=== PATIENT | female | born 1960 | race Two or more races ===

== ENCOUNTER 2020-02-28 06:32 | Outpatient (REF) | payer OTHER, SELFPAY | END 2020-02-28 06:33 | disposition home or self-care (01) | LOC: HO.LAB 06:32 | PROVIDERS: PCP Internal Medicine; Visit Provider Internal Medicine | DX: Z20.828 Contact with and (suspected) exposure to other viral communicable diseases (principal) | CPT/HCPCS: C9803; U0003 ==

== ENCOUNTER 2020-03-09 11:54 | Inpatient (IN) | payer OTHER, SELFPAY ==
[2020-03-09] VITALS (8 sets, daily range): BP systolic 128–153; BP diastolic 75–101; PULSE 57–109; RESP 18–28; TEMP 36.1–37.9; O2SAT 88–97; BMI 36.0; BMI 31.8
--- NOTE | 2020-03-09 12:16 | ECG_ITS ---
Test Reason : WEAKNESS Blood Pressure : / mmHG Vent. Rate : 089 BPM Atrial Rate : 089 BPM P-R Int : 148 ms QRS Dur : 090 ms QT Int : 360 ms P-R-T Axes : 038 -32 074 degrees QTc Int : 438 ms Normal sinus rhythm Left axis deviation Voltage criteria for left ventricular hypertrophy Nonspecific ST and T wave abnormality Abnormal ECG When compared to the previous EKG of 21 jan 2018, Nonspecific ST and T wave abnormality now noted Referred By: Zarina Joyce Electronically Signed By:TESS SARABIA
--- NOTE | 2020-03-09 12:16 | XR_ITS ---
EXAMINATION: XR CHEST CLINICAL INFORMATION: Positive COVID. COMPARISON: Portable chest 01/20/2018. TECHNIQUE: Portable AP upright view of the chest was obtained. FINDINGS: The heart is normal in size. The lungs are somewhat hypoexpanded. There are small focal areas of subsegmental opacity at both lung bases which most likely represent atelectasis but pneumonia is difficult to entirely exclude. The bony thorax is unremarkable. XR/XR chest 1V IMPRESSION: Mild bibasilar subsegmental opacities which may represent atelectasis. Pneumonia appears less likely but cannot be entirely excluded. Consider followup PA and lateral views if clinically indicated.
--- NOTE | 2020-03-09 12:19 | ED.URI ---
HPI - URI/Sore Throat General Chief Complaint: Weakness Stated Complaint: Covid + weakness Time Seen by Provider: 03/09/20 12:05 Source: patient Mode of arrival: ambulatory History of Present Illness HPI Narrative: 59-year-old female with a past medical history of Green's palsy, bipolar, hypertension, migraines, obstructive sleep apnea, seizures, diabetes, presenting to ED complaining of generalized fatigue/weakness, fever T-max 103?, dry cough, SOB, chest discomfort since Wednesday when she tested positive for COVID-19. Also reports decreased p.o. intake. Denies recent travel, sick contacts, LE edema, or OCPs MD elicited complaint: fever and cough Related Data Home Medications Medication Instructions Recorded Confirmed albuterol sulfate 90 mcg/actuation 2 puff INHALATION Q4-6H PRN 01/10/20 03/09/20 aerosol inhaler aspirin 81 mg tablet,delayed 81 mg PO DAILY 01/10/20 03/09/20 release insulin glargine [Basaglar KwikPen 54 unit SUBCUT DAILY 03/09/20 03/09/20 U-100 Insulin] insulin lispro [Admelog SoloStar 4 unit SUBCUT DIRECTED 03/09/20 03/09/20 U-100 Insulin] Previous Rx's Medication Instructions Recorded metformin 500 mg tablet 1,000 mg PO BID #120 tab 01/10/20 amlodipine 5 mg tablet 5 mg PO DAILY #30 tab 02/05/20 carvedilol 6.25 mg tablet 6.25 mg PO BID #60 tab 02/05/20 Allergies Allergy/AdvReac Type Severity Reaction Status Date / Time clonidine [CLONIDINE] Allergy Severe DIZZY,FAINT Verified 01/18/20 09:05 levetiracetam [LEVETIRACETAM] Allergy Severe DIFFICULTY Verified 01/09/20 09:26 BREATHING lisinopril [LISINOPRIL] Allergy Severe SWELLING, Verified 01/18/20 09:05 angioedema atenolol [ATENOLOL] Allergy Intermediate RASH Verified 01/09/20 09:26 dulaglutide [Trulicity] Allergy Unknown Unknown Verified 01/18/20 09:05 Review of Systems Review of Systems: Constitutional: No Weight loss, + Fever, No Chills, No Night Sweats, + Fatigue, + Malaise ENT/Mouth: No Nasal Congestion, No Sinus Pain, No Hoarseness, No sore throat Cardiovascular: + Chest Pain, + SOB, No Dyspnea on Exertion, No Orthopnea, No Edema, No Palpitations Respiratory: + Cough, No Sputum, No Wheezing Gastrointestinal: + Nausea, + Vomiting, No Diarrhea, No Constipation, No Abdominal pain Genitourinary: No irregular bleeding, No Dysuria, No Urinary Frequency, No Hematuria Musculoskeletal: No joint pain, No Myalgias, No Joint Swelling Skin: No Skin Lesions, No rash Neuro: + Weakness, No Numbness, No Paresthesias, No Headache Yes all other systems are reviewed and are negative [facility] Past Medical History Attestation statement: The following information was validated with the patient. Medical History (Updated 03/09/20 @ 13:53 by RADHA Suero) Green's palsy Bipolar disorder Cataracts, bilateral Hypertension Migraine Mild obstructive sleep apnea Obesity (BMI 30-39.9) Seizure disorder Type 2 diabetes mellitus with hyperglycemia Surgical History (Updated 01/09/20 @ 09:27 by JENNIFER Kohler) History of cholecystectomy History of cone biopsy of uterine cervix History of tubal ligation Family History Family History (Updated 01/09/20 @ 09:29 by JENNIFER Kohler) Father Diabetes FH: prostate cancer CVD (cardiovascular disease) Mother Diabetes Hypertension Stroke Sister Breast cancer Social History Social History Alcohol intake: never Smoking Status: Never smoker Use of substances other than those prescribed or required for medical reasons: No Advance Directives: No Advance Directives Information Provided: No Physical Exam Vital Signs: Vital Signs: Last Vital Signs Temp 100.3 F 03/09/20 14:38 Pulse 87 03/09/20 14:38 Resp 26 H 03/09/20 14:38 BP 138/81 03/09/20 14:38 Pulse Ox 95 03/09/20 14:38 Body Mass Index 36.0 Const: General: cooperative and lethargic Orientation/consciousness: patient oriented x3 and lethargic Limitations: no limitations HENMT: Head: Yes normal to inspection Ears: hearing grossly normal bilaterally General nose exam: Normal external nose present Face and sinus: Yes normal facial exam Eyes: General: appearance normal, both eyes and all related structures EOM: EOMs intact bilaterally Neck: Neck: Yes normal visual inspection Resp: Effort & Inspection: normal respiratory effort Auscultation: clear to auscultation bilaterally, no crackles, no rales, no rhonchi and no wheezes Cardio: Rate: regular rate Heart sounds: S1 normal heart sound present and S2 normal heart sound present GI: Inspection: Yes normal to inspection Palpation (GI): Soft to palpation, nontender, no guarding and not rigid Skin: Rashes: no rashes Wounds: no wounds Neuro: General: patient oriented x3 Gait exam (Neuro): Normal gait present Extrem: Other: No LE edema or calf tenderness General: Yes normal to inspection Course Course Course Narrative: -patient noted be sending a 70 ED on RA, 2L nasal cannula applied and satting 94-95% -WBC count 11.2, glucose noted to be 468, with mild anion gap of 21 > likely from dehydration/hyperglycemia > will give 5 units of IV insulin, as want to refrain from excessive IVF due to COVID-19 - ferritin, LDH, CRP, AST/ALT elevated -CXR showing mild bibasilar subsegmental opacities may represent atelectasis > IV azithromycin and dry CT chest ordered -1540-- Chest CT: Interstitial prominence with patchy bilateral airspace opacities, most prominent within the lower lobes. Findings could represent a multifocal pneumonia and may be due to an infectious or inflammatory process. Alternatively, findings can be seen in the setting of fluid overload, however, are thought less likely due to the lack of pleural effusion >IV Ceftriaxone added> plan for admission MDM - URI/Sore Throat MDM Narrative Medical decision making narrative: 59-year-old female with a past medical history of Green's palsy, bipolar, hypertension, migraines, obstructive sleep apnea, seizures, diabetes, presenting to ED complaining of generalized fatigue/weakness, fever T-max 103?, dry cough, SOB, chest discomfort since Wednesday when she tested positive for COVID-19. On exam hypertensive, tachycardic likely from low-grade temp 99.8?, appears tired/lethargic, nontoxic, lungs CTA, satting 97% on RA in no respiratory distress. Concern for COVID 19/viral pneumonia vs dehydration. Low concern for bacterial infection/sepsis. Lower concern for ACS/PE Plan: EKG, labs, UA, CXR, Tylenol, albuterol, reassess Lab Data Result diagrams: 03/09/20 12:24 03/09/20 12:24 Labs: Lab Results 03/09/20 03/09/20 03/09/20 Range/Units 12:24 12:24 12:24 WBC 11.2 H (4.8-10.8) X10*3/uL RBC 5.62 H (4.20-5.50) X10*6/uL Hgb 15.6 (12.0-16.0) g/dl Hct 47.4 H (37-47) % MCV 84.3 (80-98) fL MCH 27.8 (27.0-33.0) pg MCHC 32.9 (31.0-35.0) g/dl RDW 11.7 (11.0-16.0) % Plt Count 213 (160-400) X10*3/uL MPV 11.9 (9.4-12.3) fL Immature Gran % (Auto) 0.4 (0.0-0.4) % Neut % (Auto) 86.5 H (45-73) % Lymph % (Auto) 8.8 L (20-40) % [place] % (Auto) 4.1 (2-11) % Eos % (Auto) 0.0 (0-4) % Baso % (Auto) 0.2 (0-2) % Lymph # (Auto) 1.0 L (1.2-4.9) X10*3/uL [place] # (Auto) 0.5 (0.1-1.2) X10*3/uL Eos # (Auto) 0.0 (0.0-0.4) X10*3/uL Baso # (Auto) 0.0 (0.0-0.2) X10*3/uL Abs Immat Gran (auto) 0.05 H (0.00-0.03) X10*3/uL Absolute Neuts (auto) 9.7 H (2.0-8.3) X10*3/uL Absolute Nucleated RBC 0.000 (0.0-0.012) X10*3/uL Nucleated RBC % (auto) 0.0 (0.0-0.2) /100WBC Hold Blue Top SEE NOTE Sodium 138 (135-145) mmol/L Potassium 4.2 (3.3-5.1) mmol/l Chloride 98 (96-108) mmol/L Carbon Dioxide 23 (22-29) mmol/L Anion Gap 21 H (12-20) BUN 13 (9-16) mg/dL Creatinine 1.26 (0.5-1.4) mg/dL Estim Creat Clear Calc 53.8 Estimated GFR 43 Random Glucose 468 H* (60-115) mg/dL Calcium 8.3 L (8.4-10.2) mg/dL Magnesium 1.5 L (1.6-2.6) mg/dL Ferritin (10-250) ng/mL Total Bilirubin 0.9 (0.0-1.0) mg/dL Direct Bilirubin 0.5 (0.0-0.5) mg/dL AST 88 H (5-31) U/L ALT 41 H (0-31) U/L Alkaline Phosphatase 107 (39-117) U/L Lactate Dehydrogenase (122-220) U/L Troponin I High Sens (<3.5-17.0) ng/L C-Reactive Protein (< or = 0.50) mg/dL B-Natriuretic Peptide (<100) pg/mL Total Protein 7.6 (6.5-8.0) g/dL Albumin 4.0 (3.5-5.0) g/dL Procalcitonin ng/mL Acetone, Qual (Negative) 03/09/20 03/09/20 03/09/20 Range/Units 12:24 12:24 12:24 WBC (4.8-10.8) X10*3/uL RBC (4.20-5.50) X10*6/uL Hgb (12.0-16.0) g/dl Hct (37-47) % MCV (80-98) fL MCH (27.0-33.0) pg MCHC (31.0-35.0) g/dl RDW (11.0-16.0) % Plt Count (160-400) X10*3/uL MPV (9.4-12.3) fL Immature Gran % (Auto) (0.0-0.4) % Neut % (Auto) (45-73) % Lymph % (Auto) (20-40) % [place] % (Auto) (2-11) % Eos % (Auto) (0-4) % Baso % (Auto) (0-2) % Lymph # (Auto) (1.2-4.9) X10*3/uL [place] # (Auto) (0.1-1.2) X10*3/uL Eos # (Auto) (0.0-0.4) X10*3/uL Baso # (Auto) (0.0-0.2) X10*3/uL Abs Immat Gran (auto) (0.00-0.03) X10*3/uL Absolute Neuts (auto) (2.0-8.3) X10*3/uL Absolute Nucleated RBC (0.0-0.012) X10*3/uL Nucleated RBC % (auto) (0.0-0.2) /100WBC Hold Blue Top Sodium (135-145) mmol/L Potassium (3.3-5.1) mmol/l Chloride (96-108) mmol/L Carbon Dioxide (22-29) mmol/L Anion Gap (12-20) BUN (9-16) mg/dL Creatinine (0.5-1.4) mg/dL Estim Creat Clear Calc Estimated GFR Random Glucose (60-115) mg/dL Calcium (8.4-10.2) mg/dL Magnesium (1.6-2.6) mg/dL Ferritin 974 H (10-250) ng/mL Total Bilirubin (0.0-1.0) mg/dL Direct Bilirubin (0.0-0.5) mg/dL AST (5-31) U/L ALT (0-31) U/L Alkaline Phosphatase (39-117) U/L Lactate Dehydrogenase 370 H (122-220) U/L Troponin I High Sens 6.7 (<3.5-17.0) ng/L C-Reactive Protein 14.92 H (< or = 0.50) mg/dL B-Natriuretic Peptide 34 (<100) pg/mL Total Protein (6.5-8.0) g/dL Albumin (3.5-5.0) g/dL Procalcitonin 0.71 ng/mL Acetone, Qual Negative (Negative) Discharge Plan Discharge Clinical Impression: COVID-19 Patient Disposition: Admitted As Inpatient
[2020-03-09] MEDS: 0.9 % Sodium Chloride 500 ML 999 ML IVCONT (12:25)
[2020-03-09] MEDS: ondansetron HCL 4 MG/2 ML VIAL IVPUSH (12:27)
[2020-03-09 12:28] LABS: MANUAL DIFF FLAG NO
[2020-03-09] MEDS: Acetaminophen 325 MG TABLET PO (12:28)
[2020-03-09 12:30] LABS: Basophils Percent Auto 0.2 % (0-2); Hematocrit 47.4 % (37-47); Hemoglobin 15.6 g/dl (12.0-16.0); Imm Gran Abs Auto 0.05 X10*3/uL (0.00-0.03); Imm Gran Pct Auto 0.4 % (0.0-0.4); Lymphocytes Percent Auto 8.8 % (20-40); Mean Corpuscular HGB Conc 32.9 g/dl (31.0-35.0); Mean Corpuscular Hemoglobin 27.8 pg (27.0-33.0); Mean Corpuscular Volume 84.3 fL (80-98); Mean Platelet Volume 11.9 fL (9.4-12.3); Monocytes Absolute Auto 0.5 X10*3/uL (0.1-1.2); Monocytes Percent Auto 4.1 % (2-11); Neutrophils Absolute Auto 9.7 X10*3/uL (2.0-8.3); Neutrophils Percent Auto 86.5 % (45-73); Platelet Count 213 X10*3/uL (160-400); Red Blood Count 5.62 X10*6/uL (4.20-5.50); Red Cell Distribution Width 11.7 % (11.0-16.0); White Blood Count 11.2 X10*3/uL (4.8-10.8)
[2020-03-09] MEDS: Albuterol Sulfate 90 MCG 8 GM INHALER 4 PUFF INHALE (12:40)
[2020-03-09 12:52] LABS: C Reactive Protein 14.92 mg/dL (< or = 0.50); Lactate Dehydrogenase 370 U/L (122-220)
[2020-03-09 12:56] LABS: B Type Natriuretic Peptide 34 pg/mL (<100); Troponin-I High Sensitivity 6.7 ng/L (<3.5-17.0)
[2020-03-09 12:58] LABS: Alanine Aminotransferase 41 U/L (0-31); Alkaline Phosphatase 107 U/L (39-117); Anion Gap 21 (12-20); Aspartate Amino Transferase 88 U/L (5-31); Bilirubin Direct 0.5 mg/dL (0.0-0.5); Bilirubin Total 0.9 mg/dL (0.0-1.0); Blood Urea Nitrogen 13 mg/dL (9-16); Calcium 8.3 mg/dL (8.4-10.2); Carbon Dioxide 23 mmol/L (22-29); Chloride 98 mmol/L (96-108); Creatinine Clr Calc Pharmacy 53.8; Estimated Glomerular Filt Rate 43; Glucose Random 468 mg/dL (60-115); Magnesium 1.5 mg/dL (1.6-2.6); Potassium 4.2 mmol/l (3.3-5.1); Sodium 138 mmol/L (135-145); Total Protein 7.6 g/dL (6.5-8.0)
[2020-03-09 13:12] LABS: Procalcitonin 0.71 ng/mL
[2020-03-09 13:14] LABS: Ferritin 974 ng/mL (10-250)
--- NOTE | 2020-03-09 13:29 | PC.NURSE ---
PT S/F IN BED, RR EVEN UNLABORED, SKIN WPD, AOX3. UPON ARRIVAL PT'S SPO2 94-97% ON RA, AFTER PT USED PUMP INHALER PER EMAR PT NOTED TO HAVE SPO2 88% ON RA, SENSOR PROBE MOVED TO OTHER HAND, SAME READING, PT REPORTED FEELING THAT HER BREATHING WAS IMPROVED, PT PLACED ON 2L O2 NC, SPO2 INCREASED TO 95%, PROVIDER NOTIFIED OF CHANGE.
--- NOTE | 2020-03-09 13:40 | CT_ITS ---
EXAMINATION: CT CHEST WITHOUT CONTRAST CLINICAL INFORMATION: Evaluate for pneumonia. COMPARISON: Most recent chest radiograph done earlier the same day. CT chest dated 06/05/2007. TECHNIQUE: Multidetector volumetric CT imaging of the chest was done. Axial MIP volume rendering provided. Sagittal and coronal reformatted images were obtained. This CT examination was performed using dose optimization techniques as appropriate, variously including the following: *Automated exposure control *Adjustment of mA and/or kV according to patient size (this includes techniques or standardized protocols for targeted exams where dose is matched to indication/reason for exam; i.e. extremities or head) *Use of iterative reconstruction technique DLP: 275 mGy-cm FINDINGS: BEAUTICIAN APPRENTICE: Unremarkable. LUNGS: Interstitial prominence with patchy bilateral airspace opacities, most prominent within the lower lobes. Findings could represent an infectious or inflammatory process. No large, confluent airspace consolidation. No significant pulmonary nodule or mass; however, evaluation for small pulmonary nodules is limited due to respiratory motion. MEDIASTINUM: No cardiomegaly. No pericardial effusion. The thoracic aorta is unremarkable. No significant superior mediastinal or hilar lymphadenopathy. The thyroid is enlarged and heterogeneous. PLEURA: There is no pleural effusion. No pleural mass or thickening. CHEST WALL/AXILLA: No lymphadenopathy. UPPER ABDOMEN: Status post cholecystectomy. OSSEOUS STRUCTURES: Unremarkable. CT/CT chest wo con IMPRESSION: 1. Interstitial prominence with patchy bilateral airspace opacities, most prominent within the lower lobes. Findings could represent a multifocal pneumonia and may be due to an infectious or inflammatory process. Alternatively, findings can be seen in the setting of fluid overload, however, are thought less likely due to the lack of pleural effusion. No large, confluent airspace consolidation or associated cavitation. 2. Enlarged and heterogeneous thyroid. Dedicated thyroid ultrasound could help further evaluate.
[2020-03-09] MEDS: methylPREDNISolone Sod Succ/PF 125 MG/2 ML VIAL IVPUSH (14:01)
[2020-03-09] MEDS: Insulin Regular, Human 100 UNIT/ML 3 ML VIAL IVPUSH (14:01)
[2020-03-09 14:02] LABS: Acetone, serum QL Negative (Negative)
[2020-03-09] MEDS: Magnesium Sulfate/H2O 2 GM/50 ML PIGGYBACK IV (14:02)
[2020-03-09] MEDS: Azithromycin 500 MG in 0.9 % Sodium Chloride 250 ML 125 MG IV (14:03)
--- NOTE | 2020-03-09 14:42 | PC.NURSE ---
PT WAS SITTING UPRIGHT IN BED DRINKING A DIET GINGERALE WHEN SHE WENT INTO A BRIEF EPISODE OF SVT ON TELE MONITOR UPTO HR 170'S, PT DENIES PALPITATIONS OR SX DURING EPISODE, HR QUICKLY DROPPED BACK TO NSR IN 90'S, PRINT OUT MADE OF EPISODE AND GIVEN TO PROVIDER. PT AGAIN TRIALED ON ROOM AIR WHILE QUIETLY RESTING IN BED, SPO2 DROPPED TO 90%, PT PLACED BACK ON 2L O2 NC, SPO2 INCREASED BACK TO 95%.
[2020-03-09 16:00] LABS: Glucose, Whole Blood 382 mg/dL (60-115)
[2020-03-09 16:19] LABS: Troponin-I High Sensitivity 7.5 ng/L (<3.5-17.0)
--- NOTE | 2020-03-09 16:23 | PM.EVENT ---
Event Note Date of Service: 03/09/20 Event Note: the patient was seen and evaluated with RADHA Spence. I agree with her note, assessment and plan with the following. In summary, a 59 years old lady with PMH of type 2 diabetes, HTN and obesity who presents to the hospital complaining of 1 week history of worsening shortness of breath, coughing and lethargy associated with no COVID-19 infection diagnosed on February 27. She reports her symptoms were associated with nausea and vomiting with fever and chills. She denies any chest pain, palpitation, headache or loss of conscious. No urinary symptoms. Acute hypoxic respiratory failure Secondary to COVID-19 infection Start with dexamethasone 6 mg daily Cover with azithromycin for atypical pneumonia O2 supplement as needed, to wean as tolerated Not a candidate for remdesivir with 10 days of symptoms Rest of evaluations by PA note.
--- NOTE | 2020-03-09 16:30 | P.HPHOSP_ITS ---
History of Present Illness Date of Service: 03/09/20 Chief Complaint: shortness of breath This is a 59-year-old female who presents to the emergency department with shortness of breath. She tested positive for coronavirus on February 27. She has been having headache, weakness, nausea, diarrhea. Over the past few days she has reported increasing shortness of breath. She denies any significant coughing. Today she had a fever reportedly of 103 at home for which she took Tylenol. Due to her worsening shortness of breath she came to the emergency department for evaluation. Her oxygen saturation was 88% room air, it improved to the mid-90s on 2L NC. Her inflammatory markers were elevated LDH 370, CRP 14 .92, ferritin 974. Chest CT showed bilateral patchy opacities. For this reason a decision was made to admit her for further management. Review of Systems Review of Systems: Yes all other systems are reviewed and are negative Constitutional: Constitutional: Reports fever(s) and Reports headache(s) ENT: Reports headache(s) Cardiovascular: Cardiovascular: Reports dyspnea and Reports dyspnea on exertion Respiratory: Respiratory: Denies cough, Reports dyspnea and Reports dyspnea on exertion Gastrointestinal: Gastrointestinal: Reports diarrhea and Reports nausea Neurologic: Reports headache(s) [facility] Medical History (Updated 03/09/20 @ 16:36 by RADHA Leon) Asthma Green's palsy Bipolar disorder Cataracts, bilateral GERD (gastroesophageal reflux disease) Hypertension Migraine Mild obstructive sleep apnea Obesity (BMI 30-39.9) Seizure disorder Type 2 diabetes mellitus with hyperglycemia Family History Father Diabetes FH: prostate cancer CVD (cardiovascular disease) Mother Diabetes Hypertension Stroke Sister Breast cancer Surgical History History of cholecystectomy History of cone biopsy of uterine cervix History of tubal ligation Social History Alcohol intake: never Smoking Status: Never smoker Use of substances other than those prescribed or required for medical reasons: No Advance Directives: No Advance Directives Information Provided: No Meds Allergies Allergy/AdvReac Type Severity Reaction Status Date / Time clonidine [CLONIDINE] Allergy Severe DIZZY,FAINT Verified 01/18/20 09:05 levetiracetam [LEVETIRACETAM] Allergy Severe DIFFICULTY Verified 01/09/20 09:26 BREATHING lisinopril [LISINOPRIL] Allergy Severe SWELLING, Verified 01/18/20 09:05 angioedema atenolol [ATENOLOL] Allergy Intermediate RASH Verified 01/09/20 09:26 dulaglutide [Trulicity] Allergy Unknown Unknown Verified 01/18/20 09:05 Home Medications Medication Instructions Recorded Confirmed Type albuterol sulfate 90 mcg/actuation 2 puff INHALATION Q4-6H PRN 01/10/20 03/09/20 History aerosol inhaler aspirin 81 mg tablet,delayed 81 mg PO DAILY 01/10/20 03/09/20 History release insulin glargine [Basaglar KwikPen 54 unit SUBCUT DAILY 03/09/20 03/09/20 History U-100 Insulin] insulin lispro [Admelog SoloStar 4 unit SUBCUT DIRECTED 03/09/20 03/09/20 History U-100 Insulin] Physical Exam Vital Signs and Narrative: Vital Signs: Last Vital Signs Temp 100.3 F 03/09/20 14:38 Pulse 87 03/09/20 14:38 Resp 26 H 03/09/20 14:38 BP 138/81 03/09/20 14:38 Pulse Ox 95 03/09/20 14:38 Body Mass Index 36.0 Const: Nutritional Appearance: well nourished Orientation/consciousness: patient oriented x3 HENMT: Head: Yes normocephalic and Yes atraumatic Eyes: Sclerae: sclerae normal Chest: Chest palpation & inspection: normal inspection of the chest Resp: Effort & Inspection: normal respiratory effort, able to speak in complete sentences and no respiratory distress Cardio: Rate: regular rate Rhythm: regular rhythm GI: Palpation (GI): Soft to palpation and nontender Skin: General skin exam: no rashes or lesions noted Neuro: General: patient oriented x3 Cranial nerves: Yes CN's II-XII intact bilaterally and Yes Bilaterally intact EOM present Extrem: General: Yes normal to inspection Results Labs CBC and Chem 7: 03/09/20 12:24 03/09/20 12:24 Labs: Laboratory Results - last 24 hr 03/09/20 03/09/20 03/09/20 12:24 12:24 12:24 MCV 84.3 MCH 27.8 MCHC 32.9 RDW 11.7 Plt Count 213 MPV 11.9 Immature Gran % (Auto) 0.4 Neut % (Auto) 86.5 H Lymph % (Auto) 8.8 L [place] % (Auto) 4.1 Eos % (Auto) 0.0 Baso % (Auto) 0.2 Lymph # (Auto) 1.0 L [place] # (Auto) 0.5 Eos # (Auto) 0.0 Baso # (Auto) 0.0 Abs Immat Gran (auto) 0.05 H Absolute Neuts (auto) 9.7 H Absolute Nucleated RBC 0.000 Nucleated RBC % (auto) 0.0 Hold Blue Top SEE NOTE Anion Gap 21 H Estim Creat Clear Calc 53.8 Estimated GFR 43 POC Glucose Random Glucose 468 H* Calcium 8.3 L Magnesium 1.5 L Ferritin Total Bilirubin 0.9 Direct Bilirubin 0.5 AST 88 H ALT 41 H Alkaline Phosphatase 107 Lactate Dehydrogenase Troponin I High Sens C-Reactive Protein B-Natriuretic Peptide Total Protein 7.6 Albumin 4.0 Procalcitonin Acetone, Qual 03/09/20 03/09/20 03/09/20 12:24 12:24 12:24 MCV MCH MCHC RDW Plt Count MPV Immature Gran % (Auto) Neut % (Auto) Lymph % (Auto) [place] % (Auto) Eos % (Auto) Baso % (Auto) Lymph # (Auto) [place] # (Auto) Eos # (Auto) Baso # (Auto) Abs Immat Gran (auto) Absolute Neuts (auto) Absolute Nucleated RBC Nucleated RBC % (auto) Hold Blue Top Anion Gap Estim Creat Clear Calc Estimated GFR POC Glucose Random Glucose Calcium Magnesium Ferritin 974 H Total Bilirubin Direct Bilirubin AST ALT Alkaline Phosphatase Lactate Dehydrogenase 370 H Troponin I High Sens 6.7 C-Reactive Protein 14.92 H B-Natriuretic Peptide 34 Total Protein Albumin Procalcitonin 0.71 Acetone, Qual Negative 03/09/20 03/09/20 15:43 15:52 MCV MCH MCHC RDW Plt Count MPV Immature Gran % (Auto) Neut % (Auto) Lymph % (Auto) [place] % (Auto) Eos % (Auto) Baso % (Auto) Lymph # (Auto) [place] # (Auto) Eos # (Auto) Baso # (Auto) Abs Immat Gran (auto) Absolute Neuts (auto) Absolute Nucleated RBC Nucleated RBC % (auto) Hold Blue Top Anion Gap Estim Creat Clear Calc Estimated GFR POC Glucose 382 H* Random Glucose Calcium Magnesium Ferritin Total Bilirubin Direct Bilirubin AST ALT Alkaline Phosphatase Lactate Dehydrogenase Troponin I High Sens 7.5 C-Reactive Protein B-Natriuretic Peptide Total Protein Albumin Procalcitonin Acetone, Qual Imaging Radiologist's Impressions: Impressions Chest X-Ray 03/09/20 12:16 IMPRESSION: Mild bibasilar subsegmental opacities which may represent atelectasis. Pneumonia appears less likely but cannot be entirely excluded. Consider followup PA and lateral views if clinically indicated. Chest CT 03/09/20 13:40 IMPRESSION: 1. Interstitial prominence with patchy bilateral airspace opacities, most prominent within the lower lobes. Findings could represent a multifocal pneumonia and may be due to an infectious or inflammatory process. Alternatively, findings can be seen in the setting of fluid overload, however, are thought less likely due to the lack of pleural effusion. No large, confluent airspace consolidation or associated cavitation. 2. Enlarged and heterogeneous thyroid. Dedicated thyroid ultrasound could help further evaluate. Assessment and Plan (1) Pneumonia due to COVID-19 virus: Status: Acute (2) Acute respiratory failure with hypoxia: Status: Acute This is a 59-year-old female with a history of diabetes, hypertension who recently tested positive for coronavirus who presents to the emergency department worsening shortness of breath Acute respiratory failure with hypoxia Viral sepsis COVID-19 pneumonia -IV Decadron -supplemental oxygen as needed -IV azithromycin to cover for possible atypical component of pneumonia Diabetes -continue home insulin -SSI, POC -hold metformin Hypo magnesemia Replaced in the ED -repeat in a.m. Hypertension -continue Norvasc, carvedilol DVT prophylaxis-Lovenox Code status-full code This case was discussed with Dr. Em
[2020-03-09] MEDS: Ketorolac Tromethamine 15 MG/ML VIAL IVPUSH (17:09)
[2020-03-09] MEDS: cefTRIAXone sodium 1 GM in 0.9 % Sodium Chloride 50 ML IV (17:12)
[2020-03-09 19:08] LABS: Glucose, Whole Blood 542 mg/dL (60-115)
[2020-03-09 19:08] LABS: Glucose, Whole Blood 555 mg/dL (60-115)
[2020-03-09] MEDS: Insulin Lispro 100 UNIT/ML 3 ML VIAL SUBCUT ×3 (19:10→23:04)
[2020-03-09] MEDS: Enoxaparin Sodium 40 MG/0.4 ML SYRINGE SUBCUT (19:28)
--- NOTE | 2020-03-09 19:31 | PC.NURSE ---
pt has blood glucose of 555 on arrival from ER. Notified PA,await new orders. Pt awake, oriented, denies any pain. Will continue to monitor
[2020-03-09 20:53] LABS: Glucose, Whole Blood 513 mg/dL (60-115)
[2020-03-09] MEDS: Insulin Lispro 100 UNIT/ML 3 ML VIAL 10 UNIT SUBCUT (21:52)
[2020-03-09] MEDS: carvediloL 6.25 MG TABLET PO (21:52)
[2020-03-09 23:04] LABS: Glucose, Whole Blood 489 mg/dL (60-115)
--- NOTE | 2020-03-09 23:06 | PC.NURSE ---
pt had repeat blood glucose of 513, was treated with additional dose of insulin. Repeat blood glucose at this time 486, she has been given an additional 10 units. aware of high blood sugars. Will continue to monitor.
[2020-03-09] MEDS: 0.9 % Sodium Chloride Flush 3 ML SYRINGE IVFLUSH (23:55)
[2020-03-10] VITALS (8 sets, daily range): BP systolic 104–156; BP diastolic 72–90; PULSE 53–78; RESP 16–19; TEMP 36.3–36.7; O2SAT 90–93
--- NOTE | 2020-03-10 00:20 | MHC.PIE ---
P.POC 521 I.DR VARELA NOTIFIED.ORDER FOR 5 UNITS REG INSULIN IV GIVEN.ALSO NOTIFIED MD THAT PREVIOUS GAP WAS 21.ORDER FOR STAT BMP GIVEN. E.PT UPDATED,MED GIVEN.LABS DRAWN.
[2020-03-10 00:26] LABS: Glucose, Whole Blood 521 mg/dL (60-115)
[2020-03-10] MEDS: Insulin Regular, Human 100 UNIT/ML 3 ML VIAL IVPUSH ×2 (01:08→02:39)
--- NOTE | 2020-03-10 02:00 | MHC.PIE ---
P.LAB GLUCOSE 494,GAP 17,POC CHECK 425 I.DR VARELA UPDATED.ORDER FOR 5 UNITS REG INSULIN IV GIVEN AND RECHECK POC E.CONT TO MONITOR
[2020-03-10 02:01] LABS: Anion Gap 17 (12-20); Blood Urea Nitrogen 19 mg/dL (9-16); Carbon Dioxide 19 mmol/L (22-29); Chloride 106 mmol/L (96-108); Creatinine Clr Calc Pharmacy 64.8; Estimated Glomerular Filt Rate 58; Glucose Random 494 mg/dL (60-115); Potassium 4.1 mmol/l (3.3-5.1); Sodium 138 mmol/L (135-145)
[2020-03-10 02:06] LABS: Glucose, Whole Blood 425 mg/dL (60-115)
--- NOTE | 2020-03-10 03:50 | MHC.PIE ---
P.POC 385 I.DR VARELA UPDATED.ORDER FOR LISPRO 10 UNITS SC X 1 GIVEN. STATES BLOOD SUGAR SHOULD BE OK TILL AM. E.PT UPDATED,MED GIVEN
[2020-03-10 03:53] LABS: Glucose, Whole Blood 385 mg/dL (60-115)
[2020-03-10] MEDS: Insulin Lispro 100 UNIT/ML 3 ML VIAL 10 UNIT SUBCUT ×2 (04:18→22:35)
[2020-03-10 07:35] LABS: MANUAL DIFF FLAG NO
[2020-03-10 07:38] LABS: Basophils Percent Auto 0.1 % (0-2); Hematocrit 43.6 % (37-47); Hemoglobin 14.4 g/dl (12.0-16.0); Imm Gran Abs Auto 0.12 X10*3/uL (0.00-0.03); Imm Gran Pct Auto 0.9 % (0.0-0.4); Lymphocytes Absolute Auto 1.4 X10*3/uL (1.2-4.9); Lymphocytes Percent Auto 10.7 % (20-40); Mean Corpuscular Hemoglobin 27.9 pg (27.0-33.0); Mean Corpuscular Volume 84.3 fL (80-98); Mean Platelet Volume 11.7 fL (9.4-12.3); Monocytes Absolute Auto 0.4 X10*3/uL (0.1-1.2); Monocytes Percent Auto 3.2 % (2-11); Neutrophils Absolute Auto 11.1 X10*3/uL (2.0-8.3); Neutrophils Percent Auto 85.1 % (45-73); Platelet Count 203 X10*3/uL (160-400); Red Blood Count 5.17 X10*6/uL (4.20-5.50); Red Cell Distribution Width 11.8 % (11.0-16.0)
[2020-03-10 07:41] LABS: Glucose, Whole Blood 382 mg/dL (60-115)
[2020-03-10 08:18] LABS: Anion Gap 16 (12-20); Blood Urea Nitrogen 22 mg/dL (9-16); Calcium 8.2 mg/dL (8.4-10.2); Carbon Dioxide 25 mmol/L (22-29); Chloride 103 mmol/L (96-108); Creatinine Clr Calc Pharmacy 61.6; Estimated Glomerular Filt Rate 55; Magnesium 2.3 mg/dL (1.6-2.6); Potassium 4.4 mmol/l (3.3-5.1); Sodium 140 mmol/L (135-145)
[2020-03-10] MEDS: dexAMETHasone sod phosphate 4 MG/ML VIAL 6 MG IVPUSH (08:33)
[2020-03-10] MEDS: Insulin Glargine,Hum.rec.anlog 100 UNIT/ML 10 ML VIAL 54 UNIT SUBCUT (08:34)
[2020-03-10] MEDS: 0.9 % Sodium Chloride Flush 3 ML SYRINGE IVFLUSH ×2 (08:34→23:39)
[2020-03-10] MEDS: Insulin Lispro 100 UNIT/ML 3 ML VIAL SUBCUT ×5 (08:34→21:38)
[2020-03-10] MEDS: Aspirin Enteric Coated 81 MG TABLET.DR PO (08:35)
[2020-03-10] MEDS: carvediloL 6.25 MG TABLET PO ×2 (08:35→21:36)
[2020-03-10] MEDS: amLODIPine Besylate 5 MG TABLET PO (08:35)
[2020-03-10 08:44] LABS: Glucose Random 410 mg/dL (60-115)
[2020-03-10] MEDS: Acetaminophen 325 MG TABLET 650 MG PO (09:54)
--- NOTE | 2020-03-10 10:02 | MHC.CM.PN ---
Patient is Covid (+); CM spoke with /Jarvis Simon @ [phone]. Patient lives in a house with her and 19 year old Son and she was functionally independent [employer]NA[employer], requiring no DME. The goal for dc is home no services vs new VNA, pending Patient's progress/hospitalization course. CM has initiated and will follow for dc planning. PCP is Dr.Lorenver Daigle.
[2020-03-10 11:40] LABS: Glucose, Whole Blood 479 mg/dL (60-115)
[2020-03-10] MEDS: Insulin Lispro 100 UNIT/ML 3 ML VIAL 8 UNIT SUBCUT (11:54)
[2020-03-10] MEDS: Insulin Glargine,Hum.rec.anlog 100 UNIT/ML 10 ML VIAL 15 UNIT SUBCUT ×2 (11:55→21:37)
[2020-03-10] MEDS: Azithromycin 500 MG in 0.9 % Sodium Chloride 250 ML 125 MG IV (13:18)
--- NOTE | 2020-03-10 14:15 | P.PNIM_ITS ---
Subjective Subjective Date of Service: 03/10/20 Interval History: the patient was seen and evaluated this morning Laying in bed, feels comfortable On room air this morning Denies any fever, chills or shortness of breath significantly elevated blood sugar levels No reported other overnight events. Systemic review: No fever, chills or weakness No chest pain, palpitation Mild shortness of breath with exertion and reporting coughing No abdominal pain, nausea or vomiting No urinary symptoms No any rash or wounds Physical Exam Vital Signs: Vital Signs: Last Vital Signs Temp 97.6 F 03/10/20 11:34 Pulse 78 03/10/20 11:34 Resp 18 03/10/20 11:34 BP 104/72 03/10/20 11:34 Pulse Ox 91 L 03/10/20 11:34 Body Mass Index 31.8 Constitutional : Alert, oriented, not in distress Neck : Normal inspection, Supple Cardiovascular : RRR, S1 S2, no lower extremity edema Respiratory : decreased bilateral air entry, not in respiratory distress Gastrointestinal: soft, lax, Normal bowel sounds, Non tender Skin : Warm/Dry, No rash Neurological : Alert & oriented x3, No focal deficit Objective Data Current Medications Generic Name Dose Route Start Last Admin Trade Name Freq PRN Reason Stop Dose Admin Acetaminophen 650 mg 03/09/20 18:12 03/10/20 09:54 Acetaminophen 325 Mg Tablet PO 650 mg Q6H PRN Administration Pain, Mild (Pain Scale 1-3) Albuterol Sulfate 2 puff 03/09/20 18:12 Albuterol Sulfate 90 Mcg 8 Gm Inhaler INHALE Q4H PRN Dyspnea Amlodipine Besylate 5 mg 03/10/20 09:00 03/10/20 08:35 Amlodipine Besylate 5 Mg Tablet PO 5 mg DAILY [facility] Administration Protocol Aspirin 81 mg 03/10/20 09:00 03/10/20 08:35 Aspirin Enteric Coated 81 Mg Tablet.Dr PO 81 mg DAILY [facility] Administration Carvedilol 6.25 mg 03/09/20 21:00 03/10/20 08:35 Carvedilol 6.25 Mg Tablet PO 6.25 mg BID S[facility] Administration Protocol Dexamethasone Sodium Phosphate 6 mg 03/10/20 09:00 03/10/20 08:33 Dexamethasone Sod Phosphate 4 Mg/Ml Vial IVPUSH 6 mg DAILY [facility] Administration Docusate Sodium 100 mg 12/12/20 18:12 Docusate Sodium 100 Mg Capsule PO DAILY PRN Constipation Enoxaparin Sodium 40 mg 03/09/20 19:00 03/09/20 19:28 Enoxaparin Sodium 40 Mg/0.4 Ml Syringe SUBCUT 40 mg Q24H [facility] Administration Azithromycin 500 mg/ Sodium 250 mls @ 125 mls/hr 03/10/20 14:00 03/10/20 13:18 Chloride IV 125 mls/hr Q24H [facility] Administration Insulin Glargine 65 unit 03/11/20 09:00 Insulin Glargine,Hum.Rec.Anlog 100 Unit/Ml 10 Ml Vial SUBCUT DAILY REPLACED BY [facility] Insulin Human Lispro 0 unit 03/09/20 18:12 03/10/20 11:55 Insulin Lispro 100 Unit/Ml 3 Ml Vial SUBCUT 10 unit QIDACHS REPLACED BY [facility] Administration Protocol Ondansetron HCl 4 mg 03/09/20 18:12 Ondansetron Hcl 4 Mg/2 Ml Vial IVPUSH Q8H PRN Nausea and Vomiting Sodium Chloride 3 ml 03/10/20 00:00 03/10/20 08:34 0.9 % Sodium Chloride Flush 3 Ml Syringe IVFLUSH 3 ml QSHIFT REPLACED BY [facility] Administration Labs CBC & Chem 7: 03/10/20 06:32 03/10/20 06:32 Assessment and Plan (1) Pneumonia due to COVID-19 virus: Status: Acute (2) Acute respiratory failure with hypoxia: Status: Acute (3) Type 2 diabetes mellitus with hyperglycemia: Status: Acute (4) Hypertension: Status: Acute (5) Obesity (BMI 30-39.9): Status: Acute Assessment and Plan: This is a 59-year-old female with a history of diabetes, hypertension who recently tested positive for coronavirus who presents to the emergency department worsening shortness of breath Acute respiratory failure with hypoxia COVID-19 pneumonia continue IV Decadron Supplemental oxygen as needed, to wean down as tolerated continue IV azithromycin to cover for possible atypical pneumonia hyperglycemia secondary to diabetes type 2 Blood sugar in 400-500 Secondary to usage of steroids to give extra dose of Lantus and Humalog Increase Lantus to 65 units continue SSI next Lyme diabetic diet Hypo magnesemia corrected after replacement Hypertension continue Norvasc, carvedilol DVT prophylaxis Lovenox
[2020-03-10 16:57] LABS: Glucose, Whole Blood 413 mg/dL (60-115)
--- NOTE | 2020-03-10 18:23 | PC.NURSE ---
PT ON ROOM AIR MAJORITY OF DAY. C/O HEADACHE PAIN AND FEELING GENERAL WEAKNESS. 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 REPEAT MAGNESIUM UP TO 2.3. ELEVATED BLOOD GLUCOSE POC 382,[id number] AND THEN 413 BEFORE DINNER. HOSPITALIST AWARE. ORDERS RECEIVED FOR ADDITIONAL HUMALOG AND LANTUS. PT DENIES OTHER C/O
[2020-03-10] MEDS: Enoxaparin Sodium 40 MG/0.4 ML SYRINGE SUBCUT (19:53)
[2020-03-10 21:19] LABS: Glucose, Whole Blood 393 mg/dL (60-115)
[2020-03-10 22:19] LABS: Glucose, Whole Blood 425 mg/dL (60-115)
[2020-03-10 22:28] LABS: Glucose Urine UA >=1000 MG/DL (NEG); Leukocyte Esterase Urine NEG (NEG); Nitrite Urine NEG (NEG); Urine Blood NEG (NEG); Urine Ketones NEG (NEG); Urine Protein TRACE MG/DL (NEG-TRACE)
[2020-03-10 22:38] LABS: Appearance Urine CLEAR; Color Urine YELLOW
[2020-03-10 22:50] LABS: RBC Urine 0 /HPF (0)
[2020-03-11] VITALS (8 sets, daily range): BP systolic 127–185; BP diastolic 75–95; PULSE 58–63; RESP 18–19; TEMP 36.1–36.6; O2SAT 92–95; BMI 31.8
[2020-03-11] MEDS: Insulin Lispro 100 UNIT/ML 3 ML VIAL 10 UNIT SUBCUT ×2 (00:45→22:31)
[2020-03-11 00:54] LABS: Glucose, Whole Blood 317 mg/dL (60-115)
[2020-03-11 01:20] LABS: Glucose, Whole Blood 278 mg/dL (60-115)
[2020-03-11] MEDS: Insulin Lispro 100 UNIT/ML 3 ML VIAL SUBCUT ×6 (01:48→21:02)
[2020-03-11 03:25] LABS: Glucose, Whole Blood 216 mg/dL (60-115)
[2020-03-11 05:05] LABS: Glucose, Whole Blood 188 mg/dL (60-115)
[2020-03-11] MEDS: Docusate Sodium 100 MG CAPSULE PO ×2 (05:27→21:41)
--- NOTE | 2020-03-11 06:44 | MHC.PIE ---
p - elevated blood sugar poc's throughout 12 hr shift with communication via [email or web address] to Dr. Rosenthal as follows: i - poc at approx 9pm 393, given scheduled 15 units lantus sc & 10 units lispro sc given with additional 10 units lispro sc one time as ordered. 2215 poc higher 428 with additional 10 units lispro given one time sc per dr. lucas orders.. 0045 poc elev 317 , another 10 units sc given @ [address] lucas order. 0115 poc 278, humalong/lispro 5 units sc given per dr. Germain @ 0145 with repeat poc 216 afterwards, no insulin for now, check poc @ 0500- done - poc 188, with 2 units lispro sc given @ 0527 one time. e - evaluate for adjustment of sliding scale as pt required one-time orders for insulin for elevated poc's
[2020-03-11 06:51] LABS: Anion Gap 12 (12-20); Blood Urea Nitrogen 21 mg/dL (9-16); Calcium 8.3 mg/dL (8.4-10.2); Carbon Dioxide 26 mmol/L (22-29); Chloride 105 mmol/L (96-108); Creatinine Clr Calc Pharmacy 88.1; Estimated Glomerular Filt Rate > 60; Glucose Random 173 mg/dL (60-115); Sodium 139 mmol/L (135-145)
[2020-03-11 07:49] LABS: Glucose, Whole Blood 191 mg/dL (60-115)
[2020-03-11] MEDS: Insulin Glargine,Hum.rec.anlog 100 UNIT/ML 10 ML VIAL 65 UNIT SUBCUT (08:22)
[2020-03-11] MEDS: amLODIPine Besylate 5 MG TABLET PO (08:22)
[2020-03-11] MEDS: Aspirin Enteric Coated 81 MG TABLET.DR PO (08:23)
[2020-03-11] MEDS: 0.9 % Sodium Chloride Flush 3 ML SYRINGE IVFLUSH ×3 (08:23→23:00)
[2020-03-11] MEDS: carvediloL 6.25 MG TABLET PO ×2 (08:23→20:35)
[2020-03-11] MEDS: dexAMETHasone sod phosphate 4 MG/ML VIAL 6 MG IVPUSH (10:21)
[2020-03-11 11:31] LABS: Glucose, Whole Blood 410 mg/dL (60-115)
--- NOTE | 2020-03-11 12:27 | MHC.CM.PN ---
Female 59 DX Covid+ DP home no services vs New [facility]. Patients will provide transportation @ DC. Patient may DC tomorrow. Weaning of Oxygen is in progress. CM will follow.
[2020-03-11] MEDS: Insulin Lispro 100 UNIT/ML 3 ML VIAL 8 UNIT SUBCUT (12:38)
[2020-03-11] MEDS: Insulin Glargine,Hum.rec.anlog 100 UNIT/ML 10 ML VIAL 10 UNIT SUBCUT (12:38)
--- NOTE | 2020-03-11 14:30 | P.PNIM_ITS ---
Subjective Subjective Date of Service: 03/11/20 Interval History: the patient was seen and evaluated this morning Laying in bed, feels comfortable Denies any fever, chills Reports shortness of breath has been improving, took of her oxygen last night No reported other overnight events. Systemic review: No fever, chills or weakness No chest pain, palpitation Mild dyspnea on exertion and shortness of breath or coughing No abdominal pain, nausea or vomiting No urinary symptoms No any rash or wounds Physical Exam Vital Signs: Vital Signs: Last Vital Signs Temp 97.9 F 03/11/20 11:47 Pulse 63 03/11/20 11:47 Resp 18 03/11/20 11:47 BP 127/86 03/11/20 11:47 Pulse Ox 93 03/11/20 11:47 Body Mass Index 31.8 Constitutional : Alert, oriented, not in distress Neck : Normal inspection, Supple Cardiovascular : RRR, S1 S2, no lower extremity edema Respiratory : decreased bilateral air entry, not in respiratory distress, chest wall moving bilaterally, not in respiratory distress Gastrointestinal: soft, lax, Normal bowel sounds, Non tender Skin : Warm/Dry, No rash Neurological : Alert & oriented x3, No focal deficit Objective Data Current Medications Generic Name Dose Route Start Last Admin Trade Name Freq PRN Reason Stop Dose Admin Acetaminophen 650 mg 03/09/20 18:12 03/10/20 09:54 Acetaminophen 325 Mg Tablet PO 650 mg Q6H PRN Administration Pain, Mild (Pain Scale 1-3) Albuterol Sulfate 2 puff 03/09/20 18:12 Albuterol Sulfate 90 Mcg 8 Gm Inhaler INHALE Q4H PRN Dyspnea Amlodipine Besylate 5 mg 03/10/20 09:00 03/11/20 08:22 Amlodipine Besylate 5 Mg Tablet PO 5 mg DAILY [facility] Administration Protocol Aspirin 81 mg 03/10/20 09:00 03/11/20 08:23 Aspirin Enteric Coated 81 Mg Tablet.Dr PO 81 mg DAILY [facility] Administration Carvedilol 6.25 mg 03/09/20 21:00 03/11/20 08:23 Carvedilol 6.25 Mg Tablet PO 6.25 mg BID [facility] Administration Protocol Dexamethasone Sodium Phosphate 6 mg 03/10/20 09:00 03/11/20 10:21 Dexamethasone Sod Phosphate 4 Mg/Ml Vial IVPUSH 6 mg DAILY [facility] Administration Docusate Sodium 100 mg 03/09/20 18:12 03/11/20 05:27 Docusate Sodium 100 Mg Capsule PO 100 mg DAILY PRN Administration Constipation Enoxaparin Sodium 40 mg 03/09/20 19:00 03/10/20 19:53 Enoxaparin Sodium 40 Mg/0.4 Ml Syringe SUBCUT 40 mg Q24H [facility] Administration Azithromycin 500 mg/ Sodium 250 mls @ 125 mls/hr 03/10/20 14:00 03/10/20 15:53 Chloride IV Infused Q24H [facility] Infusion Insulin Glargine 70 unit 03/12/20 09:00 Insulin Glargine,Hum.Rec.Anlog 100 Unit/Ml 10 Ml Vial SUBCUT DAILY [facility] Insulin Glargine 20 unit 03/11/20 21:00 Insulin Glargine,Hum.Rec.Anlog 100 Unit/Ml 10 Ml Vial SUBCUT BEDTIME [facility] Insulin Human Lispro 0 unit 03/09/20 18:12 03/11/20 12:38 Insulin Lispro 100 Unit/Ml 3 Ml Vial SUBCUT 10 unit QIDACHS [facility] Administration Protocol Ondansetron HCl 4 mg 03/09/20 18:12 Ondansetron Hcl 4 Mg/2 Ml Vial IVPUSH Q8H PRN Nausea and Vomiting Sodium Chloride 3 ml 03/10/20 00:00 03/11/20 08:23 0.9 % Sodium Chloride Flush 3 Ml Syringe IVFLUSH 3 ml QSHIFT [facility] Administration Labs CBC & Chem 7: 03/10/20 06:32 03/11/20 05:40 Assessment and Plan (1) Pneumonia due to COVID-19 virus: Status: Acute (2) Acute respiratory failure with hypoxia: Status: Acute (3) Type 2 diabetes mellitus with hyperglycemia: Status: Acute (4) Hypertension: Status: Acute (5) Obesity (BMI 30-39.9): Status: Acute Assessment and Plan: This is a 59-year-old female with a history of diabetes, hypertension who recently tested positive for coronavirus who presents to the emergency department worsening shortness of breath Acute respiratory failure with hypoxia COVID-19 pneumonia Improving Supplemental oxygen as needed, on room air this morning continue IV Decadron continue IV azithromycin to cover for possible atypical pneumonia hyperglycemia secondary to diabetes type 2 Blood sugar elevated this morning 400 Secondary to usage of steroids to give extra dose of Lantus and Humalog Increase Lantus to 70 units in the morning and 20 at bedtime continue SSI diabetic diet Hypo magnesemia corrected after replacement Hypertension continue Norvasc, carvedilol DVT prophylaxis Lovenox
[2020-03-11 16:17] LABS: Glucose, Whole Blood 383 mg/dL (60-115)
[2020-03-11] MEDS: Azithromycin 500 MG in 0.9 % Sodium Chloride 250 ML 125 MG IV (16:40)
[2020-03-11] MEDS: Enoxaparin Sodium 40 MG/0.4 ML SYRINGE SUBCUT (20:34)
[2020-03-11] MEDS: Insulin Glargine,Hum.rec.anlog 100 UNIT/ML 10 ML VIAL 20 UNIT SUBCUT (20:36)
[2020-03-11 20:57] LABS: Glucose, Whole Blood 415 mg/dL (60-115)
[2020-03-11] MEDS: Lactulose 20 GM/30 ML SOLUTION 10 GM PO (21:40)
[2020-03-11 22:14] LABS: Glucose, Whole Blood 339 mg/dL (60-115)
[2020-03-11 23:58] LABS: Glucose, Whole Blood 279 mg/dL (60-115)
[2020-03-12] VITALS: BP 156/96; PULSE 55; RESP 18; TEMP 36.3; O2SAT 94
[2020-03-12 01:14] LABS: Glucose, Whole Blood 215 mg/dL (60-115)
[2020-03-12 03:24] LABS: Glucose, Whole Blood 213 mg/dL (60-115)
[2020-03-12 03:31] VITALS: BP 178/93; PULSE 55; RESP 18; TEMP 36.6; O2SAT 96
[2020-03-12 07:20] LABS: Anion Gap 14 (12-20); Blood Urea Nitrogen 18 mg/dL (9-16); Calcium 8.1 mg/dL (8.4-10.2); Carbon Dioxide 25 mmol/L (22-29); Chloride 103 mmol/L (96-108); Estimated Glomerular Filt Rate > 60; Glucose Random 207 mg/dL (60-115); Sodium 138 mmol/L (135-145)
[2020-03-12 07:39] LABS: Glucose, Whole Blood 214 mg/dL (60-115)
[2020-03-12 07:48] VITALS: BP 189/89; PULSE 54; RESP 20; TEMP 36.6; O2SAT 96
[2020-03-12 08:57] VITALS: BP 189/89
[2020-03-12] MEDS: Aspirin Enteric Coated 81 MG TABLET.DR PO (08:57)
[2020-03-12] MEDS: 0.9 % Sodium Chloride Flush 3 ML SYRINGE IVFLUSH (08:57)
[2020-03-12] MEDS: carvediloL 6.25 MG TABLET PO (08:57)
[2020-03-12] MEDS: amLODIPine Besylate 10 MG TABLET PO (08:57)
[2020-03-12] MEDS: Insulin Glargine,Hum.rec.anlog 100 UNIT/ML 10 ML VIAL 70 UNIT SUBCUT (08:58)
[2020-03-12] MEDS: dexAMETHasone sod phosphate 4 MG/ML VIAL 6 MG IVPUSH (08:58)
[2020-03-12] MEDS: Insulin Lispro 100 UNIT/ML 3 ML VIAL SUBCUT ×2 (09:01→11:59)
[2020-03-12 11:23] LABS: Glucose, Whole Blood 234 mg/dL (60-115)
[2020-03-12 11:58] VITALS: BP 165/92; PULSE 58; RESP 20; TEMP 36.8; O2SAT 92
--- NOTE | 2020-03-12 12:11 | MHC.CM.PN ---
DC today to home with resumption of [employer] plus. Family is providing transportation.
--- NOTE | 2020-03-12 14:42 | PM.DS ---
DS: Providers Provider Date of admission: 03/09/20 16:29 Primary care physician: Bijan Daigle MD DS: Diagnosis Discharge Diagnosis (1) Pneumonia due to COVID-19 virus: Status: Acute (2) Acute respiratory failure with hypoxia: Status: Acute (3) Type 2 diabetes mellitus with hyperglycemia: Status: Acute (4) Hypertension: Status: Acute (5) Obesity (BMI 30-39.9): Status: Acute DS: Medications Discharge Medications Home Medications: Home Medications Medication Instructions Recorded Confirmed albuterol sulfate 90 mcg/actuation 2 puff INHALATION Q4-6H PRN 01/10/20 03/09/20 aerosol inhaler aspirin 81 mg tablet,delayed 81 mg PO DAILY 01/10/20 03/09/20 release Basaglar KwikPen U-100 Insulin 54 unit SUBCUT DAILY 03/09/20 03/09/20 insulin lispro [Admelog SoloStar 4 unit SUBCUT DIRECTED 03/09/20 03/09/20 U-100 Insulin] Previous Rx's Medication Instructions Recorded metformin 500 mg tablet 1,000 mg PO BID #120 tab 01/10/20 amlodipine 5 mg tablet 5 mg PO DAILY #30 tab 02/05/20 carvedilol 6.25 mg tablet 6.25 mg PO BID #60 tab 02/05/20 dexamethasone 6 mg PO DAILY #6 tab 03/12/20 DS: Summary Hospital Course Hospital Course: Admission note HPI This is a 59-year-old female who presents to the emergency department with shortness of breath. She tested positive for coronavirus on February 27. She has been having headache, weakness, nausea, diarrhea. Over the past few days she has reported increasing shortness of breath. She denies any significant coughing. Today she had a fever reportedly of 103 at home for which she took Tylenol. Due to her worsening shortness of breath she came to the emergency department for evaluation. Her oxygen saturation was 88% room air, it improved to the mid-90s on 2L NC. Her inflammatory markers were elevated LDH 370, CRP 14.92, ferritin 974. Chest CT showed bilateral patchy opacities. For this reason a decision was made to admit her for further management. Hospital course The patient was admitted to the hospital for treatment of hypoxic respiratory failure secondary to COVID-19 infection. She was treated with IV Decadron and azithromycin with oxygen supplement. The patient responded well to the treatment and she was weaned off oxygen for the last 24 hours prior to discharge. She was able to ambulate on room air with no reported dyspnea. She was noted to have significantly elevated blood sugar readings secondary to using of steroids. Her basal insulin was increased along with sliding scale insulin with fair response as her blood sugar was controlled over the last 24 hours. She was advised to continue with higher dose of basal insulin as long as she is taking dexamethasone. To continue dexamethasone for 6 more days. Increase basal insulin to 65 units during the day and 15 at bedtime. Continue to check blood sugar readings at home. to follow-up with PCP as scheduled Time Spent with Patient Time attestation: Total time spent providing and/or coordinating discharge services: Physical Exam Vital Signs: Vital Signs: Last Vital Signs Temp 98.2 F 03/12/20 11:58 Pulse 58 03/12/20 11:58 Resp 20 03/12/20 11:58 BP 165/92 H 03/12/20 11:58 Pulse Ox 92 03/12/20 11:58 Body Mass Index 31.8 Constitutional : Alert, oriented, not in distress Neck : Normal inspection, Supple Cardiovascular : RRR, S1 S2, no lower extremity edema Respiratory : Bilateral chest wall movement, not in respiratory distress, not using Gastrointestinal: soft, lax, Normal bowel sounds, Non tender Skin : Warm/Dry, No rash Neurological : Alert & oriented x3, No focal deficit DS: Data Data Completed and Pending Labs on day of discharge: 03/09/20 12:16 ECG 12 lead EKG Stat EKG Documentation DIRECTED Vital Signs, Orthostatic NOW XR chest 1V Stat Albuterol Sulfate [Ventolin] 4 puff INHALE ONCE ONE ondansetron HCL [Zofran] 4 mg IVPUSH ONCE ONE 03/09/20 12:23 Acetaminophen [Tylenol] 325 mg PO ONCE ONE 03/09/20 12:24 Acetone, serum QL Stat B Type Natriuretic Peptide Stat Basic Metabolic Panel Stat C Reactive Protein Stat Complete Blood Count Auto Diff Stat Ferritin Stat Hold Lt Blue - Possible Coag Stat Lactate Dehydrogenase Stat Liver Panel Stat Magnesium Stat Procalcitonin Stat Troponin-I High Sensitivity Stat 03/09/20 12:30 0.9 % Sodium Chloride [Ns] 500 ml IVCONT 999 mls/hr 03/09/20 13:40 CT chest wo con Stat Azithromycin [Zithromax] 500 mg 0.9 % Sodium Chloride [Ns] 250 ml IV ONCE 03/09/20 13:50 Insulin Regular, Human [Humulin R] 5 unit IVPUSH ONCE ONE 03/09/20 13:52 Magnesium Sulfate/H2O 2 gm in 50 ml IV ONCE methylPREDNISolone Sod Succ/PF [SOLU-MedroL] 125 mg IVPUSH ONCE ONE 03/09/20 13:56 Add Laboratory Test Stat Azithromycin [Zithromax] 500 mg IV .STK-MED ONE 03/09/20 15:41 cefTRIAXone sodium [Rocephin] 1 gm 0.9 % Sodium Chloride [Ns] 50 ml IV ONCE 03/09/20 15:43 Troponin-I High Sensitivity Stat 03/09/20 15:44 Ketorolac Tromethamine [Toradol] 15 mg IVPUSH ONCE ONE 03/09/20 15:45 Glucose, blood poc .Now 03/09/20 15:52 Glucose, Whole Blood Routine 03/09/20 16:18 Transfer Order Routine 03/09/20 16:20 Code Status Routine 03/09/20 16:52 cefTRIAXone sodium [Rocephin] 1 gm .ROUTE .STK-MED ONE 03/09/20 18:12 Acetaminophen [Tylenol] 650 mg PO Q6H PRN Albuterol Sulfate [Ventolin] 2 puff INHALE Q4H PRN Docusate Sodium [Colace] 100 mg PO DAILY PRN Insulin Lispro [Humalog] See Protocol SUBCUT QIDACHS ondansetron HCL [Zofran] 4 mg IVPUSH Q8H PRN 03/09/20 18:12 Ambulate QSHIFT WHILE AWAKE Cont. Telemetry w/Vital Sign limit Q4HR Glucose, blood poc QIDACHS IV insert/maintain Q4HR Intake and Output QSHIFTE Pulse Oximetry Q4HR Vital Signs Q4HR 03/09/20 Dinner Diabetic Diet Glucose, Whole Blood Routine Enoxaparin Sodium [Lovenox] 40 mg SUBCUT Q24H 03/09/20 19:03 Glucose, Whole Blood Routine 03/09/20 19:52 Insulin Lispro [Humalog] 2 unit SUBCUT ONCE ONE 03/09/20 20:45 Glucose, Whole Blood Routine 03/09/20 20:50 Insulin Lispro [Humalog] 10 unit SUBCUT ONCE ONE 03/09/20 21:00 carvediloL [Coreg] 6.25 mg PO BID 03/09/20 23:00 Glucose, Whole Blood Routine 03/10/20 00:00 0.9 % Sodium Chloride Flush [NS Flush] 3 ml IVFLUSH QSHIFT 03/10/20 00:22 Glucose, Whole Blood Routine 03/10/20 00:37 Insulin Regular, Human [Humulin R] 5 unit IVPUSH ONCE ONE 03/10/20 01:10 Basic Metabolic Panel Stat 03/10/20 02:03 Glucose, Whole Blood Routine 03/10/20 02:10 Insulin Regular, Human [Humulin R] 5 unit IVPUSH ONCE ONE 03/10/20 03:47 Glucose, Whole Blood Routine 03/10/20 03:54 Insulin Lispro [Humalog] 10 unit SUBCUT ONCE ONE 03/10/20 06:32 Basic Metabolic Panel DAILY@0600 Complete Blood Count Auto Diff DAILY@0600 Magnesium Routine 03/10/20 07:33 Glucose, Whole Blood Routine 03/10/20 09:00 Aspirin Enteric Coated [Ecotrin] 81 mg PO DAILY Insulin Glargine,Hum.rec.anlog [Lantus] 54 unit SUBCUT DAILY Insulin Glargine,Hum.rec.anlog [Lantus] 60 unit SUBCUT DAILY amLODIPine Besylate [Norvasc] 5 mg PO DAILY dexAMETHasone sod phosphate [Decadron] 6 mg IVPUSH DAILY 03/10/20 11:37 Glucose, Whole Blood Routine 03/10/20 11:41 Insulin Glargine,Hum.rec.anlog [Lantus] 15 unit SUBCUT ONCE ONE Insulin Lispro [Humalog] 8 unit SUBCUT ONCE ONE 03/10/20 13:12 Azithromycin [Zithromax] 500 mg IV .STK-MED ONE 03/10/20 14:00 Azithromycin [Zithromax] 500 mg 0.9 % Sodium Chloride [Ns] 250 ml IV Q24H 03/10/20 16:37 Glucose, Whole Blood Routine 03/10/20 16:49 Insulin Lispro [Humalog] 5 unit SUBCUT ONCE ONE 03/10/20 21:00 Insulin Glargine,Hum.rec.anlog [Lantus] 15 unit SUBCUT BEDTIME 03/10/20 21:07 Glucose, Whole Blood Routine 03/10/20 22:13 Glucose, Whole Blood Routine 03/10/20 22:17 Insulin Lispro [Humalog] 10 unit SUBCUT ONCE ONE 03/11/20 00:18 Glucose, Whole Blood Routine 03/11/20 00:24 Insulin Lispro [Humalog] 10 unit SUBCUT ONCE ONE 03/11/20 01:16 Glucose, Whole Blood Routine 03/11/20 01:29 Insulin Lispro [Humalog] 5 unit SUBCUT ONCE ONE 03/11/20 03:20 Glucose, Whole Blood Routine 03/11/20 05:01 Glucose, Whole Blood Routine 03/11/20 05:18 Insulin Lispro [Humalog] 2 unit SUBCUT ONCE ONE 03/11/20 05:40 Basic Metabolic Panel DAILY@0600 03/11/20 07:34 Glucose, Whole Blood Routine 03/11/20 08:32 Insulin Glargine,Hum.rec.anlog [Lantus] 10 unit SUBCUT BEDTIME 03/11/20 09:00 Insulin Glargine,Hum.rec.anlog [Lantus] 65 unit SUBCUT DAILY 03/11/20 09:04 Airborne/Contact Precautions ONGOING 03/11/20 11:21 Glucose, Whole Blood Routine 03/11/20 11:43 Insulin Glargine,Hum.rec.anlog [Lantus] 10 unit SUBCUT ONCE ONE Insulin Lispro [Humalog] 8 unit SUBCUT ONCE ONE 03/11/20 16:07 Glucose, Whole Blood Routine 03/11/20 16:32 Azithromycin [Zithromax] 500 mg IV .STK-MED ONE 03/11/20 20:47 Glucose, Whole Blood Routine 03/11/20 21:00 Insulin Glargine,Hum.rec.anlog [Lantus] 20 unit SUBCUT BEDTIME 03/11/20 21:07 Docusate Sodium [Colace] 100 mg PO ONCE ONE 03/11/20 21:10 Lactulose [Chronulac] 10 gm PO ONCE ONE 03/11/20 22:11 Glucose, Whole Blood Routine 03/11/20 22:20 Insulin Lispro [Humalog] 10 unit SUBCUT ONCE ONE 03/11/20 23:54 Glucose, Whole Blood Routine 03/12/20 01:10 Glucose, Whole Blood Routine 03/12/20 03:20 Glucose, Whole Blood Routine 03/12/20 06:05 Basic Metabolic Panel DAILY@0600 03/12/20 07:32 Glucose, Whole Blood Routine 03/12/20 09:00 Insulin Glargine,Hum.rec.anlog [Lantus] 70 unit SUBCUT DAILY amLODIPine Besylate [Norvasc] 10 mg PO DAILY 03/12/20 11:15 Glucose, Whole Blood Routine Laboratory Last Values WBC 13.0 X10*3/uL (4.8-10.8) H 03/10/20 06:32 RBC 5.17 X10*6/uL (4.20-5.50) 03/10/20 06:32 Hgb 14.4 g/dl (12.0-16.0) 03/10/20 06:32 Hct 43.6 % (37-47) 03/10/20 06:32 MCV 84.3 fL (80-98) 03/10/20 06:32 MCH 27.9 pg (27.0-33.0) 03/10/20 06:32 MCHC 33.0 g/dl (31.0-35.0) 03/10/20 06:32 RDW 11.8 % (11.0-16.0) 03/10/20 06:32 Plt Count 203 X10*3/uL (160-400) 03/10/20 06:32 MPV 11.7 fL (9.4-12.3) 03/10/20 06:32 Immature Gran % (Auto) 0.9 % (0.0-0.4) H 03/10/20 06:32 Neut % (Auto) 85.1 % (45-73) H 03/10/20 06:32 Lymph % (Auto) 10.7 % (20-40) L 03/10/20 06:32 Bates % (Auto) 3.2 % (2-11) 03/10/20 06:32 Eos % (Auto) 0.0 % (0-4) 03/10/20 06:32 Baso % (Auto) 0.1 % (0-2) 03/10/20 06:32 Lymph # (Auto) 1.4 X10*3/uL (1.2-4.9) 03/10/20 06:32 [place] # (Auto) 0.4 X10*3/uL (0.1-1.2) 03/10/20 06:32 Eos # (Auto) 0.0 X10*3/uL (0.0-0.4) 03/10/20 06:32 Baso # (Auto) 0.0 X10*3/uL (0.0-0.2) 03/10/20 06:32 Abs Immat Gran (auto) 0.12 X10*3/uL (0.00-0.03) H 03/10/20 06:32 Absolute Neuts (auto) 11.1 X10*3/uL (2.0-8.3) H 03/10/20 06:32 Absolute Nucleated RBC 0.000 X10*3/uL (0.0-0.012) 03/10/20 06:32 Nucleated RBC % (auto) 0.0 /100WBC (0.0-0.2) 03/10/20 06:32 Hold Blue Top SEE NOTE 03/09/20 12:24 Sodium 138 mmol/L (135-145) 03/12/20 06:05 Potassium 4.0 mmol/l (3.3-5.1) 03/12/20 06:05 Chloride 103 mmol/L (96-108) 03/12/20 06:05 Carbon Dioxide 25 mmol/L (22-29) 03/12/20 06:05 Anion Gap 14 (12-20) 03/12/20 06:05 BUN 18 mg/dL (9-16) H 03/12/20 06:05 Creatinine 0.73 mg/dL (0.5-1.4) 03/12/20 06:05 Estim Creat Clear Calc 87.0 03/12/20 06:05 Estimated GFR > 60 03/12/20 06:05 POC Glucose 234 mg/dL (60-115) H 03/12/20 11:15 Random Glucose 207 mg/dL (60-115) H 03/12/20 06:05 Calcium 8.1 mg/dL (8.4-10.2) L 03/12/20 06:05 Magnesium 2.3 mg/dL (1.6-2.6) 03/10/20 06:32 Ferritin 974 ng/mL (10-250) H 03/09/20 12:24 Total Bilirubin 0.9 mg/dL (0.0-1.0) 03/09/20 12:24 Direct Bilirubin 0.5 mg/dL (0.0-0.5) 03/09/20 12:24 AST 88 U/L (5-31) H 03/09/20 12:24 ALT 41 U/L (0-31) H 03/09/20 12:24 Alkaline Phosphatase 107 U/L (39-117) 03/09/20 12:24 Lactate Dehydrogenase 370 U/L (122-220) H 03/09/20 12:24 Troponin I High Sens 7.5 ng/L (<3.5-17.0) 03/09/20 15:43 C-Reactive Protein 14.92 mg/dL (< or = 0.50) H 03/09/20 12:24 B-Natriuretic Peptide 34 pg/mL (<100) 03/09/20 12:24 Total Protein 7.6 g/dL (6.5-8.0) 03/09/20 12:24 Albumin 4.0 g/dL (3.5-5.0) 03/09/20 12:24 Procalcitonin 0.71 ng/mL 03/09/20 12:24 Urine Color YELLOW 03/10/20 22:12 Urine Appearance CLEAR 03/10/20 22:12 Urine pH 6.0 (5.0-8.0) 03/10/20 22:12 Ur Specific [place] 1.010 (1.005-1.025) 03/10/20 22:12 Urine Protein TRACE MG/DL (NEG-TRACE) 03/10/20 22:12 Urine Glucose (UA) >=1000 MG/DL (NEG) H 03/10/20 22:12 Urine Ketones NEG MG/DL (NEG) 03/10/20 22:12 Urine Blood NEG (NEG) 03/10/20 22:12 Urine Nitrite NEG (NEG) 03/10/20 22:12 Ur Leukocyte Esterase NEG (NEG) 03/10/20 22:12 Urine RBC 0 /HPF (0) 03/10/20 22:12 Urine WBC 1-4 /HPF (0-4) 03/10/20 22:12 Ur Squamous Epith Cells NONE /LPF 03/10/20 22:12 Urine Bacteria NONE /LPF 03/10/20 22:12 Urine Yeast TRACE /HPF 03/10/20 22:12 Acetone, Qual Negative (Negative) 03/09/20 12:24 Discharge Plan Discharge Patient Disposition: Home Health Service Referrals: [facility] [Other] Po,Bijan Tirado MD [Primary Care Provider] - Discharge Medications: New dexamethasone 6 mg tablet 6 mg PO DAILY Qty: 6 RF: 0 Continued metformin 500 mg tablet 1,000 mg PO BID Qty: 120 RF: 11 amlodipine 5 mg tablet 5 mg PO DAILY Qty: 30 RF: 5 carvedilol 6.25 mg tablet 6.25 mg PO BID Qty: 60 RF: 5 insulin lispro [Admelog SoloStar U-100 Insulin] 100 unit/mL insulin pen 4 unit subcut DIRECTED RF: 0 Basaglar KwikPen U-100 Insulin 100 unit/mL (3 mL) insulin pen 54 unit subcut DAILY RF: 0 albuterol sulfate [ProAir HFA] 90 mcg/actuation HFA aerosol inhaler 2 puff inhalation Q4-6H PRN (Reason: Dyspnea) RF: 0 aspirin [Adult Aspirin Regimen] 81 mg tablet,delayed release (DR/EC) 81 mg PO DAILY RF: 0 Discharge Orders: Discharge Order (Routine); Ordered 03/12/20 Ordered By: Lisset Em Diet: advance to usual diet Activity on Discharge: As tolerated Discharge Date/Time: 03/12/20 13:05 Visit Report Forms: Patient Portal Discharge page Care Plan Goals: Read below Health Concerns: Read below Plan of Treatment: You were admitted to the hospital for treatment of COVID-19 infection. You were treated with IV steroids and oxygen supplement. You were weaned off the oxygen over the last day and tolerate ambulation on room. Your blood sugar was noted to be significantly elevated as a result of using dexamethasone. You will continue dexamethasone for the next 6 days. We advise you to increase your long action insulin from 53 to 65 in the morning and to take 15 extra units at bedtime while you are on dexamethasone. Continue to monitor your blood sugar during the treatment up to 4 times a day. Keep yourself isolated for the next 7 days after resolution of all symptoms. Your blood pressure was noted to be elevated likely secondary to steroid and being in hospital. Continue home medication and check your blood pressure readings for the next week and report them to your PCP.
== END 2020-03-12 13:05 | disposition home health service (06) | DRG 137 ==
LOC: HO.ED 13:53 → HO.IMC 17:42
PROVIDERS: Internal Medicine; Physician Assistant; Physician Assistant Medical; Admitting Provider Student in an Organized Health Care Education/Training Program; Emergency Provider Internal Medicine; PCP Internal Medicine; Visit Provider Student in an Organized Health Care Education/Training Program
DX: U07.1 COVID-19 (principal); J96.01 Acute respiratory failure with hypoxia; J12.89 Other viral pneumonia; K21.9 Gastro-esophageal reflux disease without esophagitis; E11.65 Type 2 diabetes mellitus with hyperglycemia; E11.9 Type 2 diabetes mellitus without complications; E66.9 Obesity, unspecified; Z68.31 Body mass index [BMI] 31.0-31.9, adult; E83.42 Hypomagnesemia; Z79.4 Long term (current) use of insulin; Z79.899 Other long term (current) drug therapy
CPT/HCPCS: 36415; 71045; 71250; 80048; 80076; 81001; 82009; 82728; 82947; 83615; 83735; 83880; 84145; 84484; 85025; 86140; 93005; 96365; 96366; 96367; 96375; 99284; 99285; J0456; J0696; J1100; J1650; J1885; J2405; J2930; J3475

== ENCOUNTER 2020-07-02 08:32 | Outpatient (REF) | payer OTHER, SELFPAY ==
--- NOTE | ~2020-07-02 | MM_ITS ---
EXAMINATION: MM SCREENING DIGITAL BREAST TOMOSYNTHESIS, BILATERAL CLINICAL INFORMATION: Screening. Asymptomatic. Family history breast cancer, 3 sisters, maternal aunt. The lifetime risk of breast cancer based on the Tyrer-Cuzick Model is 17%. COMPARISON: Mammography: 08/09/2018, 07/27/2018, 06/26/2017, 06/08/2016; ultrasound left breast 08/09/2018. TECHNIQUE: Digital breast tomosynthesis is performed in both the craniocaudal and mediolateral oblique views along with computer-aided detection (CAD). Synthesized 2D images are generated from the tomosynthesis. FINDINGS: There are scattered areas of fibroglandular density (ACR BI-RADS breast composition Category b). There are no significant masses, abnormal calcifications, or other abnormalities. Parenchymal pattern is similar to prior exams. There is no developing density. No significant changes. MM/MM tomosynthesis screening BI IMPRESSION: No mammographic evidence of malignancy. ASSESSMENT: BI-RADS 1: Negative RECOMMENDATION: Routine annual mammography screening. This patient's information was entered into a reminder system with a target due date for their next mammogram.
== END 2020-07-02 08:33 | disposition home or self-care (01) ==
LOC: HO.MAMMO 08:32
PROVIDERS: PCP Internal Medicine; Visit Provider Internal Medicine
DX: Z12.31 Encounter for screening mammogram for malignant neoplasm of breast (principal)
CPT/HCPCS: 77063; 77067

== ENCOUNTER 2020-08-23 08:05 | Outpatient (REF) | payer OTHER, SELFPAY ==
[2020-08-23 08:37] LABS: MANUAL DIFF FLAG NO
[2020-08-23 08:40] LABS: Basophils Percent Auto 0.5 % (0-2); Eosinophils Absolute Auto 0.2 X10*3/uL (0.0-0.4); Eosinophils Percent Auto 2.7 % (0-4); Hematocrit 46.4 % (37-47); Hemoglobin 15.6 g/dl (12.0-16.0); Imm Gran Abs Auto 0.02 X10*3/uL (0.00-0.03); Imm Gran Pct Auto 0.3 % (0.0-0.4); Lymphocytes Absolute Auto 2.7 X10*3/uL (1.2-4.9); Lymphocytes Percent Auto 42.3 % (20-40); Mean Corpuscular HGB Conc 33.6 g/dl (31.0-35.0); Mean Corpuscular Hemoglobin 27.8 pg (27.0-33.0); Mean Corpuscular Volume 82.7 fL (80-98); Mean Platelet Volume 11.7 fL (9.4-12.3); Monocytes Absolute Auto 0.4 X10*3/uL (0.1-1.2); Monocytes Percent Auto 6.9 % (2-11); Neutrophils Percent Auto 47.3 % (45-73); Platelet Count 222 X10*3/uL (160-400); Red Blood Count 5.61 X10*6/uL (4.20-5.50); Red Cell Distribution Width 11.8 % (11.0-16.0); White Blood Count 6.3 X10*3/uL (4.8-10.8)
[2020-08-23 09:03] LABS: Alanine Aminotransferase 21 U/L (0-31); Alkaline Phosphatase 161 U/L (39-117); Anion Gap 14 (12-20); Aspartate Amino Transferase 18 U/L (5-31); Bilirubin Total 0.9 mg/dL (0.0-1.0); Blood Urea Nitrogen 12 mg/dL (9-16); Calcium 9.4 mg/dL (8.4-10.2); Carbon Dioxide 27 mmol/L (22-29); Chloride 99 mmol/L (96-108); Cholesterol 183 mg/dL; Estimated Glomerular Filt Rate > 60; Glucose Random 351 mg/dL (60-115); HDL Cholesterol 43 mg/dL; LDL Cholesterol Calculated 99 mg/dl; Potassium 4.3 mmol/L (3.3-5.1); Sodium 136 mmol/L (135-145); Total Protein 6.8 g/dL (6.5-8.0); Triglycerides 206 mg/dL
[2020-08-23 09:09] LABS: Creatinine Urine 157.74 mg/dL; Microalbum/Creatinine Ratio Ur 25.3 ug/mg cr
[2020-08-23 09:21] LABS: Free T4 (Free Thyroxine) 0.92 ng/dL (0.71-1.85); Thyroid Stimulating Hormone 1.06 uIU/mL (0.32-4.0); Vitamin D 25-OH Total 22.7 ng/mL (>30)
[2020-08-23 09:52] LABS: Folate 16.7 ng/mL (> or = 4.0); Vitamin B12 518 pg/mL (200-900)
== END 2020-08-23 08:06 | disposition home or self-care (01) ==
LOC: HO.LAB 08:05
PROVIDERS: PCP Internal Medicine; Visit Provider Internal Medicine
DX: E11.65 Type 2 diabetes mellitus with hyperglycemia (principal); E78.00 Pure hypercholesterolemia, unspecified; Z79.4 Long term (current) use of insulin
CPT/HCPCS: 36415; 80053; 80061; 82043; 82306; 82607; 82746; 84439; 84443; 85025

== ENCOUNTER 2021-01-06 08:17 | Emergency (ER) | payer OTHER, SELFPAY ==
[2021-01-06 08:19] VITALS: BP 181/98; PULSE 70; RESP 16; TEMP 35.8; O2SAT 97; BMI 34.9
--- NOTE | 2021-01-06 08:35 | ED_ITS ---
HPI - Eye Problem General Chief complaint: Eye Problems Stated complaint: eye swelling and sore throat Time Seen by Provider: 01/06/21 08:35 Source: patient Mode of arrival: ambulatory Limitations: no limitations History of Present Illness HPI Narrative: patient denies trauma, noticed increased pain and crusty discharge for 2 days chief complaint: eye pain and eye redness Onset (ago): day(s) Onset description: gradual Duration: constant Location: right eye Eye Symptoms: redness and discharge Severity: mild If Pain, Quality: burning Associated symptoms: none Related Data Home Medications Medication Instructions Recorded Confirmed insulin degludec 100 unit/mL (3 52 unit SUBCUT DAILY ml 11/01/20 mL) subcutaneous pen (Tresiba FlexTouch U-100 insulin) insulin lispro 100 unit/mL 14 unit SUBCUT TID ml 11/01/20 subcutaneous pen (Humalog KwikPen (U-100) Insulin) Previous Rx's Medication Instructions Recorded albuterol sulfate 90 mcg/actuation 2 puff INHALATION Q4-6H PRN #8.5 g 03/18/20 aerosol inhaler (ProAir HFA) fluticasone 250 mcg-salmeterol 50 1 inh INHALATION BID #60 ea 03/18/20 mcg/dose blistr powdr for inhalation (Advair Diskus) aspirin 81 mg tablet,delayed 81 mg PO DAILY #90 tab 05/02/20 release (Adult Aspirin Regimen) carvedilol 6.25 mg tablet 6.25 mg PO BID 90 Days #180 tab 05/02/20 metformin 500 mg tablet 1,000 mg PO BID #360 tab 05/02/20 spironolactone 25 mg tablet 25 mg PO DAILY #90 tab 08/01/20 amlodipine 5 mg tablet 5 mg PO DAILY 90 Days #90 tab 10/30/20 gabapentin 100 mg capsule 100 mg PO BEDTIME 30 Days #30 cap 11/01/20 blood sugar diagnostic (FreeStyle #4 11/13/20 Lite Strips) pen needle, diabetic 31 gauge x #4 11/13/2006/11 (BD Ultra-Fine Mini Pen Needle) besifloxacin 0.6 % eye 1 drp OPHTHALMIC (EYE) TID 7 Days 01/06/21 drops,suspension #5 ml Allergies Allergy/AdvReac Type Severity Reaction Status Date / Time clonidine [CLONIDINE] Allergy Severe DIZZY,FAINT Verified 11/01/20 12:53 levetiracetam [LEVETIRACETAM] Allergy Severe DIFFICULTY Verified 11/01/20 12:53 BREATHING lisinopril [LISINOPRIL] Allergy Severe SWELLING, Verified 11/01/20 12:53 angioedema atenolol [ATENOLOL] Allergy Intermediate RASH Verified 11/01/20 12:53 dulaglutide [Trulicity] Allergy Unknown Unknown Verified 11/01/20 12:53 Review of Systems Constitutional: Constitutional: Reports no additional constitutional complaints Eyes: Eyes: Reports no additional eye complaints ENT: Denies dizziness Cardiovascular: Cardiovascular: Reports no additional cardiovascular complaints Respiratory: Respiratory: Reports as per HPI Gastrointestinal: Gastrointestinal: Reports no additional gastrointestinal complaints Genitourinary: Genitourinary: Reports no additional female genitourinary complaints Musculoskeletal: Musculoskeletal: Reports no additional musculoskeletal complaints Integumentary/Breasts: Skin/Breast: Denies rash Neurologic: Reports system reviewed and no additional complaints, except as documented, Denies dizziness and Denies Sensory deficit (Neuro) Psychiatric: Psychiatric: Denies anxiety [facility] Past Medical History Medical History Asthma Green's palsy Bipolar disorder Cataracts, bilateral GERD (gastroesophageal reflux disease) Hypercholesterolemia Hypertension Migraine Mild obstructive sleep apnea Mixed incontinence urge and stress Obesity (BMI 30-39.9) Obstructive sleep apnea Seizure disorder SVT (supraventricular tachycardia) Thyroid nodule Type 2 diabetes mellitus with hyperglycemia Surgical History History of cholecystectomy History of cone biopsy of uterine cervix History of tubal ligation Family History Family History Father Diabetes FH: prostate cancer CVD (cardiovascular disease) Mother Diabetes Hypertension Stroke CVD (cardiovascular disease) Sister Breast cancer Sister Breast cancer Sister Hypertension Daughter In good health Brother No problems noted. Brother No problems noted. Brother No problems noted. Social History Social History Household Members: Other Household Members Other:: grandson Housing: House Do you presently have visiting nurse or other home services: Yes (tele visits) Alcohol intake: never Patient Tobacco Use Status: Never used Tobacco e-Cigarette/Vaping Use: Never Used Second Hand Smoke Exposure: No Advance Directives: No Advance Directives Information Provided: No service: No Current occupational status: disabled Physical Exam Vital Signs: Vital Signs: Last Vital Signs Temp 96.5 F L 01/06/21 08:19 Pulse 70 01/06/21 08:19 Resp 16 01/06/21 08:19 BP 181/98 H 01/06/21 08:19 Pulse Ox 97 01/06/21 08:19 Body Mass Index 34.9 Const: General: healthy appearing Nutritional Appearance: average body habitus Orientation/consciousness: oriented to person and patient oriented x3 Limitations: no limitations HENMT: Head: Yes normal to inspection Ears: external ears normal General nose exam: Normal external nose present Mouth: Normal oral and palatal mucosa present and oropharynx normal Throat: Yes posterior oropharynx normal Eyes: Other: right eye injected with beefy looking conjunctiva Neck: Other: supple Neck: Yes normal visual inspection Chest: Chest palpation & inspection: normal inspection of the chest Resp: Auscultation: clear to auscultation bilaterally Cardio: Jugular venous distension: no JVD Rate: regular rate Rhythm: regular rhythm Heart sounds: S1 normal heart sound present and S2 normal heart sound present GI: Inspection: Yes normal to inspection Palpation (GI): Soft to palpation, nontender and No hepatosplenomegaly present Auscultation: normal bowel sounds : General: Yes no CVA tenderness Back/Spine/Pelvis: Back: no CVA tenderness Skin: General skin exam: no rashes or lesions noted Neuro: General: oriented to person and patient oriented x3 Cranial nerves: Yes CN's II-XII intact bilaterally Motor exam (neuro): 5/5 motor strength present throughout Sensory Exam: No Sensory deficit (Neuro) Extrem: General: Yes normal to inspection Psych: Appearance: grossly normal Discharge Plan Discharge Clinical Impression: Conjunctivitis Qualifiers: Conjunctivitis type: acute Acute conjunctivitis type: bacterial Laterality: right Qualified Code(s): H10.31 - Unspecified acute conjunctivitis, right eye Patient Disposition: Home, Self-Care Instructions: Conjunctivitis (ED) Additional Instructions: Return with new or worsening symptoms Prescriptions: New besifloxacin 0.6 % drops,suspension 1 drp ophthalmic (eye) TID 7 Days Qty: 5 RF: 0 No Action albuterol sulfate [ProAir HFA] 90 mcg/actuation HFA aerosol inhaler 2 puff inhalation Q4-6H PRN (Reason: Dyspnea) Qty: 8.5 RF: 0 fluticasone propion-salmeterol [Advair Diskus] 250-50 mcg/dose blister with device 1 inh inhalation BID Qty: 60 RF: 5 amlodipine 5 mg tablet 5 mg PO DAILY 90 Days Qty: 90 RF: 2 (DME) FreeStyle Lite Strips Strip See Rx Instructions .ROUTE .MEDSUPPLY Qty: 4 RF: 3 (DME) pen needle, diabetic [BD Ultra-Fine Mini Pen Needle] 31 gauge x 3/16 needle See Rx Instructions .Route Qty: 4 RF: 3 aspirin [Adult Aspirin Regimen] 81 mg tablet,delayed release (DR/EC) 81 mg PO DAILY Qty: 90 RF: 3 carvedilol 6.25 mg tablet 6.25 mg PO BID 90 Days Qty: 180 RF: 3 metformin 500 mg tablet 1,000 mg PO BID Qty: 360 RF: 2 spironolactone 25 mg tablet 25 mg PO DAILY Qty: 90 RF: 3 Tresiba FlexTouch U-100 100 unit/mL (3 mL) insulin pen 52 unit subcut DAILY RF: 0 insulin lispro [Humalog KwikPen Insulin] 100 unit/mL insulin pen 14 unit subcut TID RF: 0 gabapentin 100 mg capsule 100 mg PO BEDTIME 30 Days Qty: 30 RF: 3 Referrals: Po,Bijan Tirado MD [Primary Care Provider] - 2 days
[2021-01-06] MEDS: Erythromycin Base 0.5% Oph Oin 1 GM TUBE 1 CM EYE-RIGHT (08:57)
[2021-01-06] MEDS: Tetracaine HCl/PF 0.5% Oph Sol 4 ML DROPS 3 DROP EYE-RIGHT (08:57)
[2021-01-06] MEDS: Fluorescein Sodium STRIP 1 STRIP EYE-RIGHT (08:57)
== END 2021-01-06 09:13 | disposition home or self-care (01) ==
PROVIDERS: Emergency Provider Emergency Medicine; PCP Internal Medicine
DX: H10.31 Unspecified acute conjunctivitis, right eye (principal); I10 Essential (primary) hypertension; E11.9 Type 2 diabetes mellitus without complications; J45.909 Unspecified asthma, uncomplicated; Z79.899 Other long term (current) drug therapy
CPT/HCPCS: 99283

== ENCOUNTER 2021-01-21 12:59 | Outpatient (REF) | payer OTHER, SELFPAY ==
[2021-01-22 13:19] LABS: BV Int Neg Control Negative (Negative); BV Int Pos Control Positive (Positive)
[2021-01-22 13:57] LABS: CT PCR NOT DETECTED (Not Detect.); NG PCR NOT DETECTED (Not Detect.)
[2021-01-24 15:01] LABS: HPV mRNA E6/E7 rflx Not Detected (Not Detected)
== END 2021-01-21 13:00 | disposition home or self-care (01) ==
LOC: HO.LAB 12:59
PROVIDERS: PCP Internal Medicine; Visit Provider Obstetrics & Gynecology
DX: Z01.419 Encounter for gynecological examination (general) (routine) without abnormal findings (principal); N39.0 Urinary tract infection, site not specified; B37.3 Candidiasis of vulva and vagina
CPT/HCPCS: 87086; 87088; 87186; 87480; 87491; 87510; 87591; 87624; 87660; 88142

== ENCOUNTER → 2021-02-06 11:02 | Outpatient (BNVA) | payer OTHER, SELFPAY | PROVIDERS: PCP Internal Medicine; Visit Provider Obstetrics & Gynecology | DX: N39.0 Urinary tract infection, site not specified (principal); R31.29 Other microscopic hematuria | CPT/HCPCS: 99212 ==

== ENCOUNTER → 2021-04-25 13:23 | Outpatient (BNVA) | payer OTHER, SELFPAY | PROVIDERS: PCP Internal Medicine; Referring Provider Internal Medicine; Visit Provider Nurse Practitioner | DX: Z01.818 Encounter for other preprocedural examination (principal); Z80.0 Family history of malignant neoplasm of digestive organs; I10 Essential (primary) hypertension; K64.9 Unspecified hemorrhoids; F41.9 Anxiety disorder, unspecified; G40.909 Epilepsy, unspecified, not intractable, without status epilepticus | CPT/HCPCS: 99202 ==

== ENCOUNTER 2021-09-04 11:16 | Outpatient (REF) | payer OTHER, SELFPAY | END 2021-09-04 11:17 | disposition home or self-care (01) | LOC: HO.LAB 11:16 | PROVIDERS: PCP Internal Medicine; Visit Provider Obstetrics & Gynecology | DX: L02.215 Cutaneous abscess of perineum (principal) | CPT/HCPCS: 10060; 87071; 87147; 87205; 99212 ==

== ENCOUNTER → 2021-09-24 10:18 | Outpatient (BNVA) | payer OTHER, SELFPAY | PROVIDERS: PCP Internal Medicine; Visit Provider Obstetrics & Gynecology | DX: Z87.2 Personal history of diseases of the skin and subcutaneous tissue (principal); Z98.890 Other specified postprocedural states | CPT/HCPCS: 99212 ==

== ENCOUNTER 2021-10-09 08:33 | Outpatient (REF) | payer OTHER, SELFPAY ==
[2021-10-09 08:48] LABS: MANUAL DIFF FLAG NO
[2021-10-09 09:08] LABS: Basophils Percent Auto 0.5 % (0-2); Eosinophils Absolute Auto 0.2 X10*3/uL (0.0-0.4); Eosinophils Percent Auto 3.5 % (0-4); Hematocrit 44.2 % (37.0-47.0); Hemoglobin 15.5 g/dl (12.0-16.0); Imm Gran Abs Auto 0.02 X10*3/uL (0.00-0.03); Imm Gran Pct Auto 0.3 % (0.0-0.4); Lymphocytes Absolute Auto 2.4 X10*3/uL (1.2-4.9); Mean Corpuscular HGB Conc 35.1 g/dl (31.0-35.0); Mean Corpuscular Hemoglobin 28.8 pg (27.0-33.0); Mean Corpuscular Volume 82.2 fL (80.0-98.0); Mean Platelet Volume 11.7 fL (9.4-12.3); Monocytes Absolute Auto 0.4 X10*3/uL (0.1-1.2); Monocytes Percent Auto 6.4 % (2-11); Neutrophils Absolute Auto 2.8 x10*3/uL (2.0-8.3); Neutrophils Percent Auto 48.3 % (45-73); Platelet Count 214 X10*3/uL (160-400); Red Blood Count 5.38 X10*6/uL (4.20-5.50); Red Cell Distribution Width 11.9 % (11.0-16.0); White Blood Count 5.8 X10*3/uL (4.8-10.8)
[2021-10-09 09:36] LABS: Estimated Average Glucose 352 mg/dL; Hemoglobin A1c % 13.9 %
[2021-10-09 10:00] LABS: Free T4 (Free Thyroxine) 0.93 ng/dL (0.71-1.85); Thyroid Stimulating Hormone 1.44 uIU/mL (0.32-4.0); Vitamin D 25-OH Total 24.5 ng/mL (>30)
[2021-10-09 10:04] LABS: Vitamin B12 661 pg/mL (200-900)
[2021-10-09 10:58] LABS: Creatinine Urine 79.87 mg/dL; Microalbum/Creatinine Ratio Ur 140.2 ug/mg cr
[2021-10-09 11:24] LABS: Alanine Aminotransferase 21 U/L (0-31); Alkaline Phosphatase 169 U/L (39-117); Anion Gap 13 (12-20); Aspartate Amino Transferase 15 U/L (5-31); Bilirubin Total 1.1 mg/dL (0.0-1.0); Blood Urea Nitrogen 10 mg/dL (9-16); Carbon Dioxide 26 mmol/L (22-29); Chloride 99 mmol/L (96-108); Cholesterol 180 mg/dL; Estimated Glomerular Filt Rate > 60; Glucose Random 438 mg/dL (60-115); HDL Cholesterol 38 mg/dL; LDL Cholesterol Calculated 107 mg/dl; Potassium 4.4 mmol/L (3.3-5.1); Sodium 134 mmol/L (135-145); Total Protein 6.6 g/dL (6.5-8.0); Triglycerides 175 mg/dL
== END 2021-10-09 08:34 | disposition home or self-care (01) ==
LOC: HO.LAB 08:33
PROVIDERS: PCP Internal Medicine; Visit Provider Internal Medicine
DX: E11.65 Type 2 diabetes mellitus with hyperglycemia (principal); I10 Essential (primary) hypertension; E78.00 Pure hypercholesterolemia, unspecified; Z79.4 Long term (current) use of insulin
CPT/HCPCS: 36415; 80053; 80061; 82043; 82306; 82607; 82746; 83036; 84439; 84443; 85025

== ENCOUNTER 2021-10-12 08:27 | Emergency (ER) | payer OTHER, SELFPAY ==
[2021-10-12 09:06] VITALS: BP 183/100; PULSE 98; RESP 17; TEMP 36.6; O2SAT 99; BMI 36.6
== END 2021-10-12 14:35 | disposition left against medical advice (07) ==
PROVIDERS: Emergency Provider Emergency Medicine; PCP Internal Medicine
DX: M54.2 Cervicalgia (principal); R51.9 Headache, unspecified
CPT/HCPCS: 99281

== ENCOUNTER 2021-10-14 12:56 | Emergency (ER) | payer OTHER, SELFPAY ==
--- NOTE | ~2021-10-14 | CT_ITS ---
EXAMINATION: CT HEAD WITHOUT CONTRAST (STROKE PROTOCOL) CLINICAL INFORMATION: Stroke protocol. Right-sided facial numbness, pain to right jaw. COMPARISON: CT had noncontrast 02/02/2014. TECHNIQUE: Contiguous axial imaging was performed from the skull base to vertex without intravenous administration of contrast. This CT examination was performed using dose optimization techniques as appropriate, variously including the following: *Automated exposure control *Adjustment of mA and/or kV according to patient size (this includes techniques or standardized protocols for targeted exams where dose is matched to indication/reason for exam; i.e. extremities or head) *Use of iterative reconstruction technique DLP: 691 mGy-cm FINDINGS: There is no intracranial hemorrhage, hematoma, or extra-axial fluid collection. The ventricles are normal in size. There is no hydrocephalus, edema, or mass effect. There are some scattered periventricular white matter hypodensities adjacent to the frontal horns likely small vessel ischemic change. The alexander-white matter differentiation is preserved. No territorial infarct. No mass lesion demonstrated. The calvarium appears intact. There is no pneumocephalus or orbital emphysema. The visualized sinuses and middle ears and mastoid air cells show no significant mucosal thickening. There are no air-fluid levels. Results called to Dr. Leblanc in the emergency department at [address]/CT head for stroke IMPRESSION: -No hemorrhage, hydrocephalus, or mass effect. -No territorial infarct. -Periventricular white matter gliosis adjacent to frontal horns.
[2021-10-14 13:02] VITALS: BP 201/109; PULSE 77; RESP 18; TEMP 36.1; O2SAT 97; BMI 32.5
--- NOTE | 2021-10-14 13:13 | ECG_ITS ---
Test Reason : weakness Blood Pressure : / mmHG Vent. Rate : 071 BPM Atrial Rate : 071 BPM P-R Int : 156 ms QRS Dur : 102 ms QT Int : 402 ms P-R-T Axes : 028 -37 012 degrees QTc Int : 436 ms Normal sinus rhythm Left axis deviation Left ventricular hypertrophy ( R in aVL , [place] product , Romhilt-Guzman ) Abnormal ECG When compared with ECG of 09-MAR-2020 14:47, Nonspecific T wave abnormality no longer evident in Lateral leads Referred By: Jayjay Leblanc Electronically Signed By:Isidoro Gutierrez
--- NOTE | 2021-10-14 13:16 | ED.NEUROSD ---
HPI - Neuro Symptoms/Deficit General Chief Complaint: Stroke Stated Complaint: Difficulty speaking/Jaw pain Time Seen by Provider: 10/14/21 13:13 Related Data Home Medications Medication Instructions Recorded Confirmed insulin lispro 100 unit/mL 18 unit subcut TID 02/05/21 06/30/21 subcutaneous pen (Humalog KwikPen (U-100) Insulin) insulin degludec 100 unit/mL (3 35 unit subcut BID 03/31/21 06/30/21 mL) subcutaneous pen (Tresiba FlexTouch U-100 insulin) Previous Rx's Medication Instructions Recorded albuterol sulfate 90 mcg/actuation 2 puff inhalation Q4-6H PRN 03/18/20 aerosol inhaler (ProAir HFA) Dyspnea #8.5 grams fluticasone 250 mcg-salmeterol 50 1 inh inhalation BID #60 ea 03/18/20 mcg/dose blistr powdr for inhalation (Advair Diskus) gabapentin 100 mg capsule 100 mg PO BEDTIME 30 days #30 caps 11/01/20 blood sugar diagnostic (FreeStyle ##4 11/13/20 Lite Strips) pen needle, diabetic 31 gauge x ##4 11/13/2006/11 (BD Ultra-Fine Mini Pen Needle) besifloxacin 0.6 % eye 1 drp ophthalmic (eye) TID 7 days 01/06/21 drops,suspension #5 mL terconazole 0.8 % vaginal cream 1 appful vaginal BEDTIME 3 days 01/21/21 #20 grams metformin 500 mg tablet 1,000 mg PO BID #360 tabs 02/04/21 chlorhexidine gluconate 4 % 1 appl topical ONCE 15 days #473 mL 03/13/21 topical liquid lorazepam 0.5 mg tablet (Ativan) 0.5 mg PO ONCE anxiety #1 tab 04/25/21 peg 3350-electrolytes 236 240 ml PO Q10M 1 day #4,000 mL 04/25/21 gram-22.74 gram-6.74 gram-5.86 gram solution (Golytely) Proctosol HC 2.5 % topical cream 1 appl RI BID hemorrhoids 30 days 04/29/21 perineal applicator #28.35 grams (hydrocortisone) aspirin 81 mg tablet,delayed 81 mg PO DAILY #90 tabs 04/30/21 release (Adult Aspirin Regimen) bupropion HCl 150 mg tablet,12 hr 150 mg PO BEDTIME #90 tabs 05/15/21 sustained-release (Wellbutrin SR) carvedilol 12.5 mg tablet 12.5 mg PO BID 30 days #60 tabs 06/30/21 amlodipine 5 mg tablet 5 mg PO DAILY 90 days #90 tabs 07/30/21 amoxicillin 875 mg-potassium 1 tab PO BID 7 days #14 tabs 09/04/21 clavulanate 125 mg tablet sulfamethoxazole 800 1 tab PO BID 7 days #14 tabs 09/04/21 mg-trimethoprim 160 mg tablet (Bactrim DS) gabapentin 100 mg capsule 100 mg PO DAILY trigeminal 10/14/21 neuralgia #60 caps Allergies Allergy/AdvReac Type Severity Reaction Status Date / Time clonidine [CLONIDINE] Allergy Severe DIZZY,FAINT Verified 09/24/21 11:05 levetiracetam [LEVETIRACETAM] Allergy Severe DIFFICULTY Verified 09/24/21 11:05 BREATHING lisinopril [LISINOPRIL] Allergy Severe SWELLING, Verified 09/24/21 11:05 angioedema atenolol [ATENOLOL] Allergy Intermediate RASH Verified 09/24/21 11:05 dulaglutide [Trulicity] Allergy Unknown Unknown Verified 09/24/21 11:05 [facility] Past Medical History Medical History Green's palsy Cataracts, bilateral GERD (gastroesophageal reflux disease) Migraine Mild obstructive sleep apnea Mixed incontinence urge and stress Seizure disorder SVT (supraventricular tachycardia) Thyroid nodule Surgical History History of cholecystectomy History of cone biopsy of uterine cervix History of tubal ligation Family History Family History Father Diabetes FH: prostate cancer CVD (cardiovascular disease) Mother Diabetes Hypertension Stroke CVD (cardiovascular disease) Sister Breast cancer Sister Breast cancer Sister Hypertension Daughter In good health Brother No problems noted. Brother No problems noted. Brother No problems noted. Social History Social History Household Members: Other Household Members Other:: grandson Housing: House Do you presently have visiting nurse or other home services: Yes (tele visits) Alcohol intake: never Patient Tobacco Use Status: Never used Tobacco e-Cigarette/Vaping Use: Never Used Second Hand Smoke Exposure: No Advance Directives: Yes Advance Directives Information Provided: Yes Advance Directives on File: No service: No Current occupational status: disabled Cognitive needs: No Hearing needs: No Vision needs: Yes Physical Exam Vital Signs: Vital Signs: Last Vital Signs Temp 97 F 10/14/21 13:02 Pulse 77 10/14/21 13:02 Resp 18 10/14/21 13:02 BP 201/109 H 10/14/21 13:02 Pulse Ox 97 10/14/21 13:02 O2 Del Method 10/14/21 13:02 BMI result Body Mass Index 32.5 Neurological exam: CN II- XII tested. Patient is alert and oriented to person place and time. Patient has no dysphagia or dysarthia, denies good vision in all four vision gold no nystagmus on exam, good strength to upper and lower extremities with normal reflexes to brachioradialis, wrist, patella and achilles. Patient does have left-sided facial droop which is old she has had for years her symptoms today are all related to the right-sided feeling numb though enough to be reproduced and her main complaint is painalong the trigeminal nerve Negative romberg, good finger to nose and heel to wisdom. General: Well-appearing well-nourished in no signs of distress HEENT: Normocephalic atraumatic Neck: No signs of JVD, no masses no tenderness or lymphadenopathy Cardiovascular: Regular rate and rhythm Respiratory: Clear to auscultation bilaterally Abdomen: Soft nontender no masses Extremities: Normal pedal pulses no signs of edema Skin: Dry warm no rashes Back: No tenderness full ROM MDM - Neuro Symptoms/Deficit MDM Narrative Medical decision making narrative: Patient has right-sided numbness though I am unable to reproduce it she has normal movement of her mouth that she does have baseline Green's palsy on the left no have obvious new symptoms her initial sclera is to be due to her chronic conditions she is not a tPA candidate she is also not a candidate she woke up with symptoms this morning the pain is right along the trigeminal nerve I will speak with Neurology if there is sufficient workup to see if their is any association with vaccines. A quick review of the literature shows trigeminal Neuralgia is the most common complication of vaccination. 1334 Patient has a negative CT I will discuss the case with Neurology I do feel this is trigeminal Neuralgia and wanted to verify my suspicions. Look for help for pain control. [address] Zamora who refused to see the patient but also stating he had to see the patient to diagnose trigeminal Neuralgia. He thinks the patient could go home and be started on gabapentin until the patient could be seen. I spoke at length with the patient about options including admission. She felt comfortable going home. I will discharge home with gabapentin. Lab Data Labs: Lab Results 10/14/21 Range/Units 13:18 POC Glucose 405 H* (60-115) mg/dL ECG Data Attestation: I personally reviewed and interpreted this ECG as follows: ECG interpretation date: 10/14/21 ECG interpretation time: 13:16 Prior ECG tracings: not available for review Interpretation: Rate 71 normal sinus rhythm normal intervals no signs of ischemia NIH Stroke Scale Internal: Initial- Upon Arrival Level of Consciousness: Alert Level of Consciousness Questions: Answers both questions correctly Level of Consciousness Commands: Performs both tasks correctly Best Gaze: Normal Visual: No visual loss Facial Palsy: Partial paralysis Motor Arm (Right): No drift Motor Arm (Left): No drift Motor Leg (Right): No drift Motor Leg (Left): No drift Limb Ataxia: Absent Sensory: Normal Best Language: No aphasia Dysarthia: Normal Extinction and Inattention: No abnormality Score: 2 Critical Care Time Critical Care Time Critical Care Time: Yes Total Critical Care Time: 44 Attestation: Patient seen immediately for stroke workup 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 Lopez as well as talk to the patient times, trigeminal neuralgia appropriate treatment Discharge Plan Discharge Clinical Impression: Trigeminal neuralgia of right side of face Patient Disposition: Home, Self-Care Instructions: Trigeminal Neuralgia (ED) Additional Instructions: Please call to follow up with Neurology. If you have worsening pain after gabapentin or any other concerns please return to the ED. Prescriptions: New gabapentin 100 mg capsule 100 mg PO DAILY Qty: 60 0RF No Action albuterol sulfate [ProAir HFA] 90 mcg/actuation HFA aerosol inhaler 2 puff inhalation Q4-6H PRN (Reason: Dyspnea) Qty: 8.5 0RF fluticasone propion-salmeterol [Advair Diskus] 250-50 mcg/dose blister with device 1 inh inhalation BID Qty: 60 5RF (DME) FreeStyle Lite Strips Strip See Rx Instructions .ROUTE .MEDSUPPLY Qty: 4 3RF Rx Instructions: As directed check the BS 4 x a day (DME) pen needle, diabetic [BD Ultra-Fine Mini Pen Needle] 31 gauge x 3/16 needle See Rx Instructions .Route Qty: 4 3RF Rx Instructions: As directed, Inject 4 x a day with Insulin metformin 500 mg tablet 1,000 mg PO BID Qty: 360 2RF hydrocortisone [Proctosol HC] 2.5 % cream with perineal applicator 1 appl RI BID 30 Days Qty: 28.35 3RF aspirin [Adult Aspirin Regimen] 81 mg tablet,delayed release (DR/EC) 81 mg PO DAILY Qty: 90 3RF bupropion HCl [Wellbutrin SR] 150 mg tablet sustained-release 12 hr 150 mg PO BEDTIME Qty: 90 2RF amlodipine 5 mg tablet 5 mg PO DAILY 90 Days Qty: 90 2RF besifloxacin 0.6 % drops,suspension 1 drp ophthalmic (eye) TID 7 Days Qty: 5 0RF Rx Instructions: administer doses at least 4 hours apart gabapentin 100 mg capsule 100 mg PO BEDTIME 30 Days Qty: 30 3RF insulin lispro [Humalog KwikPen Insulin] 100 unit/mL insulin pen 18 unit subcut TID Tresiba FlexTouch U-100 100 unit/mL (3 mL) insulin pen 35 unit subcut BID Rx Instructions: Or as directed chlorhexidine gluconate 4 % liquid 1 appl topical ONCE 15 Days Qty: 473 0RF carvedilol 12.5 mg tablet 12.5 mg PO BID 30 Days Qty: 60 3RF terconazole 0.8 % cream 1 appful vaginal BEDTIME 3 Days Qty: 20 0RF peg 3350-electrolytes [Golytely] 236-22.74-6.74 -5.86 gram recon soln 240 ml PO Q10M 1 Days Qty: 4000 0RF Rx Instructions: until fecal effluent is clear; do not exceed a total volume of 2,000 mL lorazepam [Ativan] 0.5 mg tablet 0.5 mg PO ONCE Qty: 1 0RF amoxicillin-pot clavulanate 875-125 mg tablet 1 tab PO BID 7 Days Qty: 14 0RF sulfamethoxazole-trimethoprim [Bactrim DS] 800-160 mg tablet 1 tab PO BID 7 Days Qty: 14 0RF Referrals: Adelso Zamora MD [Physician] - (Please take gabapentin for pain until you can see Neurology this week.)
[2021-10-14 13:22] LABS: Glucose, Whole Blood 405 mg/dL (60-115)
[2021-10-14 13:39] LABS: MANUAL DIFF FLAG NO
[2021-10-14 13:41] LABS: Basophils Percent Auto 0.5 % (0-2); Eosinophils Absolute Auto 0.2 X10*3/uL (0.0-0.4); Eosinophils Percent Auto 2.5 % (0-4); Hematocrit 43.8 % (37.0-47.0); Imm Gran Abs Auto 0.01 X10*3/uL (0.00-0.03); Imm Gran Pct Auto 0.2 % (0.0-0.4); Lymphocytes Absolute Auto 2.9 X10*3/uL (1.2-4.9); Lymphocytes Percent Auto 44.4 % (20-40); Mean Corpuscular HGB Conc 34.2 g/dl (31.0-35.0); Mean Corpuscular Hemoglobin 28.5 pg (27.0-33.0); Mean Corpuscular Volume 83.1 fL (80.0-98.0); Mean Platelet Volume 11.5 fL (9.4-12.3); Monocytes Absolute Auto 0.5 X10*3/uL (0.1-1.2); Neutrophils Absolute Auto 2.9 x10*3/uL (2.0-8.3); Neutrophils Percent Auto 45.4 % (45-73); Platelet Count 216 X10*3/uL (160-400); Red Blood Count 5.27 X10*6/uL (4.20-5.50); Red Cell Distribution Width 11.9 % (11.0-16.0); White Blood Count 6.4 X10*3/uL (4.8-10.8)
[2021-10-14 13:49] LABS: Prothrombin Time 11.3 SEC (10.0-13.1)
[2021-10-14] MEDS: Gabapentin 100 MG CAPSULE PO (13:51)
[2021-10-14 13:52] LABS: Partial Thromboplastin Time 32.5 SEC (24.1-38.0)
[2021-10-14 13:55] LABS: Stroke Lab Use COMPLETE
[2021-10-14 14:01] LABS: Troponin-I High Sensitivity < 3.5 ng/L (<3.5-17.0)
[2021-10-14 14:04] LABS: Anion Gap 13 (12-20); Blood Urea Nitrogen 11 mg/dL (9-16); Carbon Dioxide 25 mmol/L (22-29); Chloride 101 mmol/L (96-108); Creatinine Clr Calc Pharmacy 69.7; Estimated Glomerular Filt Rate > 60; Potassium 4.5 mmol/L (3.3-5.1); Sodium 134 mmol/L (135-145)
[2021-10-14 14:12] LABS: Glucose Random 420 mg/dL (60-115)
== END 2021-10-14 13:55 | disposition home or self-care (01) ==
PROVIDERS: Emergency Provider Student in an Organized Health Care Education/Training Program; PCP Internal Medicine
DX: G50.0 Trigeminal neuralgia (principal); R68.84 Jaw pain; I10 Essential (primary) hypertension; E11.9 Type 2 diabetes mellitus without complications; E66.9 Obesity, unspecified; Z68.32 Body mass index [BMI] 32.0-32.9, adult; Z79.4 Long term (current) use of insulin; Z79.899 Other long term (current) drug therapy; Z79.82 Long term (current) use of aspirin
CPT/HCPCS: 36415; 70450; 80048; 82947; 84484; 85025; 85610; 85730; 93005; 99283; 99284

== ENCOUNTER 2021-10-28 20:08 | Emergency (ER) | payer OTHER, SELFPAY ==
[2021-10-28 20:24] VITALS: BP 164/95; PULSE 77; RESP 18; TEMP 36.4; O2SAT 97; BMI 37.2
[2021-10-28] MEDS: Ibuprofen 600 MG TABLET PO (20:27)
== END 2021-10-28 23:00 | disposition left against medical advice (07) ==
PROVIDERS: Emergency Provider Emergency Medicine; PCP Internal Medicine
DX: H92.01 Otalgia, right ear (principal); R51.9 Headache, unspecified
CPT/HCPCS: 99282; 99283

== ENCOUNTER 2022-01-29 10:57 | Outpatient (REF) | payer OTHER, SELFPAY ==
--- NOTE | ~2022-01-29 | XR_ITS ---
EXAMINATION: XR LUMBOSACRAL SPINE CLINICAL INFORMATION: Lower abdominal pain COMPARISON: None TECHNIQUE: Three views of the lumbosacral spine. FINDINGS: There is curvature of the lumbar spine to the right. Bone alignment is otherwise normal. No fracture or dislocation. There is degenerative spondylosis and mild disc space narrowing at L1-L2. There is lower lumbar spine facet arthritis. XR/XR lumbar spine 2-3V IMPRESSION: Curvature of the lumbar spine to the right and degenerative changes.
== END 2022-01-29 10:58 | disposition home or self-care (01) ==
LOC: HO.XRAY 10:57
PROVIDERS: PCP Internal Medicine; Visit Provider Internal Medicine
DX: R10.30 Lower abdominal pain, unspecified (principal)
CPT/HCPCS: 72100

== ENCOUNTER → 2022-02-06 12:59 | Outpatient (BNVA) | payer OTHER, SELFPAY | PROVIDERS: PCP Internal Medicine; Visit Provider Internal Medicine Endocrinology, Diabetes & Metabolism | DX: E11.65 Type 2 diabetes mellitus with hyperglycemia (principal); Z79.4 Long term (current) use of insulin | CPT/HCPCS: 82947; 99202 ==

== ENCOUNTER 2022-03-05 11:16 | Outpatient (REF) | payer OTHER, SELFPAY ==
--- NOTE | ~2022-03-05 | US_ITS ---
EXAMINATION: US THYROID CLINICAL INFORMATION: Iodine-deficiency related diffuse (endemic) goiter. COMPARISON: Thyroid ultrasound 01/10/2016. TECHNIQUE: Linear transducer grayscale and color Doppler examination with attention to the region of the thyroid. FINDINGS: SIZE: Measurements of the thyroid lobes and nodules are given in sagittal, anteroposterior and transverse dimensions respectively. Right Thyroid Lobe: 5.0 x 2.7 x 3.8 cm, volume 26.8 mL. Previously 5.7 x 2.5 x 3.0 cm, volume 22.4 mL. Parenchyma: The gland echotexture is homogeneous. Thyroid vascularity is normal. Left Thyroid Lobe: 7.2 x 4.1 x 5.0 cm, volume 7.5 mL. Previously 5.4 x 3.8 x 4.0 cm, volume 12.1 mL. Parenchyma: The gland echotexture is homogeneous. Thyroid vascularity is normal. Isthmus: 0.6 cm in maximum AP dimension. Previously 0.4 cm. Estimated total number of nodules greater than or equal to 1 cm: 2. 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 Location: Right mid pole. Size: 3.4 x 2.6 x 3.1 cm, volume 14.4 mL. Previously: 3.5 x 2.6 x 2.9 cm, volume 13.8 mL. Nodule characteristics: Composition: Solid (2). Echogenicity: Hyperechoic (1). Shape: Not taller than wide (0). Margins: Smooth (0). Echogenic Foci: None (0). ACR TI-RADS total points: 3 ACR TI-RADS category: 3 Significant change in size (>/= 20% in 2 dimensions and minimal increase of 2 mm or 50% or greater increase in volume): No Change in features: No Change in ACR TI-RADS risk category: No 2. Location: Left mid pole. Size: 5.7 x 3.6 x 4.5 cm, volume 48.4 mL. Previously: 4.3 x 3.3 x 3.6 cm, volume 48.3 mL. Nodule characteristics: Composition: Solid/almost completely solid (2). Echogenicity: Cannot be determined (1). Shape: Not taller than wide (0). Margins: Smooth (0). Echogenic Foci: None (0). ACR TI-RADS total points: 3 ACR TI-RADS category: 3 Significant change in size (>/= 20% in 2 dimensions and minimal increase of 2 mm or 50% or greater increase in volume): No Change in features: No Change in ACR TI-RADS risk category: No NODES: No lymphadenopathy is seen in the tissue surrounding the thyroid gland. US/US thyroid IMPRESSION: Bilateral dominant thyroid nodules are again noted, without change in appearance from previous imaging. Based on size and appearance, if not previously performed fine-needle aspiration is suggested for both nodules. ACR TI-RADS RECOMMENDATION REFERENCE: Ultrasound-guided fine-needle aspiration, followup ultrasound, no further follow up. * TR1 (0 point) and TR 2 (2 points): No FNA or follow up * TR3 (3 points): FNA if more than or equal to 2.5 cm in maximum dimension, followup ultrasound in 1, 3 and 5 years if 1.5 to 2.4 cm in maximum dimension. * TR4 (4-6 points): FNA if more than or equal to 1.5 cm in maximum dimension, followup ultrasound in 1, 2, 3 and 5 years if 1 to 1.4 cm in maximum dimension. * TR5 (more than or equal to 7 points): FNA if more than or equal to 1 cm in maximum dimension, followup ultrasound every year for 5 years if 0.5 to 0.9 cm in maximum dimension. * TR3, TR4 or TR5 nodules that are below the size threshold for follow up receive no follow up.
== END 2022-03-05 11:17 | disposition home or self-care (01) ==
LOC: HO.US 11:16
PROVIDERS: Visit Provider Internal Medicine
DX: E01.0 Iodine-deficiency related diffuse (endemic) goiter (principal)
CPT/HCPCS: 76536

== ENCOUNTER 2022-03-14 10:36 | Emergency (ER) | payer OTHER, SELFPAY ==
--- NOTE | ~2022-03-14 | CT_ITS ---
EXAMINATION: CT CERVICAL SPINE WITHOUT CONTRAST CLINICAL INFORMATION: Neck pain, headaches, dizziness. COMPARISON: Cervical spine radiographs dated 06/11/2011. TECHNIQUE: Contiguous axial CT images of the cervical spine were obtained without contrast. Sagittal and coronal reformats were provided and reviewed. This CT examination was performed using dose optimization techniques as appropriate, variously including the following: *Automated exposure control *Adjustment of mA and/or kV according to patient size (this includes techniques or standardized protocols for targeted exams where dose is matched to indication/reason for exam; i.e. extremities or head) *Use of iterative reconstruction technique DLP: 499 mGy-cm FINDINGS: Normal vertebral body alignment. The cervical lordosis is maintained. No acute fracture or subluxation. No loss of vertebral body height. Mild multilevel loss of intervertebral disc height with endplate osteophytes. Mild bilateral facet arthropathy, most prominent at right C2-C3. No concerning lytic or blastic osseous lesion. Diffusely enlarged and heterogeneous thyroid as seen on prior examinations. Otherwise, the visualized paraspinal soft tissues are unremarkable. The visualized lung apices are clear. No significant central canal or neuroforaminal stenosis. CT/CT cervical spine wo IV con IMPRESSION: 1. No acute fracture or subluxation. 2. Mild multilevel degenerative disc disease with mild bilateral facet arthropathy, most prominent at right C2-C3. No significant central canal or neuroforaminal stenosis. Fleischner guidelines were followed.
--- NOTE | ~2022-03-14 | CT_ITS ---
EXAMINATION: CT HEAD WITHOUT CONTRAST CLINICAL INFORMATION: Dizziness and right arm pain COMPARISON: 10/14/2021 TECHNIQUE: Contiguous axial imaging was performed from the skull base to vertex without intravenous administration of contrast. This CT examination was performed using dose optimization techniques as appropriate, variously including the following: *Automated exposure control *Adjustment of mA and/or kV according to patient size (this includes techniques or standardized protocols for targeted exams where dose is matched to indication/reason for exam; i.e. extremities or head) *Use of iterative reconstruction technique DLP: 661 mGy-cm FINDINGS: There is no evidence of acute intracranial hemorrhage or territorial infarction. No abnormal mass effect or midline shift is seen. Serrano to white matter differentiation is well preserved. No extra-axial fluid collections are identified. The ventricles are normal in size. Similar chronic white matter chronic ischemic changes. The osseous structures and soft tissues are normal. The mastoid air cells and visualized portions of the paranasal sinuses are well-aerated. CT/CT head/brain wo IV con IMPRESSION: No acute intracranial pathology.
--- NOTE | ~2022-03-14 | XR_ITS ---
EXAMINATION: XR SHOULDER, RIGHT CLINICAL INFORMATION: Right shoulder pain COMPARISON: None TECHNIQUE: Three views of the right shoulder. FINDINGS: Visualized portion of the proximal right humerus demonstrate no fracture. Humeral head demonstrates good articulation with the glenoid fossa. Prominent osteophyte off the superolateral humeral head with a smaller osteophyte along the inferomedial humeral head. There are moderate hypertrophic changes of the acromioclavicular joint. Visualized right-sided ribs and lung parenchyma are unremarkable. XR/XR shoulder RT min 2V IMPRESSION: Moderate degenerative changes of the right shoulder.
--- NOTE | ~2022-03-14 | XR_ITS ---
EXAMINATION: XR CHEST CLINICAL INFORMATION: Chest and right shoulder pain. Dizziness. Elevated BP. COMPARISON: CT chest dated 03/09/2020. TECHNIQUE: 2 views of the chest were obtained. FINDINGS: No significant abnormality is noted involving the heart, lungs, mediastinum, bony thorax or soft tissues. XR/XR chest 2V IMPRESSION: Unremarkable examination.
[2022-03-14 10:45] VITALS: BP 199/97; PULSE 88; RESP 18; TEMP 36.3; O2SAT 97; BMI 37.0
[2022-03-14 11:00] LABS: MANUAL DIFF FLAG NO
[2022-03-14 11:02] LABS: Basophils Percent Auto 0.4 % (0-2); Eosinophils Absolute Auto 0.1 X10*3/uL (0.0-0.4); Eosinophils Percent Auto 1.8 % (0-4); Hematocrit 43.9 % (37.0-47.0); Hemoglobin 15.3 g/dl (12.0-16.0); Imm Gran Abs Auto 0.01 X10*3/uL (0.00-0.03); Imm Gran Pct Auto 0.1 % (0.0-0.4); Lymphocytes Absolute Auto 2.6 X10*3/uL (1.2-4.9); Lymphocytes Percent Auto 35.9 % (20-40); Mean Corpuscular HGB Conc 34.9 g/dl (31.0-35.0); Mean Corpuscular Hemoglobin 28.7 pg (27.0-33.0); Mean Corpuscular Volume 82.2 fL (80.0-98.0); Mean Platelet Volume 10.8 fL (9.4-12.3); Monocytes Absolute Auto 0.5 X10*3/uL (0.1-1.2); Monocytes Percent Auto 6.5 % (2-11); Neutrophils Absolute Auto 4.1 x10*3/uL (2.0-8.3); Neutrophils Percent Auto 55.3 % (45-73); Platelet Count 273 X10*3/uL (160-400); Red Blood Count 5.34 X10*6/uL (4.20-5.50); Red Cell Distribution Width 11.4 % (11.0-16.0); White Blood Count 7.3 X10*3/uL (4.8-10.8)
[2022-03-14 11:23] LABS: B Type Natriuretic Peptide 20 pg/mL (<100)
[2022-03-14 11:32] VITALS: BP 170/92; PULSE 82; RESP 14; TEMP 36.7; O2SAT 96
--- NOTE | 2022-03-14 11:32 | ECG_ITS ---
Test Reason : DIZZINESS/ARM PAIN Blood Pressure : / mmHG Vent. Rate : 074 BPM Atrial Rate : 074 BPM P-R Int : 158 ms QRS Dur : 094 ms QT Int : 394 ms P-R-T Axes : 005 -40 051 degrees QTc Int : 437 ms Normal sinus rhythm Left axis deviation Left ventricular hypertrophy ( R in aVL , Kimball product , Romhilt-Guzman ) Abnormal ECG When compared with ECG of 14-OCT-2021 13:05, No significant change was found Referred By: Saima Rice Electronically Signed By:TESS SARABIA
[2022-03-14 11:43] LABS: Influenza A PCR NEGATIVE (Negative); Influenza B PCR NEGATIVE (Negative); Resp Syncy Virus RNA Qual PCR NEGATIVE (Negative); SARS COV2 PCR INHOUSE NEGATIVE (Negative)
--- NOTE | 2022-03-14 11:58 | ED_ITS ---
HPI - General Adult General Chief complaint: Headache Stated complaint: kneck pain, pain in R arm Time Seen by Provider: 03/14/22 11:18 Source: patient Mode of arrival: ambulatory Limitations: no limitations History of Present Illness HPI narrative: 61yoF c PMHx of asthma, bipolar disorder, cataract, GERD, migraine headaches, obstructive sleep apnea, obesity, seizure disorder, type 2 diabetes with hyperglycemia, hypertension and Green's palsy who is presenting to the ER with complaints of dizziness/headaches that has been present for the past 2 weeks usually worse at nighttime. Reports that the headache is sharp in sensation and is in the posterior aspect of her scalp and radiates to the anterior aspect of her forehead. She reports she takes Tylenol and no symptomatic relief. She also reports that over the past month she has noticed right arm pain/weakness when she tries to lift her arm. Reports that she has never had this type of weakness in the past. Reports that she has left-sided facial droop from Green's palsy in October 2021. Her blood pressure is noted to be elevated and she reports that she did take her to blood pressure medications prior to arrival. She reports approximately 2 weeks ago she actually fell as well because she was feeling off balance in her house and she fell backwards and hit her head/neck. She did not lose consciousness at this time. There was no prolonged down time. She reports that she was not evaluated at this time although she was not having any symptoms after that fall. At this time she denies any changes in vision, jaw pain, paresthesias, nausea/vomiting, chest pain or shortness of breath, dyspnea on exertion, orthopnea, palpitations, paresthesias, rashes, abdominal pain, back pain, dysuria, hematuria, black or bloody stools, lower extremity edema or calf tenderness or any other symptoms complaints or concerns at this time. MD complaint: Headache/dizziness, right arm weakness/pain Onset (ago): week(s) (2 weeks to 1 month) Related Data Home Medications Medication Instructions Recorded Confirmed insulin lispro 100 unit/mL 18 unit subcut TID 02/05/21 02/06/22 subcutaneous pen (Humalog KwikPen (U-100) Insulin) carbamide peroxide 6.5 % ear drops 5 drp otic (ears) BID 10/31/21 02/06/22 (Ear Drops (carbamide peroxide)) insulin degludec 100 unit/mL (3 40 unit subcut BID 01/23/22 02/06/22 mL) subcutaneous pen (Tresiba FlexTouch U-100 insulin) flash glucose scanning reader #1 ea 02/06/22 02/06/22 (FreeStyle Archana 2 Fessenden) flash glucose sensor (FreeStyle #1 ea 02/06/22 02/06/22 Archana 2 Sensor kit) gabapentin 300 mg capsule 300 mg PO DAILY PRN 02/06/22 02/06/22 Previous Rx's Medication Instructions Recorded albuterol sulfate 90 mcg/actuation 2 puff inhalation Q4-6H PRN 03/18/20 aerosol inhaler (ProAir HFA) Dyspnea #8.5 grams fluticasone 250 mcg-salmeterol 50 1 inh inhalation BID #60 ea 03/18/20 mcg/dose blistr powdr for inhalation (Advair Diskus) blood sugar diagnostic (FreeStyle ##4 11/13/20 Lite Strips) pen needle, diabetic 31 gauge x ##4 11/13/20/16 (BD Ultra-Fine Mini Pen Needle) besifloxacin 0.6 % eye 1 drp ophthalmic (eye) TID 7 days 01/06/21 drops,suspension #5 mL terconazole 0.8 % vaginal cream 1 appful vaginal BEDTIME 3 days 01/21/21 #20 grams lorazepam 0.5 mg tablet (Ativan) 0.5 mg PO ONCE anxiety #1 tab 04/25/21 aspirin 81 mg tablet,delayed 81 mg PO DAILY #90 tabs 04/30/21 release (Adult Aspirin Regimen) bupropion HCl 150 mg tablet,12 hr 150 mg PO BEDTIME #90 tabs 05/15/21 sustained-release (Wellbutrin SR) amlodipine 10 mg tablet 10 mg PO DAILY #30 tabs 10/31/21 metformin 500 mg tablet 500 mg PO BID #180 tabs 10/31/21 spironolactone 25 mg tablet 25 mg PO DAILY #30 tabs 10/31/21 valacyclovir 1 gram tablet 1,000 mg PO Q8H 7 days #21 tabs 10/31/21 meloxicam 15 mg tablet 15 mg PO DAILY #14 tabs 11/26/21 hydralazine 25 mg tablet 25 mg PO TID 90 days #270 tabs 12/17/21 carvedilol 12.5 mg tablet 12.5 mg PO BID 30 days #60 tabs 01/23/22 semaglutide 0.25 mg or 0.5 mg (2 0.25 mg (0.2 mL) subcut QWEEK #1.5 02/06/22 mg/1.5 mL) subcutaneous pen mL injector (Ozempic) acetaminophen 500 mg tablet 1,000 mg PO QID PRN fever or pain 03/14/22 (Tylenol Extra Strength) #14 tabs cyclobenzaprine 10 mg tablet 10 mg PO Q8H #14 tabs 03/14/22 naproxen 500 mg tablet 500 mg PO BID PRN pain #14 tabs 03/14/22 Allergies Allergy/AdvReac Type Severity Reaction Status Date / Time clonidine [CLONIDINE] Allergy Severe DIZZY,FAINT Verified 03/14/22 10:45 levetiracetam [LEVETIRACETAM] Allergy Severe DIFFICULTY Verified 03/14/22 10:45 BREATHING lisinopril [LISINOPRIL] Allergy Severe SWELLING, Verified 03/14/22 10:45 angioedema atenolol [ATENOLOL] Allergy Intermediate RASH Verified 03/14/22 10:45 dulaglutide [Trulicity] Allergy Unknown Unknown Verified 03/14/22 10:45 Review of Systems Review of Systems: Constitutional : No Fever, No Chills, No Night Sweats, No Fatigue, No Malaise ENT/Mouth : No Ear Pain, No Nasal Congestion, No Sinus Pain, No sore throat, No Rhinorrhea Eyes: No Eye Pain, No Swelling, No Redness, No Foreign Body, No Discharge, No Vision Changes Cardiovascular : No Chest Pain, No SOB, No Dyspnea on Exertion, No Orthopnea, No Palpitations Respiratory : No Cough, No Sputum, No Wheezing, No Dyspnea Gastrointestinal : No Nausea, No Vomiting, No Diarrhea, No Constipation, No abdominal Pain, No Hematochezia, No Melena Genitourinary : No Dysuria, No Urinary Frequency, No Urinary Incontinence, No Urgency, No Flank Pain Musculoskeletal : +Neck pain, + Right shoulder joint pain, No Myalgias Skin : No lacerations Neuro : + right arm Focal weakness, No Numbness, No Paresthesias, No Loss of Consciousness, + Dizziness, + Headache Yes all other systems are reviewed and are negative [facility] Past Medical History Attestation statement: The following information was validated with the patient. Source: old records reviewed and nursing notes reviewed Medical History Anxiety due to invasive procedure Asthma Green's palsy Bipolar disorder Cataracts, bilateral Cervical cancer screening Colon cancer screening COVID-19 Family history of colon cancer GERD (gastroesophageal reflux disease) Hypercholesterolemia Hypertension Lower abdominal pain Microscopic hematuria Migraine Mild obstructive sleep apnea Mixed incontinence urge and stress Obesity (BMI 30-39.9) Obstructive sleep apnea Seizure disorder SVT (supraventricular tachycardia) Thyroid nodule Type 2 diabetes mellitus with hyperglycemia Vulvovaginitis roseline albicans Well woman exam Surgical History History of cholecystectomy History of cone biopsy of uterine cervix History of tubal ligation Family History Family History Father Diabetes FH: prostate cancer CVD (cardiovascular disease) Mother Diabetes Hypertension Stroke CVD (cardiovascular disease) Sister Breast cancer Sister Breast cancer Sister Hypertension Daughter In good health Brother No problems noted. Brother No problems noted. Brother No problems noted. Social History Social History Household Members: Other Household Members Other:: grandson Housing: House Do you presently have visiting nurse or other home services: Yes (tele visits) Alcohol intake: never Patient Tobacco Use Status: Never used Tobacco e-Cigarette/Vaping Use: Never Used Second Hand Smoke Exposure: No Advance Directives: No Advance Directives Information Provided: No Patient : No service: No Current occupational status: disabled Cognitive needs: No Hearing needs: No Vision needs: Yes Physical Exam ED Vital Signs: Vital Signs - 24 hr 03/14/22 10:45 03/14/22 11:32 03/14/22 13:01 Temperature 97.3 F 98.0 F 98.0 F Pulse Rate 88 82 74 Respiratory Rate 18 14 16 Blood Pressure 199/97 H 170/92 H 159/85 H Pulse Oximetry 97 96 96 Oxygen Delivery Method Room Air Room Air Room Air 03/14/22 14:29 Temperature 97.9 F Pulse Rate 68 Respiratory Rate 16 Blood Pressure 170/97 H Pulse Oximetry 97 Oxygen Delivery Method Room Air BMI result Body Mass Index 37.0 vital signs have been reviewed as normal and appeared to be correct. Blood pressure normal. Heart rate normal. Respiration rate normal. Temperature normal. Oxygen saturation normal. Appearance: Alert. Oriented X3. No acute distress. Head: Normal external exam. Normocephalic. Atraumatic. Able to rotate head bilaterally. Eyes: PERRLA. EOMI. Conjunctiva and sclera normal. Eyelids normal. Corneal reflex normal. ENT: EAC normal. TM's Normal. No septal hematoma noted. No hemotympanum noted. Pharynx normal. Uvula midline. Moist mucous membranes. No lesions/ulcerations or masses noted on the tongue. Normal voice. No trismus noted. No drooling noted. No muffled voice noted. Neck: Normal inspection. Neck supple. FROM. No adenopathy. Thyroid Normal. No tracheal deviation noted. No crepitus is noted. No meningeal signs. No neck mass noted. No signs of trauma noted. CVS: Normal heart rate and rhythm. Heart sound normal. Pulses normal throughout. No murmurs/rales/gallops. Respiratory: No respiratory distress. Painless inspiration. Breath sounds normal. No wheezes/rales/rhonchi noted. Chest nontender. No crepitus is noted. No signs of trauma noted. No accessory muscle usage noted or decreased air movement noted. No signs of trauma. Abdomen: Soft and nontender. Bowel sounds normal in all 4 quadrants. No distention noted. No organomegaly noted. No visible injury noted. Back: No CVA tenderness. Full range of motion noted. Nontender. No signs of trauma. Patient neuro intact bilaterally and distally on all 4 extremities. Patient's reflexes intact bilaterally and distally on all 4 extremities. No rashes/lesion/induration/fluctuance or signs of infection noted. Skin: Skin warm and dry. Normal skin color. Normal skin turgor. No rashes/lesi ons/lacerations noted. Extremities: No lower extremity edema. No calf tenderness is noted. Patient reports moderate pain to right shoulder when she lifts the right arm. The rest of the extremities exhibit normal range of motion and nontender. Neuro: Oriented X 3. 4/5 motor for RUE patient also reports pain to the right shoulder/upper arm when she tries to move the arm. Normal Motor to LUE/LLE/RLE. No sensory deficit. Reflexes normal. Moving all extremities. Patient noted to have left-sided facial droop. Normal cognition. Speech normal. Gait normal. No pronator drift. No tremor noted. No fasciculations noted. No rigidity noted. Muscle tone normal throughout. No asterixis noted. [id number] test normal. Heel to wisdom test normal. Tandem gait normal. Does not sway with eyes open. R omberg test negative. Rapid alternating movement upper extremity normal. Rapid alternating movement lower extremity normal. Hand drop from overhead Misses face. NIHSS score 2. Vascular: + radial pulses/+ 2 distal pedal pulses/+2 dorsalis pedis b/l. Normal cap refill. No cyanosis noted to upper extremity nails and lower extremity toes nails. Course Course Course Narrative: 11:30am - 61yoF c PMHx of asthma, bipolar disorder, cataract, GERD, migraine headaches, obstructive sleep apnea, obesity, seizure disorder, type 2 diabetes with hyperglycemia, hypertension and Green's palsy who is presenting to the ER with complaints of dizziness/headaches x 2 weeks c associated right-sided arm/shoulde r pain/weakness. Also reports recent fall 2 weeks ago. Reports neck pain. On exam she is noted to have left-sided facial droop reports that this has been present since October when she had her Green's palsy. 4/5 strength for right upper extremity. Normal strength for all other extremities. Normal steady gait. No nystagmus. No pronator drift. Normal finger to nose. NIH SS score 2. Although patient is not a candidate for tPA as her symptoms started 2 weeks to 1 month ago. Plan: Labs, Lyme titer, syphilis titer, EKG, CT scan of brain/cervical spine, x-ray of right shoulder and chest, UA and re-evaluate. Reevaluation(s) Reevaluation #1: Labs obtained reviewed - patient's random glucose 325. Magnesium 1.3. Otherwise all other labs are within normal limits. Patient negative for influenza/RSV/flu. EKG - normal sinus rhythm with ventricular rate of 74 with a left axis deviation and left ventricular hypertrophy no acute ischemic change are noted. Similar compared to prior EKG 10/14/[address] scan of brain without contrast FINDINGS: There is no evidence of acute intracranial hemorrhage or territorial infarction. No abnormal mass effect or midline shift is seen. Serrano to white matter differentiation is well preserved. No extra-axial fluid collections are identified. The ventricles are normal in size. Similar chronic white matter chronic ischemic changes. The osseous structures and soft tissues are normal. The mastoid air cells and visualized portions of the paranasal sinuses are well-aerated. ? CT/CT head/brain wo IV con IMPRESSION: No acute intracranial pathology. CT scan of cervical spine without contrast FINDINGS: Normal vertebral body alignment. The cervical lordosis is maintained. No acute fracture or subluxation. No loss of vertebral body height. Mild multilevel loss of intervertebral disc height with endplate osteophytes. Mild bilateral facet arthropathy, most prominent at right C2-C3. No concerning lytic or blastic osseous lesion. Diffusely enlarged and heterogeneous thyroid as seen on prior examinations. Otherwise, the visualized paraspinal soft tissues are unremarkable. The visualized lung apices are clear. No significant central canal or neuroforaminal stenosis.? CT/CT cervical spine wo IV con IMPRESSION: 1.? No acute fracture or subluxation. 2.? Mild multilevel degenerative disc disease with mild bilateral facet arthropathy, most prominent at right C2-C3. No significant central canal or neuroforaminal stenosis. ? Fleischner guidelines were followed. Right shoulder Xray FINDINGS: Visualized portion of the proximal right humerus demonstrate no fracture. Humeral head demonstrates good articulation with the glenoid fossa. Prominent osteophyte off the superolateral humeral head with a smaller osteophyte along the inferomedial humeral head. There are moderate hypertrophic changes of the acromioclavicular joint. Visualized right-sided ribs and lung parenchyma are unremarkable. XR/XR shoulder RT min 2V IMPRESSION: Moderate degenerative changes of the right shoulder. Chest x-ray FINDINGS: No significant abnormality is noted involving the heart, lungs, mediastinum, bony thorax or soft tissues. XR/XR chest 2V IMPRESSION: Unremarkable examination. Plan: Therefore at this time will provide 2 g of IV magnesium. 1 L of IV fluids. 30 mg of IV Toradol and 10 mg of IV Reglan for the patient's headache along with Benadryl. And re-evaluate. Time: 12:28 Reevaluation #2: Patient reports she feels much better. Will DC home with symptomatic treatment instructions to follow-up with PCP for repeat lab work including magnesium level and to return if any new or worsening symptoms. Patient understands agrees with this plan. Time: 14:37 Medications Administered Discontinued Medications Generic Name Dose Route Start Last Admin Trade Name Salq PRN Reason Stop Dose Admin Diphenhydramine HCl 25 mg 03/14/22 12:52 03/14/22 13:04 Diphenhydramine Hcl 50 Mg/Ml Vial IVPUSH 03/14/22 12:53 25 mg ONCE ONE Administration Magnesium Sulfate 2 gm in 50 mls @ 25 mls/hr 03/14/22 12:07 03/14/22 12:46 Magnesium Sulfate/H2o IV 03/14/22 14:06 25 mls/hr ONCE ONE Administration Sodium Chloride 1,000 mls @ 999 mls/hr 03/14/22 12:45 03/14/22 14:13 Ns IVCONT 03/14/22 13:45 Infused .Q1H1M SALEEM Infusion Ketorolac Tromethamine 30 mg 03/14/22 12:31 03/14/22 12:46 Ketorolac Tromethamine 30 Mg/Ml Vial IVPUSH 03/14/22 12:32 30 mg ONCE ONE Administration Metoclopramide HCl 10 mg 03/14/22 12:31 03/14/22 12:46 Metoclopramide Hcl 10 Mg/2 Ml Vial IVPUSH 03/14/22 12:32 10 mg ONCE ONE Administration Medical Decision Making Lab Data MDM Lab Attestation statement: I reviewed the patient's lab results. Result Diagrams: 03/14/22 10:55 03/14/22 10:55 Labs: Lab Results 03/14/22 03/14/22 03/14/22 Range/Units 10:55 10:55 10:55 WBC 7.3 (4.8-10.8) X10*3/uL RBC 5.34 (4.20-5.50) X10*6/uL Hgb 15.3 (12.0-16.0) g/dl Hct 43.9 (37.0-47.0) % MCV 82.2 (80.0-98.0) fL MCH 28.7 (27.0-33.0) pg MCHC 34.9 (31.0-35.0) g/dl RDW 11.4 (11.0-16.0) % Plt Count 273 D (160-400) X10*3/uL MPV 10.8 (9.4-12.3) fL Immature Gran % (Auto) 0.1 (0.0-0.4) % Neut % (Auto) 55.3 (45-73) % Lymph % (Auto) 35.9 (20-40) % [place] % (Auto) 6.5 (2-11) % Eos % (Auto) 1.8 (0-4) % Baso % (Auto) 0.4 (0-2) % Lymph # (Auto) 2.6 (1.2-4.9) X10*3/uL [place] # (Auto) 0.5 (0.1-1.2) X10*3/uL Eos # (Auto) 0.1 (0.0-0.4) X10*3/uL Baso # (Auto) 0.0 (0.0-0.2) X10*3/uL Abs Immat Gran (auto) 0.01 (0.00-0.03) X10*3/uL Absolute Neuts (auto) 4.1 (2.0-8.3) x10*3/uL Absolute Nucleated RBC 0.000 (0.0-0.012) X10*3/uL Nucleated RBC % (auto) 0.0 (0.0-0.2) /100WBC Sodium (135-145) mmol/L Potassium (3.3-5.1) mmol/L Chloride (96-108) mmol/L Carbon Dioxide (22-29) mmol/L Anion Gap (12-20) BUN (9-16) mg/dL Creatinine (0.5-1.4) mg/dL Estim Creat Clear Calc Estimated GFR Random Glucose (60-115) mg/dL Calcium (8.4-10.2) mg/dL Magnesium (1.6-2.6) mg/dL Total Bilirubin (0.0-1.0) mg/dL AST (5-31) U/L ALT (0-31) U/L Alkaline Phosphatase (39-117) U/L Troponin I High Sens (<3.5-17.0) ng/L B-Natriuretic Peptide 20 (<100) pg/mL Total Protein (6.5-8.0) g/dL Albumin (3.5-5.0) g/dL Influenza Type A (PCR) NEGATIVE (Negative) Influenza Type B (PCR) NEGATIVE (Negative) RSV RNA Qual (PCR) NEGATIVE (Negative) SARS-CoV-2 RNA (RT-PCR) NEGATIVE (Negative) 03/14/22 03/14/22 Range/Units 10:55 12:22 WBC (4.8-10.8) X10*3/uL RBC (4.20-5.50) X10*6/uL Hgb (12.0-16.0) g/dl Hct (37.0-47.0) % MCV (80.0-98.0) fL MCH (27.0-33.0) pg MCHC (31.0-35.0) g/dl RDW (11.0-16.0) % Plt Count (160-400) X10*3/uL MPV (9.4-12.3) fL Immature Gran % (Auto) (0.0-0.4) % Neut % (Auto) (45-73) % Lymph % (Auto) (20-40) % [place] % (Auto) (2-11) % Eos % (Auto) (0-4) % Baso % (Auto) (0-2) % Lymph # (Auto) (1.2-4.9) X10*3/uL [place] # (Auto) (0.1-1.2) X10*3/uL Eos # (Auto) (0.0-0.4) X10*3/uL Baso # (Auto) (0.0-0.2) X10*3/uL Abs Immat Gran (auto) (0.00-0.03) X10*3/uL Absolute Neuts (auto) (2.0-8.3) x10*3/uL Absolute Nucleated RBC (0.0-0.012) X10*3/uL Nucleated RBC % (auto) (0.0-0.2) /100WBC Sodium 135 (135-145) mmol/L Potassium 4.2 (3.3-5.1) mmol/L Chloride 98 (96-108) mmol/L Carbon Dioxide 28 (22-29) mmol/L Anion Gap 13 (12-20) BUN 13 (9-16) mg/dL Creatinine 0.78 (0.5-1.4) mg/dL Estim Creat Clear Calc 86.0 Estimated GFR > 60 Random Glucose 325 H (60-115) mg/dL Calcium 9.3 (8.4-10.2) mg/dL Magnesium 1.3 L* (1.6-2.6) mg/dL Total Bilirubin 1.0 (0.0-1.0) mg/dL AST 13 (5-31) U/L ALT 14 (0-31) U/L Alkaline Phosphatase 117 (39-117) U/L Troponin I High Sens < 3.5 (<3.5-17.0) ng/L B-Natriuretic Peptide (<100) pg/mL Total Protein 6.9 (6.5-8.0) g/dL Albumin 4.1 (3.5-5.0) g/dL Influenza Type A (PCR) (Negative) Influenza Type B (PCR) (Negative) RSV RNA Qual (PCR) (Negative) SARS-CoV-2 RNA (RT-PCR) (Negative) Independent Interpretation I performed an independent interpretation of an: EKG, Rhythm Strip, Plain X-Ray and CT Scan External Record Review External record reviewed: Inpatient record and Office record Chronic Conditions Patient?s care impacted by: Diabetes and Hypertension Critical Care Time Critical Care Time Critical Care Time: Yes Total Critical Care Time: 60 Attestation: I personally attest to this time spent taking care of the patient Discharge Plan Discharge Clinical Impression: Headache, migraine, Cervical radiculopathy due to degenerative joint disease of spine, Arthropathy of cervical facet joint, Degenerative arthritis of right shoulder region, Low blood magnesium level Patient Disposition: Home, Self-Care Instructions: Migraine Headache (ED), Osteoarthritis (ED), Cervical Radiculopathy (ED) Prescriptions: New naproxen 500 mg tablet 500 mg PO BID PRN (Reason: pain) Qty: 14 0RF cyclobenzaprine 10 mg tablet 10 mg PO Q8H Qty: 14 0RF acetaminophen [Tylenol Extra Strength] 500 mg tablet 1,000 mg PO QID PRN (Reason: fever or pain) Qty: 14 0RF No Action albuterol sulfate [ProAir HFA] 90 mcg/actuation HFA aerosol inhaler 2 puff inhalation Q4-6H PRN (Reason: Dyspnea) Qty: 8.5 0RF fluticasone propion-salmeterol [Advair Diskus] 250-50 mcg/dose blister with device 1 inh inhalation BID Qty: 60 5RF (DME) FreeStyle Lite Strips Strip See Rx Instructions .ROUTE .MEDSUPPLY Qty: 4 3RF Rx Instructions: As directed check the BS 4 x a day (DME) pen needle, diabetic [BD Ultra-Fine Mini Pen Needle] 31 gauge x 3/16 needle See Rx Instructions .Route Qty: 4 3RF Rx Instructions: As directed, Inject 4 x a day with Insulin aspirin [Adult Aspirin Regimen] 81 mg tablet,delayed release (DR/EC) 81 mg PO DAILY Qty: 90 3RF bupropion HCl [Wellbutrin SR] 150 mg tablet sustained-release 12 hr 150 mg PO BEDTIME Qty: 90 2RF hydralazine 25 mg tablet 25 mg PO TID 90 Days Qty: 270 1RF besifloxacin 0.6 % drops,suspension 1 drp ophthalmic (eye) TID 7 Days Qty: 5 0RF Rx Instructions: administer doses at least 4 hours apart insulin lispro [Humalog KwikPen Insulin] 100 unit/mL insulin pen 18 unit subcut TID Ear Drops (carbamide peroxide) 6.5 % drops 5 drp otic (ears) BID metformin 500 mg tablet 500 mg PO BID Qty: 180 1RF valacyclovir 1 gram tablet 1,000 mg PO Q8H 7 Days Qty: 21 0RF spironolactone 25 mg tablet 25 mg PO DAILY Qty: 30 0RF amlodipine 10 mg tablet 10 mg PO DAILY Qty: 30 0RF meloxicam 15 mg tablet 15 mg PO DAILY Qty: 14 0RF carvedilol 12.5 mg tablet 12.5 mg PO BID 30 Days Qty: 60 3RF Tresiba FlexTouch U-100 100 unit/mL (3 mL) insulin pen 40 unit subcut BID Rx Instructions: Or as directed gabapentin 300 mg capsule 300 mg PO DAILY PRN (DME) FreeStyle Archana 2 Sensor Kit See Rx Instructions .ROUTE Q2W Qty: 1 Rx Instructions: As directed (DME) FreeStyle Archana 2 Fessenden Misc See Rx Instructions .ROUTE DIRECTED Qty: 1 Rx Instructions: As directed Ozempic 0.25 mg or 0.5 mg(2 mg/1.5 mL) pen injector 0.25 mg subcut QWEEK Qty: 1.5 4RF Rx Instructions: for 4 doses terconazole 0.8 % cream 1 appful vaginal BEDTIME 3 Days Qty: 20 0RF lorazepam [Ativan] 0.5 mg tablet 0.5 mg PO ONCE Qty: 1 0RF Referrals: Po,Bijan Tirado MD [Primary Care Provider] - 2 days
[2022-03-14 12:07] LABS: Alanine Aminotransferase 14 U/L (0-31); Albumin Level 4.1 g/dL (3.5-5.0); Alkaline Phosphatase 117 U/L (39-117); Anion Gap 13 (12-20); Aspartate Amino Transferase 13 U/L (5-31); Blood Urea Nitrogen 13 mg/dL (9-16); Calcium 9.3 mg/dL (8.4-10.2); Carbon Dioxide 28 mmol/L (22-29); Chloride 98 mmol/L (96-108); Estimated Glomerular Filt Rate > 60; Glucose Random 325 mg/dL (60-115); Magnesium 1.3 mg/dL (1.6-2.6); Potassium 4.2 mmol/L (3.3-5.1); Sodium 135 mmol/L (135-145); Total Protein 6.9 g/dL (6.5-8.0)
[2022-03-14] MEDS: Magnesium Sulfate/H2O 2 GM/50 ML PIGGYBACK IV (12:46)
[2022-03-14] MEDS: Ketorolac Tromethamine 30 MG/ML VIAL IVPUSH (12:46)
[2022-03-14] MEDS: Metoclopramide HCl 10 MG/2 ML VIAL IVPUSH (12:46)
[2022-03-14] MEDS: 0.9 % Sodium Chloride 1,000 ML 999 ML IVCONT (12:46)
[2022-03-14 13:01] VITALS: BP 159/85; PULSE 74; RESP 16; TEMP 36.7; O2SAT 96
[2022-03-14] MEDS: diphenhydrAMINE HCL 50 MG/ML VIAL 25 MG IVPUSH (13:04)
--- NOTE | 2022-03-14 13:11 | PC.NURSE ---
pt a&ox3, vss, medicated per provider order.
[2022-03-14 13:14] LABS: Troponin-I High Sensitivity < 3.5 ng/L (<3.5-17.0)
[2022-03-14 14:29] VITALS: BP 170/97; PULSE 68; RESP 16; TEMP 36.6; O2SAT 97
[2022-03-17 01:13] LABS: Lyme Abs Screen <0.90 index
[2022-03-20 16:48] LABS: RPR Quantitative Non-Reactive (Nonreactive)
[2022-03-20 16:49] LABS: T.Pallidum Particle Agg Test Non-Reactive (Nonreactive)
== END 2022-03-14 15:05 | disposition home or self-care (01) ==
PROVIDERS: Physician Assistant Medical; Emergency Provider Emergency Medicine; PCP Internal Medicine
DX: G43.909 Migraine, unspecified, not intractable, without status migrainosus (principal); M47.22 Other spondylosis with radiculopathy, cervical region; M19.09 Primary osteoarthritis, other specified site; E83.42 Hypomagnesemia; E11.9 Type 2 diabetes mellitus without complications; I10 Essential (primary) hypertension; Z79.4 Long term (current) use of insulin; Z20.822 Contact with and (suspected) exposure to COVID-19
CPT/HCPCS: 0241U; 36415; 70450; 71046; 72125; 73030; 80053; 83735; 83880; 84484; 85025; 86592; 86617; 86618; 86780; 93005; 96361; 96365; 96366; 96375; 99284; J1200; J1885; J2765; J3475

== ENCOUNTER 2022-05-01 04:46 | Emergency (ER) | payer OTHER, SELFPAY ==
[2022-05-01 05:06] VITALS: BP 191/107; PULSE 79; RESP 18; TEMP 36.4; O2SAT 93; BMI 37.4
--- NOTE | 2022-05-01 05:58 | PC.NURSE ---
Pt resting on stretcher, reports having left sided headache for 4 days, has taken tylenol with no relief.
--- NOTE | 2022-05-01 06:31 | ED.HA ---
HPI - Headache General Chief Complaint: Headache Stated Complaint: Severe Headache Time Seen by Provider: 05/01/22 06:29 Source: patient Mode of arrival: ambulatory Limitations: no limitations History of Present Illness HPI Narrative: 4 days of right jaw pain radiating to the head. She was told she had trigeminal neuralgia. Patient states she had the symptoms on the left side 9 months ago. MD elicited complaint: headache Pertinent past history: other (trigeminal neuralgia) Onset (ago): day(s) Onset description: gradually Location: right and facial Severity: moderate Quality & Timing: throbbing Exacerbating factors: none Associated symptoms: nausea Related Data Home Medications Medication Instructions Recorded Confirmed insulin lispro 100 unit/mL 18 unit subcut TID 02/05/21 02/06/22 subcutaneous pen (Humalog KwikPen (U-100) Insulin) carbamide peroxide 6.5 % ear drops 5 drp otic (ears) BID 10/31/21 02/06/22 (Ear Drops (carbamide peroxide)) insulin degludec 100 unit/mL (3 40 unit subcut BID 01/23/22 02/06/22 mL) subcutaneous pen (Tresiba FlexTouch U-100 insulin) flash glucose scanning reader #1 ea 02/06/22 02/06/22 (FreeStyle Archana 2 [place]) flash glucose sensor (FreeStyle #1 ea 02/06/22 02/06/22 Archana 2 Sensor kit) gabapentin 300 mg capsule 300 mg PO DAILY PRN 02/06/22 02/06/22 Previous Rx's Medication Instructions Recorded albuterol sulfate 90 mcg/actuation 2 puff inhalation Q4-6H PRN 03/18/20 aerosol inhaler (ProAir HFA) Dyspnea #8.5 grams fluticasone 250 mcg-salmeterol 50 1 inh inhalation BID #60 ea 03/18/20 mcg/dose blistr powdr for inhalation (Advair Diskus) blood sugar diagnostic (FreeStyle ##4 11/13/20 Lite Strips) pen needle, diabetic 31 gauge x ##4 11/13/2006/11 (BD Ultra-Fine Mini Pen Needle) besifloxacin 0.6 % eye 1 drp ophthalmic (eye) TID 7 days 01/06/21 drops,suspension #5 mL terconazole 0.8 % vaginal cream 1 appful vaginal BEDTIME 3 days 01/21/21 #20 grams lorazepam 0.5 mg tablet (Ativan) 0.5 mg PO ONCE anxiety #1 tab 04/25/21 aspirin 81 mg tablet,delayed 81 mg PO DAILY #90 tabs 04/30/21 release (Adult Aspirin Regimen) bupropion HCl 150 mg tablet,12 hr 150 mg PO BEDTIME #90 tabs 05/15/21 sustained-release (Wellbutrin SR) amlodipine 10 mg tablet 10 mg PO DAILY #30 tabs 10/31/21 metformin 500 mg tablet 500 mg PO BID #180 tabs 10/31/21 spironolactone 25 mg tablet 25 mg PO DAILY #30 tabs 10/31/21 valacyclovir 1 gram tablet 1,000 mg PO Q8H 7 days #21 tabs 10/31/21 meloxicam 15 mg tablet 15 mg PO DAILY #14 tabs 11/26/21 hydralazine 25 mg tablet 25 mg PO TID 90 days #270 tabs 12/17/21 carvedilol 12.5 mg tablet 12.5 mg PO BID 30 days #60 tabs 01/23/22 semaglutide 0.25 mg or 0.5 mg (2 0.25 mg (0.2 mL) subcut QWEEK #1.5 02/06/22 mg/1.5 mL) subcutaneous pen mL injector (Ozempic) acetaminophen 500 mg tablet 1,000 mg PO QID PRN fever or pain 03/14/22 (Tylenol Extra Strength) #14 tabs cyclobenzaprine 10 mg tablet 10 mg PO Q8H #14 tabs 03/14/22 naproxen 500 mg tablet 500 mg PO BID PRN pain #14 tabs 03/14/22 carbamazepine 200 mg tablet 200 mg PO BID #20 tabs 05/01/22 (Tegretol) Allergies Allergy/AdvReac Type Severity Reaction Status Date / Time clonidine [CLONIDINE] Allergy Severe DIZZY,FAINT Verified 05/01/22 05:08 levetiracetam [LEVETIRACETAM] Allergy Severe DIFFICULTY Verified 05/01/22 05:08 BREATHING lisinopril [LISINOPRIL] Allergy Severe SWELLING, Verified 05/01/22 05:08 angioedema atenolol [ATENOLOL] Allergy Intermediate RASH Verified 05/01/22 05:08 dulaglutide [Trulicity] Allergy Unknown Unknown Verified 05/01/22 05:08 Review of Systems Review of Systems: Yes all other systems are reviewed and are negative Constitutional: Constitutional: Reports headache(s) ENT: Reports headache(s) Neurologic: Reports headache(s) and Denies Sensory deficit (Neuro) [facility] Past Medical History Medical History Anxiety due to invasive procedure Asthma Green's palsy Bipolar disorder Cataracts, bilateral Cervical cancer screening Colon cancer screening COVID-19 Family history of colon cancer GERD (gastroesophageal reflux disease) Hypercholesterolemia Hypertension Lower abdominal pain Microscopic hematuria Migraine Mild obstructive sleep apnea Mixed incontinence urge and stress Obesity (BMI 30-39.9) Obstructive sleep apnea Seizure disorder SVT (supraventricular tachycardia) Thyroid nodule Type 2 diabetes mellitus with hyperglycemia Vulvovaginitis roseline albicans Well woman exam Surgical History History of cholecystectomy History of cone biopsy of uterine cervix History of tubal ligation Family History Family History Father Diabetes FH: prostate cancer CVD (cardiovascular disease) Mother Diabetes Hypertension Stroke CVD (cardiovascular disease) Sister Breast cancer Sister Breast cancer Sister Hypertension Daughter In good health Brother No problems noted. Brother No problems noted. Brother No problems noted. Social History Social History Household Members: Other Household Members Other:: grandson Housing: House Do you presently have visiting nurse or other home services: Yes (tele visits) Alcohol intake: never Patient Tobacco Use Status: Never used Tobacco e-Cigarette/Vaping Use: Never Used Second Hand Smoke Exposure: No Advance Directives: No Advance Directives Information Provided: Yes service: No Current occupational status: disabled Cognitive needs: No Hearing needs: No Vision needs: Yes Physical Exam Vital Signs: Vital Signs: Last Vital Signs Temp 97.5 F 05/01/22 05:06 Pulse 79 05/01/22 05:06 Resp 18 05/01/22 05:06 BP 191/107 H 05/01/22 05:06 Pulse Ox 93 05/01/22 05:06 O2 Del Method 05/01/22 05:06 BMI result Body Mass Index 37.4 Const: Other: moaning complaining of right sided facial pain Nutritional Appearance: average body habitus Orientation/consciousness: oriented to person and patient oriented x3 Limitations: no limitations HEENT: Head: Yes normal to inspection Ears: external ears normal General nose exam: Normal external nose present Mouth: Normal oral and palatal mucosa present and oropharynx normal Teeth and gingiva: other (poor dentition no abscess) Throat: Yes posterior oropharynx normal Eyes: General: appearance normal, both eyes and all related structures Neck: Other: supple Neck: Yes normal visual inspection Chest: Chest palpation & inspection: normal inspection of the chest Resp: Auscultation: clear to auscultation bilaterally Cardio: Jugular venous distension: no JVD Rate: regular rate Rhythm: regular rhythm Heart sounds: S1 normal heart sound present and S2 normal heart sound present GI: Inspection: Yes normal to inspection Palpation (GI): Soft to palpation, nontender and No hepatosplenomegaly present Auscultation: normal bowel sounds : General: Yes no CVA tenderness Back/Spine/Pelvis: Back: no CVA tenderness Skin: General skin exam: no rashes or lesions noted Neuro: General: oriented to person and patient oriented x3 Cranial nerves: Yes CN's II-XII intact bilaterally Motor exam (neuro): 5/5 motor strength present throughout Sensory Exam: No Sensory deficit (Neuro) Extrem: General: Yes normal to inspection Psych: Appearance: grossly normal Course Reevaluation(s) Reevaluation #1: patient improved with tegretol will discharge home on tegretol Time: 09:15 Medications Administered Discontinued Medications Generic Name Dose Route Start Last Admin Trade Name Sonia PRN Reason Stop Dose Admin Carbamazepine 200 mg 05/01/22 06:36 05/01/22 08:00 Carbamazepine 200 Mg Tablet PO 05/01/22 06:37 200 mg ONCE ONE Administration Promethazine HCl 25 mg/ Sodium 51 mls @ 204 mls/hr 05/01/22 06:36 05/01/22 07:59 Chloride IV 05/01/22 06:37 Infused ONCE ONE Infusion Ketorolac Tromethamine 30 mg 05/01/22 06:36 05/01/22 07:08 Ketorolac Tromethamine 30 Mg/Ml Vial IVPUSH 05/01/22 06:37 30 mg ONCE ONE Administration Medical Decision Making Differential Diagnosis Differential Diagnoses: The differential diagnosis associated with the presentation includes (trigeminal neuralgia, migraine headache, headache, ) Lab Data 05/01/22 06:49 05/01/22 06:49 Labs: Lab Results 05/01/22 05/01/22 05/01/22 Range/Units 06:49 06:49 06:49 WBC 6.8 (4.8-10.8) X10*3/uL RBC 5.02 (4.20-5.50) X10*6/uL Hgb 14.3 (12.0-16.0) g/dl Hct 41.4 (37.0-47.0) % MCV 82.5 (80.0-98.0) fL MCH 28.5 (27.0-33.0) pg MCHC 34.5 (31.0-35.0) g/dl RDW 11.7 (11.0-16.0) % Plt Count 223 (160-400) X10*3/uL MPV 10.8 (9.4-12.3) fL Immature Gran % (Auto) 0.3 (0.0-0.4) % Neut % (Auto) 51.1 (45-73) % Lymph % (Auto) 39.6 (20-40) % Donley % (Auto) 6.5 (2-11) % Eos % (Auto) 2.2 (0-4) % Baso % (Auto) 0.3 (0-2) % Lymph # (Auto) 2.7 (1.2-4.9) X10*3/uL Donley # (Auto) 0.4 (0.1-1.2) X10*3/uL Eos # (Auto) 0.2 (0.0-0.4) X10*3/uL Baso # (Auto) 0.0 (0.0-0.2) X10*3/uL Abs Immat Gran (auto) 0.02 (0.00-0.03) X10*3/uL Absolute Neuts (auto) 3.5 (2.0-8.3) x10*3/uL Absolute Nucleated RBC 0.000 (0.0-0.012) X10*3/uL Nucleated RBC % (auto) 0.0 (0.0-0.2) /100WBC ESR 7 (0-20) MM/HR Sodium 136 (135-145) mmol/L Potassium 4.5 (3.3-5.1) mmol/L Chloride 101 (96-108) mmol/L Carbon Dioxide 23 (22-29) mmol/L Anion Gap 17 (12-20) BUN 11 (9-16) mg/dL Creatinine 0.72 (0.5-1.4) mg/dL Estim Creat Clear Calc 93.7 Estimated GFR > 60 Random Glucose 277 H (60-115) mg/dL Calcium 8.9 (8.4-10.2) mg/dL External Record Review External record reviewed: Office record neurology consultation for trigeminal neuralgia Tests considered The following testing was considered but not selected: I considered a Head CT but patient has a recent one Discharge Plan Discharge Clinical Impression: Trigeminal neuralgia of right side of face Patient Disposition: Home, Self-Care Prescriptions: New carbamazepine [Tegretol] 200 mg tablet 200 mg PO BID Qty: 20 0RF No Action albuterol sulfate [ProAir HFA] 90 mcg/actuation HFA aerosol inhaler 2 puff inhalation Q4-6H PRN (Reason: Dyspnea) Qty: 8.5 0RF fluticasone propion-salmeterol [Advair Diskus] 250-50 mcg/dose blister with device 1 inh inhalation BID Qty: 60 5RF (DME) FreeStyle Lite Strips Strip See Rx Instructions .ROUTE .MEDSUPPLY Qty: 4 3RF Rx Instructions: As directed check the BS 4 x a day (DME) pen needle, diabetic [BD Ultra-Fine Mini Pen Needle] 31 gauge x 3/16 needle See Rx Instructions .Route Qty: 4 3RF Rx Instructions: As directed, Inject 4 x a day with Insulin aspirin [Adult Aspirin Regimen] 81 mg tablet,delayed release (DR/EC) 81 mg PO DAILY Qty: 90 3RF bupropion HCl [Wellbutrin SR] 150 mg tablet sustained-release 12 hr 150 mg PO BEDTIME Qty: 90 2RF hydralazine 25 mg tablet 25 mg PO TID 90 Days Qty: 270 1RF naproxen 500 mg tablet 500 mg PO BID PRN (Reason: pain) Qty: 14 0RF cyclobenzaprine 10 mg tablet 10 mg PO Q8H Qty: 14 0RF acetaminophen [Tylenol Extra Strength] 500 mg tablet 1,000 mg PO QID PRN (Reason: fever or pain) Qty: 14 0RF besifloxacin 0.6 % drops,suspension 1 drp ophthalmic (eye) TID 7 Days Qty: 5 0RF Rx Instructions: administer doses at least 4 hours apart insulin lispro [Humalog KwikPen Insulin] 100 unit/mL insulin pen 18 unit subcut TID Ear Drops (carbamide peroxide) 6.5 % drops 5 drp otic (ears) BID metformin 500 mg tablet 500 mg PO BID Qty: 180 1RF valacyclovir 1 gram tablet 1,000 mg PO Q8H 7 Days Qty: 21 0RF spironolactone 25 mg tablet 25 mg PO DAILY Qty: 30 0RF amlodipine 10 mg tablet 10 mg PO DAILY Qty: 30 0RF meloxicam 15 mg tablet 15 mg PO DAILY Qty: 14 0RF carvedilol 12.5 mg tablet 12.5 mg PO BID 30 Days Qty: 60 3RF Tresiba FlexTouch U-100 100 unit/mL (3 mL) insulin pen 40 unit subcut BID Rx Instructions: Or as directed gabapentin 300 mg capsule 300 mg PO DAILY PRN (DME) FreeStyle Archana 2 Sensor Kit See Rx Instructions .ROUTE Q2W Qty: 1 Rx Instructions: As directed (DME) FreeStyle Archana 2 [place] Misc See Rx Instructions .ROUTE DIRECTED Qty: 1 Rx Instructions: As directed Ozempic 0.25 mg or 0.5 mg(2 mg/1.5 mL) pen injector 0.25 mg subcut QWEEK Qty: 1.5 4RF Rx Instructions: for 4 doses terconazole 0.8 % cream 1 appful vaginal BEDTIME 3 Days Qty: 20 0RF lorazepam [Ativan] 0.5 mg tablet 0.5 mg PO ONCE Qty: 1 0RF Referrals: Po,Bijan Tirado MD [Primary Care Provider] - 1 week Radha Palafox MD [Physician] - 10 days
[2022-05-01 06:55] LABS: MANUAL DIFF FLAG NO
[2022-05-01 06:58] LABS: Basophils Percent Auto 0.3 % (0-2); Eosinophils Absolute Auto 0.2 X10*3/uL (0.0-0.4); Eosinophils Percent Auto 2.2 % (0-4); Hematocrit 41.4 % (37.0-47.0); Hemoglobin 14.3 g/dl (12.0-16.0); Imm Gran Abs Auto 0.02 X10*3/uL (0.00-0.03); Imm Gran Pct Auto 0.3 % (0.0-0.4); Lymphocytes Absolute Auto 2.7 X10*3/uL (1.2-4.9); Lymphocytes Percent Auto 39.6 % (20-40); Mean Corpuscular HGB Conc 34.5 g/dl (31.0-35.0); Mean Corpuscular Hemoglobin 28.5 pg (27.0-33.0); Mean Corpuscular Volume 82.5 fL (80.0-98.0); Mean Platelet Volume 10.8 fL (9.4-12.3); Monocytes Absolute Auto 0.4 X10*3/uL (0.1-1.2); Monocytes Percent Auto 6.5 % (2-11); Neutrophils Absolute Auto 3.5 x10*3/uL (2.0-8.3); Neutrophils Percent Auto 51.1 % (45-73); Platelet Count 223 X10*3/uL (160-400); Red Blood Count 5.02 X10*6/uL (4.20-5.50); Red Cell Distribution Width 11.7 % (11.0-16.0); White Blood Count 6.8 X10*3/uL (4.8-10.8)
[2022-05-01] MEDS: Ketorolac Tromethamine 30 MG/ML VIAL IVPUSH (07:08)
[2022-05-01 07:11] LABS: Anion Gap 17 (12-20); Blood Urea Nitrogen 11 mg/dL (9-16); Calcium 8.9 mg/dL (8.4-10.2); Carbon Dioxide 23 mmol/L (22-29); Chloride 101 mmol/L (96-108); Creatinine Clr Calc Pharmacy 93.7; Estimated Glomerular Filt Rate > 60; Glucose Random 277 mg/dL (60-115); Potassium 4.5 mmol/L (3.3-5.1); Sodium 136 mmol/L (135-145)
[2022-05-01 07:42] LABS: Erythrocyte Sedimentation Rate 7 MM/HR (0-20)
[2022-05-01] MEDS: carBAMazepine 200 MG TABLET PO (08:00)
--- NOTE | 2022-05-01 08:19 | PC.NURSE ---
Patient reports improvement with headache will CTM
[2022-05-01 09:47] VITALS: BP 192/144; PULSE 71; RESP 16; TEMP 36.7; O2SAT 98
--- NOTE | 2022-05-01 09:47 | PC.NURSE ---
IV removed catheter tip intact patient hypertensive MD aware patient has not taken BP med this AM will take when she gets home
== END 2022-05-01 09:49 | disposition home or self-care (01) ==
PROVIDERS: Emergency Provider Emergency Medicine; PCP Internal Medicine
DX: G50.0 Trigeminal neuralgia (principal); R51.9 Headache, unspecified; Z79.899 Other long term (current) drug therapy
CPT/HCPCS: 36415; 80048; 85025; 85652; 96365; 96375; 99284; J1885; J2550

== ENCOUNTER → 2022-05-06 13:08 | Outpatient (BNVA) | payer OTHER, SELFPAY | PROVIDERS: PCP Internal Medicine; Visit Provider Internal Medicine Endocrinology, Diabetes & Metabolism | DX: E11.65 Type 2 diabetes mellitus with hyperglycemia (principal); Z79.4 Long term (current) use of insulin | CPT/HCPCS: 82947; 83036; 99212 ==

== ENCOUNTER 2022-06-22 08:13 | Emergency (ER) | payer OTHER, SELFPAY ==
--- NOTE | ~2022-06-22 | XR_ITS ---
EXAMINATION: XR CHEST CLINICAL INFORMATION: Cough. COMPARISON: March 14, 2022. TECHNIQUE: 2 views of the chest were obtained. XR/XR chest 2V FINDINGS/IMPRESSION: No significant abnormality is noted involving the heart, lungs, or bony thorax. Mild deviation of the trachea toward the right consistent with known goiter. Uncoiled aorta, suggesting hypertension. Tiny focus of fibrotic change and/atelectasis at the periphery of the left midlung. Minimally elevated right hemidiaphragm.
[2022-06-22 08:14] VITALS: BP 156/90; PULSE 90; RESP 18; TEMP 37.2; O2SAT 96; BMI 37.8
[2022-06-22 09:03] LABS: Influenza A PCR NEGATIVE (Negative); Influenza B PCR NEGATIVE (Negative); Resp Syncy Virus RNA Qual PCR NEGATIVE (Negative); SARS COV2 PCR INHOUSE POSITIVE (Negative)
--- NOTE | 2022-06-22 09:16 | ED.URI ---
HPI - URI/Sore Throat General Chief Complaint: Upper Respiratory Symptoms Stated Complaint: coughing sore throat Time Seen by Provider: 06/22/22 08:32 Source: patient Mode of arrival: ambulatory Limitations: no limitations History of Present Illness HPI Narrative: 61 yo female with history of mild intermittent asthma, obesity, YUSUF, HLD, bipolar disorder, diabetes, HTN, seizures, trigeminal neuroalgia who is presenting to the ER for evaluation of dry cough, nasal congestion, headaches, body aches and not feeling well for the last 2 days. She states she was recently around her brother who had similar symptoms. He never saw a medical provider to get a diagnosis. He reports the cough is keeping her up at night. She is not bringing up any phlegm, she has some chest discomfort when she coughs. No ALEXANDER or SOB. MD elicited complaint: cough, sore throat and nasal congestion Pertinent past history: asthma Onset (ago): day(s) (2) Consistency: progressively worsening Severity: moderate Able to tolerate fluids by mouth: Yes Exacerbating factors: nothing Relieving factors: rest Context: sick contacts Associated symptoms: chills, myalgias, headache, nasal congestion, sore throat and cough Treatments prior to arrival: none Related Data Home Medications Medication Instructions Recorded Confirmed insulin lispro 100 unit/mL 18 unit subcut TID 02/05/21 02/06/22 subcutaneous pen (Humalog KwikPen (U-100) Insulin) carbamide peroxide 6.5 % ear drops 5 drp otic (ears) BID 10/31/21 02/06/22 (Ear Drops (carbamide peroxide)) insulin degludec 100 unit/mL (3 40 unit subcut BID 01/23/22 02/06/22 mL) subcutaneous pen (Tresiba FlexTouch U-100 insulin) flash glucose scanning reader #1 ea 02/06/22 02/06/22 (FreeStyle Archana 2 [place]) gabapentin 300 mg capsule 300 mg PO DAILY PRN 02/06/22 02/06/22 pen needle, diabetic 31 gauge x 05/06/22/ (BD Ultra-Fine Mini Pen Needle) Previous Rx's Medication Instructions Recorded albuterol sulfate 90 mcg/actuation 2 puff inhalation Q4-6H PRN 03/18/20 aerosol inhaler (ProAir HFA) Dyspnea #8.5 grams fluticasone 250 mcg-salmeterol 50 1 inh inhalation BID #60 ea 03/18/ mcg/dose blistr powdr for inhalation (Advair Diskus) blood sugar diagnostic (KennethStyle ##4 11/13/20 Lite Strips) besifloxacin 0.6 % eye 1 drp ophthalmic (eye) TID 7 days 01/06/21 drops,suspension #5 mL terconazole 0.8 % vaginal cream 1 appful vaginal BEDTIME 3 days 01/21/21 #20 grams lorazepam 0.5 mg tablet (Ativan) 0.5 mg PO ONCE anxiety #1 tab 04/25/21 aspirin 81 mg tablet,delayed 81 mg PO DAILY #90 tabs 04/30/21 release (Adult Aspirin Regimen) bupropion HCl 150 mg tablet,12 hr 150 mg PO BEDTIME #90 tabs 05/15/21 sustained-release (Wellbutrin SR) amlodipine 10 mg tablet 10 mg PO DAILY #30 tabs 10/31/21 metformin 500 mg tablet 500 mg PO BID #180 tabs 10/31/21 spironolactone 25 mg tablet 25 mg PO DAILY #30 tabs 10/31/21 valacyclovir 1 gram tablet 1,000 mg PO Q8H 7 days #21 tabs 10/31/21 meloxicam 15 mg tablet 15 mg PO DAILY #14 tabs 11/26/21 semaglutide 0.25 mg or 0.5 mg (2 0.25 mg (0.2 mL) subcut QWEEK #1.5 02/06/22 mg/1.5 mL) subcutaneous pen mL injector (Ozempic) acetaminophen 500 mg tablet 1,000 mg PO QID PRN fever or pain 03/14/22 (Tylenol Extra Strength) #14 tabs cyclobenzaprine 10 mg tablet 10 mg PO Q8H #14 tabs 03/14/22 naproxen 500 mg tablet 500 mg PO BID PRN pain #14 tabs 03/14/22 carbamazepine 200 mg tablet 200 mg PO BID #20 tabs 05/01/22 (Tegretol) carvedilol 12.5 mg tablet 12.5 mg PO BID 30 days #60 tabs 05/26/22 flash glucose sensor (FreeStyle #6 ea 06/02/22 Archana 2 Sensor kit) hydralazine 25 mg tablet 25 mg PO TID 90 days #270 tabs 06/10/22 hydrocodone-homatropine 5 mg-1.5 5 ml PO Q4-6H PRN cough #60 mL 06/22/22 mg/5 mL (5 mL) oral syrup (Hycodan) Allergies Allergy/AdvReac Type Severity Reaction Status Date / Time clonidine [CLONIDINE] Allergy Severe DIZZY,FAINT Verified 06/02/22 15:45 levetiracetam [LEVETIRACETAM] Allergy Severe DIFFICULTY Verified 06/02/22 15:45 BREATHING lisinopril [LISINOPRIL] Allergy Severe SWELLING, Verified 06/02/22 15:45 angioedema atenolol [ATENOLOL] Allergy Intermediate RASH Verified 06/02/22 15:45 dulaglutide [Trulicity] Allergy Unknown Unknown Verified 06/02/22 15:45 Review of Systems Review of Systems: Yes all other systems are reviewed and are negative PMFSH Past Medical History Medical History Anxiety due to invasive procedure Asthma Green's palsy Bipolar disorder Cataracts, bilateral Cervical cancer screening Colon cancer screening COVID-19 Family history of colon cancer GERD (gastroesophageal reflux disease) Hypercholesterolemia Hypertension Lower abdominal pain Microscopic hematuria Migraine Mild obstructive sleep apnea Mixed incontinence urge and stress Obesity (BMI 30-39.9) Obstructive sleep apnea Seizure disorder SVT (supraventricular tachycardia) Thyroid nodule Type 2 diabetes mellitus with hyperglycemia Vulvovaginitis roseline albicans Well woman exam Surgical History History of cholecystectomy History of cone biopsy of uterine cervix History of tubal ligation Family History Family History (Updated 06/02/22 @ 15:45 by Christal Acosta CMA) Father Diabetes FH: prostate cancer CVD (cardiovascular disease) Mother Diabetes Hypertension Stroke CVD (cardiovascular disease) Sister Breast cancer Sister Breast cancer Sister Hypertension Daughter In good health Brother No problems noted. Brother No problems noted. Brother No problems noted. Social History Social History Household Members: Other Household Members Other:: grandson Housing: House Do you presently have visiting nurse or other home services: Yes (tele visits) Alcohol intake: never Patient Tobacco Use Status: Never used Tobacco Smoked in Last 30 Days: No e-Cigarette/Vaping Use: Never Used Second Hand Smoke Exposure: No Use of substances other than those prescribed or required for medical reasons: No Any prior treatment program specific to substance use: No Advance Directives: No Advance Directives Information Provided: Yes Patient : No service: No Current occupational status: disabled Cognitive needs: No Hearing needs: No Vision needs: Yes Physical Exam Vital Signs: Vital Signs: Last Vital Signs Temp 99.0 F 06/22/22 08:14 Pulse 90 06/22/22 08:14 Resp 18 06/22/22 08:14 BP 156/90 H 06/22/22 08:14 Pulse Ox 98 06/22/22 10:04 O2 Del Method Room Air 06/22/22 10:04 BMI result Body Mass Index 37.8 Appearance: Alert. Oriented X3. No acute distress. Eyes: Pupils equal, round and reactive to light. ENT: Pharynx normal. Clear nasal congestion. Normal TMs bilaterally. Neck: Normal inspection. Neck supple. CVS: Normal heart rate and rhythm. Pulses normal. Respiratory: No respiratory distress. Breath sounds normal. Skin: Skin warm and dry. Normal skin color. Normal skin turgor. No rashes. Extremities: No lower extremity edema. Neuro: Oriented X 3. Nonfocal Medical Decision Making Medical Decision Making [facility] Narrative: 61-year-old female presenting to the ER for evaluation of URI symptoms for the last 2 days afternoon contact with her brother who had similar symptoms. She has a nonproductive cough. She appears well on exam with stable vital signs. Her lungs are clear. Chest x-ray does not show any evidence of pneumonia. Viral swab performed and patient found to be positive for COVID-19. She is fully vaccinated. Her symptoms are mild at this time. No hypoxia. No COVID pneumonia. Patient was counseled on diagnosis and management. Will discharge with antitussive, follow-up with PCP. Strict return precautions were discussed. Patient expressed understanding and all questions were answered Differential Diagnosis Differential Diagnoses: The differential diagnosis associated with the presentation includes COVID, flu, RSV, acute viral syndrome, bacterial pneumonia, aspiration pneumonia, mononucleosis, strep throat No evidence of asthma exacerbation, no wheezing on examination. Lab Data [facility] Lab Attestation statement: I reviewed the patient's lab results. COVID positive Labs: Lab Results 06/22/22 Range/Units 08:19 Influenza Type A (PCR) NEGATIVE (Negative) Influenza Type B (PCR) NEGATIVE (Negative) RSV RNA Qual (PCR) NEGATIVE (Negative) SARS-CoV-2 RNA (RT-PCR) POSITIVE A (Negative) Independent Interpretation I performed an independent interpretation of an: Plain X-Ray Interpretation: Chest x-ray reviewed, no evidence of infiltrate, pneumonia, volume overload External Record Review External record reviewed: Prior outpatient labs Prescription Management I considered prescription management with: Other (Antitussive) Chronic Conditions Patient?s care impacted by: Diabetes, Hypertension and Other (Asthma) Critical Care Time Critical Care Time Critical Care Time: No Discharge Plan Discharge Clinical Impression: COVID-19 Patient Disposition: Home, Self-Care Instructions: COVID-19 (Coronavirus Disease 2019) (ED) Additional Instructions: You were found to be COVID-19 POSITIVE today. Your chest x-ray and oxygen levels were normal. Rest. Drink plenty of fluids. Do not go out in public while you are not feeling well. Take over the counter cold/flu medications as needed for your symptoms. Take the prescribed cough medication at night to help you sleep. Take Tylenol and/or Motrin as needed for fevers and body aches. Follow up with your doctor this week. If you shortness of breath worsens, if you develop difficulty breathing or any other concerning symptom come back to the ER for further evaluation. Prescriptions: New hydrocodone-homatropine [Hycodan] 5-1.5 mg/5 mL (5 mL) syrup 5 ml PO Q4-6H PRN (Reason: cough) Qty: 60 0RF Rx Instructions: Partial Fill upon patient request. No Action albuterol sulfate [ProAir HFA] 90 mcg/actuation HFA aerosol inhaler 2 puff inhalation Q4-6H PRN (Reason: Dyspnea) Qty: 8.5 0RF fluticasone propion-salmeterol [Advair Diskus] 250-50 mcg/dose blister with device 1 inh inhalation BID Qty: 60 5RF (DME) FreeStyle Lite Strips Strip See Rx Instructions .ROUTE .MEDSUPPLY Qty: 4 3RF Rx Instructions: As directed check the BS 4 x a day aspirin [Adult Aspirin Regimen] 81 mg tablet,delayed release (DR/EC) 81 mg PO DAILY Qty: 90 3RF bupropion HCl [Wellbutrin SR] 150 mg tablet sustained-release 12 hr 150 mg PO BEDTIME Qty: 90 2RF carvedilol 12.5 mg tablet 12.5 mg PO BID 30 Days Qty: 60 3RF hydralazine 25 mg tablet 25 mg PO TID 90 Days Qty: 270 1RF naproxen 500 mg tablet 500 mg PO BID PRN (Reason: pain) Qty: 14 0RF cyclobenzaprine 10 mg tablet 10 mg PO Q8H Qty: 14 0RF acetaminophen [Tylenol Extra Strength] 500 mg tablet 1,000 mg PO QID PRN (Reason: fever or pain) Qty: 14 0RF besifloxacin 0.6 % drops,suspension 1 drp ophthalmic (eye) TID 7 Days Qty: 5 0RF Rx Instructions: administer doses at least 4 hours apart carbamazepine [Tegretol] 200 mg tablet 200 mg PO BID Qty: 20 0RF insulin lispro [Humalog KwikPen Insulin] 100 unit/mL insulin pen 18 unit subcut TID Ear Drops (carbamide peroxide) 6.5 % drops 5 drp otic (ears) BID metformin 500 mg tablet 500 mg PO BID Qty: 180 1RF valacyclovir 1 gram tablet 1,000 mg PO Q8H 7 Days Qty: 21 0RF spironolactone 25 mg tablet 25 mg PO DAILY Qty: 30 0RF amlodipine 10 mg tablet 10 mg PO DAILY Qty: 30 0RF meloxicam 15 mg tablet 15 mg PO DAILY Qty: 14 0RF Tresiba FlexTouch U-100 100 unit/mL (3 mL) insulin pen 40 unit subcut BID Rx Instructions: Or as directed (DME) FreeStyle Archana 2 Sensor Kit See Rx Instructions .ROUTE Q2W Qty: 6 3RF Rx Instructions: As directed gabapentin 300 mg capsule 300 mg PO DAILY PRN (DME) FreeStyle Archana 2 [place] Misc See Rx Instructions .ROUTE DIRECTED Qty: 1 Rx Instructions: As directed Ozempic 0.25 mg or 0.5 mg(2 mg/1.5 mL) pen injector 0.25 mg subcut QWEEK Qty: 1.5 4RF Rx Instructions: for 4 doses (DME) pen needle, diabetic [BD Ultra-Fine Mini Pen Needle] 31 gauge x 3/16 needle See Rx Instructions .Route Rx Instructions: As directed, Inject 6 x a day with Insulin terconazole 0.8 % cream 1 appful vaginal BEDTIME 3 Days Qty: 20 0RF lorazepam [Ativan] 0.5 mg tablet 0.5 mg PO ONCE Qty: 1 0RF Referrals: Po,Bijan Tirado MD [Primary Care Provider] - (follow up COVID +) Stand Alone Forms: Work/School Release
[2022-06-22 10:04] VITALS: O2SAT 98
== END 2022-06-22 10:09 | disposition home or self-care (01) ==
PROVIDERS: Emergency Provider Student in an Organized Health Care Education/Training Program; PCP Internal Medicine
DX: U07.1 COVID-19 (principal); R05.9 Cough, unspecified; J02.8 Acute pharyngitis due to other specified organisms; M79.10 Myalgia, unspecified site; R51.9 Headache, unspecified; Z79.899 Other long term (current) drug therapy
CPT/HCPCS: 0241U; 71046; 99283; 99284

== ENCOUNTER → 2022-07-22 13:24 | Outpatient (BNVA) | payer OTHER, SELFPAY | PROVIDERS: PCP Internal Medicine; Visit Provider Nurse Practitioner Family | DX: R51.9 Headache, unspecified (principal); M54.2 Cervicalgia; M25.511 Pain in right shoulder; M53.9 Dorsopathy, unspecified | CPT/HCPCS: 99202 ==

== ENCOUNTER 2022-07-31 08:13 | Outpatient (REF) | payer OTHER, SELFPAY ==
--- NOTE | ~2022-07-31 | MM_ITS ---
EXAMINATION: MM SCREENING DIGITAL BREAST TOMOSYNTHESIS, BILATERAL CLINICAL INFORMATION: Screening. Asymptomatic. Family history multiple relatives with breast cancer. The lifetime risk of breast cancer based on the Tyrer-Cuzick Model is 21%. COMPARISON: Mammography: 07/02/2020, 08/09/2018, 07/27/2018, 06/26/2017, 06/08/2016 TECHNIQUE: Digital breast tomosynthesis is performed in both the craniocaudal and mediolateral oblique views along with computer-aided detection (CAD). Synthesized 2D images are generated from the tomosynthesis. FINDINGS: There are scattered areas of fibroglandular density (ACR BI-RADS breast composition Category b). There are no significant masses, abnormal calcifications, or other abnormalities. Parenchymal pattern is similar to prior studies. There are scattered minor asymmetries and fibronodular densities similar to prior exams. No architectural abnormality. The axilla and skin contours are unremarkable. No significant changes. MM/MM tomosynthesis screening BI IMPRESSION: No mammographic evidence of malignancy. ASSESSMENT: BI-RADS 2: Benign RECOMMENDATION: -Routine annual mammography screening. -Additional annual adjunct screening with breast MRI may be of benefit in women with a risk score of 20% or greater. This patient's information was entered into a reminder system with a target due date for their next mammogram.
== END 2022-07-31 08:14 | disposition home or self-care (01) ==
LOC: HO.MAMMO 08:13
PROVIDERS: PCP Internal Medicine; Visit Provider Internal Medicine
DX: Z12.31 Encounter for screening mammogram for malignant neoplasm of breast (principal)
CPT/HCPCS: 77063; 77067

== ENCOUNTER 2022-08-12 11:11 | Outpatient (REF) | payer OTHER, SELFPAY ==
[2022-08-12 12:44] LABS: Anion Gap 11 (12-20); Blood Urea Nitrogen 9 mg/dL (9-16); Calcium 9.4 mg/dL (8.4-10.2); Carbon Dioxide 29 mmol/L (22-29); Chloride 105 mmol/L (96-108); Estimated Glomerular Filt Rate > 60; Glucose Random 297 mg/dL (60-115); Potassium 4.4 mmol/L (3.3-5.1); Sodium 141 mmol/L (135-145)
== END 2022-08-12 11:12 | disposition home or self-care (01) ==
LOC: HO.LAB 11:11
PROVIDERS: PCP Internal Medicine; Visit Provider Internal Medicine Hypertension Specialist
DX: I10 Essential (primary) hypertension (principal)
CPT/HCPCS: 36415; 80048

== ENCOUNTER → 2022-08-18 10:18 | Outpatient (BNVA) | payer OTHER, SELFPAY | PROVIDERS: PCP Internal Medicine; Visit Provider Internal Medicine Endocrinology, Diabetes & Metabolism | DX: E11.65 Type 2 diabetes mellitus with hyperglycemia (principal); Z79.4 Long term (current) use of insulin | CPT/HCPCS: 82947; 83036; 99212 ==

== ENCOUNTER 2022-09-08 09:24 | Outpatient (REF) | payer OTHER, SELFPAY ==
--- NOTE | ~2022-09-08 | MR_ITS ---
EXAMINATION: MR CERVICAL SPINE WITHOUT CONTRAST CLINICAL INFORMATION: Cervicalgia. COMPARISON: Cervical spine CT 03/14/2022. TECHNIQUE: MRI of the cervical spine was performed using routine sequences without contrast. FINDINGS: The cervical vertebral bodies maintain normal heights and alignment. There is no significant disc height loss. Significant bone marrow edema is seen involving the right-sided C2-C3 facets with periarticular edema also demonstrated reflecting ongoing arthropathy. The cord signal appears normal. The imaged intracranial contents are unremarkable. The thyroid gland is markedly enlarged particularly the left lobe with underlying nodules demonstrated, previously characterized with thyroid ultrasound. There is rightward deviation of the trachea. No significant tracheal luminal compression is seen. SPINAL LEVELS: C2-C3: No posterior disc abnormality. Severe right facet arthropathy. No spinal canal or neural foraminal stenosis. C3-C4: Mild uncovertebral hypertrophy with disc bulging. Moderate right and mild left facet arthropathy. No spinal canal or neural foraminal stenosis. C4-C5: Disc bulging with uncovertebral hypertrophy and mild left more than right facet arthropathy. Mild left neural foraminal stenosis. No spinal canal stenosis. C5-C6: Left uncovertebral hypertrophy with mild facet arthropathy resulting in moderate left neural foraminal stenosis. No spinal canal stenosis. C6-C7: Disc bulging with uncovertebral hypertrophy and mild facet arthropathy. No spinal canal stenosis. No significant neural foraminal stenosis. C7-T1: No posterior disc abnormality. No spinal canal or neural foraminal stenosis. MR/MR cervical spine wo con IMPRESSION: 1. Bone marrow edema is seen about the right-sided C2-C3 facets with periarticular edema also demonstrated reflecting ongoing arthropathy. 2. No significant narrowing of the spinal canal. Neural foraminal stenosis appears moderate on the left at C5-C6. 3. Enlarged thyroid gland with underlying nodules resulting in rightward displacement of the trachea without tracheal luminal compression.
== END 2022-09-08 09:25 | disposition home or self-care (01) ==
LOC: HO.MRI 09:24
PROVIDERS: PCP Internal Medicine; Visit Provider Nurse Practitioner Family
DX: M54.2 Cervicalgia (principal); R29.898 Other symptoms and signs involving the musculoskeletal system; M53.9 Dorsopathy, unspecified
CPT/HCPCS: 72141

== ENCOUNTER 2022-10-21 08:59 | Outpatient (AMB) | payer OTHER, SELFPAY ==
--- NOTE | 2022-10-21 09:04 | MHC.OFFVIS ---
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: No Information Interpreted: non-clinical & clinical Merchandise Distributor: Merchandise Distributor Present ([place]) Allergies clonidine [CLONIDINE] Allergy (Severe, Verified 10/21/22 09:08) DIZZY,FAINT levetiracetam [LEVETIRACETAM] Allergy (Severe, Verified 10/21/22 09:08) DIFFICULTY BREATHING lisinopril [LISINOPRIL] Allergy (Severe, Verified 10/21/22 09:08) SWELLING, angioedema atenolol [ATENOLOL] Allergy (Intermediate, Verified 10/21/22 09:08) RASH dulaglutide [Trulicity] Allergy (Unknown, Verified 10/21/22 09:08) Unknown Is last menstrual period known: No Post menopausal: Yes HPI HPI Comments History of Present Illness Details Presenting for annual exam. No complaints. Last Pap/HPV was negative in 01/16 Last Mammogram was BI-RADS 2 in 08/18, Josh Vincent lifetime breast cancer risk was 21% Appointment for screening Colonoscopy was canceled by GI few months ago and not rescheduled yet [facility] Medical History (Updated 10/21/22 @ 09:19 by Jaciel Ly MD) Anxiety due to invasive procedure Asthma Green's palsy Bipolar disorder Breast cancer screening by mammogram Cataracts, bilateral Cervical cancer screening Colon cancer screening COVID-19 Family history of colon cancer GERD (gastroesophageal reflux disease) Hypercholesterolemia Hypertension Lower abdominal pain Microscopic hematuria Migraine Mild obstructive sleep apnea Mixed incontinence urge and stress Obesity (BMI 30-39.9) Obstructive sleep apnea Seizure disorder SVT (supraventricular tachycardia) Thyroid nodule Trigeminal neuralgia of right side of face Type 2 diabetes mellitus with hyperglycemia Vulvovaginitis roseline albicans Well woman exam Surgical History History of cholecystectomy History of cone biopsy of uterine cervix History of tubal ligation Family History Father Diabetes FH: prostate cancer CVD (cardiovascular disease) Mother Diabetes Hypertension Stroke CVD (cardiovascular disease) Sister Breast cancer Sister Breast cancer Sister Hypertension Daughter In good health Brother No problems noted. Brother No problems noted. Brother No problems noted. Sister Cervical cancer Social History Household Members: Other Household Members Other:: grandson Housing: House Do you presently have visiting nurse or other home services: Yes (tele visits) Alcohol intake: never Patient Tobacco Use Status: Never used Tobacco e-Cigarette/Vaping Use: Never Used Second Hand Smoke Exposure: No service: No Current occupational status: disabled Cognitive needs: No Hearing needs: No Vision needs: Yes Female Reproductive History Menstrual Age of Menarche: 12 control method: permanent sterilization Total pregnancies: 6 Full term: 5 Number of Living Children: 5 Ab spontaneous: 1 Date of last pap smear: 01/22/21 (negative) Date of Mammogram: 07/31/22 Review of Systems Const All systems reviewed & are unremarkable except as noted in HPI and below Card Reports as per HPI Resp Reports as per HPI GI Reports as per HPI and Reports no additional complaints Reports as per HPI Physical Exam Vital Signs: Last Vital Signs BP 162/96 H 10/21/22 09:06 BMI result Body Mass Index 34.2 Const General: cooperative, healthy appearing and comfortable Chest Chest palpation & inspection: normal inspection of the chest and normal palpation of entire chest wall Breast/axilla inspection: normal inspection of the breasts and normal inspection of the axillae Breast/axilla palpation: normal palpation of the breasts, normal palpation of the axillae and no axillary lymphadenopathy Resp Effort & Inspection: normal respiratory effort Auscultation: clear to auscultation bilaterally Percussion: percussion normal Cardio Palpation: normal PMI Rate: regular rate Rhythm: regular rhythm Heart sounds: no murmurs and no rubs Peripheral pulses: Peripheral pulses 2+ throughout GI Inspection: Yes normal to inspection Palpation (GI): Soft to palpation, nontender, no guarding, not rigid and No hepatosplenomegaly present Percussion: Yes normal to percussion Auscultation: normal bowel sounds Rectal Exam - Female: deferred General: Yes bladder normal to palpation External Female Exam: No lesion Speculum Exam - Vagina: normal appearance of the vagina, normal palpation, normal vaginal discharge and not erythematous Speculum Exam - Cervix: normal appearance of the cervix and normal palpation Bimanual exam- vagina & uterus: normal bimanual exam, normal palpation, uterine size normal, bladder normal to palpation, consistency normal and normal palpation Bimanual Exam- Adnexa, other: normal adnexae, no masses and no tenderness Assessment & Plan Assessment & Plan (1) At high risk for breast cancer: Code(s): Z91.89 - Other specified personal risk factors, not elsewhere classified Plan: Discussed with the patient her increased risk for Breast ca. The lifetime risk of breast cancer based on the Tyrer-Cuzick Model is 34% Recommended Intensification of breast Cancer screening with annual MRI breast in addition to annual mammogram and MRI alternating every 6 months. Mammogram done recently , Breast MRI ordered Will refer to Dr Ornelas for possible Genetic Ca counseling and possible testing, in addition to counseling regarding Chemoprevention strategies All questions answered, the patient verbalized understanding and agreed with the plan (2) Well woman exam: Code(s): Z01.419 - Encounter for gynecological examination (general) (routine) without abnormal findings Plan: Co testing not indicated this. Counseled the patient about the recommended dietary allowance of 1200 mg of Calcium & 600 IU of vitamin D. Instructions given the patient to schedule next screening Mammogram in 06/19 , the patient was referred to GI for screening colonoscopy . The patient was instructed to perform monthly self-breast exams and schedule annual exam in a year; all questions answered and the patient verbalized understanding. Orders: Orders MR breast BI wo/w con Today Z91.89 - Other specified personal risk factors, not elsewhere classified Referrals General Surgery Referral Z91.89 - Other specified personal risk factors, not elsewhere classified Gastroenterology Referral Z12.11 - Encounter for screening for malignant neoplasm of colon Coding Level of Care Code Est Pt Prev Care 40-64y(34000) Diagnoses At high risk for breast cancer Z91.89 Well woman exam Z01.419
[2022-10-21 09:06] VITALS: BP 162/96; BMI 34.2
== END 2022-10-21 09:34 | disposition home or self-care (01) ==
LOC: HO.HWS 08:59
PROVIDERS: PCP Internal Medicine; Visit Provider Obstetrics & Gynecology
DX: Z01.419 Encounter for gynecological examination (general) (routine) without abnormal findings (principal); Z91.89 Other specified personal risk factors, not elsewhere classified
CPT/HCPCS: 99396

== ENCOUNTER → 2022-10-21 08:59 | Outpatient (BNVA) | payer OTHER, SELFPAY | PROVIDERS: PCP Internal Medicine; Visit Provider Obstetrics & Gynecology ==

== ENCOUNTER 2022-10-26 10:25 | Outpatient (AMB) | payer OTHER, SELFPAY ==
--- NOTE | 2022-10-26 10:28 | A.OFFVIS_ITS ---
Intake VS Expanded 10/26/22 10:33 10/26/22 11:05 Height 5 ft 4 in 5 ft 4 in Weight 199 lb 8.293 oz 199 lb BMI 34.2 34.2 Intake Visit Reasons: DM Allergies clonidine [CLONIDINE] Allergy (Severe, Verified 10/21/22 09:08) DIZZY,FAINT levetiracetam [LEVETIRACETAM] Allergy (Severe, Verified 10/21/22 09:08) DIFFICULTY BREATHING lisinopril [LISINOPRIL] Allergy (Severe, Verified 10/21/22 09:08) SWELLING, angioedema atenolol [ATENOLOL] Allergy (Intermediate, Verified 10/21/22 09:08) RASH dulaglutide [Trulicity] Allergy (Unknown, Verified 10/21/22 09:08) Unknown HPI Nutrition Presentation Details Pt presents for MNT for T2DM. Pt was referred by Dr. Bryant, funeral home manager. Pt reports typical meal consist of B: 2 wheat toast with 2 eggs, black coffee with milk L: hot dog or burger or ham/cheese sand with orange juice or apple juice D: rice/beans/chicken fried or ground beef , bistec and juice snack: crackers, ice cream etoh: denies smoking: denies physical activity : sedentary fish: 0 per week fruits : 0-2 /day + juices with meals vegetables: daily 2 servings dairy: ice cream 2 x/wk, yogurt 2 times/wk milk whole milk starches : > 18 servings/ DVH-Txmsehd-Fk.Jeor Equation Height 5 ft 4 in Weight 199 lb Resting Metabolic Rate 1456.63 Calculated Activity Level Sedentary Calories Needed to Maintain Weight 1747.96 Diagnosis Nutrition problem #1 food nutri know defi As related to (etiology) #1 diagnosis As evidenced by (sign/symptom) #1 knowledge deficit of diet Most Recent Diabetes Results: Creatinine 0.81 mg/dL (0.5-1.4) 08/12/22 Blood Urea Nitrogen 9 mg/dL (9-16) 08/12/22 Sodium 141 mmol/L (135-145) 08/12/22 Potassium 4.4 mmol/L (3.3-5.1) 08/12/22 Chloride 105 mmol/L (96-108) 08/12/22 Carbon Dioxide 29 mmol/L (22-29) 08/12/22 Calcium 9.4 mg/dL (8.4-10.2) 08/12/22 [facility] Medical History (Updated 10/21/22 @ 09:19 by Jaciel Ly MD) Anxiety due to invasive procedure Asthma Green's palsy Bipolar disorder Breast cancer screening by mammogram Cataracts, bilateral Cervical cancer screening Colon cancer screening COVID-19 Family history of colon cancer GERD (gastroesophageal reflux disease) Hypercholesterolemia Hypertension Lower abdominal pain Microscopic hematuria Migraine Mild obstructive sleep apnea Mixed incontinence urge and stress Obesity (BMI 30-39.9) Obstructive sleep apnea Seizure disorder SVT (supraventricular tachycardia) Thyroid nodule Trigeminal neuralgia of right side of face Type 2 diabetes mellitus with hyperglycemia Vulvovaginitis roseline albicans Well woman exam Surgical History History of cholecystectomy History of cone biopsy of uterine cervix History of tubal ligation Family History Father Diabetes FH: prostate cancer CVD (cardiovascular disease) Mother Diabetes Hypertension Stroke CVD (cardiovascular disease) Sister Breast cancer Sister Breast cancer Sister Hypertension Daughter In good health Brother No problems noted. Brother No problems noted. Brother No problems noted. Sister Cervical cancer Social History Household Members: Other Household Members Other:: grandson Housing: House Do you presently have visiting nurse or other home services: Yes (tele visits) Alcohol intake: never Patient Tobacco Use Status: Never used Tobacco e-Cigarette/Vaping Use: Never Used Second Hand Smoke Exposure: No service: No Current occupational status: disabled Cognitive needs: No Hearing needs: No Vision needs: Yes Female Reproductive History Menstrual Age of Menarche: 12 Assessment & Plan Assessment & Plan (1) Diabetic neuropathy: Code(s): E11.40 - Type 2 diabetes mellitus with diabetic neuropathy, unspecified Plan wt: 90 kg Est kcal needs as per MSJ: 6650-1948 (40% carb, 30% protein/fat) Est fluid needs as per 25-30 ml/d: 2250 Est prot per day as per 1 g/kg bw: 90 Recommend fiber intake : 8-10 g per day and gradually increase to 25-28 g per day for women and 35-38 g for men or as tolerated Recommend sodium intake per day : less than 2000 mg Educated patient on: ( R = reviewed V = verbalizes understanding N/R = needs review N/A = not applicable * Food sources of carbohydrate, adequate serving sizes and its role in various health conditions: R * Differences between complex carbohydrates a simple carbohydrates, role of fiber in diet: R * Differences between types of fats and role in diet (mono on saturated fat fatty acids, saturated fatty acids, trans fats): R * Food sources of sodium in salt and healthy modifications for heart health in kidney health: R * Vitamins and minerals: R * Healthy plate method concept: R * Physical activity: Benefits a precaution: R * Hypoglycemia protocol (rule of 15): R * Dietary prevention of Hyperglycemia: R Patient Instructions: HAve water in place of juice with meals Have a fruit as snack in place of juice become familiar with total carbohydrate at meal, work at reducing carbs to 45-60 g at dinner keep a food record Coding Level of Care Code Nutr Indiv Intake (15818) Diagnoses Diabetic neuropathy E11.40 Time Spent (min) 40
[2022-10-26 10:33] VITALS: BMI 34.2
[2022-10-29 14:37] VITALS: BMI 34.2
== END 2022-10-26 11:09 | disposition home or self-care (01) ==
PROVIDERS: PCP Internal Medicine; Visit Provider Dietitian, Registered
DX: E11.40 Type 2 diabetes mellitus with diabetic neuropathy, unspecified (principal)

== ENCOUNTER → 2022-10-26 10:25 | Outpatient (BNVA) | payer OTHER, SELFPAY | PROVIDERS: Visit Provider Dietitian, Registered | DX: E11.40 Type 2 diabetes mellitus with diabetic neuropathy, unspecified (principal) | CPT/HCPCS: 97802 ==

== ENCOUNTER 2022-11-02 03:20 | Emergency (ER) | payer OTHER, SELFPAY ==
--- NOTE | ~2022-11-02 | CT_ITS ---
EXAMINATION: CT ABDOMEN AND PELVIS WITH CONTRAST CLINICAL INFORMATION: Right lower quadrant pain COMPARISON: None available. TECHNIQUE: Multidetector volumetric images were obtained from the superior aspect of the liver through the pubic symphysis following administration 85 mL of Omnipaque 350 intravenous contrast. Sagittal and coronal reformatted images were obtained on the technologist's workstation. Oral contrast: No This CT examination was performed using dose optimization techniques as appropriate, variously including the following: *Automated exposure control *Adjustment of mA and/or kV according to patient size (this includes techniques or standardized protocols for targeted exams where dose is matched to indication/reason for exam; i.e. extremities or head) *Use of iterative reconstruction technique DLP: 682 mGy-cm FINDINGS: LUNG BASES: The visualized lung bases are unremarkable. LIVER, GALLBLADDER, AND BILIARY TREE: The liver is normal in size, shape, and attenuation. No focal hepatic lesion or biliary ductal dilatation is present. Cholecystectomy. PANCREAS: Unremarkable. SPLEEN: Unremarkable. ADRENAL GLANDS: Unremarkable. KIDNEYS AND URETERS: The kidneys are normal in size, exhibiting symmetric enhancement bilaterally. There are a few areas of scarring along the upper pole of the right kidney and lateral interpolar cortex of the right kidney, likely sequela of previous infections. A simple cyst in the upper pole of the right kidney is benign. No follow-up imaging recommended. No hydronephrosis, hydroureter, or calculi seen. No perinephric stranding. BLADDER: Unremarkable. GASTROINTESTINAL TRACT: Appendix is normal. Left colonic diverticulosis without evidence of diverticulitis. There is fat stranding and hazy increased attenuation of the jejunal small bowel mesentery with a few shotty mesenteric lymph nodes not meeting size criteria for enlargement. ABDOMINAL WALL: No significant hernia is appreciated. LYMPH NODES: Normal. VASCULAR: Unremarkable. PELVIC VISCERA: Uterus and ovaries are unremarkable. OSSEOUS STRUCTURES: No acute or suspicious osseous abnormalities. CT/CT abdomen pelvis w IV con IMPRESSION: * Appendix is normal. * There is hazy increased attenuation of the jejunal small bowel mesentery associated with a few shotty mesenteric lymph nodes. Findings are nonspecific but can be seen in the setting of mesenteric panniculitis. * Left colonic diverticulosis without evidence of diverticulitis. * Cholecystectomy.
[2022-11-02 03:50] VITALS: BP 144/91; PULSE 95; RESP 20; TEMP 36.8; O2SAT 95; BMI 35.5
[2022-11-02 04:04] LABS: MANUAL DIFF FLAG NO
[2022-11-02 04:10] LABS: Basophils Percent Auto 0.3 % (0-2); Eosinophils Absolute Auto 0.4 X10*3/uL (0.0-0.4); Eosinophils Percent Auto 3.4 % (0-4); Hematocrit 44.2 % (37.0-47.0); Hemoglobin 14.9 g/dl (12.0-16.0); Imm Gran Abs Auto 0.04 X10*3/uL (0.00-0.03); Imm Gran Pct Auto 0.3 % (0.0-0.4); Lymphocytes Absolute Auto 2.4 X10*3/uL (1.2-4.9); Lymphocytes Percent Auto 20.7 % (20-40); Mean Corpuscular HGB Conc 33.7 g/dl (31.0-35.0); Mean Corpuscular Hemoglobin 28.2 pg (27.0-33.0); Mean Corpuscular Volume 83.7 fL (80.0-98.0); Mean Platelet Volume 11.1 fL (9.4-12.3); Monocytes Absolute Auto 1.1 X10*3/uL (0.1-1.2); Monocytes Percent Auto 9.2 % (2-11); Neutrophils Absolute Auto 7.6 x10*3/uL (2.0-8.3); Neutrophils Percent Auto 66.1 % (45-73); Platelet Count 202 X10*3/uL (160-400); Red Blood Count 5.28 X10*6/uL (4.20-5.50); Red Cell Distribution Width 11.8 % (11.0-16.0); White Blood Count 11.5 X10*3/uL (4.8-10.8)
[2022-11-02 04:12] VITALS: BP 150/84; PULSE 96; RESP 19; TEMP 36.6; O2SAT 96
[2022-11-02 04:21] LABS: Alanine Aminotransferase 25 U/L (0-31); Albumin Level 3.8 g/dL (3.5-5.0); Alkaline Phosphatase 115 U/L (39-117); Anion Gap 15 (12-20); Aspartate Amino Transferase 27 U/L (5-31); Bilirubin Total 1.2 mg/dL (0.0-1.0); Blood Urea Nitrogen 11 mg/dL (9-16); Calcium 8.9 mg/dL (8.4-10.2); Carbon Dioxide 22 mmol/L (22-29); Chloride 103 mmol/L (96-108); Estimated Glomerular Filt Rate > 60; Glucose Random 209 mg/dL (60-115); Sodium 136 mmol/L (135-145)
--- NOTE | 2022-11-02 05:09 | ED_ITS ---
HPI - Abdominal Pain General Chief Complaint: Abdominal Pain Stated Complaint: lower abd and back pain Time Seen by Provider: 11/02/22 04:36 Source: patient and family Mode of arrival: ambulatory History of Present Illness HPI narrative: 61-year-old female who presents with complaints of lower abdominal discomfort radiating into her back without urinary symptoms but describes nausea with chills but no vomiting or fevers. Pain started on Wednesday and is become progressively worse. Related Data Home Medications Medication Instructions Recorded Confirmed insulin lispro 100 unit/mL 18 unit subcut TID 02/05/21 08/18/22 subcutaneous pen (Humalog KwikPen (U-100) Insulin) carbamide peroxide 6.5 % ear drops 5 drp otic (ears) BID 10/31/21 08/18/22 (Ear Drops (carbamide peroxide)) flash glucose scanning reader #1 ea 02/06/22 08/18/22 (FreeStyle Archana 2 [place]) gabapentin 300 mg capsule 300 mg PO DAILY PRN 02/06/22 08/18/22 pen needle, diabetic 31 gauge x 05/06/22 08/18/22/16 (BD Ultra-Fine Mini Pen Needle) Previous Rx's Medication Instructions Recorded albuterol sulfate 90 mcg/actuation 2 puff inhalation Q4-6H PRN 03/18/20 aerosol inhaler (ProAir HFA) Dyspnea #8.5 grams fluticasone 250 mcg-salmeterol 50 1 inh inhalation BID #60 ea 03/18/20 mcg/dose blistr powdr for inhalation (Advair Diskus) blood sugar diagnostic (FreeStyle ##4 11/13/20 Lite Strips) besifloxacin 0.6 % eye 1 drp ophthalmic (eye) TID 7 days 01/06/21 drops,suspension #5 mL terconazole 0.8 % vaginal cream 1 appful vaginal BEDTIME 3 days 01/21/21 #20 grams aspirin 81 mg tablet,delayed 81 mg PO DAILY #90 tabs 04/30/21 release (Adult Aspirin Regimen) bupropion HCl 150 mg tablet,12 hr 150 mg PO BEDTIME #90 tabs 05/15/21 sustained-release (Wellbutrin SR) metformin 500 mg tablet 500 mg PO BID #180 tabs 10/31/21 acetaminophen 500 mg tablet 1,000 mg PO QID PRN fever or pain 03/14/22 (Tylenol Extra Strength) #14 tabs cyclobenzaprine 10 mg tablet 10 mg PO Q8H #14 tabs 03/14/22 naproxen 500 mg tablet 500 mg PO BID PRN pain #14 tabs 03/14/22 carvedilol 12.5 mg tablet 12.5 mg PO BID 30 days #60 tabs 05/26/22 hydralazine 25 mg tablet 25 mg PO TID 90 days #270 tabs 06/10/22 hydrocodone-homatropine 5 mg-1.5 5 ml PO Q4-6H PRN cough #60 mL 06/22/22 mg/5 mL (5 mL) oral syrup (Hycodan) diazepam 2 mg tablet 2 - 4 mg PO BEDTIME PRN sleep 30 07/22/22 days #60 tabs flash glucose sensor (FreeStyle #6 ea 08/06/22 Archana 2 Sensor kit) spironolactone 25 1 tab PO DAILY #30 tabs 08/06/22 mg-hydrochlorothiazide 25 mg tablet (Aldactazide) tirzepatide 5 mg/0.5 mL 5 mg (0.5 mL) subcut QWEEK #2 mL 08/18/22 subcutaneous pen injector (Mounjaro) azithromycin 250 mg tablet See Rx Instructions PO .COMPLEX #6 09/14/22 tabs fluticasone propionate 50 1 spray intranasal DAILY #9.9 mL 09/14/22 mcg/actuation nasal spray,suspension (Flonase Allergy Relief) loratadine 10 mg tablet (Claritin) 10 mg PO DAILY #30 tabs 09/14/22 amlodipine 5 mg tablet 5 mg PO DAILY #90 tabs 09/24/22 amoxicillin 875 mg-potassium 1 tab PO BID 7 days #14 tabs 11/02/22 clavulanate 125 mg tablet Allergies Allergy/AdvReac Type Severity Reaction Status Date / Time clonidine [CLONIDINE] Allergy Severe DIZZY,FAINT Verified 10/21/22 09:08 levetiracetam [LEVETIRACETAM] Allergy Severe DIFFICULTY Verified 10/21/22 09:08 BREATHING lisinopril [LISINOPRIL] Allergy Severe SWELLING, Verified 10/21/22 09:08 angioedema atenolol [ATENOLOL] Allergy Intermediate RASH Verified 10/21/22 09:08 dulaglutide [Trulicity] Allergy Unknown Unknown Verified 10/21/22 09:08 Review of Systems Review of Systems Pertinent positives and negatives as stated in HPI [facility] Past Medical History Source: nursing notes reviewed Medical History Anxiety due to invasive procedure Asthma Green's palsy Bipolar disorder Breast cancer screening by mammogram Cataracts, bilateral Cervical cancer screening Colon cancer screening COVID-19 Family history of colon cancer GERD (gastroesophageal reflux disease) Hypercholesterolemia Hypertension Lower abdominal pain Microscopic hematuria Migraine Mild obstructive sleep apnea Mixed incontinence urge and stress Obesity (BMI 30-39.9) Obstructive sleep apnea Seizure disorder SVT (supraventricular tachycardia) Thyroid nodule Trigeminal neuralgia of right side of face Type 2 diabetes mellitus with hyperglycemia Vulvovaginitis roseline albicans Well woman exam Surgical History History of cholecystectomy History of cone biopsy of uterine cervix History of tubal ligation Family History Family History Father Diabetes FH: prostate cancer CVD (cardiovascular disease) Mother Diabetes Hypertension Stroke CVD (cardiovascular disease) Sister Breast cancer Sister Breast cancer Sister Hypertension Daughter In good health Brother No problems noted. Brother No problems noted. Brother No problems noted. Sister Cervical cancer Social History Social History Household Members: Other Household Members Other:: grandson Housing: House Do you presently have visiting nurse or other home services: Yes (tele visits) Alcohol intake: never Patient Tobacco Use Status: Never used Tobacco e-Cigarette/Vaping Use: Never Used Second Hand Smoke Exposure: No Advance Directives: No Advance Directives Information Provided: Yes service: No Current occupational status: disabled Cognitive needs: No Hearing needs: No Vision needs: Yes Physical Exam ED Vital Signs: Vital Signs - 24 hr 11/02/22 03:50 11/02/22 04:12 11/02/22 06:05 Temperature 98.2 F 98 F 98.1 F Pulse Rate 95 96 88 Respiratory Rate 20 19 17 Blood Pressure 144/91 H 150/84 H 164/93 H Pulse Oximetry 95 96 95 Oxygen Delivery Method Room Air Room Air Room Air BMI result Body Mass Index 35.5 VITAL SIGNS: Reviewed. GENERAL: Well developed, well nourished, in no acute distress. HEAD: Normocephalic/atraumatic EYES: PERRLA, EOMI EARS: Ext canals without abnormality NOSE: Nares patent bilateral OROPHARYNX: no oral lesions noted, posterior pharynx clear NECK: Supple, no adenopathy LUNGS: Normal breath sounds. No adventitious sounds or accessory muscle use. SpO2<95> CARDIOVASCULAR: Regular rate and rhythm without noted murmurs ABDOMEN: Soft, tenderness to palpation right lower quadrant that extends to periumbilical area. Non-distended with bowel sounds. MUSCULOSKELETAL: No tenderness, deformities, or effusions noted on gross inspection. EXTREMITIES: No cyanosis, clubbing or edema. SKIN: Inspection of the skin reveals no rashes NEUROLOGIC: Alert and oriented x 4. Strength and sensation to light touch were grossly intact x 4. Medical Decision Making Medical Decision Making [facility] Narrative: 0510: 61-year-old female with history and clinical presentation, DDX: Appendicitis, diverticulitis, UTI, lower clinical suspicion for SBO or constipation. I reviewed all investigations, hematologic indices show a mild leukocytosis but otherwise no evidence of anemia or thrombocytopenia. Chemistry indices do not demonstrate DYLAN or electrolyte abnormalities and liver enzymes her grossly within normal limits other than the bump in the T bili likely secondary to ongoing intra-abdominal process. CT scan negative for appendicitis but significant for mesenteric panniculitis and otherwise my interpretation is in agreement with radiology's impression. All results discussed with her at bedside. 0631: I discussed case with Dr. Ornelas, general surgery, who recommends a course of antibiotics and he will follow up with the patient in 1 week. Patient will be discharged and have follow-up in 1 week. Differential Diagnosis Differential Diagnoses: The differential diagnosis associated with the presentation includes Please see the discussion above Admission/Observation Consideration of admission/observation: Escalation of care including admissi on/observation considered Please see the discussion above Lab Data [facility] Lab Attestation statement: I reviewed the patient's lab results. Please see the discussion above 11/02/22 04:00 11/02/22 04:00 Labs: Lab Results 11/02/22 11/02/22 11/02/22 Range/Units 04:00 04:00 05:32 WBC 11.5 H (4.8-10.8) X10*3/uL RBC 5.28 (4.20-5.50) X10*6/uL Hgb 14.9 (12.0-16.0) g/dl Hct 44.2 (37.0-47.0) % MCV 83.7 (80.0-98.0) fL MCH 28.2 (27.0-33.0) pg MCHC 33.7 (31.0-35.0) g/dl RDW 11.8 (11.0-16.0) % Plt Count 202 (160-400) X10*3/uL MPV 11.1 (9.4-12.3) fL Immature Gran % (Auto) 0.3 (0.0-0.4) % Neut % (Auto) 66.1 (45-73) % Lymph % (Auto) 20.7 (20-40) % [place] % (Auto) 9.2 (2-11) % Eos % (Auto) 3.4 (0-4) % Baso % (Auto) 0.3 (0-2) % Lymph # (Auto) 2.4 (1.2-4.9) X10*3/uL [place] # (Auto) 1.1 (0.1-1.2) X10*3/uL Eos # (Auto) 0.4 (0.0-0.4) X10*3/uL Baso # (Auto) 0.0 (0.0-0.2) X10*3/uL Abs Immat Gran (auto) 0.04 H (0.00-0.03) X10*3/uL Absolute Neuts (auto) 7.6 (2.0-8.3) x10*3/uL Absolute Nucleated RBC 0.000 (0.0-0.012) X10*3/uL Nucleated RBC % (auto) 0.0 (0.0-0.2) /100WBC Sodium 136 (135-145) mmol/L Potassium 4.0 (3.3-5.1) mmol/L Chloride 103 (96-108) mmol/L Carbon Dioxide 22 (22-29) mmol/L Anion Gap 15 (12-20) BUN 11 (9-16) mg/dL Creatinine 0.80 (0.5-1.4) mg/dL Estim Creat Clear Calc 82.0 Estimated GFR > 60 Random Glucose 209 H (60-115) mg/dL Lactic Acid 1.0 (0.5-2.0) mmol/L Calcium 8.9 (8.4-10.2) mg/dL Total Bilirubin 1.2 H (0.0-1.0) mg/dL AST 27 (5-31) U/L ALT 25 (0-31) U/L Alkaline Phosphatase 115 (39-117) U/L Total Protein 7.0 (6.5-8.0) g/dL Albumin 3.8 (3.5-5.0) g/dL Radiology Impression Discussion of test interpretation with radiology: I have reviewed the radiologist's reading. Radiologist Impression: Please see the discussion above External Record Review External record reviewed: Outpatient record and Prior outpatient labs Chronic Conditions Patient?s care impacted by: Diabetes and Hypertension Medications Administered Discontinued Medications Generic Name Dose Route Start Last Admin Trade Name Freq PRN Reason Stop Dose Admin Sodium Chloride 1,000 mls @ 999 mls/hr 11/02/22 05:15 11/02/22 05:40 Ns IV 11/02/22 06:15 999 mls/hr .Q1H1M SALEEM Administration Iohexol 85 ml 11/02/22 05:55 11/02/22 05:56 Iohexol 350 Mg/Ml 100 Ml Infus..Btl IV 11/02/22 05:56 85 ml ONCE ONE Administration Ketorolac Tromethamine 15 mg 11/02/22 05:09 11/02/22 05:38 Ketorolac Tromethamine 30 Mg/Ml Vial IVPUSH 11/02/22 05:10 15 mg ONCE ONE Administration Critical Care Time Critical Care Time Critical Care Time: Yes Total Critical Care Time: 30 Attestation: I personally attest to this time spent taking care of the patient. Discharge Plan Discharge Clinical Impression: Mesenteric panniculitis Patient Disposition: Home, Self-Care Instructions: Abdominal Pain (ED) Additional Instructions: 1. Reanudar todos los medicamentos caseros seg?n lo prescrito. 2. Complete todo el ciclo de antibi?ticos seg?n lo indicado. 3. Seguimiento con [facility] en 1 semana, la informaci?n se encuentra a continuaci?n. 4. Recomendar Tylenol/ibuprofeno de venta archana seg?n sea necesario para controlar el dolor. 5. Asher un seguimiento con feliciano proveedor de atenci?n primaria llamando a la oficina hoy. Regrese a la marshal de emergencias si los s?ntomas empeoran. 1. Resume all home medications as prescribed. 2. Complete the entire course of antibiotics as ordered. 3. Follow-up with General surgery in 1 week, the information is located below. 4. Recommend [id number] Tylenol/ibuprofen as needed for pain control. 5. Follow-up with your primary care provider by calling the office today. Return to the ER for any worsening symptoms. Prescriptions: New amoxicillin-pot clavulanate 875-125 mg tablet 1 tab PO BID 7 Days Qty: 14 0RF No Action albuterol sulfate [ProAir HFA] 90 mcg/actuation HFA aerosol inhaler 2 puff inhalation Q4-6H PRN (Reason: Dyspnea) Qty: 8.5 0RF fluticasone propion-salmeterol [Advair Diskus] 250-50 mcg/dose blister with device 1 inh inhalation BID Qty: 60 5RF (DME) FreeStyle Lite Strips Strip See Rx Instructions .ROUTE .MEDSUPPLY Qty: 4 3RF Rx Instructions: As directed check the BS 4 x a day aspirin [Adult Aspirin Regimen] 81 mg tablet,delayed release (DR/EC) 81 mg PO DAILY Qty: 90 3RF bupropion HCl [Wellbutrin SR] 150 mg tablet sustained-release 12 hr 150 mg PO BEDTIME Qty: 90 2RF carvedilol 12.5 mg tablet 12.5 mg PO BID 30 Days Qty: 60 3RF hydralazine 25 mg tablet 25 mg PO TID 90 Days Qty: 270 1RF amlodipine 5 mg tablet 5 mg PO DAILY Qty: 90 0RF naproxen 500 mg tablet 500 mg PO BID PRN (Reason: pain) Qty: 14 0RF cyclobenzaprine 10 mg tablet 10 mg PO Q8H Qty: 14 0RF acetaminophen [Tylenol Extra Strength] 500 mg tablet 1,000 mg PO QID PRN (Reason: fever or pain) Qty: 14 0RF besifloxacin 0.6 % drops,suspension 1 drp ophthalmic (eye) TID 7 Days Qty: 5 0RF Rx Instructions: administer doses at least 4 hours apart hydrocodone-homatropine [Hycodan] 5-1.5 mg/5 mL (5 mL) syrup 5 ml PO Q4-6H PRN (Reason: cough) Qty: 60 0RF Rx Instructions: Partial Fill upon patient request. insulin lispro [Humalog KwikPen Insulin] 100 unit/mL insulin pen 18 unit subcut TID Ear Drops (carbamide peroxide) 6.5 % drops 5 drp otic (ears) BID metformin 500 mg tablet 500 mg PO BID Qty: 180 1RF spironolacton-hydrochlorothiaz [Aldactazide] 25-25 mg tablet 1 tab PO DAILY Qty: 30 4RF (DME) FreeStyle Archana 2 Sensor Kit See Rx Instructions .ROUTE Q2W Qty: 6 3RF Rx Instructions: As directed azithromycin 250 mg tablet See Rx Instructions PO .COMPLEX Qty: 6 0RF Rx Instructions: take 500 mg today (day 1), then 250 mg for 4 days (days 2-5) PO fluticasone propionate [Flonase Allergy Relief] 50 mcg/actuation spray,suspension 1 spray intranasal DAILY Qty: 9.9 1RF Rx Instructions: administer into each nostril loratadine [Claritin] 10 mg tablet 10 mg PO DAILY Qty: 30 0RF gabapentin 300 mg capsule 300 mg PO DAILY PRN (DME) FreeStyle Archana 2 [place] Misc See Rx Instructions .ROUTE DIRECTED Qty: 1 Rx Instructions: As directed (DME) pen needle, diabetic [BD Ultra-Fine Mini Pen Needle] 31 gauge x 3/16 needle See Rx Instructions .Route Rx Instructions: As directed, Inject 6 x a day with Insulin diazepam 2 mg tablet 2 - 4 mg PO BEDTIME PRN (Reason: sleep) 30 Days Qty: 60 2RF terconazole 0.8 % cream 1 appful vaginal BEDTIME 3 Days Qty: 20 0RF Mounjaro 5 mg/0.5 mL pen injector 5 mg subcut QWEEK Qty: 2 4RF Referrals: Po,Bijan Tirado MD [Primary Care Provider] - Brayan Ornelas MD [Physician] - Print Language: Macedonian
[2022-11-02] MEDS: Ketorolac Tromethamine 30 MG/ML VIAL 15 MG IVPUSH (05:38)
[2022-11-02] MEDS: 0.9 % Sodium Chloride 1,000 ML 999 ML IV (05:40)
[2022-11-02] MEDS: iohexoL 350 MG/ML 100 ML INFUS..BTL 85 ML IV (05:56)
[2022-11-02 06:05] VITALS: BP 164/93; PULSE 88; RESP 17; TEMP 36.7; O2SAT 95
[2022-11-02] MEDS: Acetaminophen 325 MG TABLET 975 MG PO (06:55)
[2022-11-02] MEDS: Ondansetron ODT 4 MG TAB.RAPDIS TRANSLINGU (06:55)
[2022-11-02] MEDS: Amoxicillin/Potassium Clav 875 MG TABLET PO (06:55)
== END 2022-11-02 07:05 | disposition home or self-care (01) ==
PROVIDERS: Emergency Provider Student in an Organized Health Care Education/Training Program; PCP Internal Medicine
DX: K65.4 Sclerosing mesenteritis (principal); K57.30 Diverticulosis of large intestine without perforation or abscess without bleeding; R10.30 Lower abdominal pain, unspecified; E11.9 Type 2 diabetes mellitus without complications; I10 Essential (primary) hypertension; E78.00 Pure hypercholesterolemia, unspecified; Z79.4 Long term (current) use of insulin; Z79.899 Other long term (current) drug therapy
CPT/HCPCS: 36415; 74177; 80053; 83605; 85025; 87040; 96361; 96374; 99284; 99285; J1885; Q9967

== ENCOUNTER 2022-11-06 09:43 | Outpatient (AMB) | payer OTHER, SELFPAY ==
--- NOTE | 2022-11-06 09:48 | A.OFFPC_ITS ---
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 Required: No Allergies clonidine [CLONIDINE] Allergy (Severe, Verified 11/06/22 09:52) DIZZY,FAINT levetiracetam [LEVETIRACETAM] Allergy (Severe, Verified 11/06/22 09:52) DIFFICULTY BREATHING lisinopril [LISINOPRIL] Allergy (Severe, Verified 11/06/22 09:52) SWELLING, angioedema atenolol [ATENOLOL] Allergy (Intermediate, Verified 11/06/22 09:52) RASH dulaglutide [Trulicity] Allergy (Unknown, Verified 11/06/22 09:52) Unknown Medication List - Last Reconciled 11/06/22 by Bijan Daigle MD acetaminophen (Tylenol Extra Strength) 1,000 mg (2 x 500 mg) PO QID PRN albuterol sulfate 90 mcg/actuation (ProAir HFA) 2 puffs inhalation Q4-6H PRN amlodipine 5 mg PO DAILY amoxicillin-pot clavulanate 875-125 mg 1 tab PO BID 7 days aspirin (Adult Aspirin Regimen) 81 mg PO DAILY besifloxacin 0.6% 1 drp ophthalmic (eye) TID 7 days blood sugar diagnostic (FreeStyle Lite Strips) As directed check the BS 4 x a day bupropion HCl (Wellbutrin SR) 150 mg PO BEDTIME carbamide peroxide 6.5% (Ear Drops (carbamide peroxide)) 5 drps otic (ears) BID carvedilol 12.5 mg PO BID 30 days cyclobenzaprine 10 mg PO Q8H diazepam 2 - 4 mg (1 - 2 x 2 mg) PO BEDTIME PRN 30 days flash glucose scanning reader ([employer] Archana 2 [place]) As directed flash glucose sensor (FreeStyle Archana 2 Sensor kit) As directed fluticasone propion-salmeterol 250-50 mcg/dose (Advair Diskus) 1 inh inhalation BID fluticasone propionate 50 mcg/actuation (Flonase Allergy Relief) 1 spray intranasal DAILY gabapentin 300 mg PO DAILY PRN hydralazine 25 mg PO TID 90 days hydrocodone-homatropine 5-1.5 mg/5 mL (5 mL) (Hycodan) 5 mL PO Q4-6H PRN insulin lispro (Humalog KwikPen (U-100) Insulin) 18 units subcut TID loratadine (Claritin) 10 mg PO DAILY metformin 500 mg PO BID naproxen 500 mg PO BID PRN ondansetron 8 mg PO Q12H PRN pen needle, diabetic (BD Ultra-Fine Mini Pen Needle) As directed, Inject 6 x a day with Insulin spironolacton-hydrochlorothiaz 25-25 mg (Aldactazide) 1 tab PO DAILY terconazole 0.8% 1 appful vaginal BEDTIME 3 days tirzepatide (Mounjaro) 5 mg (0.5 mL) subcut QWEEK Tobacco use date assessed: 08/06/22 Dental Screening Dental Screen Date: 11/06/22 Did you have a dental visit in the last 12 months?: No Did you have a dental problem in the last 6 months where you did not have access to dental care?: No HPI 3mth f/u HPI Details 61-year-old obese female with diabetes mellitus uncontrolled hypertension bipolar disorder hypercholesterolemia asthma coming in for follow- up. Last seen in July 2022 and dermatology referral done patient is here for follow-up. Mammogram is up-to-date review of the notes October 2022 was seen in the emergency room for abdominal pain and diagnosis of mesenteric panniculitis antibiotics sent home with. With the neck pain patient had an MRI of the cervical spine showing bone marrow edema right C2-C3 and noted enlarged thyroid gland resulting in rightward displacement of the trachea without compression. Patient's last cholesterol test was September [address]. sees Dr. Bernard last month [facility] Medical History Anxiety due to invasive procedure Asthma Green's palsy Bipolar disorder Breast cancer screening by mammogram Cataracts, bilateral Cervical cancer screening Colon cancer screening COVID-19 Family history of colon cancer GERD (gastroesophageal reflux disease) Hypercholesterolemia Hypertension Lower abdominal pain Microscopic hematuria Migraine Mild obstructive sleep apnea Mixed incontinence urge and stress Obesity (BMI 30-39.9) Obstructive sleep apnea Seizure disorder SVT (supraventricular tachycardia) Thyroid nodule Trigeminal neuralgia of right side of face Type 2 diabetes mellitus with hyperglycemia Vulvovaginitis roseline albicans Well woman exam Surgical History History of cholecystectomy History of cone biopsy of uterine cervix History of tubal ligation Family History Father Diabetes FH: prostate cancer CVD (cardiovascular disease) Mother Diabetes Hypertension Stroke CVD (cardiovascular disease) Sister Breast cancer Sister Breast cancer Sister Hypertension Daughter In good health Brother No problems noted. Brother No problems noted. Brother No problems noted. Sister Cervical cancer Social History Household Members: Other Household Members Other:: grandson Housing: House Do you presently have visiting nurse or other home services: Yes (tele visits) Alcohol intake: never Patient Tobacco Use Status: Never used Tobacco e-Cigarette/Vaping Use: Never Used Second Hand Smoke Exposure: No service: No Current occupational status: disabled Cognitive needs: No Hearing needs: No Vision needs: Yes Female Reproductive History Menstrual Age of Menarche: 12 Questionnaire Thrive Questionnaire Date Thrive assessed: 08/06/22 AUDIT C Alcohol Use Questionnaire (AUDIT-C) 1. How often do you have a drink containing alcohol?: Never 2. How many drinks containing alcohol do you have on a typical day when you are drinking?: 1 or 2 3. How often do you have six or more drinks on one occasion?: Never Total Score: 0 SANDRA-7 AMB Questionnaire SANDRA-7 Date SANDRA - 7 assessed: 08/06/22 Source: Developed by Drs. Fercho Ying, Rama Daniels, Feliz Hood and colleagues, with an educational yong from [employer]. Physical exam (Primary Care) Vital Signs: Last Vital Signs Pulse 76 11/06/22 09:49 BP 126/84 11/06/22 09:49 Pulse Ox 97 11/06/22 09:49 Oxygen Delivery Method Room Air 11/06/22 09:49 BMI result Body Mass Index 33.5 Tobacco/Smoking Status: Tobacco use Status Tobacco use date assessed 08/06/22 11/06/22 09:49 Patient Tobacco Use Status Never used Tobacco 11/06/22 09:49 e-Cigarette/Vaping Use Never Used 11/06/22 09:49 Thrive Assessment: Date of Thrive Assessment Date Thrive assessed 08/06/22 11/06/22 09:49 Const General: alert; No acute distress Eyes Conjunctivae: conjunctivae normal Resp Auscultation: clear to auscultation bilaterally Cardio Rate: regular rate Rhythm: regular rhythm GI Inspection: Yes normal to inspection Extrem General: Yes normal to inspection and No edema Results AMB Hemoglobin A1c AMB Hemoglobin A1c 8.5 % Last Edit by JENNIFER Nye on 11/06/22 09:59 Results Reviewed Results Reviewed: Laboratory Last Values Hgb A1c (Clinic) 8.5 % (4.0-6.0) H 11/06/22 09:49 Assessment and Plan Assessment & Plan (1) Enlarged thyroid gland: Code(s): E04.9 - Nontoxic goiter, unspecified Plan: Noted on MRI showing tracheal deviation (2) Cervicalgia: Comment: Cervical MRIBone marrow edema is seen about the right-sided C2-C3 facets with periarticular edema also demonstrated reflecting ongoing arthropathy. 2. No significant narrowing of the spinal canal. Neural foraminal stenosis appears moderate on the left at C5-C6. 3. Enlarged thyroid gland with underlying nodules resulting in rightward displacement of the trachea without tracheal luminal compression. Code(s): M54.2 - Cervicalgia (3) Type 2 diabetes mellitus with hyperglycemia: Comment: Dr. Bernard eye Code(s): E11.65 - Type 2 diabetes mellitus with hyperglycemia Qualifiers: Diabetes mellitus group home insulin use: with group home use Qualified Code(s): E11.65 - Type 2 diabetes mellitus with hyperglycemia; Z79.4 - [facility] (current) use of insulin Plan: Decrease the amount of carbohydrate intake, pasta, bread, rice and potatoes are all sugar and that is aside from all the sweet stuff, remember that fruits are good but they are Sweet also. Hemoglobin A1c goal of less than 6.5 patient follows up with endocrinology (4) Hypertension: Code(s): I10 - Essential (primary) hypertension Qualifiers: Hypertension type: essential hypertension Qualified Code(s): I10 - Essential (primary) hypertension Plan: Continue with blood pressure medication. Decrease salt intake and exercise patient is on amlodipine 5 mg once a day carvedilol 12.5 mg twice a day hydralazine 25 mg 3 times a day attacked aside (5) Bipolar disorder: Comment: decline referral for counselling Code(s): F31.9 - Bipolar disorder, unspecified Qualifiers: Active/Remission status: currently active Current bipolar episode type: mixed Current episode severity: moderate Qualified Code(s): F31.62 - Bipolar disorder, current episode mixed, moderate Plan: Continue with therapy (6) Hypercholesterolemia: Code(s): E78.00 - Pure hypercholesterolemia, unspecified Plan: Avoid fried foods, chicken skin, eggs, butter margarine, pastries and meat. 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 Panel Today E11.65 - Type 2 diabetes mellitus with hyperglycemia, Z79.4 - exterminator helper termite (current) use of insulin Lipid Panel Today E11.65 - Type 2 diabetes mellitus with hyperglycemia, E78.00 - Pure hypercholesterolemia, unspecified, Z79.4 - [facility] (current) use of insulin Free T4 (Free Thyroxine) Today E11.65 - Type 2 diabetes mellitus with hyperglycemia, Z79.4 - exterminator helper termite (current) use of insulin Thyroid Stimulating Hormone Today E11.65 - Type 2 diabetes mellitus with hyperglycemia, Z79.4 - exterminator helper termite (current) use of insulin Vitamin D 25-OH Total Today E11.65 - Type 2 diabetes mellitus with hyperglycemia, Z79.4 - exterminator helper termite (current) use of insulin Creatinine Urine Today E11.65 - Type 2 diabetes mellitus with hyperglycemia, Z79.4 - exterminator helper termite (current) use of insulin Microalbumin, Random (w Creat) Today E11.65 - Type 2 diabetes mellitus with hyperglycemia, Z79.4 - exterminator helper termite (current) use of insulin Complete Blood Count Auto Diff Today E11.65 - Type 2 diabetes mellitus with hyperglycemia, Z79.4 - exterminator helper termite (current) use of insulin AMB Hemoglobin A1c Today E11.65 - Type 2 diabetes mellitus with hyperglycemia Referrals Podiatry Referral E11.65 - Type 2 diabetes mellitus with hyperglycemia, Z79.4 - [facility] (current) use of insulin Medications: New ondansetron 8 mg PO Q12H PRN 10 tabs 0RF nausea and vomiting E11.65 - Type 2 diabetes mellitus with hyperglycemia, Z79.4 - exterminator helper termite (current) use of insulin Coding Level of Care Code Est Pt Level 4 (57563) Diagnoses Enlarged thyroid gland E04.9 Cervicalgia M54.2 Type 2 diabetes mellitus with hyperglycemia E11.65; Z79.4 Diabetes mellitus group home insulin use: with group home use Hypertension I10 Hypertension type: essential hypertension Bipolar disorder F31.62 Active/Remission status: currently active Current bipolar episode type: mixed Current episode severity: moderate Hypercholesterolemia E78.00 Obesity (BMI 30-39.9) E66.9 Asthma J45.21 Asthma severity: mild Asthma persistence: intermittent Asthma complication type: with acute exacerbation Mesenteric panniculitis K65.4
[2022-11-06 09:49] VITALS: BP 126/84; PULSE 76; O2SAT 97; BMI 33.5
== END 2022-11-06 10:52 | disposition home or self-care (01) ==
PROVIDERS: PCP Internal Medicine; Visit Provider Internal Medicine
DX: E04.9 Nontoxic goiter, unspecified (principal); E11.65 Type 2 diabetes mellitus with hyperglycemia; Z79.4 Long term (current) use of insulin; I10 Essential (primary) hypertension; M54.2 Cervicalgia; F31.62 Bipolar disorder, current episode mixed, moderate; E78.00 Pure hypercholesterolemia, unspecified; E66.9 Obesity, unspecified; J45.21 Mild intermittent asthma with (acute) exacerbation; K65.4 Sclerosing mesenteritis
CPT/HCPCS: 83036; 99214

== ENCOUNTER 2022-11-17 09:07 | Outpatient (AMB) | payer OTHER, SELFPAY ==
--- NOTE | 2022-11-17 09:15 | A.OFFVIS_ITS ---
Intake Vital Signs 11/17/22 09:29 Height 5 ft 4 in Weight 198 lb 2 oz BMI 34.0 BP 150/98 H Blood Pressure Location Lt brachial Position Sitting Pulse 76 Intake Visit Reasons: high risk breast & ER follow up panniculitis Intake Note: Patient is seen in office for evaluation and treatment of high risk breast cancer & ER f/u abdominal pain. Patient c/o: has 3 sister with breast cancer and one with uterus cancer, sometimes feel something inside her breasts burst , has abdomen pain and radiates to the back for the past couple of weeks, was given antibiotics, admits to nausea, diarrhea, denies constipation or vomit Asic Engineer Required: No Yard Warehouse Worker: Yard Warehouse Worker Present Accompanied by: se Allergies clonidine [CLONIDINE] Allergy (Severe, Verified 11/17/22 09:26) DIZZY,FAINT levetiracetam [LEVETIRACETAM] Allergy (Severe, Verified 11/17/22 09:26) DIFFICULTY BREATHING lisinopril [LISINOPRIL] Allergy (Severe, Verified 11/17/22 09:26) SWELLING, angioedema atenolol [ATENOLOL] Allergy (Intermediate, Verified 11/17/22 09:26) RASH dulaglutide [Trulicity] Allergy (Unknown, Verified 11/17/22 09:26) Unknown Medication List - Last Reconciled 11/17/22 by Brayan Ornelas MD acetaminophen (Tylenol Extra Strength) 1,000 mg (2 x 500 mg) PO QID PRN albuterol sulfate 90 mcg/actuation (ProAir HFA) 2 puffs inhalation Q4-6H PRN amlodipine 5 mg PO DAILY amoxicillin-pot clavulanate 875-125 mg 1 tab PO BID 7 days aspirin (Adult Aspirin Regimen) 81 mg PO DAILY besifloxacin 0.6% 1 drp ophthalmic (eye) TID 7 days blood sugar diagnostic (FreeStyle Lite Strips) As directed check the BS 4 x a day bupropion HCl (Wellbutrin SR) 150 mg PO BEDTIME carbamide peroxide 6.5% (Ear Drops (carbamide peroxide)) 5 drps otic (ears) BID carvedilol 12.5 mg PO BID 30 days cyclobenzaprine 10 mg PO Q8H diazepam 2 - 4 mg (1 - 2 x 2 mg) PO BEDTIME PRN 30 days empagliflozin (Jardiance) 10 mg PO DAILY flash glucose scanning reader (FreeStyle Archana 2 [place]) As directed flash glucose sensor (FreeStyle Archana 2 Sensor kit) As directed fluticasone propion-salmeterol 250-50 mcg/dose (Advair Diskus) 1 inh inhalation BID fluticasone propionate 50 mcg/actuation (Flonase Allergy Relief) 1 spray intranasal DAILY gabapentin 300 mg PO DAILY PRN hydralazine 25 mg PO TID 90 days hydrocodone-homatropine 5-1.5 mg/5 mL (5 mL) (Hycodan) 5 mL PO Q4-6H PRN insulin lispro (Humalog KwikPen (U-100) Insulin) 18 units subcut TID loratadine (Claritin) 10 mg PO DAILY metformin 500 mg PO BID naproxen 500 mg PO BID PRN ondansetron 8 mg PO Q12H PRN pen needle, diabetic (BD Ultra-Fine Mini Pen Needle) As directed, Inject 6 x a day with Insulin spironolacton-hydrochlorothiaz 25-25 mg (Aldactazide) 1 tab PO DAILY terconazole 0.8% 1 appful vaginal BEDTIME 3 days tirzepatide (Mounjaro) 5 mg (0.5 mL) subcut QWEEK valacyclovir mg PO HPI HPI Comments History of Present Illness Details 62-year-old female patient presenting for both a high risk breast cancer evaluation as well as 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 She recently developed abdominal pain in the right lower quadrant radiating to the back and was evaluated in the emergency department for acute appendicitis. CT of the abdomen and pelvis revealed mesenteric panniculitis. She was subsequently discharged home on oral antibiotics which he has now completed. Reports the abdominal pain has improved although she still has some minor discomfort in the right lower quadrant. She denies any fever or chills. The patient also reports a strong family history of breast cancer including 4 of her sisters and 1 maternal aunt. She is uncertain of any of her siblings are o n have undergone genetic testing. She denies any previous problems with her breast other than breast cysts and denies any history of breast surgery. Menarche was at age 12 menopause at age 55, G 6 PD 5 with 1 spontaneous . She denies breast-feeding her children. Her most recent mammogram dated 07/31/2022 revealed no mammographic evidence of malignancy (BI-RADS 2). Her [facility] remaining lifetime risk of breast cancer was calculated at 21% placing her at high risk for breast cancer. A breast MRI has been requested by Dr. Ly but has not yet been scheduled. [facility] Medical History Anxiety due to invasive procedure Asthma Green's palsy Bipolar disorder Breast cancer screening by mammogram Cataracts, bilateral Cervical cancer screening Colon cancer screening COVID-19 Family history of colon cancer GERD (gastroesophageal reflux disease) Hypercholesterolemia Hypertension Lower abdominal pain Microscopic hematuria Migraine Mild obstructive sleep apnea Mixed incontinence urge and stress Obesity (BMI 30-39.9) Obstructive sleep apnea Seizure disorder SVT (supraventricular tachycardia) Thyroid nodule Trigeminal neuralgia of right side of face Type 2 diabetes mellitus with hyperglycemia Vulvovaginitis roseline albicans Well woman exam Surgical History History of cholecystectomy History of cone biopsy of uterine cervix History of tubal ligation Family History Father Diabetes FH: prostate cancer CVD (cardiovascular disease) Mother Diabetes Hypertension Stroke CVD (cardiovascular disease) Sister Breast cancer Sister Breast cancer Sister Hypertension Daughter In good health Brother No problems noted. Brother No problems noted. Brother No problems noted. Sister Cervical cancer Social History Household Members: Other Household Members Other:: grandson Housing: House Do you presently have visiting nurse or other home services: Yes (tele visits) Alcohol intake: never Patient Tobacco Use Status: Never used Tobacco e-Cigarette/Vaping Use: Never Used Second Hand Smoke Exposure: No service: No Current occupational status: disabled Cognitive needs: No Hearing needs: No Vision needs: Yes Female Reproductive History Menstrual Age of Menarche: 12 Age of menopause: 50 Total pregnancies: 6 Number of Living Children: 5 Ab spontaneous: 1 Review of Systems Const All systems reviewed & are unremarkable except as noted in HPI and below Denies chills, Denies fever(s), Denies headache(s), Denies poor appetite and Denies weakness ENT Denies headache(s) Card Denies chest pain, Denies irregular heart rhythm, Denies palpitations and Denies dyspnea Resp Denies cough, Denies excessive phlegm production and Denies dyspnea GI Denies abdominal pain, Denies bloating, Denies change in bowel habits, Denies constipation, Denies heartburn, Denies diarrhea, Denies nausea and Denies vomiting Denies urinary frequency and Denies nipple discharge Musc Denies back pain, Denies muscle weakness and Denies numbness Skin/Breast Denies breast swelling, Denies breast skin changes, Denies breast pain, Denies breast mass, Denies changing lesions, Denies nipple discharge and Denies unusual bruising Neuro Denies headache(s), Denies numbness, Denies paresthesias and Denies weakness Psych Denies anxiety and Denies depression Endo Denies palpitations Himanshu/Lymph Denies lymphadenopathy Physical Exam Vital Signs: Last Vital Signs Pulse 76 11/17/22 09:29 BP 150/98 H 11/17/22 09:29 BMI result Body Mass Index 34.0 Const General: cooperative and no acute distress Nutritional Appearance: well nourished Orientation/consciousness: patient oriented x3 Limitations: no limitations HEENT Head: Yes normocephalic and Yes atraumatic Ears: hearing grossly normal bilaterally Chest Other: Generally soft breast tissue bilaterally Left breast: No skin change, no nipple retraction, no nipple discharge, no palpable mass, no enlarged lymph nodes. Right breast: No skin change, no nipple retraction, no nipple discharge, no palpable mass, no enlarged lymph nodes Resp Effort & Inspection: normal respiratory effort, no audible wheezes, no cough and no respiratory distress Cardio Jugular venous distension: no JVD GI Inspection: Yes normal to inspection Skin Other: Warm, dry, no rash Neuro General: patient oriented x3 Extrem General: Yes no clubbing, cyanosis or edema Assessment & Plan Assessment & Plan (1) At high risk for breast cancer: Code(s): Z91.89 - Other specified personal risk factors, not elsewhere classified (2) Family history of breast cancer: Code(s): Z80.3 - Family history of malignant neoplasm of breast (3) 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 She was determined to be at high risk for breast cancer due to this family history with a calculated Tyrer-Cuzick remaining lifetime risk of breast cancer at 21%. Examination today revealed no suspicious findings in either breast and her most recent mammogram of 07/31/2022 revealed no suspicious findings (BI-RADS 2). I recommended undergoing yearly mammogram and breast MRIs alternating every 6 months as well as twice yearly clinical breast examinations. She was also encouraged to perform monthly self examinations. We discussed genetic testing today and she is agreeable to proceed. She will return in 6 weeks to review the results once available. She will also return in 6 months for clinical breast examination. She is welcome to call sooner for any new concerns. Patient has a prior history of mesenteric panniculitis treated in the emergency department with antibiotics. She is now improved but does still have some minor discomfort. No further surgical intervention is required for this at this time. Coding Level of Care Code New Pt Level 4 (15252) Diagnoses At high risk for breast cancer Z91.89 Family history of breast cancer Z80.3 Mesenteric panniculitis K65.4
[2022-11-17 09:29] VITALS: BP 150/98; PULSE 76; BMI 34.0
== END 2022-11-17 09:53 | disposition home or self-care (01) ==
PROVIDERS: PCP Internal Medicine; Referring Provider Obstetrics & Gynecology; Visit Provider Surgery
DX: Z91.89 Other specified personal risk factors, not elsewhere classified (principal); Z80.3 Family history of malignant neoplasm of breast; K65.4 Sclerosing mesenteritis
CPT/HCPCS: 99204

== ENCOUNTER → 2022-11-17 09:07 | Outpatient (BNVA) | payer OTHER, SELFPAY | PROVIDERS: PCP Internal Medicine; Referring Provider Obstetrics & Gynecology; Visit Provider Surgery | DX: Z91.89 Other specified personal risk factors, not elsewhere classified (principal); Z80.3 Family history of malignant neoplasm of breast; K65.4 Sclerosing mesenteritis | CPT/HCPCS: 99202 ==

== ENCOUNTER 2022-11-18 08:19 | Outpatient (AMB) | payer OTHER, SELFPAY ==
[2022-11-18 08:41] VITALS: BP 130/72; PULSE 74; TEMP 36.4; O2SAT 98; BMI 33.8
--- NOTE | 2022-11-18 08:41 | AM.OFFWIN_ITS ---
Intake Vital Signs 11/18/22 08:41 Height 5 ft 4 in Weight 197 lb BMI 33.8 BP 130/72 Blood Pressure Location Lt brachial Position Sitting Pulse 74 Pulse Source Pulse Oximeter Temp 97.6 F Temp Source Temporal Artery Scan Pulse Oximetry (%) 98 Intake Visit Reasons: EP, Bilateral knee scrapes due to fall Intake Note: pt is here for c/o bilateral knee scrapes, left foot swelling due to falling the down stairs yesterday Patient Tobacco Use Status: Never used Tobacco Allergies clonidine [CLONIDINE] Allergy (Severe, Verified 11/18/22 09:14) DIZZY,FAINT levetiracetam [LEVETIRACETAM] Allergy (Severe, Verified 11/18/22 09:14) DIFFICULTY BREATHING lisinopril [LISINOPRIL] Allergy (Severe, Verified 11/18/22 09:14) SWELLING, angioedema atenolol [ATENOLOL] Allergy (Intermediate, Verified 11/18/22 09:14) RASH dulaglutide [Trulicity] Allergy (Unknown, Verified 11/18/22 09:14) Unknown Medication List - Last Reconciled 11/18/22 by Amos Edgar MD acetaminophen (Tylenol Extra Strength) 1,000 mg (2 x 500 mg) PO QID PRN albuterol sulfate 90 mcg/actuation (ProAir HFA) 2 puffs inhalation Q4-6H PRN amlodipine 5 mg PO DAILY aspirin (Adult Aspirin Regimen) 81 mg PO DAILY besifloxacin 0.6% 1 drp ophthalmic (eye) TID 7 days blood sugar diagnostic (FreeStyle Lite Strips) As directed check the BS 4 x a day bupropion HCl (Wellbutrin SR) 150 mg PO BEDTIME carbamide peroxide 6.5% (Ear Drops (carbamide peroxide)) 5 drps otic (ears) BID carvedilol 12.5 mg PO BID 30 days cyclobenzaprine 10 mg PO Q8H diazepam 2 - 4 mg (1 - 2 x 2 mg) PO BEDTIME PRN 30 days empagliflozin (Jardiance) 10 mg PO DAILY flash glucose scanning reader ([employer]Style Archana 2 Sparks) As directed flash glucose sensor (FreeStyle Archana 2 Sensor kit) As directed fluticasone propion-salmeterol 250-50 mcg/dose (Advair Diskus) 1 inh inhalation BID fluticasone propionate 50 mcg/actuation (Flonase Allergy Relief) 1 spray intranasal DAILY gabapentin 300 mg PO DAILY PRN hydralazine 25 mg PO TID 90 days hydrocodone-homatropine 5-1.5 mg/5 mL (5 mL) (Hycodan) 5 mL PO Q4-6H PRN insulin lispro (Humalog KwikPen (U-100) Insulin) 18 units subcut TID loratadine (Claritin) 10 mg PO DAILY metformin 500 mg PO BID naproxen 500 mg PO BID PRN ondansetron 8 mg PO Q12H PRN pen needle, diabetic (BD Ultra-Fine Mini Pen Needle) As directed, Inject 6 x a day with Insulin spironolacton-hydrochlorothiaz 25-25 mg (Aldactazide) 1 tab PO DAILY terconazole 0.8% 1 appful vaginal BEDTIME 3 days tirzepatide (Mounjaro) 5 mg (0.5 mL) subcut QWEEK valacyclovir mg PO HPI EP, Bilateral knee scrapes due to fall HPI Details 62-year-old female presents to the office for a sick visit. Patient fell at home yesterday. In the process, she has scraped her knee and injured her left foot. She is walking with a limp and would like the foot examined PFSH Medical History Anxiety due to invasive procedure Asthma Green's palsy Bipolar disorder Breast cancer screening by mammogram Cataracts, bilateral Cervical cancer screening Colon cancer screening COVID-19 Family history of colon cancer GERD (gastroesophageal reflux disease) Hypercholesterolemia Hypertension Lower abdominal pain Microscopic hematuria Migraine Mild obstructive sleep apnea Mixed incontinence urge and stress Obesity (BMI 30-39.9) Obstructive sleep apnea Seizure disorder SVT (supraventricular tachycardia) Thyroid nodule Trigeminal neuralgia of right side of face Type 2 diabetes mellitus with hyperglycemia Vulvovaginitis roseline albicans Well woman exam Surgical History History of cholecystectomy History of cone biopsy of uterine cervix History of tubal ligation Family History Father Diabetes FH: prostate cancer CVD (cardiovascular disease) Mother Diabetes Hypertension Stroke CVD (cardiovascular disease) Sister Breast cancer Sister Breast cancer Sister Hypertension Daughter In good health Brother No problems noted. Brother No problems noted. Brother No problems noted. Sister Cervical cancer Social History Household Members: Other Household Members Other:: grandson Housing: House Do you presently have visiting nurse or other home services: Yes (tele visits) Alcohol intake: never Patient Tobacco Use Status: Never used Tobacco e-Cigarette/Vaping Use: Never Used Second Hand Smoke Exposure: No service: No Current occupational status: disabled Cognitive needs: No Hearing needs: No Vision needs: Yes Female Reproductive History Menstrual Age of Menarche: 12 Physical Exam Vital Signs: Last Vital Signs Temp 97.6 F 11/18/22 08:41 Pulse 74 11/18/22 08:41 BP 130/72 11/18/22 08:41 Pulse Ox 98 11/18/22 08:41 BMI result Body Mass Index 33.8 Extrem Other: Right and left knee: Scraping over the patella. Full range of motion. Left foot: Swelling over the dorsum of the foot, 5th digit is tender to touch and painful to flex. Assessment & Plan Assessment & Plan (1) Contusion of foot: Code(s): S90.30XA - Contusion of unspecified foot, initial encounter Plan: X-ray images were personally reviewed by me. No fractures seen. Reassurance. Patient is up-to-date on her tetanus shot. Orders: Orders XR foot LT min 3V 11/18/22 S90.30XA - Contusion of unspecified foot, initial encounter Coding Level of Care Code Est Pt Level 4 (06853) Diagnoses Contusion of foot S90.30XA
== END 2022-11-18 10:28 | disposition home or self-care (01) ==
PROVIDERS: PCP Internal Medicine; Visit Provider Internal Medicine
DX: S90.32XA Contusion of left foot, initial encounter (principal); W19.XXXA Unspecified fall, initial encounter
CPT/HCPCS: 99214

== ENCOUNTER 2022-11-18 09:11 | Outpatient (REF) | payer OTHER, SELFPAY ==
--- NOTE | ~2022-11-18 | XR_ITS ---
EXAMINATION: XR FOOT, LEFT CLINICAL INFORMATION: Contusion COMPARISON: None available. TECHNIQUE: AP, lateral, and oblique views of the left foot. FINDINGS: Mild degenerative change first MTP. No acute fracture or dislocation. Calcaneal spurring and Achilles enthesopathy. Mild dorsal soft tissue prominence. XR/XR foot LT min 3V IMPRESSION: No acute bony pathology.
== END 2022-11-18 09:12 | disposition home or self-care (01) ==
LOC: HO.HMGCX 09:11
PROVIDERS: PCP Internal Medicine; Visit Provider Internal Medicine
DX: S90.32XA Contusion of left foot, initial encounter (principal)
CPT/HCPCS: 73630

== ENCOUNTER 2022-12-24 08:38 | Outpatient (AMB) | payer OTHER, SELFPAY ==
--- NOTE | 2022-12-24 09:01 | MHC.OFFWIV ---
Intake Vital Signs 12/24/22 09:03 Height 5 ft 4 in Weight 197 lb BMI 33.8 BP 138/80 Blood Pressure Location Lt brachial Position Sitting Pulse 67 Pulse Source Pulse Oximeter Temp 97.8 F Temp Source Temporal Artery Scan Pulse Oximetry (%) 97 Oxygen Delivery Method Room Air Intake Visit Reasons: Ep, headache, vomiting, diarrhea [phone] Intake Note: pt is here for c/o headache, vomiting, diarrhea 3x days Patient Tobacco Use Status: Never used Tobacco Allergies clonidine [CLONIDINE] Allergy (Severe, Verified 12/24/22 09:02) DIZZY,FAINT levetiracetam [LEVETIRACETAM] Allergy (Severe, Verified 12/24/22 09:02) DIFFICULTY BREATHING lisinopril [LISINOPRIL] Allergy (Severe, Verified 12/24/22 09:02) SWELLING, angioedema atenolol [ATENOLOL] Allergy (Intermediate, Verified 12/24/22 09:02) RASH dulaglutide [Trulicity] Allergy (Unknown, Verified 12/24/22 09:02) Unknown Do you need a note to return to daycare/school/sports/work: Yes HPI HPI Comments History of Present Illness Details 62-year-old female presents for diarrhea headache body aches nausea vomiting. Patient has been dispensed symptoms for past couple days. The headache started slowly gradually increased. She denies fevers or chills cough chest pain or shortness of breath. [facility] Medical History Anxiety due to invasive procedure Asthma Green's palsy Bipolar disorder Breast cancer screening by mammogram Cataracts, bilateral Cervical cancer screening Colon cancer screening COVID-19 Family history of colon cancer GERD (gastroesophageal reflux disease) Hypercholesterolemia Hypertension Lower abdominal pain Microscopic hematuria Migraine Mild obstructive sleep apnea Mixed incontinence urge and stress Obesity (BMI 30-39.9) Obstructive sleep apnea Seizure disorder SVT (supraventricular tachycardia) Thyroid nodule Trigeminal neuralgia of right side of face Type 2 diabetes mellitus with hyperglycemia Vulvovaginitis roseline albicans Well woman exam Surgical History History of cholecystectomy History of cone biopsy of uterine cervix History of tubal ligation Family History Father Diabetes FH: prostate cancer CVD (cardiovascular disease) Mother Diabetes Hypertension Stroke CVD (cardiovascular disease) Sister Breast cancer Sister Breast cancer Sister Hypertension Daughter In good health Brother No problems noted. Brother No problems noted. Brother No problems noted. Sister Cervical cancer Social History Household Members: Other Household Members Other:: grandson Housing: House Do you presently have visiting nurse or other home services: Yes (tele visits) Alcohol intake: never Patient Tobacco Use Status: Never used Tobacco e-Cigarette/Vaping Use: Never Used Second Hand Smoke Exposure: No service: No Current occupational status: disabled Cognitive needs: No Hearing needs: No Vision needs: Yes Female Reproductive History Menstrual Age of Menarche: 12 Review of Systems Const All systems reviewed & are unremarkable except as noted in HPI and below Reports headache(s) ENT Reports headache(s) GI Reports diarrhea Musc Reports myalgias Neuro Reports headache(s) Physical Exam Vital Signs: Last Vital Signs Temp 97.8 F 12/24/22 09:03 Pulse 67 12/24/22 09:03 BP 138/80 12/24/22 09:03 Pulse Ox 97 12/24/22 09:03 Oxygen Delivery Method Room Air 12/24/22 09:03 BMI result Body Mass Index 33.8 Const General: cooperative, no acute distress and alert Orientation/consciousness: patient oriented x3 Limitations: no limitations HEENT Head: Yes normal to inspection Ears: hearing grossly normal bilaterally and external ears normal General nose exam: Normal external nose present Eyes General: appearance normal, both eyes and all related structures Neck Neck: Yes normal visual inspection Chest Chest palpation & inspection: normal inspection of the chest Resp Effort & Inspection: normal respiratory effort, able to speak in complete sentences and no audible wheezes Auscultation: clear to auscultation bilaterally Cardio Rate: regular rate Rhythm: regular rhythm GI Inspection: Yes normal to inspection Palpation (GI): Soft to palpation and nontender Skin General skin exam: no rashes or lesions noted Neuro Other: NEURO PHYSCIAL EXAM Alert and oriented to person, place, time speech: clear, fluent CN II: visual acuity grossly intact b/l, PERRLA CN III, IV, : EOMI CN V: facial sensation grossly intact to light touch b/l CN VII: Left-sided facial droop (known history of Green palsy) CN VIII: hearing intact to finger rub b/l, no nystagmus CN IX, X: uvula midline CN XI: 5/5 strength with SCM and trapezius b/l CN XII: midline tongue protrusion, no atrophy or fasciculations motor: 5/5 muscle strength of UE/LE b/l, no pronator drift sensory: grossly intact b/l to light touch coordination: No dysmetria or dysdiadochokinesia with rapid alternating movement and finger to nose testing General: patient oriented x3 Psych Appearance: grossly normal Mental Status: mental status grossly normal Speech and movement: Normal speech and movement present Affect: normal affect Attitude: cooperative Thought process: Normal thought process present Thought content: Normal thought content present Office Meds ketorolac 30 mg/mL injection solution Performing Provider: RADHA Roche Performing Location: [facility] Administered by: RADHA Roche on 12/24/22 09:38 Dose Route Admin Location Dispensed Lot Number Expiration Date [place] [employer] 30 mg IM 1 mL [id number] 08/27/23 57255-145-95 [facility] ondansetron 4 mg disintegrating tablet Performing Provider: RADHA Roche Performing Location: [facility] Administered by: RADHA Roche on 12/24/22 09:38 Dose Route Admin Location Dispensed Lot Number Expiration Date [place] [employer] 4 mg translingual 4 mg [id number] 06/27/23 8877-1037-41 [facility] Assessment & Plan Assessment & Plan (1) Viral illness: Code(s): B34.9 - Viral infection, unspecified Plan: VSs. Exam patient's insulin oriented no acute distress neuro exam grossly intact unremarkable exam was otherwise noted above. Given the condition of consideration concern is COVID-19 versus flu versus other rooms. When she patient's headache with Toradol and nausea with Zofran. Will send for COVID testing. Fortunately we are unable to test patient her flu or recommend hydration symptomatic treatment home if symptoms change patient go to the emergency department. Discharge instructions, follow up and treatment are discussed with patient in my usual fashion. Alternatives in treatment are also discussed. The patient will return for worsening symptoms or as needed. Advised that any labs/imaging ordered will be followed up on and contact made if further treatment needed. Counseled that patient's condition may require further evaluation and/or treatment. Symptoms of concern for worsening disorder discussed in detail in my customary manner. Patient does verbalize understanding of the plan, there are no apparent barriers to communication. The patient is given the opportunity to ask questions and have them answered to his/her satisfaction Orders: Orders AMB Ketorolac Injection Today R51.9 - Headache, unspecified COVID-19 ID NOW ([facility]) Today B34.9 - Viral infection, unspecified AMB Ondansetron Adult Dose Today R11.0 - Nausea BinaxNOW Covid-19 Ag Today B34.9 - Viral infection, unspecified Patient Instructions: You seen and evaluated in the urgent care for your flu like symptoms. We treated her headache with Toradol and nausea with Zofran. Recommend continued symptomatic treatment at home using current fluid hydration. You may also add on the addition of Imodium for your diarrhea given prescribe Zofran please take as directed every 8 hours. Patient has a new worsening symptoms such as inability to keep fluids down worsening headache weakness speech or any other concerning findings please present to the emergency department Coding Level of Care Code Est Pt Level 4 (53545) Diagnoses Viral illness B34.9
[2022-12-24 09:03] VITALS: BP 138/80; PULSE 67; TEMP 36.6; O2SAT 97; BMI 33.8
== END 2022-12-24 09:47 | disposition home or self-care (01) ==
PROVIDERS: PCP Internal Medicine; Visit Provider Physician Assistant
DX: R51.9 Headache, unspecified (principal); R11.0 Nausea; B34.9 Viral infection, unspecified
CPT/HCPCS: 96372; 99214; J1885; S0119

== ENCOUNTER 2022-12-24 09:47 | Outpatient (REF) | payer OTHER, SELFPAY ==
[2022-12-24 10:25] LABS: Binax Internal Control QC Valid; Binax Now Covid-19 Ag Negative (Negative); Binax Performed by: HO.BONILM
== END 2022-12-24 09:48 | disposition home or self-care (01) ==
LOC: HO.HMGCLDS 09:47
PROVIDERS: PCP Internal Medicine; Visit Provider Physician Assistant
DX: Z20.822 Contact with and (suspected) exposure to COVID-19 (principal); B34.9 Viral infection, unspecified
CPT/HCPCS: 87811; C9803

== ENCOUNTER 2023-01-08 09:25 | Outpatient (REF) | payer OTHER, SELFPAY ==
[2023-01-08 09:51] LABS: MANUAL DIFF FLAG NO
[2023-01-08 11:24] LABS: Basophils Percent Auto 0.5 % (0-2); Eosinophils Absolute Auto 0.2 X10*3/uL (0.0-0.4); Eosinophils Percent Auto 2.9 % (0-4); Hematocrit 44.6 % (37.0-47.0); Imm Gran Abs Auto 0.03 X10*3/uL (0.00-0.03); Imm Gran Pct Auto 0.5 % (0.0-0.4); Lymphocytes Absolute Auto 2.6 X10*3/uL (1.2-4.9); Lymphocytes Percent Auto 40.4 % (20-40); Mean Corpuscular HGB Conc 33.6 g/dl (31.0-35.0); Mean Corpuscular Hemoglobin 28.2 pg (27.0-33.0); Mean Corpuscular Volume 83.8 fL (80.0-98.0); Mean Platelet Volume 11.8 fL (9.4-12.3); Monocytes Absolute Auto 0.5 X10*3/uL (0.1-1.2); Monocytes Percent Auto 7.1 % (2-11); Neutrophils Absolute Auto 3.2 x10*3/uL (2.0-8.3); Neutrophils Percent Auto 48.6 % (45-73); Platelet Count 233 X10*3/uL (160-400); Red Blood Count 5.32 X10*6/uL (4.20-5.50); Red Cell Distribution Width 11.9 % (11.0-16.0); White Blood Count 6.5 X10*3/uL (4.8-10.8)
[2023-01-08 12:35] LABS: TSH reflex Free T4 1.89 uIU/mL (0.32-4.0)
[2023-01-08 12:40] LABS: Alanine Aminotransferase 18 U/L (0-31); Alkaline Phosphatase 135 U/L (39-117); Anion Gap 14 (12-20); Aspartate Amino Transferase 14 U/L (5-31); Bilirubin Total 0.7 mg/dL (0.0-1.0); Blood Urea Nitrogen 11 mg/dL (9-16); Calcium 9.7 mg/dL (8.4-10.2); Carbon Dioxide 26 mmol/L (22-29); Chloride 101 mmol/L (96-108); Cholesterol 180 mg/dL (<200); Estimated Glomerular Filt Rate > 60; Glucose Random 267 mg/dL (60-115); HDL Cholesterol 42 mg/dL (>40); LDL Cholesterol Calculated 102 mg/dL (<100); Potassium 4.3 mmol/L (3.3-5.1); Sodium 137 mmol/L (135-145); Total Protein 7.3 g/dL (6.5-8.0); Triglycerides 183 mg/dL (<150)
[2023-01-08 12:42] LABS: Free T4 (Free Thyroxine) 0.82 ng/dL (0.71-1.85); Thyroid Stimulating Hormone 1.89 uIU/mL (0.32-4.0); Vitamin D 25-OH Total 30.3 ng/mL (>30)
[2023-01-08 12:47] LABS: Folate 9.1 ng/mL (> or = 4.0); Vitamin B12 538 pg/mL (200-900)
[2023-01-08 13:11] LABS: Creatinine Urine 234.73 mg/dL; Microalbum/Creatinine Ratio Ur 43.4 ug/mg cr (<30)
== END 2023-01-08 09:26 | disposition home or self-care (01) ==
LOC: HO.LAB 09:25
PROVIDERS: Nurse Practitioner Family; PCP Internal Medicine; Visit Provider Internal Medicine
DX: E11.65 Type 2 diabetes mellitus with hyperglycemia (principal); E78.00 Pure hypercholesterolemia, unspecified; E04.9 Nontoxic goiter, unspecified; Z79.4 Long term (current) use of insulin
CPT/HCPCS: 36415; 80053; 80061; 82043; 82306; 82570; 82607; 82746; 84439; 84443; 84481; 85025

== ENCOUNTER 2023-01-19 09:09 | Outpatient (REF) | payer OTHER, SELFPAY | END 2023-01-19 09:10 | disposition home or self-care (01) | LOC: HO.MRI 09:09 | PROVIDERS: PCP Internal Medicine; Visit Provider Obstetrics & Gynecology | DX: Z13.89 Encounter for screening for other disorder (principal) ==

== ENCOUNTER 2023-01-28 12:25 | Outpatient (AMB) | payer OTHER, SELFPAY ==
--- NOTE | 2023-01-28 12:59 | MHC.OFFWIV ---
Intake Vital Signs 01/28/23 13:00 Height 5 ft 4 in Weight 197 lb BMI 33.8 BP 138/72 Blood Pressure Location Rt brachial Position Sitting Pulse 96 Pulse Source Pulse Oximeter Temp 96.9 F Temp Source Temporal Artery Scan Pulse Oximetry (%) 100 Oxygen Delivery Method Room Air Intake Visit Reasons: EST/lump on right leg(lobby) Intake Note: Pt is here c/o having a cyst on her right leg. Patient Tobacco Use Status: Never used Tobacco Allergies clonidine [CLONIDINE] Allergy (Severe, Verified 01/28/23 13:00) DIZZY,FAINT levetiracetam [LEVETIRACETAM] Allergy (Severe, Verified 01/28/23 13:00) DIFFICULTY BREATHING lisinopril [LISINOPRIL] Allergy (Severe, Verified 01/28/23 13:00) SWELLING, angioedema atenolol [ATENOLOL] Allergy (Intermediate, Verified 01/28/23 13:00) RASH dulaglutide [Trulicity] Allergy (Unknown, Verified 01/28/23 13:00) Unknown Do you need a note to return to daycare/school/sports/work: No HPI HPI Comments History of Present Illness Details This is a 62yo female with a past medical history of insulin-dependent diabetes, hypertension and hypothyroidism presenting for evaluation of a painful lesion that has been evolving on her right lower leg for the past 2 days. Patient states the lesion has become very painful, she has noted elevated blood glucose values as high as 350mg/dL and Tylenol has not relieved her pain. She denies any fevers, chills, injury or trauma to her right lower extremity. [facility] Medical History Breast cancer screening by mammogram Trigeminal neuralgia of right side of face Hypertension Anxiety due to invasive procedure Family history of colon cancer Colon cancer screening Lower abdominal pain Microscopic hematuria Vulvovaginitis roseline albicans Well woman exam Cervical cancer screening Hypercholesterolemia SVT (supraventricular tachycardia) Obstructive sleep apnea Mixed incontinence urge and stress Thyroid nodule GERD (gastroesophageal reflux disease) Asthma COVID-19 Mild obstructive sleep apnea Cataracts, bilateral Migraine Seizure disorder Bipolar disorder Green's palsy Obesity (BMI 30-39.9) Type 2 diabetes mellitus with hyperglycemia Surgical History History of cholecystectomy History of cone biopsy of uterine cervix History of tubal ligation Family History Father Diabetes FH: prostate cancer CVD (cardiovascular disease) Mother Diabetes Hypertension Stroke CVD (cardiovascular disease) Sister Breast cancer Sister Breast cancer Sister Hypertension Daughter In good health Brother No problems noted. Brother No problems noted. Brother No problems noted. Sister Cervical cancer Social History Household Members: Other Household Members Other:: grandson Housing: House Do you presently have visiting nurse or other home services: Yes (tele visits) Alcohol intake: never Patient Tobacco Use Status: Never used Tobacco e-Cigarette/Vaping Use: Never Used Second Hand Smoke Exposure: No service: No Current occupational status: disabled Cognitive needs: No Hearing needs: No Vision needs: Yes Female Reproductive History Menstrual Age of Menarche: 12 Review of Systems Const All systems reviewed & are unremarkable except as noted in HPI and below Denies chills, Denies fever(s) and Denies malaise Musc Reports no additional complaints Skin/Breast Reports system reviewed and no additional complaints, except as documented, Reports non-healing lesions and Reports erythema Neuro Reports no additional complaints Psych Reports no additional complaints Physical Exam Vital Signs: Last Vital Signs Temp 96.9 F 01/28/23 13:00 Pulse 96 01/28/23 13:00 BP 138/72 01/28/23 13:00 Pulse Ox 100 01/28/23 13:00 Oxygen Delivery Method Room Air 01/28/23 13:00 BMI result Body Mass Index 33.8 Patient is afebrile. Const General: cooperative, healthy appearing, comfortable and no acute distress; No ill appearing or lethargic Nutritional Appearance: overweight Orientation/consciousness: patient oriented x3 and No lethargic Limitations: no limitations Skin Lesions: no lesions (right distal lower extremity; 0.75 cm pustule with surrounding induration ) and other (there is induration and erythema surrounding pustule noted) Neuro General: patient oriented x3 Extrem Other: Patient ambulating independently; no limitations of ROM right knee or right ankle. Office Procedures Incision and Drainage Details: Abscess right medial calf. Incision and drainage performed by: Wiley,Daisy Informed consent given: Yes Consent signed: Yes Time out checklist: patient, procedure, site marked/identified, positioning of patient, supplies available and allergies confirmed Time out staff in room: Yes Time out date: 01/28/23 Time out time: 13:25 Location: Right distal LE, medial calf Anesthesia: local (2% lidocaine) Incision with: #10 blade Drainage quality: purulent and bloody Probed cavity: Yes (no packing required) Lesion: erythema, drainage, fluctuance, induration and necrosis Lesion size (cm): 1 Hemostasis: pressure Cavity management: irrigated Dressing: gauze Patient tolerated procedure: well Complications: No (Purulent material is drained with manual pressure only) Assessment & Plan Assessment & Plan (1) Abscess of right lower leg: Code(s): L02.415 - Cutaneous abscess of right lower limb Plan: Keep dressing intact x 24 hours; patient to take Bactrim DS BID x 7 days; keep lesion clean and dry. F/U PCP for any further hyperglycemia. Medications: New sulfamethoxazole-trimethoprim 800-160 mg 1 tab PO Q12H 14 tabs 0RF Coding Level of Care Code Est Pt Level 4 (63716) Diagnoses Abscess of right lower leg L02.415 Time Spent (min) 30
[2023-01-28 13:00] VITALS: BP 138/72; PULSE 96; TEMP 36.1; O2SAT 100; BMI 33.8
== END 2023-01-28 15:21 | disposition home or self-care (01) ==
PROVIDERS: PCP Internal Medicine; Visit Provider Physician Assistant
DX: L02.415 Cutaneous abscess of right lower limb (principal)
CPT/HCPCS: 99214

== ENCOUNTER 2023-02-17 09:16 | Outpatient (AMB) | payer OTHER, SELFPAY ==
--- NOTE | 2023-02-17 09:30 | A.OFFPC_ITS ---
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: No Allergies clonidine [CLONIDINE] Allergy (Severe, Verified 02/17/23 09:35) DIZZY,FAINT levetiracetam [LEVETIRACETAM] Allergy (Severe, Verified 02/17/23 09:35) DIFFICULTY BREATHING lisinopril [LISINOPRIL] Allergy (Severe, Verified 02/17/23 09:35) SWELLING, angioedema atenolol [ATENOLOL] Allergy (Intermediate, Verified 02/17/23 09:35) RASH dulaglutide [Trulicity] Allergy (Unknown, Verified 02/17/23 09:35) Unknown Tobacco use date assessed: 02/17/23 HPI DM HPI Details 62-year-old obese female with uncontroll ed diabetes mellitus enlarged thyroid gland hypertension hypercholesterol E bipolar disorder asthma coming in for follow-up. Last seen in October 2022. Patient's mammogram is up-to-date. Review of the notes was in the Urgent Center in January 2023 for abscess of the right lower leg. This leg wound has been resolved. Otherwise no nausea no vomiting no chest pains no shortness of breath no bowel bladder symptoms. Patient's blood pressure is being handled by Nephrology and has a schedule and this month. A medication that is not on my list is losartan. She does noted dose. She will be seeing the Nephrology later this month [facility] Medical History Breast cancer screening by mammogram Trigeminal neuralgia of right side of face Hypertension Anxiety due to invasive procedure Family history of colon cancer Colon cancer screening Lower abdominal pain Microscopic hematuria Vulvovaginitis roseline albicans Well woman exam Cervical cancer screening Hypercholesterolemia SVT (supraventricular tachycardia) Obstructive sleep apnea Mixed incontinence urge and stress Thyroid nodule GERD (gastroesophageal reflux disease) Asthma COVID-19 Mild obstructive sleep apnea Cataracts, bilateral Migraine Seizure disorder Bipolar disorder Green's palsy Obesity (BMI 30-39.9) Type 2 diabetes mellitus with hyperglycemia Surgical History History of cholecystectomy History of cone biopsy of uterine cervix History of tubal ligation Family History Father Diabetes FH: prostate cancer CVD (cardiovascular disease) Mother Diabetes Hypertension Stroke CVD (cardiovascular disease) Sister Breast cancer Sister Breast cancer Sister Hypertension Daughter In good health Brother No problems noted. Brother No problems noted. Brother No problems noted. Sister Cervical cancer Household Members: Other Household Members Other:: grandson Housing: House Do you presently have visiting nurse or other home services: Yes (tele visits) Alcohol intake: never Patient Tobacco Use Status: Never used Tobacco e-Cigarette/Vaping Use: Never Used Second Hand Smoke Exposure: No service: No Current occupational status: disabled Cognitive needs: No Hearing needs: No Vision needs: Yes Female Reproductive History Menstrual Age of Menarche: 12 Questionnaire Thrive Questionnaire Date Thrive assessed: 08/06/22 AUDIT C Alcohol Use Questionnaire (AUDIT-C) 1. How often do you have a drink containing alcohol?: Never 2. How many drinks containing alcohol do you have on a typical day when you are drinking?: 1 or 2 3. How often do you have six or more drinks on one occasion?: Never Total Score: 0 SANDRA-7 AMB Questionnaire SANDRA-7 Date SANDRA - 7 assessed: 08/06/22 Source: Developed by Drs. Fercho Ying, Rama Daniels, Feliz Hood and colleagues, with an educational yong from [employer]. Physical exam (Primary Care) Vital Signs: Last Vital Signs Pulse 72 02/17/23 09:31 BP 160/98 H 02/17/23 09:31 Pulse Ox 100 02/17/23 09:31 Oxygen Delivery Method Room Air 02/17/23 09:31 BMI result Body Mass Index 33.6 Tobacco/Smoking Status: Tobacco use Status Tobacco use date assessed 02/17/23 02/17/23 09:31 Patient Tobacco Use Status Never used Tobacco 02/17/23 09:31 e-Cigarette/Vaping Use Never Used 02/17/23 09:31 Thrive Assessment: Date of Thrive Assessment Date Thrive assessed 08/06/22 02/17/23 09:31 Const General: alert; No acute distress Eyes Conjunctivae: conjunctivae normal Resp Auscultation: clear to auscultation bilaterally Cardio Rate: regular rate Rhythm: regular rhythm GI Inspection: Yes normal to inspection Extrem General: Yes normal to inspection and No edema Results AMB Hemoglobin A1c AMB Hemoglobin A1c 9.8 % Last Edit by JENNIFER Nye on 02/17/23 09:43 Results Reviewed Results Reviewed: Laboratory Last Values Hgb A1c (Clinic) 9.8 % (4.0-6.0) H 02/17/23 09:30 Assessment and Plan Assessment & Plan (1) Type 2 diabetes mellitus with hyperglycemia: Comment: Dr. Bernard eye Code(s): E11.65 - Type 2 diabetes mellitus with hyperglycemia Qualifiers: Diabetes mellitus terminal operator insulin use: with terminal operator use Qualified Code(s): E11.65 - Type 2 diabetes mellitus with hyperglycemia; Z79.4 - assistant terminal manager (current) use of insulin Plan: Decrease the amount of carbohydrate intake, pasta, bread, rice and potatoes are all sugar and that is aside from all the sweet stuff, remember that fruits are good but they are Sweet also. Hemoglobin A1c goal of less than 6.5. Patient takes Jardiance 10 mg once a day Humalog metformin 500 mg twice a day Mounjaro increase does done for Jardiance and Mounjaro (2) Obesity (BMI 30-39.9): Code(s): E66.9 - Obesity, unspecified Plan: Diet and exercise (3) Hypercholesterolemia: Code(s): E78.00 - Pure hypercholesterolemia, unspecified Plan: Avoid fried foods, chicken skin, eggs, butter margarine, pastries and meat. Be it pork or beef they have a lot of cholesterol LDL goal of less than 100 and triglyceride of less than 150. Start cholesterol medication and retest in 3 months (4) Hypertension: Code(s): I10 - Essential (primary) hypertension Qualifiers: Hypertension type: essential hypertension Qualified Code(s): I10 - Essential (primary) hypertension Plan: Continue with blood pressure medication. Decrease salt intake and exercise patient on amlodipine 5 mg once a day carvedilol 12.5 mg twice a day hydralazine 25 mg 3 times a day spironolactone hydrochlorothiazide 25/25 once a day patient follows up with Nephrology and was told that she is on losartan question of those (5) Bipolar disorder: Comment: decline referral for counselling Code(s): F31.9 - Bipolar disorder, unspecified Qualifiers: Active/Remission status: currently active Current bipolar episode type: mixed Current episode severity: moderate Qualified Code(s): F31.62 - Bipolar disorder, current episode mixed, moderate Plan: Continue with therapy. (6) Abscess of right lower leg: Code(s): L02.415 - Cutaneous abscess of right lower limb Plan: Patient was placed on Bactrim. This is resolved Orders: Orders AMB Hemoglobin A1c Today E11.65 - Type 2 diabetes mellitus with hyperglycemia Complete Blood Count Auto Diff 3 Months E78.00 - Pure hypercholesterolemia, unspecified Hemoglobin A1c 3 Months E78.00 - Pure hypercholesterolemia, unspecified Lipid Panel 3 Months E78.00 - Pure hypercholesterolemia, unspecified Comprehensive Met. Panel 3 Months E78.00 - Pure hypercholesterolemia, unspecified Referrals Cologuard Test Z12.11 - Encounter for screening for malignant neoplasm of colon Medications: New rosuvastatin 5 mg PO DAILY 30 tabs 3RF E78.00 - Pure hypercholesterolemia, unspecified Changed From empagliflozin (Jardiance) 10 mg PO DAILY 90 tabs 2RF E11.65 - Type 2 diabetes mellitus with hyperglycemia, Z79.4 - assistant terminal manager (current) use of insulin To empagliflozin 10 mg (0.4 x 25 mg) PO DAILY 30 tabs 4RF E11.65 - Type 2 diabetes mellitus with hyperglycemia, Z79.4 - half-way (current) use of insulin From tirzepatide (Mounjaro) 5 mg (0.5 mL) subcut QWEEK 2 mL 4RF E11.65 - Type 2 diabetes mellitus with hyperglycemia To tirzepatide 7.5 mg (0.5 mL) subcut QWEEK 30 days 2.5 mL 4RF E11.65 - Type 2 diabetes mellitus with hyperglycemia Coding Level of Care Code Est Pt Level 4 (97689) Diagnoses Type 2 diabetes mellitus with hyperglycemia, with long-term current use of insulin E11.65; Z79.4 Diabetes mellitus terminal operator insulin use: with alf use Obesity (BMI 30-39.9) E66.9 Hypercholesterolemia E78.00 Essential hypertension I10 Hypertension type: essential hypertension Bipolar disorder, current episode mixed, moderate F31.62 Active/Remission status: currently active Current bipolar episode type: mixed Current episode severity: moderate Abscess of right lower leg L02.415
[2023-02-17 09:31] VITALS: BP 160/98; PULSE 72; O2SAT 100; BMI 33.6
== END 2023-02-17 10:39 | disposition home or self-care (01) ==
PROVIDERS: PCP Internal Medicine; Visit Provider Internal Medicine
DX: E11.65 Type 2 diabetes mellitus with hyperglycemia (principal); Z79.4 Long term (current) use of insulin; F31.62 Bipolar disorder, current episode mixed, moderate; Z23 Encounter for immunization; E66.9 Obesity, unspecified; E78.00 Pure hypercholesterolemia, unspecified; I10 Essential (primary) hypertension; L02.415 Cutaneous abscess of right lower limb; Z68.33 Body mass index [BMI] 33.0-33.9, adult
CPT/HCPCS: 83036; 90471; 90686; 99214

== ENCOUNTER 2023-03-03 10:44 | Outpatient (AMB) | payer OTHER, SELFPAY ==
--- NOTE | 2023-03-03 10:45 | A.OFFVIS_ITS ---
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: No Information Interpreted: non-clinical & clinical Allergies clonidine [CLONIDINE] Allergy (Severe, Verified 03/03/23 10:45) DIZZY,FAINT levetiracetam [LEVETIRACETAM] Allergy (Severe, Verified 03/03/23 10:45) DIFFICULTY BREATHING lisinopril [LISINOPRIL] Allergy (Severe, Verified 03/03/23 10:45) SWELLING, angioedema atenolol [ATENOLOL] Allergy (Intermediate, Verified 03/03/23 10:45) RASH dulaglutide [Trulicity] Allergy (Unknown, Verified 03/03/23 10:45) Unknown Post menopausal: Yes HPI HPI Comments History of Present Illness Details The patient scheduled tele health visit to discuss breast MRI indication. Last mammogram was done in 08/18 was BI-RADS 1.The lifetime risk of breast cancer based on the Tyrer-Cuzick Model is 21%. PFSH Medical History Breast cancer screening by mammogram Trigeminal neuralgia of right side of face Hypertension Anxiety due to invasive procedure Family history of colon cancer Colon cancer screening Lower abdominal pain Microscopic hematuria Vulvovaginitis roseline albicans Well woman exam Cervical cancer screening Hypercholesterolemia SVT (supraventricular tachycardia) Obstructive sleep apnea Mixed incontinence urge and stress Thyroid nodule GERD (gastroesophageal reflux disease) Asthma COVID-19 Mild obstructive sleep apnea Cataracts, bilateral Migraine Seizure disorder Bipolar disorder Green's palsy Obesity (BMI 30-39.9) Type 2 diabetes mellitus with hyperglycemia Surgical History History of cone biopsy of uterine cervix History of tubal ligation History of cholecystectomy Family History Father Diabetes FH: prostate cancer CVD (cardiovascular disease) Mother Diabetes Hypertension Stroke CVD (cardiovascular disease) Sister Breast cancer Sister Breast cancer Sister Hypertension Daughter In good health Brother No problems noted. Brother No problems noted. Brother No problems noted. Sister Cervical cancer Social History Household Members: Other Household Members Other:: grandson Housing: House Do you presently have visiting nurse or other home services: Yes (tele visits) Alcohol intake: never Patient Tobacco Use Status: Never used Tobacco e-Cigarette/Vaping Use: Never Used Second Hand Smoke Exposure: No service: No Current occupational status: disabled Cognitive needs: No Hearing needs: No Vision needs: Yes Female Reproductive History Menstrual Age of Menarche: 12 Review of Systems Const All systems reviewed & are unremarkable except as noted in HPI and below Reports as per HPI and Reports no additional complaints GI Reports no additional complaints Reports no additional complaints Assessment & Plan Assessment & Plan (1) At high risk for breast cancer: Code(s): Z91.89 - Other specified personal risk factors, not elsewhere classified Plan: Discussed with the patient her increased risk for Breast ca. The lifetime risk of breast cancer based on the Tyrer-Cuzick Model is 20 % Recommended Intensification of breast Cancer screening with annual MRI breast in addition to annual mammogram and MRI alternating every 6 months. Mammogram done recently , Breast MRI ordered All questions answered, the patient verbalized understanding and agreed with the plan I spent a total of 20 minutes reviewing the chart, talking to the patient via video and documenting in the medical record. Orders: Orders MR breast BI wo/w con Today Z80.3 - Family history of malignant neoplasm of breast Telehealth Telehealth Location of provider rendering services: practice address Location of patient: address on file Patient Identification confirmed using: Name, : Yes Telehealth method: video Patient verbally consented to treatment: Yes Patient verbally consented to billing insurance company: Yes Patient informed of any privacy concerns related to visit: Yes Coding Level of Care Code Tele Est Pt Level 3 (76111) Diagnoses At high risk for breast cancer Z91.89
== END 2023-03-03 13:59 | disposition home or self-care (01) ==
LOC: HO.HWS 10:44
PROVIDERS: PCP Internal Medicine; Visit Provider Obstetrics & Gynecology
DX: Z91.89 Other specified personal risk factors, not elsewhere classified (principal)
CPT/HCPCS: 99213

== ENCOUNTER → 2023-03-03 10:44 | Outpatient (BNVA) | payer OTHER, SELFPAY | PROVIDERS: PCP Internal Medicine; Visit Provider Obstetrics & Gynecology ==

== ENCOUNTER 2023-04-06 12:45 | Outpatient (AMB) | payer OTHER, SELFPAY ==
--- NOTE | 2023-04-06 12:45 | MHC.OFFVIS ---
Intake Intake Visit Reasons: MRI questions Allergies clonidine [CLONIDINE] Allergy (Severe, Verified 03/03/23 10:45) DIZZY,FAINT levetiracetam [LEVETIRACETAM] Allergy (Severe, Verified 03/03/23 10:45) DIFFICULTY BREATHING lisinopril [LISINOPRIL] Allergy (Severe, Verified 03/03/23 10:45) SWELLING, angioedema atenolol [ATENOLOL] Allergy (Intermediate, Verified 03/03/23 10:45) RASH dulaglutide [Trulicity] Allergy (Unknown, Verified 03/03/23 10:45) Unknown HPI HPI Comments History of Present Illness Details The patient scheduled tele health visit to discuss MRI breast cancer screen. Last mammogram done in 08/18 was BI-RADS 2. The lifetime risk of breast cancer based on the Tyrer-Cuzick Model is 21%. [facility] Medical History Breast cancer screening by mammogram Trigeminal neuralgia of right side of face Hypertension Anxiety due to invasive procedure Family history of colon cancer Colon cancer screening Lower abdominal pain Microscopic hematuria Vulvovaginitis roseline albicans Well woman exam Cervical cancer screening Hypercholesterolemia SVT (supraventricular tachycardia) Obstructive sleep apnea Mixed incontinence urge and stress Thyroid nodule GERD (gastroesophageal reflux disease) Asthma COVID-19 Mild obstructive sleep apnea Cataracts, bilateral Migraine Seizure disorder Bipolar disorder Green's palsy Obesity (BMI 30-39.9) Type 2 diabetes mellitus with hyperglycemia Surgical History History of cone biopsy of uterine cervix History of tubal ligation History of cholecystectomy Family History Father Diabetes FH: prostate cancer CVD (cardiovascular disease) Mother Diabetes Hypertension Stroke CVD (cardiovascular disease) Sister Breast cancer Sister Breast cancer Sister Hypertension Daughter In good health Brother No problems noted. Brother No problems noted. Brother No problems noted. Sister Cervical cancer Social History Household Members: Other Household Members Other:: grandson Housing: House Do you presently have visiting nurse or other home services: Yes (tele visits) Alcohol intake: never Patient Tobacco Use Status: Never used Tobacco e-Cigarette/Vaping Use: Never Used Second Hand Smoke Exposure: No service: No Current occupational status: disabled Cognitive needs: No Hearing needs: No Vision needs: Yes Female Reproductive History Menstrual Age of Menarche: 12 Review of Systems Const All systems reviewed & are unremarkable except as noted in HPI and below Reports as per HPI and Reports no additional complaints GI Reports no additional complaints Reports no additional complaints Assessment & Plan Assessment & Plan (1) At high risk for breast cancer: Code(s): Z91.89 - Other specified personal risk factors, not elsewhere classified Plan: Discussed with the patient her increased risk for Breast ca. The lifetime risk of breast cancer based on the Tyrer-Cuzick Model is 20 % Recommended Intensification of breast Cancer screening with annual MRI breast in addition to annual mammogram and MRI alternating every 6 months. Mammogram done in 08/18, Breast MRI ordered Will refer to Dr Ornelas for possible Genetic Ca counseling and possible testing, in addition to counseling regarding Chemoprevention strategies All questions answered, the patient verbalized understanding and agreed with the plan. I spent a total of 20 minutes reviewing the chart, talking to the patient via video and documenting in the medical record. Telehealth Telehealth Location of provider rendering services: practice address Location of patient: address on file Patient Identification confirmed using: Name, : Yes Telehealth method: video Patient verbally consented to treatment: Yes Patient verbally consented to billing insurance company: Yes Patient informed of any privacy concerns related to visit: Yes Coding Level of Care Code Tele Est Pt Level 1 (28103) Diagnoses At high risk for breast cancer Z91.89
== END 2023-04-06 14:24 | disposition home or self-care (01) ==
LOC: HO.HWS 12:45
PROVIDERS: PCP Internal Medicine; Visit Provider Obstetrics & Gynecology
DX: Z91.89 Other specified personal risk factors, not elsewhere classified (principal)
CPT/HCPCS: 99211

== ENCOUNTER → 2023-04-06 12:45 | Outpatient (BNVA) | payer OTHER, SELFPAY | PROVIDERS: PCP Internal Medicine; Visit Provider Obstetrics & Gynecology ==

== ENCOUNTER 2023-06-07 10:48 | Outpatient (REF) | payer OTHER, SELFPAY ==
--- NOTE | ~2023-06-07 | MR_ITS ---
EXAMINATION: MR BREAST WITHOUT AND WITH CONTRAST, BILATERAL CLINICAL INFORMATION: High-risk screening. Family history of breast cancer; 2 sisters. COMPARISON: 06/24/2016 TECHNIQUE: Imaging was performed with a dedicated breast coil. Prior to the administration of contrast, bilateral axial T1 and bilateral axial T2 weighted sequences were obtained. After the uneventful administration of?10 mL of Gadavist, dynamic contrast-enhanced VIBRANT series through the breasts in the axial plane were performed. Subtracted images were performed and reviewed. A delayed sagittal sequence through both breasts was acquired. Additionally, CAD post-processing, including maximum intensity projections, 3-D reconstructions and kinetic analysis, were performed an independent workstation and reviewed by the interpreting radiologist is a portion of this exam. FINDINGS: The breasts are comprised of scattered fibroglandular elements. The breasts undergo moderate, diffuse nodular background enhancement. LEFT BREAST: Multiple small similar scattered foci of non-mass enhancement throughout the right breast. On comparison with 2017 examination no appreciable change. No dominant non-mass enhancement, suspicious mass or architectural distortion. No skin thickening or nipple retraction. RIGHT BREAST: There are multiple small similar scattered foci of non-mass enhancement throughout the right breast. On axial and sagittal reformatted sequences, no appreciable change compared with 2017. No dominant non-mass enhancement, suspicious mass or architectural distortion. No skin thickening or nipple retraction. A 6 mm reniform mass at 2:00 (series 100 image 62/102) is unchanged compared with 01/24/2014 axial reformat. A 4 mm focus at 4:00 (series 100 image 73) is likewise stable. Kinetic analysis provided on 06/17/2023. There is no suspicious internal mammary chain or axillary adenopathy. Limited views of the chest and abdomen are unremarkable. MR/MR breast BI wo/w con IMPRESSION: No MR specific evidence of malignancy. Moderate diffuse nodular background enhancement without appreciable change compared with 2016 and 2013. ASSESSMENT: LEFT BREAST: BI-RADS 2, benign findings. RIGHT BREAST: BI-RADS 2, benign findings. RECOMMENDATIONS: Recommend a repeat bilateral breast MRI in one years time to assure continued stability.
[2023-06-07] MEDS: gadobutroL 10 ML VIAL IVPUSH (12:05)
== END 2023-06-07 10:49 | disposition home or self-care (01) ==
LOC: HO.MRI 10:48
PROVIDERS: PCP Internal Medicine; Visit Provider Obstetrics & Gynecology
DX: Z91.89 Other specified personal risk factors, not elsewhere classified (principal); Z80.3 Family history of malignant neoplasm of breast
CPT/HCPCS: 77049; A9585

== ENCOUNTER 2023-06-09 09:59 | Outpatient (AMB) | payer OTHER, SELFPAY ==
[2023-06-09 10:35] VITALS: BP 138/90; PULSE 88; TEMP 36.6; O2SAT 99; BMI 33.8
--- NOTE | 2023-06-09 10:35 | AM.OFFWIN_ITS ---
Intake Vital Signs 06/09/23 10:35 Height 5 ft 4 in Weight 197 lb BMI 33.8 BP 138/90 H Blood Pressure Location Lt brachial Position Sitting Pulse 88 Pulse Source Pulse Oximeter Temp 97.8 F Temp Source Temporal Artery Scan Pulse Oximetry (%) 99 Intake Visit Reasons: EP Lower back pain Intake Note: pt is here today for lower back pain started 3 days ago Patient Tobacco Use Status: Never used Tobacco Allergies clonidine [CLONIDINE] Allergy (Severe, Verified 06/09/23 10:35) DIZZY,FAINT levetiracetam [LEVETIRACETAM] Allergy (Severe, Verified 06/09/23 10:35) DIFFICULTY BREATHING lisinopril [LISINOPRIL] Allergy (Severe, Verified 06/09/23 10:35) SWELLING, angioedema atenolol [ATENOLOL] Allergy (Intermediate, Verified 06/09/23 10:35) RASH dulaglutide [Trulicity] Allergy (Unknown, Verified 06/09/23 10:35) Unknown Medication List - Last Reconciled 06/09/23 by RADHA Tesfaye acetaminophen (Tylenol Extra Strength) 1,000 mg (2 x 500 mg) PO QID PRN albuterol sulfate 90 mcg/actuation (ProAir HFA) 2 puffs inhalation Q4-6H PRN amlodipine 5 mg PO DAILY aspirin (Adult Aspirin Regimen) 81 mg PO DAILY besifloxacin 0.6% 1 drp ophthalmic (eye) TID 7 days blood sugar diagnostic (FreeStyle Lite Strips) As directed check the BS 4 x a day bupropion HCl (Wellbutrin SR) 150 mg PO BEDTIME carbamide peroxide 6.5% (Ear Drops (carbamide peroxide)) 5 drps otic (ears) BID carvedilol 12.5 mg PO BID 30 days cyclobenzaprine 10 mg PO Q8H cyclobenzaprine 5 mg PO Q8H diazepam 2 - 4 mg (1 - 2 x 2 mg) PO BEDTIME PRN 30 days empagliflozin 10 mg (0.4 x 25 mg) PO DAILY flash glucose scanning reader (5th FingerStyle Archana 2 [place]) As directed flash glucose sensor (FreeStyle Archana 2 Sensor kit) As directed fluticasone propion-salmeterol 250-50 mcg/dose (Advair Diskus) 1 inh inhalation BID fluticasone propionate 50 mcg/actuation (Flonase Allergy Relief) 1 spray intranasal DAILY gabapentin 300 mg PO DAILY PRN hydralazine 25 mg PO TID 90 days hydrocodone-homatropine 5-1.5 mg/5 mL (5 mL) (Hycodan) 5 mL PO Q4-6H PRN insulin lispro (Humalog KwikPen (U-100) Insulin) 18 units subcut TID loratadine (Claritin) 10 mg PO DAILY metformin 500 mg PO BID naproxen 500 mg PO BID PRN ondansetron 8 mg PO Q12H PRN peg 3350-electrolytes 236-22.74-6.74 -5.86 gram 240 mL PO Q10M pen needle, diabetic (BD Ultra-Fine Mini Pen Needle) As directed, Inject 6 x a day with Insulin rosuvastatin 5 mg PO DAILY spironolacton-hydrochlorothiaz 25-25 mg (Aldactazide) 1 tab PO DAILY sulfamethoxazole-trimethoprim 800-160 mg 1 tab PO Q12H terconazole 0.8% 1 appful vaginal BEDTIME 3 days Do you need a note to return to daycare/school/sports/work: No HPI HPI Comments History of Present Illness Details 62-year-old female presents today compla ining of bilateral paraspinous muscular pain. She does have slight pain directly over her spine. She denies any particular injury or trauma to the area has not done any heavy lifting that has caused this injury [facility] Medical History Breast cancer screening by mammogram Trigeminal neuralgia of right side of face Hypertension Anxiety due to invasive procedure Family history of colon cancer Colon cancer screening Lower abdominal pain Microscopic hematuria Vulvovaginitis roseline albicans Well woman exam Cervical cancer screening Hypercholesterolemia SVT (supraventricular tachycardia) Obstructive sleep apnea Mixed incontinence urge and stress Thyroid nodule GERD (gastroesophageal reflux disease) Asthma COVID-19 Mild obstructive sleep apnea Cataracts, bilateral Migraine Seizure disorder Bipolar disorder Green's palsy Obesity (BMI 30-39.9) Type 2 diabetes mellitus with hyperglycemia Surgical History History of cone biopsy of uterine cervix History of tubal ligation History of cholecystectomy Family History Father Diabetes FH: prostate cancer CVD (cardiovascular disease) Mother Diabetes Hypertension Stroke CVD (cardiovascular disease) Sister Breast cancer Sister Breast cancer Sister Hypertension Daughter In good health Brother No problems noted. Brother No problems noted. Brother No problems noted. Sister Cervical cancer Social History Household Members: Other Household Members Other:: grandson Housing: House Do you presently have visiting nurse or other home services: Yes (tele visits) Alcohol intake: never Patient Tobacco Use Status: Never used Tobacco e-Cigarette/Vaping Use: Never Used Second Hand Smoke Exposure: No service: No Current occupational status: disabled Cognitive needs: No Hearing needs: No Vision needs: Yes Female Reproductive History Menstrual Age of Menarche: 12 Review of Systems Const All systems reviewed & are unremarkable except as noted in HPI and below Physical Exam Vital Signs: Last Vital Signs Temp 97.8 F 06/09/23 10:35 Pulse 88 06/09/23 10:35 BP 138/90 H 06/09/23 10:35 Pulse Ox 99 06/09/23 10:35 BMI result Body Mass Index 33.8 General: Yes no CVA tenderness Back/Spine/Pelvis Back: no CVA tenderness Thoracic/Lumbar Spine: straight leg raise negative bilaterally, bend over test abnormal (Patient can flex to about 45 degrees and has symptoms), paraspinal muscle tenderness and lumbar spinal tenderness Results AMB Urinalysis, Automated UA Leukoctes 15 Park/uL Last Edit by Margaret Humphries on 06/09/23 10:52 UA Nitrite Negative Last Edit by Margaret Humphries on 06/09/23 10:52 UA Urobilinogen 0.2 mg/dL Last Edit by Margaret Humphries on 06/09/23 10:52 UA Protein 30 mg/dL Last Edit by Margaret Humphries on 06/09/23 10:52 UA pH 5.5 Last Edit by Margaret Humphries on 06/09/23 10:52 UA Blood 0 Gurinder/uL Last Edit by Margaret Humphries on 06/09/23 10:52 UA Specific [place] 1.030 Last Edit by Margaret Humphries on 06/09/23 10:52 UA Ketone Positive Last Edit by Margaret Humphries on 06/09/23 10:52 UA Bilirubin 1 mg/dL Last Edit by Margaret Humphries on 06/09/23 10:52 UA Glucose 100 mg/dL Last Edit by Margaret Humphries on 06/09/23 10:52 Assessment & Plan Assessment & Plan (1) Lower back pain: Code(s): M54.50 - Low back pain, unspecified Plan: The patient will try a muscle relaxer for the next few days to see if resolve her paraspinous muscular symptoms. Follow up with her PCP Plan See plan Orders: Orders XR lumbar spine 2-3V Today M54.50 - Low back pain, unspecified Medications: New cyclobenzaprine 5 mg PO Q8H 10 tabs 0RF Coding Level of Care Code Est Pt Level 3 (45807) Diagnoses Lower back pain M54.50
== END 2023-06-09 12:21 | disposition home or self-care (01) ==
PROVIDERS: PCP Internal Medicine; Visit Provider Physician Assistant Medical
DX: M54.50 Low back pain, unspecified (principal)
CPT/HCPCS: 99213

== ENCOUNTER 2023-06-09 10:51 | Outpatient (REF) | payer OTHER, SELFPAY ==
--- NOTE | ~2023-06-09 | XR_ITS ---
EXAMINATION: XR LUMBOSACRAL SPINE CLINICAL INFORMATION: Low back pain COMPARISON: Spine radiograph from 01/28/2022 TECHNIQUE: Three views of the lumbosacral spine. FINDINGS: 5 nonrib-bearing lumbar-type vertebral bodies. No acute visible fracture or dislocation. Slight dextrocurvature of the lumbar spine. Mild multilevel degenerative changes disc space narrowing, osteophyte formation, and facet arthropathy. Vertebral bodies and disc spaces are otherwise maintained. Posterior elements are intact. Paraspinal soft tissues are unremarkable. Bowel gas is unremarkable. Pelvic phleboliths are noted. XR/XR lumbar spine 2-3V IMPRESSION: 1. No acute visible fracture or dislocation. 2. Slight dextrocurvature of the lumbar spine. 3. Mild multilevel degenerative changes.
== END 2023-06-09 10:52 | disposition home or self-care (01) ==
LOC: HO.HMGCX 10:51
PROVIDERS: PCP Internal Medicine; Visit Provider Physician Assistant Medical
DX: M54.50 Low back pain, unspecified (principal)
CPT/HCPCS: 72100

== ENCOUNTER 2023-09-01 08:05 | Outpatient (AMB) | payer OTHER, SELFPAY ==
--- NOTE | 2023-09-01 08:10 | AM.OFFWIN_ITS ---
Intake Vital Signs 09/01/23 08:11 Height 5 ft 4 in Weight 200 lb BMI 34.3 BP 118/72 Blood Pressure Location Rt brachial Position Sitting Pulse 96 Pulse Source Pulse Oximeter Temp 99.3 F Temp Source Oral Pulse Oximetry (%) 97 Oxygen Delivery Method Room Air Intake Visit Reasons: EP head/body ache sinus negra cough fever last nt Intake Note: pt is head and body aches with sinus congestion with fever Patient Tobacco Use Status: Never used Tobacco Allergies clonidine [CLONIDINE] Allergy (Severe, Verified 09/01/23 08:11) DIZZY,FAINT levetiracetam [LEVETIRACETAM] Allergy (Severe, Verified 09/01/23 08:11) DIFFICULTY BREATHING lisinopril [LISINOPRIL] Allergy (Severe, Verified 09/01/23 08:11) SWELLING, angioedema atenolol [ATENOLOL] Allergy (Intermediate, Verified 09/01/23 08:11) RASH dulaglutide [Trulicity] Allergy (Unknown, Verified 09/01/23 08:11) Unknown Do you need a note to return to daycare/school/sports/work: No HPI HPI Comments History of Present Illness Details Patient is a 62-year-old female with a past medical history of diabetes, asthma and YUSUF who presents with 2 days of headache, body aches, sinus congestion, dry cough, subjective fevers last evening and nausea as well as left ear pain that has now resolved. She denies vomiting, diarrhea, shortness of breath or chest pain. She does state that 1 person who lives in her home is also sick with similar symptoms. [facility] Medical History Breast cancer screening by mammogram Trigeminal neuralgia of right side of face Hypertension Anxiety due to invasive procedure Family history of colon cancer Colon cancer screening Lower abdominal pain Microscopic hematuria Vulvovaginitis roseline albicans Well woman exam Cervical cancer screening Hypercholesterolemia SVT (supraventricular tachycardia) Obstructive sleep apnea Mixed incontinence urge and stress Thyroid nodule GERD (gastroesophageal reflux disease) Asthma COVID-19 Mild obstructive sleep apnea Cataracts, bilateral Migraine Seizure disorder Bipolar disorder Green's palsy Obesity (BMI 30-39.9) Type 2 diabetes mellitus with hyperglycemia Surgical History History of cone biopsy of uterine cervix History of tubal ligation History of cholecystectomy Family History Father Diabetes FH: prostate cancer CVD (cardiovascular disease) Mother Diabetes Hypertension Stroke CVD (cardiovascular disease) Sister Breast cancer Sister Breast cancer Sister Hypertension Daughter In good health Brother No problems noted. Brother No problems noted. Brother No problems noted. Sister Cervical cancer Social History Household Members: Other Household Members Other:: grandson Housing: House Do you presently have visiting nurse or other home services: Yes (tele visits) Alcohol intake: never Patient Tobacco Use Status: Never used Tobacco e-Cigarette/Vaping Use: Never Used Second Hand Smoke Exposure: No service: No Current occupational status: disabled Cognitive needs: No Hearing needs: No Vision needs: Yes Female Reproductive History Menstrual Age of Menarche: 12 Review of Systems Const All systems reviewed & are unremarkable except as noted in HPI and below Physical Exam Vital Signs: Last Vital Signs Temp 99.3 F 09/01/23 08:11 Pulse 96 09/01/23 08:11 BP 118/72 09/01/23 08:11 Pulse Ox 97 09/01/23 08:11 Oxygen Delivery Method Room Air 09/01/23 08:11 BMI result Body Mass Index 34.3 Const General: cooperative, healthy appearing, comfortable and no acute distress Orientation/consciousness: patient oriented x3 Limitations: no limitations HEENT Head: Yes normal to inspection Ears: external ears normal General nose exam: Normal external nose present, Normal nares present and Nasal discharge present clear Face and sinus: Yes normal facial exam and Yes sinus tenderness Mouth: Normal oral and palatal mucosa present and moist mucous membranes Throat: Yes posterior oropharynx normal, Yes tonsils normal and Yes uvula midline Eyes General: appearance normal, both eyes and all related structures Neck Neck: Yes normal visual inspection Resp Effort & Inspection: normal respiratory effort, able to speak in complete sentences, Actively coughing, no respiratory distress, not tachypneic, no tripod positioning and no use of accessory muscles Auscultation: clear to auscultation bilaterally Cardio Rate: regular rate Rhythm: regular rhythm Heart sounds: normal S1 and S2 Skin General skin exam: no rashes or lesions noted Neuro General: patient oriented x3 Extrem General: Yes normal to inspection and Yes no clubbing, cyanosis or edema Assessment & Plan Assessment & Plan (1) URI, acute: Code(s): J06.9 - Acute upper respiratory infection, unspecified Plan Likely viral sinusitis, advised patient to treat symptoms with [id number]-[id number] medications. Did send flu COVID and RSV. Gave red flag warning symptoms and when to go to the emergency department or seek emergent medical care. Orders: Orders SARS-CoV2/FLU/RSV Today J06.9 - Acute upper respiratory infection, unspecified Coding Level of Care Code Est Pt Level 3 (22133) Diagnoses URI, acute J06.9
[2023-09-01 08:11] VITALS: BP 118/72; PULSE 96; TEMP 37.4; O2SAT 97; BMI 34.3
== END 2023-09-01 09:17 | disposition home or self-care (01) ==
PROVIDERS: PCP Internal Medicine; Visit Provider Physician Assistant
DX: U07.1 COVID-19 (principal)
CPT/HCPCS: 99213

== ENCOUNTER 2023-09-01 08:38 | Outpatient (REF) | payer OTHER, SELFPAY ==
[2023-09-01 11:27] LABS: Influenza A PCR NEGATIVE (Negative); Influenza B PCR NEGATIVE (Negative); Resp Syncy Virus RNA Qual PCR NEGATIVE (Negative); SARS COV2 PCR INHOUSE POSITIVE (Negative)
== END 2023-09-01 08:39 | disposition home or self-care (01) ==
LOC: HO.LAB 08:38
PROVIDERS: Visit Provider Physician Assistant
DX: J06.9 Acute upper respiratory infection, unspecified (principal)
CPT/HCPCS: 0241U

== ENCOUNTER 2023-09-08 11:00 | Outpatient (AMB) | payer OTHER, SELFPAY ==
[2023-09-08 11:03] VITALS: BP 162/98; PULSE 81; O2SAT 98; BMI 33.1
--- NOTE | 2023-09-08 11:03 | MHC.PC.OV ---
Vital Signs 09/08/23 11:03 Height 5 ft 4 in Weight 193 lb BMI 33.1 BP 162/98 H Blood Pressure Location Lt brachial Position Sitting Pulse 81 Pulse Source Pulse Oximeter Pulse Oximetry (%) 98 Oxygen Delivery Method Room Air Intake Visit Reasons: DM Allergies clonidine [CLONIDINE] Allergy (Severe, Verified 09/08/23 11:04) DIZZY,FAINT levetiracetam [LEVETIRACETAM] Allergy (Severe, Verified 09/08/23 11:04) DIFFICULTY BREATHING lisinopril [LISINOPRIL] Allergy (Severe, Verified 09/08/23 11:04) SWELLING, angioedema atenolol [ATENOLOL] Allergy (Intermediate, Verified 09/08/23 11:04) RASH dulaglutide [Trulicity] Allergy (Unknown, Verified 09/08/23 11:04) Unknown Medication List - Last Reconciled 09/08/23 by Bijan Tirado Po, acetaminophen (Tylenol Extra Strength) 1,000 mg (2 x 500 mg) PO QID PRN albuterol sulfate 90 mcg/actuation (ProAir HFA) 2 puffs inhalation Q4-6H PRN amlodipine 5 mg PO DAILY aspirin (Adult Aspirin Regimen) 81 mg PO DAILY besifloxacin 0.6% 1 drp ophthalmic (eye) TID 7 days blood sugar diagnostic (FreeStyle Lite Strips) As directed check the BS 4 x a day bupropion HCl SR (Wellbutrin SR) 150 mg PO BEDTIME carbamide peroxide 6.5% (Ear Drops (carbamide peroxide)) 5 drps otic (ears) BID carvedilol 12.5 mg PO BID 30 days cyclobenzaprine 5 mg PO Q8H diazepam 2 - 4 mg (1 - 2 x 2 mg) PO BEDTIME PRN 30 days empagliflozin 25 mg PO DAILY flash glucose scanning reader (MysterioStyle Archana 2 [place]) As directed flash glucose sensor (FreeStyle Archana 2 Sensor kit) As directed fluticasone propion-salmeterol 250-50 mcg/dose (Advair Diskus) 1 inh inhalation BID fluticasone propionate 50 mcg/actuation (Flonase Allergy Relief) 1 spray intranasal DAILY gabapentin 300 mg PO DAILY PRN hydralazine 25 mg PO TID 90 days insulin lispro (Humalog KwikPen (U-100) Insulin) 18 units subcut TID loratadine (Claritin) 10 mg PO DAILY metformin 500 mg PO BID naproxen 500 mg PO BID PRN ondansetron 8 mg PO Q12H PRN pen needle, diabetic (BD Ultra-Fine Mini Pen Needle) As directed, Inject 6 x a day with Insulin rosuvastatin 5 mg PO DAILY spironolacton-hydrochlorothiaz 25-25 mg (Aldactazide) 1 tab PO DAILY Tobacco use date assessed: 09/08/23 Dental Screening Dental Screen Date: 09/08/23 Did you have a dental visit in the last 12 months?: Yes Did you have a dental problem in the last 6 months where you did not have access to dental care?: No HPI DM HPI Details 62-year-old obese female with uncontrolled diabetes mellitus, hypercholesterolemia hypertension bipolar disorder coming in for follow-up. Last seen in 02/15/2023 had right leg abscess treated with antibiotics. Patient's mammogram is due had Cologuard test in 03/17/2023. Review of the notes Carmelina had COVID infection. Had some low back pain and an x-ray done showing mild multilevel degenerative changes.. BP at home is good 128/49 PFSH Medical History Breast cancer screening by mammogram Trigeminal neuralgia of right side of face Hypertension Anxiety due to invasive procedure Family history of colon cancer Colon cancer screening Lower abdominal pain Microscopic hematuria Vulvovaginitis roseline albicans Well woman exam Cervical cancer screening Hypercholesterolemia SVT (supraventricular tachycardia) Obstructive sleep apnea Mixed incontinence urge and stress Thyroid nodule GERD (gastroesophageal reflux disease) Asthma COVID-19 Mild obstructive sleep apnea Cataracts, bilateral Migraine Seizure disorder Bipolar disorder Green's palsy Obesity (BMI 30-39.9) Type 2 diabetes mellitus with hyperglycemia Surgical History History of cone biopsy of uterine cervix History of tubal ligation History of cholecystectomy Family History Father Diabetes FH: prostate cancer CVD (cardiovascular disease) Mother Diabetes Hypertension Stroke CVD (cardiovascular disease) Sister Breast cancer Sister Breast cancer Sister Hypertension Daughter In good health Brother No problems noted. Brother No problems noted. Brother No problems noted. Sister Cervical cancer Social History Household Members: Other Household Members Other:: grandson Housing: House Do you presently have visiting nurse or other home services: Yes (tele visits) Alcohol intake: never Patient Tobacco Use Status: Never used Tobacco e-Cigarette/Vaping Use: Never Used Second Hand Smoke Exposure: No service: No Current occupational status: disabled Cognitive needs: No Hearing needs: No Vision needs: Yes Female Reproductive History Menstrual Age of Menarche: 12 Questionnaire PHQ-9 Over the last 2 weeks, how often have you been bothered by any of the following problems? 1. Little interest or pleasure in doing things: several days 2. Feeling down, depressed, or hopeless: several days 3. Trouble falling or staying asleep, or sleeping too much: several days 4. Feeling tired or having little energy: several days 5. Poor appetite or overeating: not at all 6. Feeling bad about yourself - or that you are a failure or have let yourself or your family down: several days 7. Trouble concentrating on things, such as reading the newspaper or watching television: several days 8. Moving or speaking so slowly that other people could have noticed. Or the opposite - being so fidgety or restless that you have been moving around a lot more than usual: not at all 9. Thoughts that you would be better off or of hurting yourself in some way: not at all Total score: 6 Depression Screening Interpretation: Positive Depression Screening Done: Yes Source: Developed by Drs. Fercho Ying, Rama Daniels, Feliz Hood and colleagues, with an educational yong from [employer]. Thrive Questionnaire Date Thrive assessed: 09/08/23 I am a: Patient What is your living situation today?: I have a steady place to live Within the past 12 months, did the food you bought not last and you didn't have the money to get more?: Never true Within the past 12 months, did you worry whether your food would run out before you got money to buy more?: Never true Do you have trouble paying for medicines?: No Do you have trouble getting transportation to medical appointments?: No Do you have trouble paying your heating and electricity bill?: No Do you have trouble taking care of your child, family member or friend?: No Do you have trouble with day-to-day activities such as bathing, preparing meals, shopping, managing finances, etc.?: No Are you currently unemployed and looking for a job?: No Are you interested in more education?: No Currently or been in a relationship where the following occur: no concerns reported THRIVE Score: 0 AUDIT C Alcohol Use Questionnaire (AUDIT-C) 1. How often do you have a drink containing alcohol?: Never 2. How many drinks containing alcohol do you have on a typical day when you are drinking?: 1 or 2 3. How often do you have six or more drinks on one occasion?: Never Total Score: 0 SANDRA-7 AMB Questionnaire SANDRA-7 Date SANDRA - 7 assessed: 09/08/23 Feeling nervous, anxious, or on edge: 0 = Not at all Not being able to stop or control worryin = Not at all Worrying too much about different things: 0 = Not at all Trouble relaxin = Not at all Being so restless that it is hard to sit still: 0 = Not at all Becoming easily annoyed or irritable: 0 = Not at all Feeling afraid as if something awful might happen: 0 = Not at all Total SANDRA-7 score (0-4 normal; 5-9 mild; 10-14 moderate; 15-21 severe): 0 Source: Developed by Drs. Fercho Ying, Rama Daniels, Feliz Hood and colleagues, with an educational yong from [employer]. Physical exam (Primary Care) Vital Signs: Last Vital Signs Pulse 81 09/08/23 11:03 BP 162/98 H 09/08/23 11:03 Pulse Ox 98 09/08/23 11:03 Oxygen Delivery Method Room Air 09/08/23 11:03 BMI result Body Mass Index 33.1 Tobacco/Smoking Status: Tobacco use Status Tobacco use date assessed 09/08/23 09/08/23 11:06 Patient Tobacco Use Status Never used Tobacco 09/08/23 11:06 e-Cigarette/Vaping Use Never Used 09/08/23 11:06 PHQ-9: PHQ-9 Score PHQ-9: Total score 6 09/08/23 11:20 Depression Screening Interpretation: Positive Thrive Assessment: Date of Thrive Assessment Date Thrive assessed 09/08/23 09/08/23 11:06 Currently or been in a relationship where the following occur: no concerns reported Const General: alert; No acute distress Eyes Conjunctivae: conjunctivae normal Resp Auscultation: clear to auscultation bilaterally Cardio Rate: regular rate Rhythm: regular rhythm GI Inspection: Yes normal to inspection Extrem General: Yes normal to inspection and No edema Results AMB Hemoglobin A1c AMB Hemoglobin A1c 8.4 % Last Edit by Christal Acosta CMA on 09/08/23 11:21 Results Reviewed Results Reviewed: Laboratory Last Values Hgb A1c (Clinic) 8.4 % (4.0-6.0) H 09/08/23 11:06 Assessment and Plan Assessment & Plan (1) Type 2 diabetes mellitus with hyperglycemia: Comment: Dr. Bernard eye Code(s): E11.65 - Type 2 diabetes mellitus with hyperglycemia Qualifiers: Diabetes mellitus terminal makeup operator insulin use: with care home use Qualified Code(s): E11.65 - Type 2 diabetes mellitus with hyperglycemia; Z79.4 - care home (current) use of insulin Plan: Decrease the amount of carbohydrate intake, pasta, bread, rice and potatoes are all sugar and that is aside from all the sweet stuff, remember that fruits are good but they are Sweet also. Hemoglobin A1c goal of less than 6.5 on Jardiance 10 mg once a day, insulin Humalog metformin 500 mg twice a day. Patient admits to drinking coffee with 3 scoops of sugar each time and she drinks 3 times a day. Concern that patient continues to have indiscriminate eating as well as drinking and advised to eat better decrease the sugars to 1 tsp only per coffee (2) Hypercholesterolemia: Code(s): E78.00 - Pure hypercholesterolemia, unspecified Plan: Avoid fried foods, chicken skin, eggs, butter margarine, pastries and meat. Be it pork or beef they have a lot of cholesterol takes rosuvastatin 5 mg once a day will need retesting (3) Obesity (BMI 30-39.9): Code(s): E66.9 - Obesity, unspecified Plan: Diet and exercise (4) Hypertension: Code(s): I10 - Essential (primary) hypertension Qualifiers: Hypertension type: essential hypertension Qualified Code(s): I10 - Essential (primary) hypertension Plan: Continue with blood pressure medication. Decrease salt intake and exercise on Aldactazide hydralazine 25 mg 3 times a day carvedilol 12.5 mg twice a day amlodipine 5 mg once a day (5) Family history of breast cancer: Code(s): Z80.3 - Family history of malignant neoplasm of breast Plan: Patient recently had an MRI of the breast and will continue monitor Orders: Orders AMB Hemoglobin A1c Today Z13.9 - Encounter for screening, unspecified Lipid Panel Today E78.00 - Pure hypercholesterolemia, unspecified Comprehensive Met. Panel Today E78.00 - Pure hypercholesterolemia, unspecified Medications: Changed From empagliflozin 10 mg (0.4 x 25 mg) PO DAILY 30 tabs 2RF E11.65 - Type 2 diabetes mellitus with hyperglycemia, Z79.4 - care home (current) use of insulin To empagliflozin 25 mg PO DAILY 90 tabs 2RF E11.65 - Type 2 diabetes mellitus with hyperglycemia, Z79.4 - terminal makeup operator (current) use of insulin Discontinued cyclobenzaprine Discontinued Reason: Doctor's Order 10 mg PO Q8H 14 tabs 0RF Coding Level of Care Code Est Pt Level 4 (99110) Complex EM visit Add On G2211 Diagnoses Type 2 diabetes mellitus with hyperglycemia, with long-term current use of insulin E11.65; Z79.4 Diabetes mellitus terminal makeup operator insulin use: with terminal makeup operator use Hypercholesterolemia E78.00 Obesity (BMI 30-39.9) E66.9 Essential hypertension I10 Hypertension type: essential hypertension Family history of breast cancer Z80.3
== END 2023-09-08 11:55 | disposition home or self-care (01) ==
PROVIDERS: PCP Internal Medicine; Visit Provider Internal Medicine
DX: E11.65 Type 2 diabetes mellitus with hyperglycemia (principal); Z79.4 Long term (current) use of insulin; Z68.33 Body mass index [BMI] 33.0-33.9, adult; E66.9 Obesity, unspecified; E78.00 Pure hypercholesterolemia, unspecified; I10 Essential (primary) hypertension; Z80.3 Family history of malignant neoplasm of breast
CPT/HCPCS: 83036; 99214; G2211

== ENCOUNTER 2023-09-21 08:49 | Outpatient (REF) | payer OTHER, SELFPAY | END 2023-09-21 08:50 | disposition home or self-care (01) | LOC: HO.MAMMO 08:49 | PROVIDERS: PCP Internal Medicine; Visit Provider Internal Medicine | DX: Z12.31 Encounter for screening mammogram for malignant neoplasm of breast (principal) | CPT/HCPCS: 77063; 77067 ==

== ENCOUNTER → 2023-09-21 09:00 | Outpatient (BNV) | payer OTHER, SELFPAY | PROVIDERS: PCP Internal Medicine; Visit Provider Radiology Diagnostic Radiology | DX: Z12.31 Encounter for screening mammogram for malignant neoplasm of breast (principal) | CPT/HCPCS: 77063; 77067 ==

== ENCOUNTER 2023-11-14 14:32 | Emergency (ER) | payer OTHER, SELFPAY ==
--- NOTE | 2023-11-14 14:38 | ECG_ITS ---
Test Reason : NEAR SYNCOPE Blood Pressure : / mmHG Vent. Rate : 076 BPM Atrial Rate : 076 BPM P-R Int : 162 ms QRS Dur : 104 ms QT Int : 396 ms P-R-T Axes : -13 -37 033 degrees QTc Int : 445 ms Normal sinus rhythm Left axis deviation Left ventricular hypertrophy ( R in aVL , Mitchell product , Romhilt-Guzman ) Possible Lateral infarct , age undetermined Abnormal ECG When compared with ECG of 14-MAR-2022 11:35, Borderline criteria for Lateral infarct are now Present Referred By: Generic ED Physician Electronically Signed By:TRINY CORONEL
[2023-11-14 14:39] VITALS: BP 150/100; BP 188/99; PULSE 75; PULSE 80; RESP 18; TEMP 37.2; O2SAT 95; O2SAT 99; BMI 33.9
[2023-11-14 15:07] VITALS: BP 174/88; PULSE 77
[2023-11-14 15:09] VITALS: BP 179/85; PULSE 79
[2023-11-14 15:12] VITALS: BP 176/97; PULSE 85
--- NOTE | 2023-11-14 15:28 | ED.SYNCOPE ---
HPI - Syncope General Chief Complaint: Syncope Stated Complaint: NEAR SYNCOPAL EPISODE Time Seen by Provider: 11/14/23 15:28 Source: patient and EMS Mode of arrival: EMS Limitations: no limitations History of Present Illness ED Provider: KELLI HPI narrative: 63 yo female with PMH of seizures, HTN, DM2, high cholesterol, asthma, bipolar disorder, YUSUF here with c/o cooking then she felt very weak, lightheaded like she was going to pass out. Son was there and able to catch her. During episode she felt like she couldn't speak no LOC, no headstrike. She was weak and shaky prior to it but no seizures reported. Has not had a seizure in 5 years. She is at her baseline now. No changes in medications. Ate food today complaint: almost passed out Onset (ago): minute(s) (WARP TENSION TESTER) Duration of episode: 1 -: minutes(s) Prodromal symptoms: lightheaded Witnessed: Yes - by Bystander Context: standing up Injuries sustained associated with event: none Current symptoms: back to baseline History: seizure disorder and previous syncopal episode Treatments prior to arrival: none Related Data Home Medications ?Medication ?Instructions ?Recorded ?Confirmed insulin lispro 100 unit/mL 18 unit subcut TID 02/05/21 09/08/23 subcutaneous pen (Humalog KwikPen (U-100) Insulin) carbamide peroxide 6.5 % ear drops 5 drp otic (ears) BID 10/31/21 09/08/23 (Ear Drops (carbamide peroxide)) flash glucose scanning reader #1 ea 02/06/22 09/08/23 (FreeStyle Archana 2 [place]) gabapentin 300 mg capsule 300 mg PO DAILY PRN 02/06/22 09/08/23 pen needle, diabetic 31 gauge x 05/06/22 09/08/23/16 (BD Ultra-Fine Mini Pen Needle) Previous Rx's ?Medication ?Instructions ?Recorded albuterol sulfate 90 mcg/actuation 2 puff inhalation Q4-6H PRN 03/18/20 aerosol inhaler (ProAir HFA) Dyspnea #8.5 grams fluticasone 250 mcg-salmeterol 50 1 inh inhalation BID #60 ea 03/18/20 mcg/dose blistr powdr for inhalation (Advair Diskus) blood sugar diagnostic (FreeStyle ##4 11/13/20 Lite Strips) besifloxacin 0.6 % eye 1 drp ophthalmic (eye) TID 7 days 01/06/21 drops,suspension #5 mL aspirin 81 mg tablet,delayed 81 mg PO DAILY #90 tabs 04/30/21 release (Adult Aspirin Regimen) bupropion HCl 150 mg tablet,12 hr 150 mg PO BEDTIME #90 tabs 05/15/21 sustained-release (Wellbutrin SR) metformin 500 mg tablet 500 mg PO BID #180 tabs 10/31/21 acetaminophen 500 mg tablet 1,000 mg (2 x 500 mg) PO QID PRN 03/14/22 (Tylenol Extra Strength) fever or pain #14 tabs naproxen 500 mg tablet 500 mg PO BID PRN pain #14 tabs 03/14/22 carvedilol 12.5 mg tablet 12.5 mg PO BID 30 days #60 tabs 05/26/22 diazepam 2 mg tablet 2 - 4 mg (1 - 2 x 2 mg) PO BEDTIME 07/22/22 PRN sleep 30 days #60 tabs spironolactone 25 1 tab PO DAILY #30 tabs 08/06/22 mg-hydrochlorothiazide 25 mg tablet (Aldactazide) fluticasone propionate 50 1 spray intranasal DAILY #9.9 mL 09/14/22 mcg/actuation nasal spray,suspension (Flonase Allergy Relief) loratadine 10 mg tablet (Claritin) 10 mg PO DAILY #30 tabs 09/14/22 ondansetron 8 mg disintegrating 8 mg PO Q12H PRN nausea and 11/06/22 tablet vomiting #10 tabs hydralazine 25 mg tablet 25 mg PO TID 90 days #270 tabs 06/01/23 cyclobenzaprine 5 mg tablet 5 mg PO Q8H #10 tabs 06/09/23 flash glucose sensor (FreeStyle #6 ea 07/07/23 Archana 2 Sensor kit) empagliflozin 25 mg tablet 25 mg PO DAILY #90 tabs 09/08/23 rosuvastatin 5 mg tablet 5 mg PO DAILY #90 tabs 09/09/23 amlodipine 5 mg tablet 5 mg PO DAILY #90 tabs 09/23/23 Allergies Allergy/AdvReac Type Severity Reaction Status Date / Time clonidine [CLONIDINE] Allergy Severe DIZZY,FAINT Verified 11/14/23 14:44 levetiracetam [LEVETIRACETAM] Allergy Severe DIFFICULTY Verified 11/14/23 14:44 BREATHING lisinopril [LISINOPRIL] Allergy Severe SWELLING, Verified 11/14/23 14:44 angioedema atenolol [ATENOLOL] Allergy Intermediate RASH Verified 11/14/23 14:44 dulaglutide [Trulicity] Allergy Unknown Unknown Verified 11/14/23 14:44 Review of Systems Review of Systems: Constitutional : No Fever, No Chills, No Fatigue ENT/Mouth : No sore throat, No Rhinorrhea Eyes: No Eye Pain, No Swelling, No Redness Cardiovascular : No Chest Pain, No SOB, No Dyspnea on Exertion Respiratory : No Cough, No Sputum Gastrointestinal : No Nausea, No Vomiting, No Diarrhea, No abdominal Pain Genitourinary : No Dysuria, No Urinary Frequency, No Hematuria, Musculoskeletal : No joint pain, No Myalgias, No Joint Swelling Skin : No Skin Lesions, No rash Neuro : No Weakness, No Numbness, pos Dizziness, no Headache Psych : No Anxiety/Panic, No Depression Heme/Lymph: No Bruising, No Bleeding,No Lymphadenopathy Endocrine : No Polyuria, No Polydipsia All other systems reviewed and are negative PMFSH Past Medical History Attestation statement: The following information was validated with the patient. Source: old records reviewed Medical History Breast cancer screening by mammogram Trigeminal neuralgia of right side of face Hypertension Anxiety due to invasive procedure Family history of colon cancer Colon cancer screening Lower abdominal pain Microscopic hematuria Vulvovaginitis roseline albicans Well woman exam Cervical cancer screening Hypercholesterolemia SVT (supraventricular tachycardia) Obstructive sleep apnea Mixed incontinence urge and stress Thyroid nodule GERD (gastroesophageal reflux disease) Asthma COVID-19 Mild obstructive sleep apnea Cataracts, bilateral Migraine Seizure disorder Bipolar disorder Green's palsy Obesity (BMI 30-39.9) Type 2 diabetes mellitus with hyperglycemia Surgical History History of cone biopsy of uterine cervix History of tubal ligation History of cholecystectomy Family History Family History Father Diabetes FH: prostate cancer CVD (cardiovascular disease) Mother Diabetes Hypertension Stroke CVD (cardiovascular disease) Sister Breast cancer Sister Breast cancer Sister Hypertension Daughter In good health Brother No problems noted. Brother No problems noted. Brother No problems noted. Sister Cervical cancer Social History Social History Household Members: Other Household Members Other:: grandson Housing: House Do you presently have visiting nurse or other home services: Yes (tele visits) Alcohol intake: never Patient Tobacco Use Status: Never used Tobacco e-Cigarette/Vaping Use: Never Used Second Hand Smoke Exposure: No Advance Directives: No Advance Directives Information Provided: No Do you have a plan to hurt others: No Plan service: No Current occupational status: disabled Cognitive needs: No Hearing needs: No Vision needs: Yes Physical Exam Vital Signs: Vital Signs: Last Vital Signs Temp 98.9 F 11/14/23 14:39 Pulse 85 11/14/23 15:12 Resp 18 11/14/23 14:39 BP 176/97 H 11/14/23 15:12 Pulse Ox 95 11/14/23 14:39 O2 Del Method Room Air 11/14/23 14:39 BMI result Body Mass Index 33.9 Appearance: Alert. Oriented X3. No acute distress. Eyes: Pupils equal, round and reactive to light. ENT: Pharynx normal. Neck: Normal inspection. Neck supple. CVS: Normal heart rate and rhythm. Pulses normal. Respiratory: No respiratory distress. Breath sounds normal. Abdomen: Soft and nontender. Skin: Skin warm and dry. Normal skin color. Normal skin turgor. Extremities: No lower extremity edema. No calf ttp Neuro: Oriented X 3. No motor deficit. No sensory deficit. chronic L sided bells palsy Medications Administered Generic Name Dose Route Start Last Admin Trade Name Freq PRN Reason Stop Dose Admin Sodium Chloride 1,000 mls @ 999 mls/hr 11/14/23 15:47 11/14/23 15:49 Ns IV 11/14/23 16:47 999 mls/hr .Q1H1M ONE Administration Medical Decision Making Medical Decision Making MDM Narrative: 63 yo female with PMH of seizures, HTN, DM2, high cholesterol, asthma, bipolar disorder, YUSUF here with c/o near syncopal episode no preceding CP/SOB no risk factors for VTE has hx of seizures but no seizure activity reported at this time will obtain labs, hydrate, ortho VS. Her symptoms not consistent with VTE or ACS and she did not have trauma from the fall. She has not had any GIB symptoms or preceding illness. She had a prodrome which is reassuring. Differential Diagnosis Differential Diagnoses: The differential diagnosis associated with the presentation includes near syncope, dehydration, anemia, orthostatics Admission/Observation Consideration of admission/observation: Escalation of care including admission/observation considered Lab Data MDM Lab Attestation statement: I reviewed the patient's lab results. Independent Interpretation I performed an independent interpretation of an: EKG Interpretation: Rate: 76 Rhythm: NSR [place]: left, LVH Normal P waves. Normal NATTY. Normal QRS complex. ST T wave : nonspecific ST T wave changes I and aVL I and aVL, no SUNNY qTC: 445 prior studies: no acute ischemia The study has been interpreted contemporaneously by me. . Independent Historian Clinical information obtained from an independent historian. History obtained from or confirmed by: EMS and Other (daughter) External Record Review External record reviewed: Inpatient record Discharge Plan Discharge Clinical Impression: Near syncope Patient Disposition: Still a Patient Prescriptions: No Action albuterol sulfate [ProAir HFA] 90 mcg/actuation HFA aerosol inhaler 2 puff inhalation Q4-6H PRN (Reason: Dyspnea) Qty: 8.5 0RF fluticasone propion-salmeterol [Advair Diskus] 250-50 mcg/dose blister with device 1 inh inhalation BID Qty: 60 5RF (DME) FreeStyle Lite Strips Strip See Rx Instructions .ROUTE .MEDSUPPLY Qty: 4 3RF Rx Instructions: As directed check the BS 4 x a day aspirin [Adult Aspirin Regimen] 81 mg tablet,delayed release (DR/EC) 81 mg PO DAILY Qty: 90 3RF bupropion HCl [Wellbutrin SR] 150 mg tablet sustained-release 12 hr 150 mg PO BEDTIME Qty: 90 2RF carvedilol 12.5 mg tablet 12.5 mg PO BID 30 Days Qty: 60 3RF hydralazine 25 mg tablet 25 mg PO TID 90 Days Qty: 270 1RF (DME) FreeStyle Archana 2 Sensor Kit See Rx Instructions .ROUTE Q2W Qty: 6 3RF Rx Instructions: As directed rosuvastatin 5 mg tablet 5 mg PO DAILY Qty: 90 1RF amlodipine 5 mg tablet 5 mg PO DAILY Qty: 90 0RF naproxen 500 mg tablet 500 mg PO BID PRN (Reason: pain) Qty: 14 0RF acetaminophen [Tylenol Extra Strength] 500 mg tablet 1,000 mg PO QID PRN (Reason: fever or pain) Qty: 14 0RF besifloxacin 0.6 % drops,suspension 1 drp ophthalmic (eye) TID 7 Days Qty: 5 0RF Rx Instructions: administer doses at least 4 hours apart insulin lispro [Humalog KwikPen Insulin] 100 unit/mL insulin pen 18 unit subcut TID Ear Drops (carbamide peroxide) 6.5 % drops 5 drp otic (ears) BID metformin 500 mg tablet 500 mg PO BID Qty: 180 1RF spironolacton-hydrochlorothiaz [Aldactazide] 25-25 mg tablet 1 tab PO DAILY Qty: 30 4RF ondansetron 8 mg tablet,disintegrating 8 mg PO Q12H PRN (Reason: nausea and vomiting) Qty: 10 0RF fluticasone propionate [Flonase Allergy Relief] 50 mcg/actuation spray,suspension 1 spray intranasal DAILY Qty: 9.9 1RF Rx Instructions: administer into each nostril loratadine [Claritin] 10 mg tablet 10 mg PO DAILY Qty: 30 0RF empagliflozin 25 mg tablet 25 mg PO DAILY Qty: 90 2RF cyclobenzaprine 5 mg tablet 5 mg PO Q8H Qty: 10 0RF gabapentin 300 mg capsule 300 mg PO DAILY PRN (DME) FreeStyle Archana 2 [place] Misc See Rx Instructions .ROUTE DIRECTED Qty: 1 Rx Instructions: As directed (DME) pen needle, diabetic [BD Ultra-Fine Mini Pen Needle] 31 gauge x 3/16 needle See Rx Instructions .Route Rx Instructions: As directed, Inject 6 x a day with Insulin diazepam 2 mg tablet 2 - 4 mg PO BEDTIME PRN (Reason: sleep) 30 Days Qty: 60 2RF Print Language: Danish
[2023-11-14] MEDS: 0.9 % Sodium Chloride 1,000 ML 999 ML IV (15:49)
--- NOTE | 2023-11-14 15:49 | PC.NURSE ---
20G to RAC. Tolerated well. Good blood return.
[2023-11-14 15:51] LABS: MANUAL DIFF FLAG NO
[2023-11-14 15:57] LABS: Basophils Percent Auto 0.4 % (0-2); Eosinophils Absolute Auto 0.2 X10*3/uL (0.0-0.4); Hematocrit 47.1 % (37.0-47.0); Imm Gran Abs Auto 0.01 X10*3/uL (0.00-0.03); Imm Gran Pct Auto 0.1 % (0.0-0.4); Lymphocytes Absolute Auto 2.9 X10*3/uL (1.2-4.9); Lymphocytes Percent Auto 38.3 % (20-40); Mean Corpuscular Hemoglobin 28.5 pg (27.0-33.0); Mean Corpuscular Volume 83.8 fL (80.0-98.0); Mean Platelet Volume 11.2 fL (9.4-12.3); Monocytes Absolute Auto 0.5 X10*3/uL (0.1-1.2); Monocytes Percent Auto 6.5 % (2-11); Neutrophils Percent Auto 52.7 % (45-73); Platelet Count 231 X10*3/uL (160-400); Red Blood Count 5.62 X10*6/uL (4.20-5.50); Red Cell Distribution Width 12.2 % (11.0-16.0); White Blood Count 7.5 X10*3/uL (4.8-10.8)
[2023-11-14 16:08] LABS: Alanine Aminotransferase 17 U/L (0-31); Albumin Level 4.1 g/dL (3.5-5.0); Alkaline Phosphatase 119 U/L (39-117); Anion Gap 14 (12-20); Aspartate Amino Transferase 17 U/L (5-31); Bilirubin Direct 0.3 mg/dL (0.0-0.5); Bilirubin Total 0.9 mg/dL (0.0-1.0); Blood Urea Nitrogen 15 mg/dL (9-16); Carbon Dioxide 25 mmol/L (22-29); Chloride 106 mmol/L (96-108); Creatinine Clr Calc Pharmacy 73.4; Estimated Glomerular Filt Rate > 60; Glucose Random 177 mg/dL (60-115); Lipase 126 U/L (8-78); Magnesium 1.6 mg/dL (1.6-2.6); Potassium 4.7 mmol/L (3.3-5.1); Sodium 140 mmol/L (135-145); Total Protein 7.3 g/dL (6.5-8.0)
[2023-11-14 16:16] LABS: Troponin-I High Sensitivity < 2.7 ng/L (<3.5-17.0)
[2023-11-14 16:29] LABS: Influenza A PCR NEGATIVE (Negative); Influenza B PCR NEGATIVE (Negative); Resp Syncy Virus RNA Qual PCR NEGATIVE (Negative); SARS COV2 PCR INHOUSE NEGATIVE (Negative)
[2023-11-14 18:00] VITALS: BP 156/86; PULSE 73; RESP 16; TEMP 36.8; O2SAT 98
[2023-11-14 18:05] VITALS: BP 156/86; PULSE 73; RESP 16; TEMP 36.8; O2SAT 98
== END 2023-11-14 18:06 | disposition home or self-care (01) ==
PROVIDERS: Emergency Medicine; Emergency Provider Emergency Medicine; PCP Internal Medicine
DX: R55 Syncope and collapse (principal); R94.31 Abnormal electrocardiogram [ECG] [EKG]; E11.9 Type 2 diabetes mellitus without complications; Z79.4 Long term (current) use of insulin; Z03.818 Encounter for observation for suspected exposure to other biological agents ruled out; Z79.899 Other long term (current) drug therapy; Z79.85 Long-term (current) use of injectable non-insulin antidiabetic drugs
CPT/HCPCS: 0241U; 80048; 80076; 83690; 83735; 84484; 85025; 93005; 96360; 96361; 99284

== ENCOUNTER 2023-11-24 14:51 | Outpatient (AMB) | payer OTHER, SELFPAY ==
[2023-11-24 14:52] VITALS: BP 138/72; PULSE 74; O2SAT 98; BMI 31.9
--- NOTE | 2023-11-24 14:52 | MHC.PC.OV ---
Vital Signs 11/24/23 14:52 Height 5 ft 4 in Weight 186 lb BMI 31.9 BP 138/72 Blood Pressure Location Lt brachial Position Sitting Pulse 74 Pulse Source Pulse Oximeter Pulse Oximetry (%) 98 Oxygen Delivery Method Room Air Intake Visit Reasons: [facility] 11[place]13 Stroke Intake Note: Patient is here for hospital discharge follow up. 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: No Allergies clonidine [CLONIDINE] Allergy (Severe, Verified 11/24/23 14:53) DIZZY,FAINT levetiracetam [LEVETIRACETAM] Allergy (Severe, Verified 11/24/23 14:53) DIFFICULTY BREATHING lisinopril [LISINOPRIL] Allergy (Severe, Verified 11/24/23 14:53) SWELLING, angioedema atenolol [ATENOLOL] Allergy (Intermediate, Verified 11/24/23 14:53) RASH dulaglutide [Trulicity] Allergy (Unknown, Verified 11/24/23 14:53) Unknown Medication List - Last Reconciled 11/24/23 by Annette Perales PA-C acetaminophen (Tylenol Extra Strength) 1,000 mg (2 x 500 mg) PO QID PRN albuterol sulfate 90 mcg/actuation (ProAir HFA) 2 puffs inhalation Q4-6H PRN amlodipine 5 mg PO DAILY aspirin (Adult Aspirin Regimen) 81 mg PO DAILY besifloxacin 0.6% 1 drp ophthalmic (eye) TID 7 days blood sugar diagnostic (FreeStyle Lite Strips) As directed check the BS 4 x a day bupropion HCl SR (Wellbutrin SR) 150 mg PO BEDTIME carbamide peroxide 6.5% (Ear Drops (carbamide peroxide)) 5 drps otic (ears) BID carvedilol 12.5 mg PO BID 30 days cyclobenzaprine 5 mg PO Q8H diazepam 2 - 4 mg (1 - 2 x 2 mg) PO BEDTIME PRN 30 days empagliflozin 25 mg PO DAILY flash glucose scanning reader ([employer] Archana 2 [place]) As directed flash glucose sensor (FreeStyle Archana 2 Sensor kit) As directed fluticasone propion-salmeterol 250-50 mcg/dose (Advair Diskus) 1 inh inhalation BID fluticasone propionate 50 mcg/actuation (Flonase Allergy Relief) 1 spray intranasal DAILY gabapentin 300 mg PO DAILY PRN hydralazine 25 mg PO TID 90 days insulin lispro (Humalog KwikPen (U-100) Insulin) 18 units subcut TID loratadine (Claritin) 10 mg PO DAILY metformin 500 mg PO BID naproxen 500 mg PO BID PRN ondansetron 8 mg PO Q12H PRN pen needle, diabetic (BD Ultra-Fine Mini Pen Needle) As directed, Inject 6 x a day with Insulin rosuvastatin 5 mg PO DAILY spironolacton-hydrochlorothiaz 25-25 mg (Aldactazide) 1 tab PO DAILY Tobacco use date assessed: 09/08/23 Dental Screening Dental Screen Date: 09/08/23 HPI [facility] 11/13 Stroke HPI Details 62-year-old obese female with uncontrolled diabetes mellitus, hypercholesterolemia hypertension bipolar disorder coming in for hospital discharge follow up. Patient presented to [facility] ED 11/14/2023 after a near syncopal episode.? Workup was unremarkable and patient improved with IV fluids.?Patient was discharged home and recommended to follow up with Neurology and primary care. Patient states she has a long history of feeling dizzy/lightheaded as well as history of headaches that began long before her most recent presyncopal episode. She has not had any other episodes of severe dizziness and feeling like she is going to faint. She does have a remote history of seizures and was previously discharge by Neurology after being seizure-free for several years. She has no other concerns today. [facility] Medical History Breast cancer screening by mammogram Trigeminal neuralgia of right side of face Hypertension Anxiety due to invasive procedure Family history of colon cancer Colon cancer screening Lower abdominal pain Microscopic hematuria Vulvovaginitis roseline albicans Well woman exam Cervical cancer screening Hypercholesterolemia SVT (supraventricular tachycardia) Obstructive sleep apnea Mixed incontinence urge and stress Thyroid nodule GERD (gastroesophageal reflux disease) Asthma COVID-19 Mild obstructive sleep apnea Cataracts, bilateral Migraine Seizure disorder Bipolar disorder Green's palsy Obesity (BMI 30-39.9) Type 2 diabetes mellitus with hyperglycemia Surgical History History of cone biopsy of uterine cervix History of tubal ligation History of cholecystectomy Family History Father Diabetes FH: prostate cancer CVD (cardiovascular disease) Mother Diabetes Hypertension Stroke CVD (cardiovascular disease) Sister Breast cancer Sister Breast cancer Sister Hypertension Daughter In good health Brother No problems noted. Brother No problems noted. Brother No problems noted. Sister Cervical cancer Social History Household Members: Other Household Members Other:: grandson Housing: House Do you presently have visiting nurse or other home services: Yes (tele visits) Alcohol intake: never Patient Tobacco Use Status: Never used Tobacco e-Cigarette/Vaping Use: Never Used Second Hand Smoke Exposure: No service: No Current occupational status: disabled Cognitive needs: No Hearing needs: No Vision needs: Yes Female Reproductive History Menstrual Age of Menarche: 12 Questionnaire Thrive Questionnaire Date Thrive assessed: 09/08/23 I am a: Patient What is your living situation today?: I have a steady place to live Within the past 12 months, did the food you bought not last and you didn't have the money to get more?: Never true Within the past 12 months, did you worry whether your food would run out before you got money to buy more?: Never true Do you have trouble paying for medicines?: No Do you have trouble getting transportation to medical appointments?: No Do you have trouble paying your heating and electricity bill?: No Do you have trouble taking care of your child, family member or friend?: No Do you have trouble with day-to-day activities such as bathing, preparing meals, shopping, managing finances, etc.?: No Are you currently unemployed and looking for a job?: No Are you interested in more education?: No THRIVE Score: 0 AUDIT C Alcohol Use Questionnaire (AUDIT-C) 1. How often do you have a drink containing alcohol?: Never 2. How many drinks containing alcohol do you have on a typical day when you are drinking?: 1 or 2 3. How often do you have six or more drinks on one occasion?: Never Total Score: 0 SANDRA-7 AMB Questionnaire SANDRA-7 Date SANDRA - 7 assessed: 09/08/23 Source: Developed by Drs. Fercho Ying, Rama Daniels, Feliz Hood and colleagues, with an educational yong from [employer] Review of Systems Const Denies body aches, Denies chills, Denies fever(s), Reports headache(s) and Denies poor appetite Eyes Reports no additional complaints ENT Reports dizziness and Reports headache(s) Card Denies chest pain, Denies syncope, Denies edema, Reports lightheadedness and Denies dyspnea Resp Denies cough and Denies dyspnea GI Denies abdominal pain and Denies nausea Reports no additional complaints Musc Reports no additional complaints and Denies abnormal gait Skin/Breast Reports system reviewed and no additional complaints, except as documented Neuro Denies abnormal gait, Reports dizziness, Denies syncope and Reports headache(s) Psych Reports no additional complaints Physical exam (Primary Care) Vital Signs: Last Vital Signs Pulse 74 11/24/23 14:52 BP 138/72 11/24/23 14:52 Pulse Ox 98 11/24/23 14:52 Oxygen Delivery Method Room Air 11/24/23 14:52 BMI result Body Mass Index 31.9 Tobacco/Smoking Status: Tobacco use Status Tobacco use date assessed 09/08/23 11/24/23 14:53 Patient Tobacco Use Status Never used Tobacco 11/24/23 14:53 e-Cigarette/Vaping Use Never Used 11/24/23 14:53 Thrive Assessment: Date of Thrive Assessment Date Thrive assessed 09/08/23 11/24/23 14:53 Const General: cooperative, healthy appearing, comfortable and no acute distress Orientation/consciousness: patient oriented x3 HENMT Head: Yes normocephalic Ears: hearing grossly normal bilaterally General nose exam: Normal external nose present Eyes General: appearance normal, both eyes and all related structures Conjunctivae: conjunctivae normal Neck Neck: Yes full ROM and Yes no lymphadenopathy Resp Effort & Inspection: normal respiratory effort Auscultation: clear to auscultation bilaterally, no crackles, no rales, no rhonchi and no wheezes Cardio Rate: regular rate Rhythm: regular rhythm Skin General skin exam: no rashes or lesions noted Neuro General: patient oriented x3 Gait exam (Neuro): Normal gait present Extrem General: Yes normal to inspection, Yes full ROM and No edema Psych Affect: normal affect Attitude: cooperative Insight: Good insight present (Psych) Judgement: Good judgement present (Psych) Assessment and Plan Assessment & Plan (1) Dizziness: Code(s): R42 - Dizziness and giddiness Plan: Patient states she does occasionally get dizzy. Endorses good water intake. No source was found while in the ER and we will continue to monitor her symptoms. Advised patient to follow up if she has another episode similar to the 1 that brought her to the ER. Recommend reach out to Neurology for appointment. (2) Chronic headaches: Code(s): R51.9 - Headache, unspecified; G89.29 - Other chronic pain Plan: Patient has long history of chronic headaches and was previously evaluated for this through Neurology. Recommend reaching out to Neurology for follow up appointment. Plan This note was constructed using voice recognition software. While every effort has been made to ensure accuracy and client resource specialist, still areas may have been included sometimes these areas may affect the content or meeting of the given symptoms. Total time spent caring for the patient today was 25 minutes. This includes time spent before the visit reviewing the chart, time spent during the visit, and time spent after the visit and documentation. Coding Level of Care Code Est Pt Level 3 (93712) Diagnoses Dizziness R42 Chronic headaches R51.9; G89.29
== END 2023-11-24 15:13 | disposition home or self-care (01) ==
PROVIDERS: PCP Internal Medicine
DX: R42 Dizziness and giddiness (principal); R51.9 Headache, unspecified; G89.29 Other chronic pain
CPT/HCPCS: 99213

== ENCOUNTER 2023-12-22 09:29 | Outpatient (AMB) | payer OTHER, SELFPAY ==
--- NOTE | 2023-12-22 09:32 | A.OFFVIS_ITS ---
Vital Signs 12/22/23 09:35 Height 5 ft 4 in Weight 189 lb 9.561 oz BMI 32.5 BP 122/68 Blood Pressure Location Rt brachial Position Sitting Pulse 70 Pulse Source Pulse Oximeter Intake Visit Reasons: DM/CONFIRMED Intake Note: Patient presents today to re-establish treatment for Type Diabetes Mellitus: Last Diabetic eye exam was on: DUE December Last Podiatry exam was on: Does not see a Parcel Carrier Most recent HbA1c: 8.7%, 12/22/2023 Random Glucose- 256 mg/dL, Today Antique Refinisher Required: No Accompanied by: Self / Same As Patient Allergies clonidine [CLONIDINE] Allergy (Severe, Verified 12/22/23 09:33) DIZZY,FAINT levetiracetam [LEVETIRACETAM] Allergy (Severe, Verified 12/22/23 09:33) DIFFICULTY BREATHING lisinopril [LISINOPRIL] Allergy (Severe, Verified 12/22/23 09:33) SWELLING, angioedema atenolol [ATENOLOL] Allergy (Intermediate, Verified 12/22/23 09:33) RASH dulaglutide [Trulicity] Allergy (Unknown, Verified 12/22/23 09:33) Unknown Medication List - Last Reconciled 12/22/23 by Sakina Allen MD acetaminophen (Tylenol Extra Strength) 1,000 mg (2 x 500 mg) PO QID PRN albuterol sulfate 90 mcg/actuation (ProAir HFA) 2 puffs inhalation Q4-6H PRN amlodipine 5 mg PO DAILY aspirin (Adult Aspirin Regimen) 81 mg PO DAILY besifloxacin 0.6% 1 drp ophthalmic (eye) TID 7 days blood sugar diagnostic (FreeStyle Lite Strips) As directed check the BS 4 x a day bupropion HCl SR (Wellbutrin SR) 150 mg PO BEDTIME carbamide peroxide 6.5% (Ear Drops (carbamide peroxide)) 5 drps otic (ears) BID carvedilol 12.5 mg PO BID 30 days cyclobenzaprine 5 mg PO Q8H diazepam 2 - 4 mg (1 - 2 x 2 mg) PO BEDTIME PRN 30 days empagliflozin 25 mg PO DAILY flash glucose scanning reader (FreeStyle Archana 2 [place]) As directed flash glucose sensor (FreeStyle Archana 2 Sensor kit) As directed fluticasone propion-salmeterol 250-50 mcg/dose (Advair Diskus) 1 inh inhalation BID fluticasone propionate 50 mcg/actuation (Flonase Allergy Relief) 1 spray intranasal DAILY gabapentin 300 mg PO DAILY PRN hydralazine 25 mg PO TID 90 days loratadine (Claritin) 10 mg PO DAILY metformin 500 mg PO BID naproxen 500 mg PO BID PRN ondansetron 8 mg PO Q12H PRN pen needle, diabetic (BD Ultra-Fine Mini Pen Needle) As directed, Inject 6 x a day with Insulin rosuvastatin 5 mg PO DAILY spironolacton-hydrochlorothiaz 25-25 mg (Aldactazide) 1 tab PO DAILY tirzepatide (Mounjaro) mg subcut HPI Comments Details: 63 YO F who is seen in consultation for T2DM at the request of PCP. Initially diagnosed with T2DM 7 years ago Was initially started on treatment with metformin. Took Trulicity but had nausea and headaches Current regimen Mounjaro 5mg weekly -intolerant to higher doses Jardiance 25 mg QD Archana download shows-average glucose for past 2 weeks is 202 with GMI of 8.1%. 38% range with 62% hyperglycemia and no hypoglycemia. POC A1C today 8.7% Reports low sugars rarely Treats lows with drinks OJ . Checks sugar after to ensure it is rising. Treats according to rule of 15's. Family history of T2DM in mother and sister . Eye exam next month , denies retinopathy. Has neuropathy, not sees podiatry. Denies nephropathy, had angioedema on lisinopril . On crestor Denies CAD. ROS CONSTITUTIONAL: Denies weight loss, fever and chills. HEENT: Denies changes in vision and hearing. RESPIRATORY: Denies SOB and cough. CV: Denies palpitations and CP GI: Denies abdominal pain, nausea, vomiting and diarrhea. : Denies dysuria and urinary frequency. MSK: Denies new myalgia and joint pain. SKIN: Denies rash and pruritus. NEUROLOGICAL: Denies headache PSYCHIATRIC: Denies recent changes in mood. PHYSICAL EXAM: GENERAL: Alert and oriented x 3. NAD EYES: EOMI. Anicteric. HENT: Moist mucous membranes. No scleral icterus. No cervical lymphadenopathy. LUNGS: Clear to auscultation bilaterally. CARDIOVASCULAR: Regular rate and rhythm. No murmur. No JVD. ABDOMEN: Soft, non-tender +bs EXTREMITIES: No edema. Non-tender. SKIN: No rashes or lesions. Warm. NEUROLOGIC: No focal neurological deficits. CN II-XII grossly intact PSYCHIATRIC: Cooperative. Appropriate mood and affect [facility] Medical History Breast cancer screening by mammogram Trigeminal neuralgia of right side of face Hypertension Anxiety due to invasive procedure Family history of colon cancer Colon cancer screening Lower abdominal pain Microscopic hematuria Vulvovaginitis roseline albicans Well woman exam Cervical cancer screening Hypercholesterolemia SVT (supraventricular tachycardia) Obstructive sleep apnea Mixed incontinence urge and stress Thyroid nodule GERD (gastroesophageal reflux disease) Asthma COVID-19 Mild obstructive sleep apnea Cataracts, bilateral Migraine Seizure disorder Bipolar disorder Green's palsy Obesity (BMI 30-39.9) Type 2 diabetes mellitus with hyperglycemia Surgical History History of cone biopsy of uterine cervix History of tubal ligation History of cholecystectomy Family History Father Diabetes FH: prostate cancer CVD (cardiovascular disease) Mother Diabetes Hypertension Stroke CVD (cardiovascular disease) Sister Breast cancer Sister Breast cancer Sister Hypertension Daughter In good health Brother No problems noted. Brother No problems noted. Brother No problems noted. Sister Cervical cancer Social History Household Members: Other Household Members Other:: grandson Housing: House Do you presently have visiting nurse or other home services: Yes (tele visits) Alcohol intake: never Patient Tobacco Use Status: Never used Tobacco e-Cigarette/Vaping Use: Never Used Second Hand Smoke Exposure: No service: No Current occupational status: disabled Cognitive needs: No Hearing needs: No Vision needs: Yes Female Reproductive History Menstrual Age of Menarche: 12 Physical Exam Vital Signs: Last Vital Signs Pulse 70 12/22/23 09:35 BP 122/68 12/22/23 09:35 BMI result Body Mass Index 32.5 Results AMB Hemoglobin A1c AMB Hemoglobin A1c 8.7 % Last Edit by JENNIFER Cordoba on 12/22/23 10:11 Results Reviewed Results Reviewed: Laboratory Last Values Glucose (Clinic) 256 mg/dL (60-115) H 12/22/23 09:41 Hgb A1c (Clinic) 8.7 % (4.0-6.0) H 12/22/23 09:33 Assessment & Plan Assessment & Plan (1) Type 2 diabetes mellitus with hyperglycemia: Comment: Dr. Bernard eye Code(s): E11.65 - Type 2 diabetes mellitus with hyperglycemia Category: Medical Qualifiers: Diabetes mellitus stage setting painter apprentice insulin use: with longterm use Qualified Code(s): E11.65 - Type 2 diabetes mellitus with hyperglycemia; Z79.4 - snf (current) use of insulin Plan: Uncontrolled. She would prefer not to restart metformin at this time Continue irene mounjaro at 5mg weekly (2) Diabetic neuropathy: Code(s): E11.40 - Type 2 diabetes mellitus with diabetic neuropathy, unspecified Category: Medical Qualifiers: Diabetes mellitus complication detail: diabetic polyneuropathy Diabetes mellitus type: type 2 Qualified Code(s): E11.42 - Type 2 diabetes mellitus with diabetic polyneuropathy Plan: Improve glycemic control. Med changes as above Orders: Orders AMB Hemoglobin A1c Today E11.65 - Type 2 diabetes mellitus with hyperglycemia, Z79.4 - snf (current) use of insulin Medications: New pioglitazone 30 mg PO DAILY 90 tabs 3RF Mounjaro (tirzepatide) 5 mg (0.5 mL) subcut QWEEK 6 mL 3RF NS E11.65 - Type 2 diabetes mellitus with hyperglycemia, Z79.4 - towboat engineer (current) use of insulin Coding Level of Care Code Est Pt Level 5 (16949) Diagnoses Type 2 diabetes mellitus with hyperglycemia, with long-term current use of insulin E11.65; Z79.4 Diabetes mellitus stage setting painter apprentice insulin use: with longterm use Diabetic polyneuropathy associated with type 2 diabetes mellitus E11.42 Diabetes mellitus complication detail: diabetic polyneuropathy Diabetes mellitus type: type 2 Time Spent (min) 45
[2023-12-22 09:35] VITALS: BP 122/68; PULSE 70; BMI 32.5
[2023-12-22 09:45] LABS: Glucose, Whole Blood 256 mg/dL (60-115)
== END 2023-12-22 10:12 | disposition home or self-care (01) ==
PROVIDERS: PCP Internal Medicine; Visit Provider Internal Medicine
DX: E11.65 Type 2 diabetes mellitus with hyperglycemia (principal); Z79.4 Long term (current) use of insulin; E11.42 Type 2 diabetes mellitus with diabetic polyneuropathy

== ENCOUNTER → 2023-12-22 09:29 | Outpatient (BNVA) | payer OTHER, SELFPAY | PROVIDERS: PCP Internal Medicine; Visit Provider Internal Medicine | DX: E11.65 Type 2 diabetes mellitus with hyperglycemia (principal); E11.42 Type 2 diabetes mellitus with diabetic polyneuropathy; Z79.4 Long term (current) use of insulin | CPT/HCPCS: 82947; 83036; 99212 ==

== ENCOUNTER 2023-12-28 12:24 | Outpatient (AMB) | payer OTHER, SELFPAY ==
[2023-12-28 12:31] VITALS: BP 144/90; PULSE 77; O2SAT 97; BMI 32.3
--- NOTE | 2023-12-28 12:31 | A.OFFPC_ITS ---
Vital Signs 12/28/23 12:31 Height 5 ft 4 in Weight 188 lb 0.4 oz BMI 32.3 BP 144/90 H Blood Pressure Location Lt brachial Position Sitting Pulse 77 Pulse Source Pulse Oximeter Pulse Oximetry (%) 97 Oxygen Delivery Method Room Air Intake Visit Reasons: DM Carpenter General Required: No Allergies clonidine [CLONIDINE] Allergy (Severe, Verified 12/28/23 12:32) DIZZY,FAINT levetiracetam [LEVETIRACETAM] Allergy (Severe, Verified 12/28/23 12:32) DIFFICULTY BREATHING lisinopril [LISINOPRIL] Allergy (Severe, Verified 12/28/23 12:32) SWELLING, angioedema atenolol [ATENOLOL] Allergy (Intermediate, Verified 12/28/23 12:32) RASH dulaglutide [Trulicity] Allergy (Unknown, Verified 12/28/23 12:32) Unknown Tobacco use date assessed: 09/08/23 Dental Screening Dental Screen Date: 09/08/23 HPI DM HPI Details 63-year-old obese female with a history of diabetes mellitus uncontrolled hypercholesterolemia obstructive sleep apnea asthma hypertension seizure disorder coming in for follow-up. Review of the notes in October was seen by the PA for dizziness and headaches. Patient is presently being followed up by Endocrinology presently on Mounjaro and Jardiance. Last A1c 7 12/22/2023 would prefer not to take metformin. Patient was started on pioglitazone. Patient's last cholesterol test was in 01/15/2023. PAitent states has been having seiaures again- patient was [facility] but decline ddx of [place]. but with seizures- will revise referral BP is good at home [facility] Medical History Breast cancer screening by mammogram Trigeminal neuralgia of right side of face Hypertension Anxiety due to invasive procedure Family history of colon cancer Colon cancer screening Lower abdominal pain Microscopic hematuria Vulvovaginitis roseline albicans Well woman exam Cervical cancer screening Hypercholesterolemia SVT (supraventricular tachycardia) Obstructive sleep apnea Mixed incontinence urge and stress Thyroid nodule GERD (gastroesophageal reflux disease) Asthma COVID-19 Mild obstructive sleep apnea Cataracts, bilateral Migraine Seizure disorder Bipolar disorder Green's palsy Obesity (BMI 30-39.9) Type 2 diabetes mellitus with hyperglycemia Surgical History History of cone biopsy of uterine cervix History of tubal ligation History of cholecystectomy Family History Father Diabetes FH: prostate cancer CVD (cardiovascular disease) Mother Diabetes Hypertension Stroke CVD (cardiovascular disease) Sister Breast cancer Sister Breast cancer Sister Hypertension Daughter In good health Brother No problems noted. Brother No problems noted. Brother No problems noted. Sister Cervical cancer Social History Household Members: Other Household Members Other:: grandson Housing: House Do you presently have visiting nurse or other home services: Yes (tele visits) Alcohol intake: never Patient Tobacco Use Status: Never used Tobacco e-Cigarette/Vaping Use: Never Used Second Hand Smoke Exposure: No service: No Current occupational status: disabled Cognitive needs: No Hearing needs: No Vision needs: Yes Female Reproductive History Menstrual Age of Menarche: 12 Questionnaire Thrive Questionnaire Date Thrive assessed: 09/08/23 Are you currently unemployed and looking for a job?: No AUDIT C Alcohol Use Questionnaire (AUDIT-C) 1. How often do you have a drink containing alcohol?: Never 2. How many drinks containing alcohol do you have on a typical day when you are drinking?: 1 or 2 3. How often do you have six or more drinks on one occasion?: Never Total Score: 0 SANDRA-7 AMB Questionnaire SANDRA-7 Date SANDRA - 7 assessed: 09/08/23 Source: Developed by Drs. Fercho Ying, Rama Daniels, Feliz Hood and colleagues, with an educational yong from [employer]. Physical exam (Primary Care) Vital Signs: Last Vital Signs Pulse 77 12/28/23 12:31 BP 144/90 H 12/28/23 12:31 Pulse Ox 97 12/28/23 12:31 Oxygen Delivery Method Room Air 12/28/23 12:31 BMI result Body Mass Index 32.3 Tobacco/Smoking Status: Tobacco use Status Tobacco use date assessed 09/08/23 12/28/23 12:32 Patient Tobacco Use Status Never used Tobacco 12/28/23 12:32 e-Cigarette/Vaping Use Never Used 12/28/23 12:32 Thrive Assessment: Date of Thrive Assessment Date Thrive assessed 09/08/23 12/28/23 12:32 Const General: alert; No acute distress Eyes Conjunctivae: conjunctivae normal Resp Auscultation: clear to auscultation bilaterally Cardio Rate: regular rate Rhythm: regular rhythm GI Inspection: Yes normal to inspection Extrem General: Yes normal to inspection and No edema Coding Level of Care Code Est Pt Level 4 (61278) Complex EM visit Add On G2211 Diagnoses Type 2 diabetes mellitus with hyperglycemia, with long-term current use of insulin E11.65; Z79.4 Diabetes mellitus watermaster insulin use: with detention use Hypercholesterolemia E78.00 Obesity (BMI 30-39.9) E66.9 Mild intermittent asthma with acute exacerbation J45.21 Asthma complication type: with acute exacerbation Asthma persistence: intermittent Asthma severity: mild Essential hypertension I10 Hypertension type: essential hypertension Bipolar disorder, current episode mixed, moderate F31.62 Active/Remission status: currently active Current bipolar episode type: mixed Current episode severity: moderate Seizure disorder G40.909 Assessment & Plan Assessment & Plan (1) Type 2 diabetes mellitus with hyperglycemia: Comment: Dr. Bernadr eye Code(s): E11.65 - Type 2 diabetes mellitus with hyperglycemia Category: Medical Qualifiers: Diabetes mellitus detention insulin use: with detention use Qualified Code(s): E11.65 - Type 2 diabetes mellitus with hyperglycemia; Z79.4 - buttermaker continuous churn (current) use of insulin Plan: Decrease the amount of carbohydrate intake, pasta, bread, rice and potatoes are all sugar and that is aside from all the sweet stuff, remember that fruits are good but they are Sweet also. Patient is being seen by Endocrinology presently and on Irma Phillips and started on pioglitazone. Last hemoglobin A1c was 8.04 December 2023 (2) Hypercholesterolemia: Code(s): E78.00 - Pure hypercholesterolemia, unspecified Category: Medical Plan: Avoid fried foods, chicken skin, eggs, butter margarine, pastries and meat. Be it pork or beef they have a lot of cholesterol on rosuvastatin 5 mg once a day patient needs retesting of blood work (3) Obesity (BMI 30-39.9): Code(s): E66.9 - Obesity, unspecified Category: Medical Plan: Diet and exercise (4) Asthma: Code(s): J45.909 - Unspecified asthma, uncomplicated Category: Medical Qualifiers: Asthma complication type: with acute exacerbation Asthma persistence: intermittent Asthma severity: mild Qualified Code(s): J45.21 - Mild intermittent asthma with (acute) exacerbation Plan: Continue with the inhaler as needed (5) Hypertension: Code(s): I10 - Essential (primary) hypertension Category: Medical Qualifiers: Hypertension type: essential hypertension Qualified Code(s): I10 - Essential (primary) hypertension Plan: Continue with blood pressure medication. Decrease salt intake and exercise patient is on amlodipine 5 mg once a day carvedilol 12.5 mg twice a day and spironolactone hydrochlorothiazide 25/25 once a day BP good at home (6) Bipolar disorder: Comment: decline referral for counselling Code(s): F31.9 - Bipolar disorder, unspecified Category: Medical Qualifiers: Active/Remission status: currently active Current bipolar episode type: mixed Current episode severity: moderate Qualified Code(s): F31.62 - Bipolar disorder, current episode mixed, moderate Plan: Continue with present medication. (7) Seizure disorder: Code(s): G40.909 - Epilepsy, unspecified, not intractable, without status epilepticus Category: Medical Plan: referral to neurology Orders: Orders Thyroid Stimulating Hormone Today E11.65 - Type 2 diabetes mellitus with hyperglycemia, Z79.4 - buttermaker continuous churn (current) use of insulin Hemoglobin A1c Today E11.65 - Type 2 diabetes mellitus with hyperglycemia, Z79.4 - nursing home (current) use of insulin Vitamin B12 and Folate Today E11.65 - Type 2 diabetes mellitus with hyperglycemia, Z79.4 - buttermaker continuous churn (current) use of insulin Microalbumin, Random (w Creat) Today E11.65 - Type 2 diabetes mellitus with hyperglycemia, Z79.4 - nursing home (current) use of insulin Free T4 (Free Thyroxine) Today E11.65 - Type 2 diabetes mellitus with hyperglycemia, Z79.4 - buttermaker continuous churn (current) use of insulin Vitamin D 25-OH Total Today E11.65 - Type 2 diabetes mellitus with hyperglycemia, Z79.4 - nursing home (current) use of insulin Referrals Neurology Referral G40.909 - Epilepsy, unspecified, not intractable, without status epilepticus Medications: Refilled Mounjaro (tirzepatide) 5 mg (0.5 mL) subcut QWEEK 2 mL 3RF NS E11.65 - Type 2 diabetes mellitus with hyperglycemia, Z79.4 - nursing home (current) use of insulin
== END 2023-12-28 12:57 | disposition home or self-care (01) ==
PROVIDERS: PCP Internal Medicine; Visit Provider Internal Medicine
DX: E11.65 Type 2 diabetes mellitus with hyperglycemia (principal); Z79.4 Long term (current) use of insulin; F31.62 Bipolar disorder, current episode mixed, moderate; G40.909 Epilepsy, unspecified, not intractable, without status epilepticus; E66.9 Obesity, unspecified; Z68.32 Body mass index [BMI] 32.0-32.9, adult; E78.00 Pure hypercholesterolemia, unspecified; J45.21 Mild intermittent asthma with (acute) exacerbation; I10 Essential (primary) hypertension

== ENCOUNTER → 2023-12-28 12:24 | Outpatient (BNVA) | payer OTHER, SELFPAY | PROVIDERS: PCP Internal Medicine; Visit Provider Internal Medicine | DX: E11.65 Type 2 diabetes mellitus with hyperglycemia (principal); E78.00 Pure hypercholesterolemia, unspecified; E66.9 Obesity, unspecified; J45.21 Mild intermittent asthma with (acute) exacerbation; I10 Essential (primary) hypertension; F31.62 Bipolar disorder, current episode mixed, moderate; G40.909 Epilepsy, unspecified, not intractable, without status epilepticus; Z79.4 Long term (current) use of insulin | CPT/HCPCS: 99212 ==

== ENCOUNTER → 2024-01-05 08:43 | Outpatient (RCR) | payer OTHER, SELFPAY ==
--- NOTE | 2022-08-17 13:11 | MHC.PT.EP ---
[facility] [place] [facility] [place] [facility] [place] [facility] [address] Enrique Shetty [address] [phone] F: [phone] F: [phone] F: [phone] F: [phone] Physical Therapy Plan of Care Date of Evaluation: Date of Surgery: none Diagnosis: cervicalgia Assessment: Patient is a 61 year old R handed female who presents with s/s consistent with cervicalgia, neck pain. She is not working but enjoys staying active around the house with household tasks. Patient past medical history includes alonzo's palsy and bipolar disorder. Current impairments include pain, posture, ROM, strength, activity tolerance and functional mobility. Functional limitations include decreased ability to sleep, drive, reach, dress, lift and carry. Patient is motivated with good rehab potential. Skilled PT will address impairments and functional limitations in order to achieve goals. Frequency and Duration: The patient will be seen 2x/week for 5 weeks Short Term Goals: I with HEP - 2 weeks AROM c-spine rotation 50 b/l - 3 weeks symmetrical c-spine at rest - 3 weeks Regulatory Assistant Goals: R shoulder flexion/abd 120 or better AROM - 5 weeks NPDI 20% or less - 5 weeks Max pain with ADLs 2/10 - 5 weeks Treatment Plan: Modalities to reduce pain, spasms and effusion. Manual therapy to restore motion and function. Therapeutic exercise to improve strength and flexibility. Neuromuscular re-education for posture and balance. Therapeutic activities to return to functional activities of daily living. Electronically signed by: Hiren Leon PT Please sign and return to therapist. Thank you for your referral.
--- NOTE | 2024-01-05 08:43 | MHC.PT.DC ---
[facility] [place] Office [place] Office [place] Office [address] Enrique Shetty [address] [phone] F: [phone] F: [phone] F: [phone] F: [phone] Physical Therapy Discharge Report Diagnosis: cervicalgia Date of Surgery: none Date of Evaluation: 08/17/22 Date of Discharge: 11/11/22 Treatments to Date: 3 Cancellations to Date: No Shows to Date: Discharge Status: Patient Elected to Stop Discharge Summary: 09/07/22: ant R shoulder pain increased today relieved with stretching and strength ex. assess response NV. MRI tomorrow on neck. 09/02/22: pt notes feeling better overall with less discomfort and improved ROM. we will continue to address ROM and tissue tension. Add cervical rotation NV. 08/20/22: still with significant tissue tension in UT and LS b/l but > on R today. progressed postural intervention. continue to progress as tolerated. Patient is a 61 year old R handed female who presents with s/s consistent with cervicalgia, neck pain. She is not working but enjoys staying active around the house with household tasks. Patient past medical history includes alonzo's palsy and bipolar disorder. Current impairments include pain, posture, ROM, strength, activity tolerance and functional mobility. Functional limitations include decreased ability to sleep, drive, reach, dress, lift and carry. Patient is motivated with good rehab potential. Skilled PT will address impairments and functional limitations in order to achieve goals. Electronically signed by: Hiren Leon, PT Please sign and return to therapist. Thank you for your referral.
== END | disposition home or self-care (01) ==
LOC: HO.PTCHIC 08-17 10:45
PROVIDERS: PCP Internal Medicine; Visit Provider Nurse Practitioner Family
DX: M54.2 Cervicalgia (principal); M53.9 Dorsopathy, unspecified; R29.898 Other symptoms and signs involving the musculoskeletal system
CPT/HCPCS: 97110; 97140; 97163

== ENCOUNTER 2024-03-15 10:27 | Outpatient (AMB) | payer OTHER, SELFPAY ==
--- NOTE | 2024-03-15 10:32 | A.OFFVIS_ITS ---
Vital Signs 03/15/24 10:33 Height 5 ft 4 in Weight 194 lb 0.108 oz BMI 33.3 BP 136/88 Blood Pressure Location Rt brachial Position Sitting Pulse 76 Pulse Source Pulse Oximeter Intake Visit Reasons: DM/Confirmed Intake Note: Patient presents for a follow-up for Type 2 Diabetes Mellitus: Last Diabetic eye exam was on: 12/29/2023 Last Podiatry exam was on: Does not see a Divinity Professor Most recent HbA1c: 8.4%, 03/15/2024 Random Glucose- 263 mg/dL, Today Numerical Control Nesting Operator Required: No Accompanied by: Self / Same As Patient Allergies clonidine [CLONIDINE] Allergy (Severe, Verified 12/28/23 12:32) DIZZY,FAINT levetiracetam [LEVETIRACETAM] Allergy (Severe, Verified 12/28/23 12:32) DIFFICULTY BREATHING lisinopril [LISINOPRIL] Allergy (Severe, Verified 12/28/23 12:32) SWELLING, angioedema atenolol [ATENOLOL] Allergy (Intermediate, Verified 12/28/23 12:32) RASH dulaglutide [Trulicity] Allergy (Unknown, Verified 12/28/23 12:32) Unknown HPI Comments Details: 63 year old female who is seen for diabetic follow up Initially diagnosed with T2DM 7 years ago Current regimen -Mounjaro 5mg weekly -intolerant to higher doses and actos (started recently) Was on metformin previously with SE. Nausea and headaches with trulicity. Yeast infections with jardiance POC A1C today 8.4% from 8.7%. Archana download shows-average glucose for past 2 weeks is 202 with GMI of 8.1%. 38% range with 62% hyperglycemia and no hypoglycemia. Reports low sugars rarely Treats lows with drinks OJ . Checks sugar after to ensure it is rising. Treats according to rule of 15's. Family history of T2DM in mother and sister . Eye exam next month , denies retinopathy. Has neuropathy, not sees podiatry. Denies nephropathy, had angioedema on lisinopril . On crestor Denies CAD. ROS CONSTITUTIONAL: Denies weight loss, fever and chills. HEENT: Denies changes in vision and hearing. RESPIRATORY: Denies SOB and cough. CV: Denies palpitations and CP GI: Denies abdominal pain, nausea, vomiting and diarrhea. : Denies dysuria and urinary frequency. MSK: Denies new myalgia and joint pain. SKIN: Denies rash and pruritus. NEUROLOGICAL: Reports vertigo since this am PSYCHIATRIC: Denies recent changes in mood. PHYSICAL EXAM: GENERAL: Alert and oriented x 3. NAD EYES: EOMI. Anicteric. HENT: Moist mucous membranes. No scleral icterus. No cervical lymphadenopathy. LUNGS: Clear to auscultation bilaterally. CARDIOVASCULAR: Regular rate and rhythm. No murmur. No JVD. ABDOMEN: Soft, non-tender +bs EXTREMITIES: No edema. Non-tender. SKIN: No rashes or lesions. Warm. NEUROLOGIC: No focal neurological deficits. CN II-XII grossly intact PSYCHIATRIC: Cooperative. Appropriate mood and affect [facility] Medical History Breast cancer screening by mammogram Trigeminal neuralgia of right side of face Hypertension Anxiety due to invasive procedure Family history of colon cancer Colon cancer screening Lower abdominal pain Microscopic hematuria Vulvovaginitis roseline albicans Well woman exam Cervical cancer screening Hypercholesterolemia SVT (supraventricular tachycardia) Obstructive sleep apnea Mixed incontinence urge and stress Thyroid nodule GERD (gastroesophageal reflux disease) Asthma COVID-19 Mild obstructive sleep apnea Cataracts, bilateral Migraine Seizure disorder Bipolar disorder Green's palsy Obesity (BMI 30-39.9) Type 2 diabetes mellitus with hyperglycemia Surgical History History of cone biopsy of uterine cervix History of tubal ligation History of cholecystectomy Family History Father Diabetes FH: prostate cancer CVD (cardiovascular disease) Mother Diabetes Hypertension Stroke CVD (cardiovascular disease) Sister Breast cancer Sister Breast cancer Sister Hypertension Daughter In good health Brother No problems noted. Brother No problems noted. Brother No problems noted. Sister Cervical cancer Social History Household Members: Other Household Members Other:: grandson Housing: House Do you presently have visiting nurse or other home services: Yes (tele visits) Alcohol intake: never Patient Tobacco Use Status: Never used Tobacco e-Cigarette/Vaping Use: Never Used Second Hand Smoke Exposure: No service: No Current occupational status: disabled Cognitive needs: No Hearing needs: No Vision needs: Yes Female Reproductive History Menstrual Age of Menarche: 12 Physical Exam Vital Signs: Last Vital Signs Pulse 76 03/15/24 10:33 BP 136/88 03/15/24 10:33 BMI result Body Mass Index 33.3 Results AMB Hemoglobin A1c AMB Hemoglobin A1c 8.4 % Last Edit by JENNIFER Cordoba on 03/15/24 10:44 Results Reviewed Results Reviewed: Laboratory Last Values Glucose (Clinic) 263 mg/dL (60-115) H 03/15/24 10:35 Hgb A1c (Clinic) 8.4 % (4.0-6.0) H 03/15/24 10:38 Assessment & Plan Assessment & Plan (1) Type 2 diabetes mellitus with hyperglycemia: Comment: Dr. Bernard eye Code(s): E11.65 - Type 2 diabetes mellitus with hyperglycemia Category: Medical Qualifiers: Diabetes mellitus group home insulin use: with technician terminal and repeater use Qualified Code(s): E11.65 - Type 2 diabetes mellitus with hyperglycemia; Z79.4 - senior living (current) use of insulin Plan: Continue mounjaro Start glipizide 10mg daily Orders: Orders AMB Hemoglobin A1c 03/15/24 E11.65 - Type 2 diabetes mellitus with hyperglycemia, Z79.4 - technician terminal and repeater (current) use of insulin Medications: New meclizine 25 mg PO TID PRN 20 tabs 0RF dizziness or vertigo glipizide ER 10 mg PO DAILY 90 tabs 3RF Changed From flash glucose sensor (FreeStyle Archana 2 Sensor kit) As directed 6 ea 3RF E11.65 - Type 2 diabetes mellitus with hyperglycemia, Z79.4 - technician terminal and repeater (current) use of insulin To FreeStyle Archana 2 Sensor (flash glucose sensor) As directed 6 ea 3RF NS E11.65 - Type 2 diabetes mellitus with hyperglycemia, Z79.4 - senior living (current) use of insulin Discontinued empagliflozin Discontinued Reason: Doctor's Order 25 mg PO DAILY 90 tabs 2RF E11.65 - Type 2 diabetes mellitus with hyperglycemia, Z79.4 - technician terminal and repeater (current) use of insulin Coding Level of Care Code Est Pt Level 4 (62315) Diagnoses Type 2 diabetes mellitus with hyperglycemia, with long-term current use of insulin E11.65; Z79.4 Diabetes mellitus technician terminal and repeater insulin use: with group home use
[2024-03-15 10:33] VITALS: BP 136/88; PULSE 76; BMI 33.3
[2024-03-15 10:40] LABS: Glucose, Whole Blood 263 mg/dL (60-115)
== END 2024-03-15 10:56 | disposition home or self-care (01) ==
PROVIDERS: PCP Internal Medicine; Visit Provider Internal Medicine
DX: E11.65 Type 2 diabetes mellitus with hyperglycemia (principal); Z79.4 Long term (current) use of insulin

== ENCOUNTER → 2024-03-15 10:27 | Outpatient (BNVA) | payer OTHER, SELFPAY | PROVIDERS: PCP Internal Medicine; Visit Provider Internal Medicine | DX: E11.65 Type 2 diabetes mellitus with hyperglycemia (principal); Z79.4 Long term (current) use of insulin | CPT/HCPCS: 82947; 83036; 99212 ==

== ENCOUNTER 2024-03-31 08:01 | Outpatient (AMB) | payer OTHER, SELFPAY ==
--- NOTE | 2024-03-31 08:06 | AM.OFFWIN_ITS ---
Intake Vital Signs 03/31/24 08:08 Weight 192 lb BP 140/90 H Blood Pressure Location Rt brachial Position Sitting Pulse 85 Pulse Source Pulse Oximeter Pulse Oximetry (%) 98 Oxygen Delivery Method Room Air Intake Visit Reasons: EP-rt eye pain, swollen and discharging Intake Note: Patient here for right eye swelling/pain and has discharge that started yesterday. Patient Tobacco Use Status: Never used Tobacco Allergies clonidine [CLONIDINE] Allergy (Severe, Verified 03/31/24 08:08) DIZZY,FAINT levetiracetam [LEVETIRACETAM] Allergy (Severe, Verified 03/31/24 08:08) DIFFICULTY BREATHING lisinopril [LISINOPRIL] Allergy (Severe, Verified 03/31/24 08:08) SWELLING, angioedema atenolol [ATENOLOL] Allergy (Intermediate, Verified 03/31/24 08:08) RASH dulaglutide [Trulicity] Allergy (Unknown, Verified 03/31/24 08:08) Unknown Do you need a note to return to daycare/school/sports/work: No HPI HPI Comments History of Present Illness Details History of Present Illness - The patient is a 63 year old female pr esenting with eye irritation and discharge x 2 days - She reports swelling and an irritating sensation in one of her eyes with a yellowish discharge. - No current vision changes are noted or pain but she does have irritation. - The patient has been using over-the-co unter medication for dry eyes, but will discontinue while using the prescribed ointment. - Symptoms appear to potentially be spre ading to the other eye. Physical Exam General: Cooperative, healthy appearing, comfortable, no acute distress and well developed Orientation: Patient oriented x3 Limitations: No limitations Head: Normal to inspection Ears: Hearing grossly normal bilaterally Nose: Normal Nxternal nose present Face and sinus: ormal facial exam Eyes: right eye, swollen upper eye lid, evidence of purulent/green discharge, slightly injected. EOM intact, PERRL. Left eye normal Neck: Normal visual inspection and Yes full ROM Respiratory: Normal respiratory effort and able to speak in complete sentences. Skin: No rashes or lesions noted Neuro: Patient oriented x3 Extremities: Normal to inspection [facility] Medical History Breast cancer screening by mammogram Trigeminal neuralgia of right side of face Hypertension Anxiety due to invasive procedure Family history of colon cancer Colon cancer screening Lower abdominal pain Microscopic hematuria Vulvovaginitis roseline albicans Well woman exam Cervical cancer screening Hypercholesterolemia SVT (supraventricular tachycardia) Obstructive sleep apnea Mixed incontinence urge and stress Thyroid nodule GERD (gastroesophageal reflux disease) Asthma COVID-19 Mild obstructive sleep apnea Cataracts, bilateral Migraine Seizure disorder Bipolar disorder Green's palsy Obesity (BMI 30-39.9) Type 2 diabetes mellitus with hyperglycemia Surgical History History of cone biopsy of uterine cervix History of tubal ligation History of cholecystectomy Family History Father Diabetes FH: prostate cancer CVD (cardiovascular disease) Mother Diabetes Hypertension Stroke CVD (cardiovascular disease) Sister Breast cancer Sister Breast cancer Sister Hypertension Daughter In good health Brother No problems noted. Brother No problems noted. Brother No problems noted. Sister Cervical cancer Social History Household Members: Other Household Members Other:: grandson Housing: House Do you presently have visiting nurse or other home services: Yes (tele visits) Alcohol intake: never Patient Tobacco Use Status: Never used Tobacco e-Cigarette/Vaping Use: Never Used Second Hand Smoke Exposure: No service: No Current occupational status: disabled Cognitive needs: No Hearing needs: No Vision needs: Yes Female Reproductive History Menstrual Age of Menarche: 12 Review of Systems Const All systems reviewed & are unremarkable except as noted in HPI and below Physical Exam Vital Signs: Last Vital Signs Pulse 85 03/31/24 08:08 BP 140/90 H 03/31/24 08:08 Pulse Ox 98 03/31/24 08:08 Oxygen Delivery Method Room Air 03/31/24 08:08 Assessment & Plan Assessment & Plan (1) Acute bacterial conjunctivitis: Code(s): H10.30 - Unspecified acute conjunctivitis, unspecified eye Qualifiers: Laterality: right Qualified Code(s): H10.31 - Unspecified acute conjunctivitis, right eye Plan: The diagnosis of bacterial conjunctivitis has been made based on the presented symptoms. A treatment plan involving erythromycin ointment, applied four times daily for seven days, has been established. Should changes in vision or eye pain arise, the patient is advised to seek further care with secretary book keeper or ED. The necessary prescription has been arranged for pickup at the specified pharmacy location. Patient was informed and verbally consented to the use of an ambient scribe for clinic note documentation during this visit. Medications: New erythromycin Apply to right eye 4 times a day while awake 0.5 inches ophthalmic-Right QID 3.5 grams 0RF Discontinued besifloxacin 0.6% administer doses at least 4 hours apart Discontinued Reason: Doctor's Order 1 drp ophthalmic (eye) TID 7 days 5 mL 0RF Coding Level of Care Code Est Pt Level 3 (70246) Diagnoses Acute bacterial conjunctivitis of right eye H10.31 Laterality: right
[2024-03-31 08:08] VITALS: BP 140/90; PULSE 85; O2SAT 98
== END 2024-03-31 09:12 | disposition home or self-care (01) ==
PROVIDERS: PCP Internal Medicine; Visit Provider Physician Assistant
DX: H10.31 Unspecified acute conjunctivitis, right eye (principal)

== ENCOUNTER → 2024-03-31 08:01 | Outpatient (BNVA) | payer OTHER, SELFPAY | PROVIDERS: PCP Internal Medicine; Visit Provider Physician Assistant | DX: H10.31 Unspecified acute conjunctivitis, right eye (principal) | CPT/HCPCS: 99212 ==

== ENCOUNTER 2024-04-13 08:36 | Outpatient (AMB) | payer OTHER, SELFPAY ==
[2024-04-13 09:06] VITALS: BP 128/90; PULSE 71; O2SAT 98; BMI 34.0
--- NOTE | 2024-04-13 09:06 | AM.OFFWIN_ITS ---
Intake Vital Signs 04/13/24 09:06 Height 5 ft 4 in Weight 198 lb BMI 34.0 BP 128/90 H Blood Pressure Location Rt brachial Position Sitting Pulse 71 Pulse Source Pulse Oximeter Pulse Oximetry (%) 98 Oxygen Delivery Method Room Air Intake Visit Reasons: EP LT Foot Pain/swelling Intake Note: Patient here for left leg pain that has been present for about 4 days. Patient Tobacco Use Status: Never used Tobacco Allergies clonidine [CLONIDINE] Allergy (Severe, Verified 04/13/24 09:08) DIZZY,FAINT levetiracetam [LEVETIRACETAM] Allergy (Severe, Verified 04/13/24 09:08) DIFFICULTY BREATHING lisinopril [LISINOPRIL] Allergy (Severe, Verified 04/13/24 09:08) SWELLING, angioedema atenolol [ATENOLOL] Allergy (Intermediate, Verified 04/13/24 09:08) RASH dulaglutide [Trulicity] Allergy (Unknown, Verified 04/13/24 09:08) Unknown Do you need a note to return to daycare/school/sports/work: No HPI HPI Comments History of Present Illness Details History of Present Illness The patient is a 63-year-old female presenting with left foot pain. The pain onset was four days ago and is described as sharp, predominantly nocturnal, and felt on the top of the foot progressing up the wisdom with concurrent swelling. The patient has no recent trauma or manipulation of the foot. There is no known history of thromboembolic events, no personal history of cancer, no recent long plane flights, she is not a smoker; however, there is a relevant family history of a clot in a sibling with no known provocation. No interventions have been attempted to date for her pain. The patient's medical history includes hypertension, diabetes mellitus, and hyperlipidemia. Physical Exam General: Cooperative, healthy appearing, comfortable, no acute distress and well developed Orientation: Patient oriented x3 Limitations: No limitations Head: Normal to inspection Ears: Hearing grossly normal bilaterally Nose: Normal external nose present Face and sinus: Normal facial exam Eyes: Appearance normal, both eyes and all related structures Neck: Normal visual inspection and Yes full ROM Respiratory: Normal respiratory effort and able to speak in complete sentences. Skin: no color changes or rashes noted Neuro: Patient oriented x3 Extremities: negative homans left leg, no swelling on lower leg, no skin color changes noted, see below for foot exam [facility] Medical History Breast cancer screening by mammogram Trigeminal neuralgia of right side of face Hypertension Anxiety due to invasive procedure Family history of colon cancer Colon cancer screening Lower abdominal pain Microscopic hematuria Vulvovaginitis roseline albicans Well woman exam Cervical cancer screening Hypercholesterolemia SVT (supraventricular tachycardia) Obstructive sleep apnea Mixed incontinence urge and stress Thyroid nodule GERD (gastroesophageal reflux disease) Asthma COVID-19 Mild obstructive sleep apnea Cataracts, bilateral Migraine Seizure disorder Bipolar disorder Green's palsy Obesity (BMI 30-39.9) Type 2 diabetes mellitus with hyperglycemia Surgical History History of cone biopsy of uterine cervix History of tubal ligation History of cholecystectomy Family History Father Diabetes FH: prostate cancer CVD (cardiovascular disease) Mother Diabetes Hypertension Stroke CVD (cardiovascular disease) Sister Breast cancer Sister Breast cancer Sister Hypertension Daughter In good health Brother No problems noted. Brother No problems noted. Brother No problems noted. Sister Cervical cancer Social History Household Members: Other Household Members Other:: grandson Housing: House Do you presently have visiting nurse or other home services: Yes (tele visits) Alcohol intake: never Patient Tobacco Use Status: Never used Tobacco e-Cigarette/Vaping Use: Never Used Second Hand Smoke Exposure: No service: No Current occupational status: disabled Cognitive needs: No Hearing needs: No Vision needs: Yes Female Reproductive History Menstrual Age of Menarche: 12 Review of Systems Const All systems reviewed & are unremarkable except as noted in HPI and below Physical Exam Vital Signs: Last Vital Signs Pulse 71 04/13/24 09:06 BP 128/90 H 04/13/24 09:06 Pulse Ox 98 04/13/24 09:06 Oxygen Delivery Method Room Air 04/13/24 09:06 BMI result Body Mass Index 34.0 Extrem Left lower extremity: foot Details: normal capillary refill, tenderness Location: of the dorsal foot, of the medial foot and of the mid foot, toes with normal ROM, edema Location: of the dorsal foot Location: medially, tendon exam Details: active flexion normal and active extension normal and motor-sensory exam Details: light-touch normal; no unusual warmth, no abrasions, no lacerations and no ecchymosis Assessment & Plan Assessment & Plan (1) Left foot pain: Code(s): M79.672 - Pain in left foot Plan: Wells Score for DVT is -2, therefore we will not get an US at this time. A potential stress fracture of the left foot is suspected, and an X-ray has been ordered for confirmation. The patient's pain and swelling indicate possible bone involvement, potentially exacerbated by existing risk factors such as a history that may suggest osteopenic tendencies. Following the radiological assessment, further management will be formulated. The urgency of imaging is conveyed, and the patient is directed accordingly, with instructions to return post-procedure for evaluation. Current treatment is deferred until findings are available to guide the next steps. My interpretation of the left foot x-ray is there is no fracture or dislocation therefore, I did Riccardo wrap the foot for the patient. I recommended she use the Riccardo wrap for the next 4-5 days and then as needed. I also recommended she rest of the foot, use ice and a leave for the next 3-4 days and then as needed. If her pain persists over the next couple of weeks, she should follow up with her PCP. Likely just a sprain with swelling noted. Patient was informed and verbally consented to the use of an ambient scribe for clinic note documentation during this visit. Orders: Orders XR foot LT min 3V Today M79.672 - Pain in left foot Coding Level of Care Code Est Pt Level 4 (64769) Diagnoses Left foot pain M79.672
== END 2024-04-13 10:17 | disposition home or self-care (01) ==
PROVIDERS: PCP Internal Medicine; Visit Provider Physician Assistant
DX: M79.672 Pain in left foot (principal)

== ENCOUNTER → 2024-04-13 09:47 | Outpatient (BNV) | payer OTHER, SELFPAY | PROVIDERS: PCP Internal Medicine; Visit Provider Radiology Diagnostic Radiology | DX: M20.22 Hallux rigidus, left foot (principal) | CPT/HCPCS: 73630 ==

== ENCOUNTER 2024-04-19 11:08 | Outpatient (AMB) | payer OTHER, SELFPAY ==
[2024-04-19 11:31] VITALS: BP 140/82; PULSE 78; O2SAT 97; BMI 33.6
--- NOTE | 2024-04-19 11:31 | A.OFFPC_ITS ---
Vital Signs 04/19/24 11:31 04/19/24 12:06 Height 5 ft 4 in Weight 196 lb BMI 33.6 BP 140/82 H 132/90 H Blood Pressure Location Lt brachial Lt brachial Position Sitting Sitting Pulse 78 Pulse Source Pulse Oximeter Pulse Oximetry (%) 97 Oxygen Delivery Method Room Air Intake Visit Reasons: Seizure, DM Allergies clonidine [CLONIDINE] Allergy (Severe, Verified 04/19/24 11:31) DIZZY,FAINT levetiracetam [LEVETIRACETAM] Allergy (Severe, Verified 04/19/24 11:31) DIFFICULTY BREATHING lisinopril [LISINOPRIL] Allergy (Severe, Verified 04/19/24 11:31) SWELLING, angioedema atenolol [ATENOLOL] Allergy (Intermediate, Verified 04/19/24 11:31) RASH dulaglutide [Trulicity] Allergy (Unknown, Verified 04/19/24 11:31) Unknown Tobacco use date assessed: 04/19/24 Dental Screening Dental Screen Date: 04/19/24 Did you have a dental visit in the last 12 months?: Yes Did you have a dental problem in the last 6 months where you did not have access to dental care?: No Was dental information given to patient?: Patient has dentist HPI Seizure, DM HPI Details The patient is a 63-year-old female presenting with left foot pain and inflammation. She reported the onset of symptoms approximately nine days ago, leading her to seek care at an urgent care facility in [place]. An X-ray was performed, revealing significant inflammation, but the etiology remains unclear as the patient denies any preceding trauma. The pain is localized to the dorsal aspect of the left foot, described as a worsening pressure sensation adelaide to a tourniquet effect, with increased severity upon palpation. The foot swelling impedes her ability to wear shoes comfortably. She reports insufficient relief from current management, which did not include medications at urgent care. Peripheral pulses in the left extremity were confirmed as adequate. Additionally, the patient is undergoing diabetes management with a noted high but improving Hemoglobin A1c. Her blood pressure remains variably elevated, with current measurements showing 132/80 mmHg today. There's a concurrent need to assess the possibility of a venous thromboembolism to exclude a differential diagnosis of deep vein thrombosis, hence the arrangement for an ultrasound. In previous evaluations, the patient was informed of arthritis presence, cont ributing to her overall lower extremity discomfort. Neuropathy and poorly controlled obesity further complicate her diabetic control, which is being managed with medication adjustments including Mounjaro and glipizide. The patient is also identified to have hypertension regulated with amlodipine and carvedilol. An EEG has been scheduled but delayed due to availability constraints. [facility] Medical History Breast cancer screening by mammogram Trigeminal neuralgia of right side of face Hypertension Anxiety due to invasive procedure Family history of colon cancer Colon cancer screening Lower abdominal pain Microscopic hematuria Vulvovaginitis roseline albicans Well woman exam Cervical cancer screening Hypercholesterolemia SVT (supraventricular tachycardia) Obstructive sleep apnea Mixed incontinence urge and stress Thyroid nodule GERD (gastroesophageal reflux disease) Asthma COVID-19 Mild obstructive sleep apnea Cataracts, bilateral Migraine Seizure disorder Bipolar disorder Green's palsy Obesity (BMI 30-39.9) Type 2 diabetes mellitus with hyperglycemia Surgical History History of cone biopsy of uterine cervix History of tubal ligation History of cholecystectomy Family History Father Diabetes FH: prostate cancer CVD (cardiovascular disease) Mother Diabetes Hypertension Stroke CVD (cardiovascular disease) Sister Breast cancer Sister Breast cancer Sister Hypertension Daughter In good health Brother No problems noted. Brother No problems noted. Brother No problems noted. Sister Cervical cancer Social History Household Members: Other Household Members Other:: grandson Housing: House Do you presently have visiting nurse or other home services: Yes (tele visits) Alcohol intake: never Patient Tobacco Use Status: Never used Tobacco Tobacco use type: Cigarette e-Cigarette/Vaping Use: Never Used Second Hand Smoke Exposure: No service: No Current occupational status: disabled Cognitive needs: No Hearing needs: No Vision needs: Yes Female Reproductive History Menstrual Age of Menarche: 12 Questionnaire PHQ-9 Over the last 2 weeks, how often have you been bothered by any of the following problems? 1. Little interest or pleasure in doing things: several days 2. Feeling down, depressed, or hopeless: several days 3. Trouble falling or staying asleep, or sleeping too much: several days 4. Feeling tired or having little energy: several days 5. Poor appetite or overeating: not at all 6. Feeling bad about yourself - or that you are a failure or have let yourself or your family down: several days 7. Trouble concentrating on things, such as reading the newspaper or watching television: several days 8. Moving or speaking so slowly that other people could have noticed. Or the opposite - being so fidgety or restless that you have been moving around a lot more than usual: not at all 9. Thoughts that you would be better off or of hurting yourself in some way: not at all Total score: 6 Depression Screening Interpretation: Positive Depression Screening Done: Yes Source: Developed by Drs. Fercho Ying, Rama Daniels, Feliz Hood and colleagues, with an educational yong from [employer]. Thrive Questionnaire Date Thrive assessed: 04/19/24 I am a: Patient What is your living situation today?: I have a steady place to live Within the past 12 months, did the food you bought not last and you didn't have the money to get more?: Never true Within the past 12 months, did you worry whether your food would run out before you got money to buy more?: Never true Do you have trouble paying for medicines?: No Do you have trouble getting transportation to medical appointments?: No Do you have trouble paying your heating and electricity bill?: No Do you have trouble taking care of your child, family member or friend?: No Do you have trouble with day-to-day activities such as bathing, preparing meals, shopping, managing finances, etc.?: No Are you currently unemployed and looking for a job?: No Are you interested in more education?: No Currently or been in a relationship where the following occur: No concerns reported THRIVE Score: 0 AUDIT C Alcohol Use Questionnaire (AUDIT-C) 1. How often do you have a drink containing alcohol?: Never 2. How many drinks containing alcohol do you have on a typical day when you are drinking?: 1 or 2 3. How often do you have six or more drinks on one occasion?: Never Total Score: 0 SANDRA-7 AMB Questionnaire SANDRA-7 Date SANDRA - 7 assessed: 04/19/24 Feeling nervous, anxious, or on edge: 0 = Not at all Not being able to stop or control worryin = Not at all Worrying too much about different things: 0 = Not at all Trouble relaxin = Not at all Being so restless that it is hard to sit still: 0 = Not at all Becoming easily annoyed or irritable: 0 = Not at all Feeling afraid as if something awful might happen: 0 = Not at all Total SANDRA-7 score (0-4 normal; 5-9 mild; 10-14 moderate; 15-21 severe): 0 Source: Developed by Drs. Fercho Ying, Rama Daniels, Feliz Hood and colleagues, with an educational yong from [employer]. Physical exam (Primary Care) Vital Signs: Last Vital Signs Pulse 78 04/19/24 11:31 BP 132/90 H 04/19/24 12:06 Pulse Ox 97 04/19/24 11:31 Oxygen Delivery Method Room Air 04/19/24 11:31 BMI result Body Mass Index 33.6 Tobacco/Smoking Status: Tobacco use Status Tobacco use date assessed 04/19/24 04/19/24 11:33 Patient Tobacco Use Status Never used Tobacco 04/19/24 11:33 Tobacco use type Cigarette 04/19/24 11:33 e-Cigarette/Vaping Use Never Used 04/19/24 11:33 PHQ-9: PHQ-9 Score PHQ-9: Total score 6 04/19/24 12:12 Depression Screening Interpretation: Positive Thrive Assessment: Date of Thrive Assessment Date Thrive assessed 04/19/24 04/19/24 11:33 Currently or been in a relationship where the following occur: No concerns reported Const General: alert; No acute distress Eyes Conjunctivae: conjunctivae normal Resp Auscultation: clear to auscultation bilaterally Cardio Rate: regular rate Rhythm: regular rhythm GI Inspection: Yes normal to inspection Extrem Other: 1+edema L leg, no redness, tender on the dorsum of foot. pulse is good General: Yes edema Coding Level of Care Code Est Pt Level 4 (20650) Complex EM visit Add On G2211 Diagnoses Type 2 diabetes mellitus with hyperglycemia, with long-term current use of insulin E11.65; Z79.4 Diabetes mellitus prison insulin use: with intermediate card tender use Bipolar disorder, current episode mixed, moderate F31.62 Active/Remission status: currently active Current bipolar episode type: mixed Current episode severity: moderate Hypercholesterolemia E78.00 Mild intermittent asthma with acute exacerbation J45.21 Asthma complication type: with acute exacerbation Asthma persistence: intermittent Asthma severity: mild Obesity (BMI 30-39.9) E66.9 Essential hypertension I10 Hypertension type: essential hypertension Seizure disorder G40.909 Left foot pain M79.672 Left leg swelling M79.89 Assessment & Plan Assessment & Plan (1) Type 2 diabetes mellitus with hyperglycemia: Comment: Dr. Bernard eye Code(s): E11.65 - Type 2 diabetes mellitus with hyperglycemia Category: Medical Qualifiers: Diabetes mellitus prison insulin use: with prison use Qualified Code(s): E11.65 - Type 2 diabetes mellitus with hyperglycemia; Z79.4 - USP (current) use of insulin Plan: Decrease the amount of carbohydrate intake, pasta, bread, rice and potatoes are all sugar and that is aside from all the sweet stuff, remember that fruits are good but they are Sweet also. Through his appetite increased to 7.5 mg once a week. (2) Bipolar disorder: Comment: decline referral for counselling Code(s): F31.9 - Bipolar disorder, unspecified Category: Medical Qualifiers: Active/Remission status: currently active Current bipolar episode type: mixed Current episode severity: moderate Qualified Code(s): F31.62 - Bipolar disorder, current episode mixed, moderate (3) Hypercholesterolemia: Code(s): E78.00 - Pure hypercholesterolemia, unspecified Category: Medical Plan: Avoid fried foods, chicken skin, eggs, butter margarine, pastries and meat. Be it pork or beef they have a lot of cholesterol on rosuvastatin 5 mg once a day (4) Asthma: Code(s): J45.909 - Unspecified asthma, uncomplicated Category: Medical Qualifiers: Asthma complication type: with acute exacerbation Asthma persistence: intermittent Asthma severity: mild Qualified Code(s): J45.21 - Mild intermittent asthma with (acute) exacerbation Plan: Continue with albuterol inhaler as needed. On Advair and advised to rinse mouth after using it. (5) Obesity (BMI 30-39.9): Code(s): E66.9 - Obesity, unspecified Category: Medical Plan: Diet and exercise (6) Hypertension: Code(s): I10 - Essential (primary) hypertension Category: Medical Qualifiers: Hypertension type: essential hypertension Qualified Code(s): I10 - Esse ntial (primary) hypertension Plan: Continue with blood pressure medication. Decrease salt intake and exercise continue with amlodipine 5 mg once a day spironolactone hydrochlorothiazide once a day and hydralazine 25 mg 3 times a day. Carvedilol is increased to 18.75 mg twice a day for the blood pressure is not controlled. (7) Seizure disorder: Code(s): G40.909 - Epilepsy, unspecified, not intractable, without status epilepticus Category: Medical Plan: Stable (8) Left foot pain: Code(s): M79.672 - Pain in left foot Category: Medical Plan: X-ray was done showing degenerative changes of the bones and joints. Was advised to use diclofenac gel (9) Left leg swelling: Code(s): M79.89 - Other specified soft tissue disorders Category: Medical Plan: Ordered for an ultrasound stat to check for DVT Plan 1. 75 mg: - Continue diabetes management, with consideration to trial an increased dose of Mounjaro if tolerable by the patient, and monitor response to glipizide 10 mg daily. - Monitor blood glucose levels using a [employer] Pvtstyle monitor, with prescriptions accommodating sufficient sensor availability. - Encourage consistent follow-up with endocrinology to ensure optimal management of diabetes and obesity-related complications. - Schedule a follow-up appointment in three months for reevaluation and adjustment of management strategies. Orders: Orders US venous duplex LE LT Today M79.89 - Other specified soft tissue disorders Medications: New diclofenac sodium 1% (Arthritis Pain (diclofenac)) apply to single knee, ankle, foot; for foot includes sole/toes/top of foot 4 grams topical QID 400 grams 0RF M79.672 - Pain in left foot Changed From carvedilol 12.5 mg PO BID 30 days 60 tabs 3RF I10 - Essential (primary) hypertension To carvedilol 18.75 mg (1.5 x 12.5 mg) PO BID 90 tabs 3RF 30 days I10 - Essential (primary) hypertension From Mounjaro (tirzepatide) 5 mg (0.5 mL) subcut QWEEK 2 mL 3RF NS E11.65 - Type 2 diabetes mellitus with hyperglycemia, Z79.4 - intermediate card tender (current) use of insulin To tirzepatide 7.5 mg (0.5 mL) subcut QWEEK 2.5 mL 3RF 30 days E11.65 - Type 2 diabetes mellitus with hyperglycemia, Z79.4 - intermediate card tender (current) use of insulin Refilled FreeStyle Archana 2 Sensor (flash glucose sensor) As directed 6 ea 3RF NS E11.65 - Type 2 diabetes mellitus with hyperglycemia, Z79.4 - intermediate card tender (current) use of insulin
[2024-04-19 12:06] VITALS: BP 132/90
--- OUTSIDE RECORDS SUMMARY | 2024-04-19 12:44 | XMS_ITS | Clinical Summary ---
Author Organization [facility] Address [address] [place] [address] Care Team Providers Care Reinsurance Claims Analyst Name Role Phone Unavailable Primary Care Provider Unavailabl e Social History Tobacco Use Types Packs/Day Years Used Date Smoking Tobacco: Never Assessed Sex and Gender Information Value Date Recorded Sex Assigned at Not on file Gender Identity Not on file Sexual Orientation Not on file Plan of Treatment Health Maintenance Due Date Last Done Comments Hepatitis C Virus Screening 1960 HIV Screening 1973 DTaP/Tdap/Td Vaccines (1 - Tdap) 11/10/1979 Pneumococcal Vaccines 50+ (1 of 1 - PCV) 2010 Zoster (Shingles) Vaccine (1 of 2) 2010 COVID-19 Vaccine ( - 2023-2 5 season) 2023 RSV Vaccine 60 years and old er and Patients (1 - 1-dose 75+ series) 11/10/2035 Hepatitis B Vaccines Aged Out No long er eligible based on patient's age to complete this topic Pneumococcal Vaccine: Pediat halima (0-5 Years) and At-Risk Patients (6 to 49 Years) Aged Out No longer eligible b ased on patient's age to complete this topic
--- OUTSIDE RECORDS SUMMARY | 2024-04-19 12:44 | XMS_ITS | Clinical Summary ---
Author Organization [facility] Address [address] [facility] [address] [place] [address] Care Team Providers Care Election Clerk Name Role Phone Unavailable Primary Care Provider Unavailabl e Allergies Active Allergy Reactions Criticality Noted Date Comments Lisinopril Hives 03/20/2022 Medications No known medications Social History Tobacco Use Types Packs/Day Years Used Date Smoking Tobacco: Never Passive Smoke Exposure: Never Smokeless Tobacco: Never Tobacco Cessation:Counseling Given: No Alcohol Use Standard Drinks/Week Comments Never 0 (1 standard drink = 0.6 oz pur e alcohol) Comments Unknown Sex and Gender Information Value Date Recorded Sex Assigned at Female 01/26/2022 10:16 AM EDT Legal Sex Female 10:16 AM EDT Gender Identity Female 03/20/2022 8:48 AM EST Sexual Orientation Choose not to disclose 2022 2:55 PM EST Plan of Treatment Health Maintenance Due Date Last Done Comments CT Colonography 1960 Colonoscopy 1960 Colorectal Cancer Screening 1960 Dental Oral Exam 1960 Dental Prophylaxis 1960 Dental X-Ray: Bitewings 1960 Depression Screening 1960 FIT DNA/Cologuard 1960 FIT 1960 FOBT 1960 HIV Screening 1960 Lipid Panel 1960 SDOH Screening 1960 Sigmoidoscopy 1960 Alcohol/Substance Use Screening 1972 Hepatitis C Screening 1978 Pap Smear 1981 Cervical Cancer Screening 1990 HPV/Cotest 1990 Mammogram 2000 Zoster Vaccines (1 of 2) 2010 Pneumococcal Vaccine: Pediatrics (0 to 5 Years) and At-Risk Patients (6 to 64 Years) (2 of 2 - PCV) 04/20/2017 04/20/2016 RSV Patients and Patients Aged 60 years or older (1 - Risk 60-74 years 1-dose series) 2020 Tobacco Screening 03/20/2023 03/20/2022 COVID-19 Vaccine (3 - season) 2023 05/31/2020, 05/10/2020 Influenza Vaccine (#1) 2023 9, 12/16/2016, 12/20/2015, Additional history exists Dental X-Ray: Full Mouth 03/21/2025 03/20/2022 DTaP/Tdap/Td Vaccines (2 - Td or Tdap) 09/24/2027 09/23/2017 HIB Vaccines Aged Out No longer eligi ble based on patient's age to complete this topic HPV Vaccines Aged Out No longer eligi ble based on patient's age to complete this topic Hepatitis A Vaccines Aged Out No long er eligible based on patient's age to complete this topic Hepatitis B Vaccines Aged Out No long er eligible based on patient's age to complete this topic IPV Vaccines Aged Out No longer eligi ble based on patient's age to complete this topic Meningococcal Vaccine Aged Out No carlos tremaine eligible based on patient's age to complete this topic RSV under 20 months Aged Out No longe r eligible based on patient's age to complete this topic Rotavirus Vaccines Aged Out No longer eligible based on patient's age to complete this topic Procedures Procedure Name Priority Date/Time Associated Diagnosis Comments PANORAMIC RADIOGRAPHIC IMAGE Routine 03/20/2022 9:30 AM EST from Last 3 Months or Most Recently Relevant to Health Maintenance [facility] ST[facility] AD[facility]
--- OUTSIDE RECORDS SUMMARY | 2024-04-19 12:45 | XMS_ITS | Clinical Summary ---
Author Organization [facility] Address [address] [place] [address] [address] [place] [address] Phone Care Team Providers Care Drilling Machine Runner Name Role Phone Bijan Daigle MD Primary Care Provider [phone] Allergies Active Allergy Reactions Criticality Noted Date Comments Amlodipine Other (see comments) 05/24/2020 Atenolol 07/16/2022 Clonidine Other (see comments) 05/24/2020 Clonidine Hcl 07/16/2022 Dulaglutide 07/16/2022 Levetiracetam 07/16/2022 Lisinopril Other (see comments) 05/24/2020 Medications albuterol HFA (PROVENTIL HFA;VENTOLIN HFA) 108 (90 Base) MCG/ACT inhaler 2 puffs by Other route every 4 (four) hours Active aspirin (ST SUZAN) 81 MG EC tablet Take 1 tablet by mouth 1 (one) time each day Active amLODIPine (NORVASC) 5 MG tablet Take 5 mg by mouth 1 (one) time each day 1 Active HumaLOG KWIKPEN 100 UNIT/ML solution pen-injector 1 Active buPROPion SR (WELLBUTRIN SR) 150 MG 12 hr tablet Take 150 mg by mouth at bed time 2 Active carvedilol (COREG) 12.5 MG tablet Take 12.5 mg by mouth 2 Active Tresiba FlexTouch 100 UNIT/ML injection 35 Units 2 (two) times a day 2 Active metFORMIN (GLUCOPHAGE) 500 MG tablet Take 1,000 mg by mouth in the morning and 1,000 mg in the evening. 2 Active spironolactone (ALDACTONE) 25 MG tablet Take 25 mg by mouth 1 (one) time each day Active fluticasone (VERAMYST) 27.5 MCG/SPRAY nasal spray Administer 2 sprays into each nostril 1 (one) time each day Active hydrALAZINE 25 MG tablet Take 25 mg by mouth in the morning and 25 mg in the evening and 25 mg before bedtime. Active naproxen (NAPROSYN) 500 MG tablet Take 500 mg by mouth in the morning and 500 mg in the evening. Take with meals. Active cyclobenzaprine (FLEXERIL) 10 MG tablet Take 10 mg by mouth 3 (three) times a day if needed for muscle spasms Active acetaminophen (TYLENOL) 325 MG tablet Take by mouth every 6 (six) hours if needed for mild pain Active gabapentin (NEURONTIN) 300 MG capsule Take 300 mg by mouth in the morning and 300 mg in the evening and 300 mg before bedtime. Active diazePAM (Valium) 2 MG tablet Take 2 mg by mouth every 8 (eight) hours if needed for anxiety Active Active Problems Problem Noted Date Diagnosed Date Hypertensive disorder 05/24/2020 Family History Medical History Relation Comments Diabetes Father Diabetes Mother Hypertension Mother Hypertension Sibling 2 sisters Relation Status Comments Father Mother Alive Sibling Social History Tobacco Use Types Packs/Day Years Used Date Smoking Tobacco: Never Smokeless Tobacco: Never Alcohol Use Standard Drinks/Week Comments No 0 (1 standard drink = 0.6 oz pur e alcohol) Comments Unknown Sex and Gender Information Value Date Recorded Sex Assigned at Not on file Legal Sex Female 4:42 PM EST Gender Identity Not on file Sexual Orientation Not on file Last Filed Vital Signs Vital Sign Reading Time Taken Comments Blood Pressure 122/82 08/13/2022 3:18 PM EDT Pulse 81 08/13/2022 3:18 PM EDT Temperature - - Respiratory Rate - - Oxygen Saturation 97% 08/13/2022 3:18 PM EDT Inhaled Oxygen Concentration - - Weight 88.9 kg (196 lb) 08/13/2022 3:18 PM EDT Height 162.6 cm (5' 4 ) 08/13/2022 3:18 PM EDT Body Mass Index 33.64 08/13/2022 3:18 PM EDT Plan of Treatment Health Maintenance Due Date Last Done Comments Breast Cancer Screening 1960 Pneumococcal Vaccine: Pediat rics (0 to 5 Years) and At-Risk Patients (6 to 64 Years) (1 of 2 - PCV) 1966 Colorectal Cancer Screening: Annual FOBT 2009 Colorectal Cancer Screening: Colonoscopy 2009 Colorectal Cancer Screening: Sigmoidoscopy 2009 Influenza Vaccine (#1) 2023 Hepatitis B Vaccine Aged Out No longe r eligible based on patient's age to complete this topic Insurance [facility] MEDICAID [facility] MEDICAID Care Teams Drilling Machine Runner Relationship Specialty Start Date End Date Bijan Daigle MD [address] [place], [place] PCP - General 04/08/20
--- OUTSIDE RECORDS SUMMARY | 2024-04-19 12:45 | XMS_ITS | Encounter Summary ---
Author Organization [facility] [employer] Address [address] [place] [address] Care Team Providers Care Medical Typist Name Role Phone Unavailable Primary Care Provider Unavailabl e Encounter Details Date Type Department Care Team (Late st Contact Info) Description 04/19/2024 Lab [facility] Neurodiagnostic [address] [place] [phone] Radha Palafox MD [address] [place] [address] [facility] [place] [address] Epilepsy, unspecified, not intractable, without status epilepticus (CMS/HCC) Social History Tobacco Use Types Packs/Day Years Used Date Smoking Tobacco: Never Assessed Sex and Gender Information Value Date Recorded Sex Assigned at Not on file Gender Identity Not on file Sexual Orientation Not on file documented as of this encounter Plan of Treatment Upcoming Encounters Date Type Department Care Team (Late st Contact Info) Description 07/05/2024 10:00 AM EDT Appointment [facility] Neurodiagnostic [address] [place] [phone] 07/06/2024 10:00 AM EDT Appointment [facility] Neurodiagnostic [address] [place] [phone] 07/07/2024 10:00 AM EDT Appointment [facility] Neurodiagnostic [address] [place] [phone] documented as of this encounter Visit Diagnoses Diagnosis Epilepsy, unspecified, not intractable, without status epilepticus (CMS/HCC) documented in this encounter Orders Neurology Count Last Ordered Date First Orde red Date CONTINUOUS EEG 1 04/19/2024 documented in this encounter
--- OUTSIDE RECORDS SUMMARY | 2024-04-19 12:45 | XMS_ITS | Encounter Summary ---
Author Organization [facility] Address [address] [place] [address] Phone Care Team Providers Care Data Analyst Report Writer Name Role Phone Bijan Daigle MD Primary Care Provider Encounter Details Date Type Department Care Team (Late st Contact Info) Description 08/25/2022 Documentation Only [facility] [address] [place] [address] Margarita Penny Social History Tobacco Use Types Packs/Day Years [...] as of this encounter Plan of Treatment Not on file documented as of this encounter Visit Diagnoses Not on filedocumented in this encounter Care Teams Data Analyst Report Writer Relationship Specialty Start Date End Date Bijan Daigle MD [facility] [address] [place], [place] PCP - General 04/08/20 documented as of this encounter
--- OUTSIDE RECORDS SUMMARY | 2024-04-19 12:45 | XMS_ITS | Encounter Summary ---
Author Organization [employer] Address [address] [place] [address] Care Team Providers Care Developer Designer Name Role Phone Unavailable Primary Care Provider Unavailabl e Encounter Details Date Type Department Care Team (Late st Contact Info) Description 04/18/[address] [facility] [address] [place] [phone] Radha Palafox MD [address] [place] [address] [facility] [place] [address] Epilepsy, unspecified, not intractable, without status epilepticus [...] Info) Description 07/05/2024 10:[address] [facility] [address] [place] [phone] 07/06/2024 10:[address] [facility] [address] [place] [phone] 07/07/2024 10:[address] [facility] [address] [place] [phone] documented as of this encounter Visit Diagnoses Diagnosis Epilepsy, unspecified, not intractable, without status epilepticus (CMS/HCC) documented in this encounter Orders Neurology Count Last Ordered Date First Orde red Date CONTINUOUS EEG 1 04/15/2024 documented in this encounter
--- OUTSIDE RECORDS SUMMARY | 2024-04-19 12:45 | XMS_ITS | Clinical Summary ---
Author Organization [employer] [facility] Address [address] [place] [address] Care Team Providers Care Lpn Private Duty Name Role Phone Unavailable Primary Care Provider Unavailabl e Encounters Date Type Department Care Team Description 04/19/2024 [facility] [address] [place] [phone] Radha Palafox MD Epilepsy, unspecified, not intractable, without status epilepticus (CMS/HCC) 04/18/2024 [facility] [address] [place] [phone] Radha Palafox MD Epilepsy, unspecified, not intractable, without status epilepticus (CMS/HCC) 04/17/2024 [facility] [address] [place] [phone] Radha Palafox MD Epilepsy, unspecified, not intractable, without status epilepticus (CMS/HCC) from Last 3 Months Social History Tobacco Use Types Packs/Day Years Used Date Smoking Tobacco: Never Assessed Sex and Gender Information Value Date Recorded Sex Assigned at Not on file Gender Identity Not on file Sexual Orientation Not on file Plan of Treatment Upcoming Encounters Date Type Department Care Team (Late st Contact Info) Description 07/05/2024 10:00 AM EDT Appointment [facility] [address] [place] [phone] 07/06/2024 10:00 AM EDT Appointment [facility] [address] [place] [phone] 07/07/2024 10:00 AM EDT Appointment [facility] [address] [place] [phone] Health Maintenance Due Date Last Done Comments Breast Cancer Screening 1960 DTaP,Tdap,and Td Vaccines (1 - Tdap) 11/10/1979 Cervical Cancer Screening: P ap Smear 1981 Zoster Vaccines (1 of 2) 2010 COVID-19 Vaccine (1 - 2023-2 5 season) 2023 Influenza Vaccine (#1) 2023 Colorectal Cancer Screening: Colonoscopy 04/14/2024 Depression Screening 04/14/2024 HIV Screening 04/14/2024 Hepatitis C Screening 04/14/2024 Social Influencers of Health Screening 04/14/2024 RSV Immunization Patients 60 + Years Old (1 - 1-dose 75+ series) 11/10/2035 HIB Vaccines Aged Out No longer eligi [...] on patient's age to complete this topic MMR Vaccines Aged Out No longer eligi ble based on patient's age to complete this topic Meningococcal ACWY Vaccine Aged Out N o longer eligible based on patient's age to complete this topic Pneumococcal Vaccine: Pediat rics (0 to 5 Years) and At-Risk Patients (6 to 64 Years) Aged Out No longer eligible b ased on patient's age to complete this topic RSV Immunization Patients Un elizabeth 20 months Aged Out No longer eligible b ased on patient's age to complete this topic Varicella Vaccines Aged Out No longer eligible based on patient's age to complete this topic
--- OUTSIDE RECORDS SUMMARY | 2024-04-19 12:46 | XMS_ITS | Encounter Summary ---
Author Organization [employer] Address [address] [place] [address] Care Team Providers Care Machine Design Engineer Name Role Phone Unavailable Primary Care Provider Unavailabl e Encounter Details Date Type Department Care Team (Late st Contact Info) Description 04/17/2024 Lab [facility] Neurodiagnostic [address] [place] [phone] Radha Palafox MD [address] [place] [address] [facility] [place] [address] Epilepsy, unspecified, not intractable, without status epilepticus [...] Info) Description 07/05/2024 10:00 AM EDT Appointment [facility] [address] [place] [phone] 07/06/2024 10:00 AM EDT Appointment [facility] [address] [place] [phone] 07/07/2024 10:00 AM EDT Appointment [facility] [address] [place] [phone] documented as of this encounter Visit Diagnoses Diagnosis Epilepsy, unspecified, not intractable, without status epilepticus (CMS/HCC) documented in this encounter Orders Neurology Count Last Ordered Date First Orde red Date CONTINUOUS EEG 1 04/15/2024 documented in this encounter
== END 2024-04-19 12:13 | disposition home or self-care (01) ==
PROVIDERS: PCP Internal Medicine; Visit Provider Internal Medicine
DX: E11.65 Type 2 diabetes mellitus with hyperglycemia (principal); Z79.4 Long term (current) use of insulin; F31.62 Bipolar disorder, current episode mixed, moderate; G40.909 Epilepsy, unspecified, not intractable, without status epilepticus; E78.00 Pure hypercholesterolemia, unspecified; J45.21 Mild intermittent asthma with (acute) exacerbation; E66.9 Obesity, unspecified; I10 Essential (primary) hypertension; M79.672 Pain in left foot; M79.89 Other specified soft tissue disorders

== ENCOUNTER → 2024-04-19 11:08 | Outpatient (BNVA) | payer OTHER, SELFPAY | PROVIDERS: PCP Internal Medicine; Visit Provider Internal Medicine | DX: E11.65 Type 2 diabetes mellitus with hyperglycemia (principal); F31.62 Bipolar disorder, current episode mixed, moderate; E78.00 Pure hypercholesterolemia, unspecified; J45.21 Mild intermittent asthma with (acute) exacerbation; E66.9 Obesity, unspecified; I10 Essential (primary) hypertension; G40.909 Epilepsy, unspecified, not intractable, without status epilepticus; M79.672 Pain in left foot; M79.89 Other specified soft tissue disorders; Z79.4 Long term (current) use of insulin | CPT/HCPCS: 99212 ==

== ENCOUNTER 2024-04-21 16:25 | Outpatient (REF) | payer OTHER, SELFPAY ==
--- NOTE | ~2024-04-21 | US_ITS ---
EXAMINATION: US TRIPLEX LOWER EXTREMITY, LEFT CLINICAL INFORMATION: Left leg swelling. COMPARISON: None available. TECHNIQUE: Color-flow triplex imaging with spectral analysis and compression Doppler were performed on the left lower extremity. FINDINGS: Respiratory variation, normal compression and augmented flow are noted throughout the left lower extremity. The visualized common femoral vein, superficial femoral vein, profunda femoral vein, popliteal vein and midcalf peroneal and posterior tibial venous segments show no evidence of deep venous thrombosis. There is no Mcleod's cyst. US/US venous duplex LE LT IMPRESSION: No evidence of deep venous thrombosis involving the left lower extremity. Electronically signed by: Erik Burkett MD 04/24/2024 07:17 AM EST
--- OUTSIDE RECORDS SUMMARY | 2024-04-21 16:45 | XMS_ITS | Encounter Summary ---
Author Organization [facility] Address [address] [place] [address] Phone Care Team Providers Care Outsole Tacker Name Role Phone Bijan Daigle MD Primary Care Provider [phone] Encounter Details Date Type Department Care Team (Late st Contact Info) Description 08/25/2022 Documentation Only [facility] [address] [place] [address] Margarita Penny Social History Tobacco [...] on filedocumented in this encounter Care Teams Outsole Tacker Relationship Specialty Start Date End Date Bijan Daigle MD [facility] [address] [place], [place] PCP - General 04/08/20 documented as of this encounter
--- OUTSIDE RECORDS SUMMARY | 2024-04-21 16:45 | XMS_ITS | Encounter Summary ---
Author Organization [employer] Address [address] [place] [address] Care Team Providers Care Relaster Name Role Phone Unavailable Primary Care Provider Unavailabl e Encounter Details Date Type Department Care Team (Late st Contact Info) Description 04/19/2024 Lab [facility]diagnostic [address] [place] [phone] Radha Palafox MD [address] [place] [address] [facility] [place] [address] Epilepsy, unspecified, not intractable, without status epilepticus [...] Info) Description 07/05/2024 10:00 AM EDT Appointment [facility] [address] [place] [phone] 07/06/2024 10:00 AM EDT Appointment [facility] [address] [place] [phone] 07/07/2024 10:00 AM EDT Appointment [facility] [address] [place] [phone] documented as of this encounter Visit Diagnoses Diagnosis Epilepsy, unspecified, not intractable, without status epilepticus (CMS/HCC) documented in this encounter Orders Neurology Count Last Ordered Date First Orde red Date CONTINUOUS EEG 1 04/19/2024 documented in this encounter
--- OUTSIDE RECORDS SUMMARY | 2024-04-21 16:45 | XMS_ITS | Clinical Summary ---
Author Organization [facility] Address [address] [place] [address] Care Team Providers Care Supervisor Blood Donor Recruiters Name Role Phone Unavailable Primary Care Provider [...]
--- OUTSIDE RECORDS SUMMARY | 2024-04-21 16:45 | XMS_ITS | Clinical Summary ---
Author Organization [facility] Address [address] [place] [address] Care Team Providers Care Addresser Name Role Phone Unavailable Primary Care Provider [...] Most Recently Relevant to Health Maintenance Insurance [facility] MED[facility] STAND ADULT
--- OUTSIDE RECORDS SUMMARY | 2024-04-21 16:45 | XMS_ITS | Clinical Summary ---
Author Organization [employer] [facility] Address [address] [place] [address] Care Team Providers Care Sugar Trucker Name Role Phone Unavailable Primary Care Provider Unavailabl e Encounters Date Type Department Care Team Description 04/19/2024 [facility]diagn[facility] [address] [place] [phone] Radha Palafox MD Epilepsy, unspecified, not intractable, without status epilepticus (CMS/HCC) 04/18/2024 [facility] [address] [place] [phone] Radha Palafox MD Epilepsy, unspecified, not intractable, without status epilepticus (CMS/HCC) 04/17/2024 [facility] [address] [place] [phone] Radha Palafox MD Epilepsy, unspecified, not intractable, [...] Info) Description 07/05/2024 10:00 AM EDT Appointment [facility]diagnostic [address] [place] [phone] 07/06/2024 10:00 AM EDT Appointment [facility] [address] [place] [phone] 07/07/2024 10:00 AM EDT Appointment [facility] [address] [place] [phone] Health Maintenance Due Date Last Done Comments [...]
--- OUTSIDE RECORDS SUMMARY | 2024-04-21 16:45 | XMS_ITS | Encounter Summary ---
Author Organization [employer] Address [address] [place] [address] Care Team Providers Care Geospatial Image Analyst Name Role Phone Unavailable Primary Care Provider Unavailabl e Encounter Details Date Type Department Care Team (Late st Contact Info) Description 04/18/2024 Lab [facility]diagn[facility] [address] [place] [phone] Radha Palafox MD [address] [place] [address] [facility] [place] [address] Epilepsy, unspecified, not intractable, without status epilepticus [...] Info) Description 07/05/2024 10:00 AM EDT Appointment [facility] [address] [place] [phone] 07/06/2024 10:00 AM EDT Appointment [facility] [address] [place] [phone] 07/07/2024 10:00 AM EDT Appointment [facility] [address] [place] [phone] documented as of this encounter Visit Diagnoses Diagnosis Epilepsy, unspecified, not intractable, without status epilepticus (CMS/HCC) documented in this encounter Orders Neurology Count Last Ordered Date First Orde red Date CONTINUOUS EEG 1 04/15/2024 documented in this encounter
--- OUTSIDE RECORDS SUMMARY | 2024-04-21 16:45 | XMS_ITS | Encounter Summary ---
Author Organization [employer] Address [address] [place] [address] Care Team Providers Care Bus Inspector Name Role Phone Unavailable Primary Care Provider Unavailabl e Encounter Details Date Type Department Care Team (Late st Contact Info) Description 04/17/2024 Lab [facility]diagnostic [address] [place] [phone] Radha Palafox MD [address] [place] [address] [facility] [place] [address] Epilepsy, unspecified, not intractable, without status epilepticus [...] Info) Description 07/05/2024 10:00 AM EDT Appointment [facility] [address] [place] [phone] 07/06/2024 10:00 AM EDT Appointment [facility] [address] [place] [phone] 07/07/2024 10:00 AM EDT Appointment [facility] [address] [place] [phone] documented as of this encounter Visit Diagnoses Diagnosis Epilepsy, unspecified, not intractable, without status epilepticus (CMS/HCC) documented in this encounter Orders Neurology Count Last Ordered Date First Orde red Date CONTINUOUS EEG 1 04/15/2024 documented in this encounter
--- OUTSIDE RECORDS SUMMARY | 2024-04-21 16:45 | XMS_ITS | Clinical Summary ---
Author Organization [facility] Address [address] [place] [address] [address] [place] [address] Phone Care Team Providers Care Sole Painter Name Role Phone Bijan Daigle MD Primary Care Provider [phone] Allergies Active Allergy Reactions Criticality Noted Date [...] patient's age to complete this topic Insurance [facility] MEDICAID [facility] MEDICAID Care Teams Sole Painter Relationship Specialty Start Date End Date Bijan Daigle MD [address] [place], [place] PCP - General 04/08/20
== END 2024-04-21 16:26 | disposition home or self-care (01) ==
LOC: HO.US 16:25
PROVIDERS: PCP Internal Medicine; Visit Provider Internal Medicine
DX: R60.0 Localized edema (principal)
CPT/HCPCS: 93971

== ENCOUNTER → 2024-04-21 16:33 | Outpatient (BNV) | payer OTHER, SELFPAY | PROVIDERS: PCP Internal Medicine; Visit Provider Radiology Diagnostic Radiology | DX: R22.42 Localized swelling, mass and lump, left lower limb (principal) | CPT/HCPCS: 93971 ==

== ENCOUNTER 2024-06-14 10:27 | Outpatient (AMB) | payer OTHER, SELFPAY ==
--- NOTE | 2024-06-14 10:28 | A.OFFVIS_ITS ---
Vital Signs 06/14/24 10:29 Height 5 ft 4 in Weight 194 lb 0.108 oz BMI 33.3 BP 124/78 Position Sitting Pulse 74 Pulse Source Pulse Oximeter Pulse Oximetry (%) 98 Oxygen Delivery Method Room Air Intake Visit Reasons: T2DM Intake Note: Patient presents for a follow-up for Type 2 Diabetes Mellitus: Last Diabetic eye exam was on: 12/29/2023 Last Podiatry exam was on: Does not see a Cctv Technician Most recent HbA1c: 8.8%, 06/13/2024 Random Glucose- 240 mg/dL, Today Laundry Washer Required: No Accompanied by: Self / Same As Patient Allergies clonidine [CLONIDINE] Allergy (Severe, Verified 06/14/24 10:31) DIZZY,FAINT levetiracetam [LEVETIRACETAM] Allergy (Severe, Verified 06/14/24 10:31) DIFFICULTY BREATHING lisinopril [LISINOPRIL] Allergy (Severe, Verified 06/14/24 10:31) SWELLING, angioedema atenolol [ATENOLOL] Allergy (Intermediate, Verified 06/14/24 10:31) RASH dulaglutide [Trulicity] Allergy (Unknown, Verified 06/14/24 10:31) Unknown HPI Comments Details: 63 year old female who is seen for diabetic follow up Initially diagnosed with T2DM 7 years ago Current regimen -Mounjaro 7.5mg weekly, Actos 30mg and glipizide 10mg daily. Was on metformin previously with SE. Nausea and head aches with trulicity. Yeast infections with jardiance POC A1C today 8.8% from 8.4%. She reports anxiety and dietary indiscretion over the last few months. She plans to start walking now that the weather has improved. She forgot her Archana today. No interval hypoglycemia Treats lows with drinks OJ . Checks sugar after to ensure it is rising. Treats according to rule of 15's. Family history of T2DM in mother and sister . Eye exam UTD , denies retinopathy. Has neuropathy, not sees podiatry. Denies nephropathy, had angioedema on lisinopril . On crestor Denies CAD. She is overdue for full lab panel ROS CONSTITUTIONAL: Denies weight loss, fever and chills. HEENT: Denies changes in vision and hearing. RESPIRATORY: Denies SOB and cough. CV: Denies palpitations and CP GI: Denies abdominal pain, nausea, vomiting and diarrhea. : Denies dysuria and urinary frequency. MSK: Denies new myalgia and joint pain. SKIN: Denies rash and pruritus. NEUROLOGICAL: Reports vertigo since this am PSYCHIATRIC: Denies recent changes in mood. PHYSICAL EXAM: GENERAL: Alert and oriented x 3. NAD EYES: EOMI. Anicteric. HENT: Moist mucous membranes. No scleral icterus. No cervical lymphadenopathy. LUNGS: Clear to auscultation bilaterally. CARDIOVASCULAR: Regular rate and rhythm. No murmur. No JVD. ABDOMEN: Soft, non-tender +bs EXTREMITIES: No edema. Non-tender. SKIN: No rashes or lesions. Warm. NEUROLOGIC: No focal neurological deficits. CN II-XII grossly intact PSYCHIATRIC: Cooperative. Appropriate mood and affect [facility] Medical History Breast cancer screening by mammogram Trigeminal neuralgia of right side of face Hypertension Anxiety due to invasive procedure Family history of colon cancer Colon cancer screening Lower abdominal pain Microscopic hematuria Vulvovaginitis roseline albicans Well woman exam Cervical cancer screening Hypercholesterolemia SVT (supraventricular tachycardia) Obstructive sleep apnea Mixed incontinence urge and stress Thyroid nodule GERD (gastroesophageal reflux disease) Asthma COVID-19 Mild obstructive sleep apnea Cataracts, bilateral Migraine Seizure disorder Bipolar disorder Green's palsy Obesity (BMI 30-39.9) Type 2 diabetes mellitus with hyperglycemia Surgical History History of cone biopsy of uterine cervix History of tubal ligation History of cholecystectomy Family History Father Diabetes FH: prostate cancer CVD (cardiovascular disease) Mother Diabetes Hypertension Stroke CVD (cardiovascular disease) Sister Breast cancer Sister Breast cancer Sister Hypertension Daughter In good health Brother No problems noted. Brother No problems noted. Brother No problems noted. Sister Cervical cancer Social History Household Members: Other Household Members Other:: grandson Housing: House Do you presently have visiting nurse or other home services: Yes (tele visits) Alcohol intake: never Patient Tobacco Use Status: Never used Tobacco Tobacco use type: Cigarette e-Cigarette/Vaping Use: Never Used Second Hand Smoke Exposure: No service: No Current occupational status: disabled Cognitive needs: No Hearing needs: No Vision needs: Yes Female Reproductive History Menstrual Age of Menarche: 12 Physical Exam Vital Signs: Last Vital Signs Pulse 74 06/14/24 10:29 BP 124/78 06/14/24 10:29 Pulse Ox 98 06/14/24 10:29 Oxygen Delivery Method Room Air 06/14/24 10:29 BMI result Body Mass Index 33.3 Results AMB Hemoglobin A1c AMB Hemoglobin A1c 8.8 % Last Edit by JENNIFER Cordoba on 06/14/24 10:42 Results Reviewed Results Reviewed: Laboratory Last Values Glucose (Clinic) 240 mg/dL (60-115) H 06/14/24 10:34 Assessment & Plan Assessment & Plan (1) Type 2 diabetes mellitus with hyperglycemia: Comment: Dr. Bernard eye Code(s): E11.65 - Type 2 diabetes mellitus with hyperglycemia Category: Medical Qualifiers: Diabetes mellitus superintendent container terminal insulin use: with superintendent container terminal use Qualified Code(s): E11.65 - Type 2 diabetes mellitus with hyperglycemia; Z79.4 - longterm (current) use of insulin Plan: Discussed need for improved diet. Declines nutrition referral Recommend 30min CV exercise at least 5 times per week Increase mounjaro to 10 weekly. Increase glipizide to 10mg twice daily. continue actos 30mg daily Orders: Orders Comprehensive Met. Panel Today E11.65 - Type 2 diabetes mellitus with hyperglycemia, Z79.4 - longterm (current) use of insulin Hemoglobin A1c Today E11.65 - Type 2 diabetes mellitus with hyperglycemia, Z79.4 - equipment operator intermodal yard (current) use of insulin AMB Hemoglobin A1c Today E11.65 - Type 2 diabetes mellitus with hyperglycemia, Z79.4 - equipment operator intermodal yard (current) use of insulin Lipid Panel Today E11.65 - Type 2 diabetes mellitus with hyperglycemia, Z79.4 - equipment operator intermodal yard (current) use of insulin Microalbumin, Random (w Creat) Today E11.65 - Type 2 diabetes mellitus with hyperglycemia, Z79.4 - longterm (current) use of insulin Medications: New tirzepatide 10 mg (0.5 mL) subcut QWEEK 2 mL 3RF E11.42 - Type 2 diabetes mellitus with diabetic polyneuropathy, E11.65 - Type 2 diabetes mellitus with hyperglycemia, Z79.4 - equipment operator intermodal yard (current) use of insulin Changed From glipizide ER 10 mg PO DAILY 90 tabs 3RF To glipizide ER 10 mg PO BID 180 tabs 3RF Coding Level of Care Code Est Pt Level 4 (55457) Diagnoses Type 2 diabetes mellitus with hyperglycemia, with long-term current use of insulin E11.65; Z79.4 Diabetes mellitus superintendent container terminal insulin use: with prison use
[2024-06-14 10:29] VITALS: BP 124/78; PULSE 74; O2SAT 98; BMI 33.3
[2024-06-14 10:39] LABS: Glucose, Whole Blood 240 mg/dL (60-115)
--- OUTSIDE RECORDS SUMMARY | 2024-06-14 12:23 | XMS_ITS | Clinical Summary ---
Author Organization [employer] [facility] Address [address] [place] [address] Care Team Providers Care Wire Rope Sales Representative Name Role Phone Unavailable Primary Care Provider Unavailabl e Encounters Date Type Department Care Team Description 04/19/2024 [facility]diagn[facility] [address] [place] [phone] Radha Palafox MD Epilepsy, unspecified, not intractable, without status epilepticus (CMS/HCC) 04/18/2024 [facility] [address] [place] [phone] Radha Palafox MD Epilepsy, unspecified, not intractable, without status epilepticus (CMS/HCC) 04/17/2024 [facility] [address] [place] [phone] Radha Palafox MD Epilepsy, unspecified, not intractable, without status epilepticus (CMS/HCC) from Last 3 Months Social History Tobacco Use Types Packs/Day Years Used Date Smoking Tobacco: Never Assessed Comments Unknown Sex and Gender Information Value Date Recorded Sex Assigned at Not on file Legal Sex Female 4:53 AM EST Gender Identity Not on file Sexual Orientation Not on file Plan of Treatment Upcoming Encounters Date Type Department Care Team (Late st Contact Info) Description 07/05/2024 10:00 AM EDT Appointment [facility]diagnostic [address] [place] [phone] 07/06/2024 10:00 AM EDT Appointment [facility] [address] [place] [phone] 07/07/2024 10:00 AM EDT Appointment [facility] [address] [place] [phone] Health Maintenance Due Date Last Done Comments Breast Cancer Screening 1960 DTaP,Tdap,and Td Vaccines (1 - Tdap) 11/10/1979 Cervical Cancer Screening: P ap Smear 1981 Pneumococcal Vaccine: 50+ Ye ars (1 of 1 - PCV) 2010 Zoster Vaccines (1 of 2) 2010 COVID-19 [...] patient's age to complete this topic Meningococcal B Vacine Aged Out No lo nger eligible based on patient's age to complete [...] patient's age to complete this topic Insurance [facility] [place]ID - [place]
--- OUTSIDE RECORDS SUMMARY | 2024-06-14 12:23 | XMS_ITS | Clinical Summary ---
Author Organization [employer] Address [address] [facility] 7t [place] [address] Care Team Providers Care Steward/Stewardess Second Class Name Role Phone Unavailable Primary Care Provider [...] Vaccines (1 of 2) 2010 Pneumococcal Vaccine: 50+ Years (2 of 2 - PCV) 04/20/2017 04/20/2016 Pneumococcal Vaccine: Pediatrics (0 to 5 Years) and At-Risk Patients (6 to 49) Years) (2 of 2 - PCV) 04/20/2017 [...] Most Recently Relevant to Health Maintenance Insurance [facility] MEDICAID STAND ADULT
--- OUTSIDE RECORDS SUMMARY | 2024-06-14 12:23 | XMS_ITS | Clinical Summary ---
Author Organization [facility] Address [address] [place] [address] Care Team Providers Care Senior Sustainability Consultant Name Role Phone Unavailable Primary Care Provider [...]
--- OUTSIDE RECORDS SUMMARY | 2024-06-14 12:23 | XMS_ITS | Encounter Summary ---
Author Organization [facility] Address [address] [place] [address] Phone Care Team Providers Care Efficiency Miner Blasting Name Role Phone Bijan Daigle MD Primary Care Provider [phone] Encounter Details Date Type Department Care Team (Late st Contact Info) Description 08/25/2022 Documentation Only [facility] [address] [place] [address] Margarita Penny Social History Tobacco [...] on filedocumented in this encounter Care Teams Efficiency Miner Blasting Relationship Specialty Start Date End Date Bijan Daigle MD [facility] [address] [place], [place] PCP - General 04/08/20 documented as of this encounter
--- OUTSIDE RECORDS SUMMARY | 2024-06-14 12:23 | XMS_ITS | Clinical Summary ---
Author Organization [facility] Address [address] [place] [address] [address] [place] [address] Phone Care Team Providers Care Senior Java Software Developer Name Role Phone Bijan Daigle MD Primary Care Provider Allergies Active Allergy Reactions Criticality Noted Date [...] patient's age to complete this topic Insurance [facility] MEDICAID [facility] MEDICAID Care Teams Senior Java Software Developer Relationship Specialty Start Date End Date Bijan Daigle MD [address] [place], [place] PCP - General 04/08/20
== END 2024-06-14 10:52 | disposition home or self-care (01) ==
LOC: HO.ENCR 10:28
PROVIDERS: PCP Internal Medicine; Visit Provider Internal Medicine
DX: E11.65 Type 2 diabetes mellitus with hyperglycemia (principal); Z79.4 Long term (current) use of insulin

== ENCOUNTER → 2024-06-14 10:27 | Outpatient (BNVA) | payer OTHER, SELFPAY | PROVIDERS: PCP Internal Medicine; Visit Provider Internal Medicine | DX: E11.65 Type 2 diabetes mellitus with hyperglycemia (principal); E11.42 Type 2 diabetes mellitus with diabetic polyneuropathy; Z79.4 Long term (current) use of insulin | CPT/HCPCS: 82947; 83036; 99212 ==

== ENCOUNTER 2024-06-22 09:47 | Outpatient (REF) | payer OTHER, SELFPAY ==
[2024-06-22 11:17] LABS: Estimated Average Glucose 200 mg/dL; Hemoglobin A1c % 8.6 % (<6.0)
[2024-06-22 11:38] LABS: Alanine Aminotransferase 32 U/L (0-31); Albumin Level 4.1 g/dL (3.5-5.0); Alkaline Phosphatase 120 U/L (39-117); Anion Gap 9 (12-20); Aspartate Amino Transferase 27 U/L (5-31); Bilirubin Total 0.9 mg/dL (0.0-1.0); Blood Urea Nitrogen 13 mg/dL (9-16); Calcium 9.5 mg/dL (8.4-10.2); Carbon Dioxide 28 mmol/L (22-29); Chloride 106 mmol/L (96-108); Cholesterol 188 mg/dL (<200); Estimated Glomerular Filt Rate > 60; Glucose Random 202 mg/dL (60-115); HDL Cholesterol 43 mg/dL (>40); LDL Cholesterol Calculated 118 mg/dL (<100); Potassium 4.2 mmol/L (3.3-5.1); Sodium 139 mmol/L (135-145); Total Protein 7.3 g/dL (6.5-8.0); Triglycerides 138 mg/dL (<150)
[2024-06-22 11:45] LABS: Creatinine Urine 404.92 mg/dL; Microalbum/Creatinine Ratio Ur 68.4 ug/mg cr (<30)
== END 2024-06-22 09:48 | disposition home or self-care (01) ==
LOC: HO.LAB 09:47
PROVIDERS: Internal Medicine; PCP Internal Medicine; Visit Provider Internal Medicine
DX: E11.65 Type 2 diabetes mellitus with hyperglycemia (principal); Z79.4 Long term (current) use of insulin
CPT/HCPCS: 36415; 80053; 80061; 82043; 82570; 83036

== ENCOUNTER 2024-07-19 14:13 | Outpatient (REF) | payer OTHER, SELFPAY ==
--- OUTSIDE RECORDS SUMMARY | 2024-07-19 17:33 | XMS_ITS | Clinical Summary ---
Author Organization [facility] Address [address] [place] [address] Care Team Providers Care Professor Of Floriculture Name Role Phone Unavailable Primary Care Provider [...]
--- OUTSIDE RECORDS SUMMARY | 2024-07-19 17:33 | XMS_ITS | Clinical Summary ---
Author Organization [facility] Address [address] [place] [address] [address] [place] [address] Phone Care Team Providers Care Supervisor Pairing And Inspecting Name Role Phone Bijan Daigle MD Primary Care Provider [phone] Allergies Active Allergy Reactions Criticality Noted Date [...] patient's age to complete this topic Insurance [facility] Medicaid [facility] Medicaid Care Teams Supervisor Pairing And Inspecting Relationship Specialty Start Date End Date Bijan Daigle MD [address] [place], [place] PCP - General 04/08/20
--- OUTSIDE RECORDS SUMMARY | 2024-07-19 17:33 | XMS_ITS | Clinical Summary ---
Author Organization [facility] [employer] Address [address] [facility] 7[address] [place] [address] Care Team Providers Care Microcomputer Technician Name Role Phone Unavailable Primary Care Provider [...] Most Recently Relevant to Health Maintenance Insurance [facility] MEDICAID STAND ADULT
--- OUTSIDE RECORDS SUMMARY | 2024-07-19 17:33 | XMS_ITS | Encounter Summary ---
Author Organization [facility] Address [address] [place] [address] Phone Care Team Providers Care Elevator Tender Name Role Phone Bijan Daigle MD Primary Care Provider [phone] Encounter Details Date Type Department Care Team (Late st Contact Info) Description 08/25/2022 Documentation Only [facility] [address] [place] [address] Margarita Penny Social History Tobacco [...] on filedocumented in this encounter Care Teams Elevator Tender Relationship Specialty Start Date End Date Bijan Daigle MD [facility] [address] [place], [place] PCP - General 04/08/20 documented as of this encounter
--- OUTSIDE RECORDS SUMMARY | 2024-07-19 17:33 | XMS_ITS | Clinical Summary ---
Author Organization [facility] Address [address] [place] [address] Phone Care Team Providers Care Sheep Farm Manager Name Role Phone Bijan Daigle MD Primary Care Provider [phone] Social History Tobacco Use Types Packs/Day Years [...] Info) Description 10/16/2024 8:00 AM EDT Appointment [facility] [address] [place] [address] [phone] 10/17/2024 9:00 AM EDT Appointment [facility] [address] [place] [address] [phone] 10/18/2024 9:00 AM EDT Appointment [facility] [address] [place] [address] [phone] Health Maintenance Due Date Last Done Comments [...] HEALTH PLAN [place] - [place] Care Teams Sheep Farm Manager Relationship Specialty Start Date End Date Bijan Daigle MD [address] [place] [address] [address] [facility] [place] [address] PCP - General Internal Medicine 06/29/24
[2024-07-19 22:34] LABS: CT PCR NOT DETECTED (Not Detect.); NG PCR NOT DETECTED (Not Detect.)
== END 2024-07-19 14:14 | disposition home or self-care (01) ==
LOC: HO.LNP 14:13
PROVIDERS: PCP Internal Medicine; Visit Provider Obstetrics & Gynecology
DX: Z01.419 Encounter for gynecological examination (general) (routine) without abnormal findings (principal); R31.29 Other microscopic hematuria; R10.2 Pelvic and perineal pain; N63.22 Unspecified lump in the left breast, upper inner quadrant; Z80.3 Family history of malignant neoplasm of breast
CPT/HCPCS: 81002; 87086; 87491; 87591; 99212; 99396; 99459

== ENCOUNTER 2024-07-19 14:13 | Outpatient (AMB) | payer OTHER, SELFPAY ==
--- NOTE | 2024-07-19 14:28 | A.OFFVIS_ITS ---
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: TYPE CUTTER annual exam/DO NOT RS Diet Kitchen Cook Required: No Information Interpreted: non-clinical & clinical Physician Executive: Physician Executive Present (Zuleika RODRIGUEZ) Accompanied by: Self / Same As Patient Allergies clonidine [CLONIDINE] Allergy (Severe, Verified 07/19/24 14:32) DIZZY,FAINT levetiracetam [LEVETIRACETAM] Allergy (Severe, Verified 07/19/24 14:32) DIFFICULTY BREATHING lisinopril [LISINOPRIL] Allergy (Severe, Verified 07/19/24 14:32) SWELLING, angioedema atenolol [ATENOLOL] Allergy (Intermediate, Verified 07/19/24 14:32) RASH dulaglutide [Trulicity] Allergy (Unknown, Verified 07/19/24 14:32) Unknown Post menopausal: Yes HPI Comments Details: Presenting for annual exam. No complaints. Last Pap/HPV was negative in 01/16 Last Mammogram was BI-RADS 1 in 09/19, last MRI of the breast was in 06/19 with the patient's high-risk for breast cancer is under the care of Dr. Ornelas Last [facility] Medical History (Updated 07/19/24 @ 14:56 by Jaciel Ly MD) Microscopic hematuria Breast cancer screening by mammogram Trigeminal neuralgia of right side of face Hypertension Anxiety due to invasive procedure Family history of colon cancer Colon cancer screening Lower abdominal pain Vulvovaginitis roseline albicans Well woman exam Cervical cancer screening Hypercholesterolemia SVT (supraventricular tachycardia) Obstructive sleep apnea Mixed incontinence urge and stress Thyroid nodule GERD (gastroesophageal reflux disease) Asthma COVID-19 Mild obstructive sleep apnea Cataracts, bilateral Migraine Seizure disorder Bipolar disorder Green's palsy Obesity (BMI 30-39.9) Type 2 diabetes mellitus with hyperglycemia Surgical History History of cone biopsy of uterine cervix History of tubal ligation History of cholecystectomy Family History Father Diabetes FH: prostate cancer CVD (cardiovascular disease) Mother Diabetes Hypertension Stroke CVD (cardiovascular disease) Sister Breast cancer Sister Breast cancer Sister Hypertension Daughter In good health Brother No problems noted. Brother No problems noted. Brother No problems noted. Sister Cervical cancer Social History Household Members: Other Household Members Other:: grandson Housing: House Do you presently have visiting nurse or other home services: Yes (tele visits) Alcohol intake: never Patient Tobacco Use Status: Never used Tobacco Tobacco use type: Cigarette e-Cigarette/Vaping Use: Never Used Second Hand Smoke Exposure: No service: No Current occupational status: disabled Cognitive needs: No Hearing needs: No Vision needs: Yes Female Reproductive History Menstrual Age of Menarche: 12 control method: permanent sterilization Menopause type: natural Date of last pap smear: 01/21/21 Date of Mammogram: 09/21/23 Review of Systems Const All systems reviewed & are unremarkable except as noted in HPI and below Card Reports as per HPI Resp Reports as per HPI GI Reports as per HPI and Reports no additional complaints Reports as per HPI Physical Exam Vital Signs: Last Vital Signs BP 130/82 07/19/24 14:29 BMI result Body Mass Index 33.1 Const General: cooperative, healthy appearing and comfortable Chest Chest palpation & inspection: normal inspection of the chest and normal palpation of entire chest wall Breast/axilla inspection: inspection of breasts abnormal (Right breast wnl, left breast @10, 8 cm from the nipple lump) and normal inspection of the axillae Breast/axilla palpation: normal palpation of the breasts, normal palpation of the axillae and no axillary lymphadenopathy Resp Effort & Inspection: normal respiratory effort Auscultation: clear to auscultation bilaterally Percussion: percussion normal Cardio Palpation: normal PMI Rate: regular rate Rhythm: regular rhythm Heart sounds: no murmurs and no rubs Peripheral pulses: Peripheral pulses 2+ throughout GI Inspection: Yes normal to inspection Palpation (GI): Soft to palpation, nontender, no guarding, not rigid and No hepatosplenomegaly present Percussion: Yes normal to percussion Auscultation: normal bowel sounds Rectal Exam - Female: deferred General: Yes bladder normal to palpation External Female Exam: No lesion Speculum Exam - Vagina: normal appearance of the vagina, normal palpation, normal vaginal discharge and not erythematous Speculum Exam - Cervix: normal appearance of the cervix and normal palpation Bimanual exam- vagina & uterus: normal bimanual exam, normal palpation, uterine size normal, bladder normal to palpation, consistency normal and normal palpat ion Bimanual Exam- Adnexa, other: normal adnexae, no masses and no tenderness Assessment & Plan Assessment & Plan (1) Well woman exam: Code(s): Z01.419 - Encounter for gynecological examination (general) (routine) without abnormal findings Category: Medical Plan: Co testing not indicated today. Counseled the patient about the recommended dietary allowance of 1200 mg of Calcium & 600 IU of vitamin D. The patient was referred to GI for screening colonoscopy . The patient was instructed to perform monthly self-breast exams and schedule annual exam in a year. All questions answered and the patient verbalized understanding. (2) Family history of breast cancer: Code(s): Z80.3 - Family history of malignant neoplasm of breast Category: Medical Plan: Discussed with the patient her increased risk for Breast ca. The lifetime risk of breast cancer based on the Tyrer-Cuzick Model is 21% Recommended Intensification of breast Cancer screening with annual MRI breast in addition to annual mammogram and MRI alternating every 6 months. Diagnostic Mammogram with left breast ultrasound ordered , Breast MRI ordered for 09/[address] Ornelas for possible Genetic Ca counseling and possible testing, in addition to counseling regarding Chemoprevention strategies All questions answered, the patient verbalized understanding and agreed with the plan (3) Pelvic pain: Code(s): R10.2 - Pelvic and perineal pain Category: Medical Plan: Urine dip done in the office showed microscopic hematuria. GC and chlamydia taken and pelvic ultrasound ordered. Discussed with the patient the differential diagnosis of pelvic pain including but not limited to adnexal, uterine masses, pelvic infections (PID), GI the (Irritable bowel syndrome, diverticulitis, others), musculoskeletal, myofascial pain abdominal wall , adhesions, endometriosis, psychological and others causes. Will check results and treat accordingly. All questions answered, the patient verbalized understanding. Instructed the patient to schedule an ultrasound and a follow-up appointment in 2 weeks. All questions answered, the patient verbalized understanding and agreed with the plan. (4) Breast lump on left side at 10 o'clock position: Comment: 8 cm from the nipple Code(s): N63.22 - Unspecified lump in the left breast, upper inner quadrant Category: Medical Plan: Discussed with the patient the finding on Breast exam (breast lump) .The differential diagnosis includes but not limited to lump/cyst/pre cancer/cancer or dense breast tissue. The work up includes breast US and diagnostic mammogram and referred the patient for surgical breast consult. Instructed the patient to call our office back in case a referral appointment is not scheduled, missed or canceled so that we will assist on rescheduling another appointment, the patient verbalized understanding agreed with the plan. (5) Microscopic hematuria: Code(s): R31.29 - Other microscopic hematuria Category: Medical Plan: Urine dip showed microscopic hematuria, urine culture sent. Will repeat urine dip in 2 weeks. Discussed with the patient the possible causes of microscopic hematuria including but not limited to: interstitial cystitis, polyps, stones, masses, urethral inflammatory processes and others. If Urine Culture is negative and repeat urine dip in 2 weeks shows persistent microscopic hematuria, will proceed with CT abdomen/pelvis and urology referral. Instructions given the patient to schedule a 2 week urine dip follow-up appointment. All questions answered and the patient verbalized understanding. Orders: Orders CT NG by PCR Today R10.2 - Pelvic and perineal pain MM tomosynthesis screening BI Today Z12.31 - Encounter for screening mammogram for malignant neoplasm of breast MR breast BI wo/w con 2 Months Z80.3 - Family history of malignant neoplasm of breast AMB Urinalysis Dipstick Today R10.2 - Pelvic and perineal pain US pelvic and transvaginal Today R10.2 - Pelvic and perineal pain Referrals Gastroenterology Referral Z12.11 - Encounter for screening for malignant neoplasm of colon General Surgery Referral Z91.89 - Other specified personal risk factors, not elsewhere classified Coding Level of Care Code Est Pt Level 3 (51205) Est Pt Prev Care 40-64y(39730) Diagnoses Well woman exam Z01.419 Family history of breast cancer Z80.3 Pelvic pain R10.2 Breast lump on left side at 10 o'clock position N63.22 Microscopic hematuria R31.29
[2024-07-19 14:29] VITALS: BP 130/82; BMI 33.1
--- OUTSIDE RECORDS SUMMARY | 2024-07-19 17:05 | XMS_ITS | Clinical Summary ---
Author Organization [facility] [employer] Address [address] [facility] 7t [place] [address] Care Team Providers Care Safety Director Name Role Phone Unavailable Primary Care Provider [...] Most Recently Relevant to Health Maintenance Insurance [facility] MEDICAID STAND ADULT
--- OUTSIDE RECORDS SUMMARY | 2024-07-19 17:05 | XMS_ITS | Clinical Summary ---
Author Organization [facility] Address [address] [place] [address] Phone Care Team Providers Care Appliance Painter And Refinisher Name Role Phone Bijan Daigle MD Primary Care Provider [phone] Social History Tobacco Use Types Packs/Day Years Used Date Smoking Tobacco: Never Assessed Comments Unknown Sex and Gender Information Value Date Recorded Sex Assigned at Not on file Legal Sex Female 4:53 AM EST Gender Identity Not on file Sexual Orientation Not on file Plan of Treatment Upcoming Encounters Date Type Department Care Team (Late st Contact Info) Description 10/16/2024 8:00 AM EDT Appointment [facility] [address] [place] [address] [phone] 10/17/2024 9:00 AM EDT Appointment [facility] [address] [place] [address] [phone] 10/18/2024 9:00 AM EDT Appointment [facility] [address] [place] [address] [phone] Health Maintenance Due Date Last Done Comments Breast Cancer Screening 1960 DTaP,Tdap,and Td Vaccines (1 - Tdap) 11/10/1979 Cervical Cancer Screening: P ap Smear 1981 Pneumococcal Vaccine: 50+ Ye ars (1 of 1 - PCV) 2010 Zoster Vaccines (1 of 2) 2010 COVID-19 Vaccine (2023-2 5 season) 2023 Colorectal Cancer Screening: Colonoscopy 04/14/2024 Depression Screening 04/14/2024 HIV Screening 04/14/2024 Hepatitis C Screening 04/14/2024 Social Influencers of Health Screening 04/14/2024 Influenza Vaccine (Season Ended) 2024 RSV Immunization Adult Patie nts (1 - 1-dose 75+ series) 11/10/2035 HIB [...] age to complete this topic Meningococcal B Vaccine Aged Out No l onger eligible based on patient's age to complete [...] patient's age to complete this topic Insurance [employer] MEDICAID - [place] Care Teams Appliance Painter And Refinisher Relationship Specialty Start Date End Date Bijan Daigle MD [address] [place] [address] [address] [facility] [place] [address] PCP - General Internal Medicine 06/29/24
--- OUTSIDE RECORDS SUMMARY | 2024-07-19 17:05 | XMS_ITS | Clinical Summary ---
Author Organization [facility] Address [address] [place] [address] [address] [place] [address] Phone Care Team Providers Care Lubricating Specialist Name Role Phone Bijan Daigle MD Primary Care Provider [phone] Allergies Active Allergy Reactions Criticality Noted Date [...] Comments Breast Cancer Screening 1960 Pneumococcal Vaccine: 50+ Ye ars (1 of 2 - PCV) 11/10/1979 Colorectal Cancer Screening: Annual FOBT 2009 Colorectal Cancer Screening: Colonoscopy 2009 Colorectal Cancer Screening: Sigmoidoscopy 2009 Influenza Vaccine (Season Ended) 2024 Hepatitis B Vaccine Aged Out No longe r eligible based on patient's age to complete this topic Insurance [facility] Medicaid [facility] Medicaid Care Teams Lubricating Specialist Relationship Specialty Start Date End Date Bijan Daigle MD [address] [place], [place] PCP - General 04/08/20
--- OUTSIDE RECORDS SUMMARY | 2024-07-19 17:05 | XMS_ITS | Clinical Summary ---
Author Organization [facility] Address [address] [place] [address] Care Team Providers Care President/Gm Production & Live Experiences Name Role Phone Unavailable Primary Care Provider Unavailabl e Social History Tobacco Use Types Packs/Day Years Used Date Smoking Tobacco: Never Assessed Comments Unknown Sex and Gender Information Value Date Recorded Sex Assigned at Not on file Legal Sex Female 11:22 AM EDT Gender Identity Not on file Sexual Orientation [...]
--- OUTSIDE RECORDS SUMMARY | 2024-07-19 17:05 | XMS_ITS | Encounter Summary ---
Author Organization [facility] Address [address] [place] [address] Phone Care Team Providers Care Pulmonary Disease Specialist Name Role Phone Bijan Daigle MD Primary Care Provider [phone] Encounter Details Date Type Department Care Team (Late st Contact Info) Description 08/25/2022 Documentation Only [facility] [address] [place] [address] Margarita Penny Social History Tobacco [...] on filedocumented in this encounter Care Teams Pulmonary Disease Specialist Relationship Specialty Start Date End Date Bijan Daigle MD [facility] [address] [place], [place] PCP - General 04/08/20 documented as of this encounter
== END 2024-07-19 14:59 | disposition home or self-care (01) ==
LOC: HO.HWS 14:13
PROVIDERS: PCP Internal Medicine; Visit Provider Obstetrics & Gynecology
DX: Z01.419 Encounter for gynecological examination (general) (routine) without abnormal findings (principal); Z80.3 Family history of malignant neoplasm of breast; R10.2 Pelvic and perineal pain; N63.22 Unspecified lump in the left breast, upper inner quadrant; R31.29 Other microscopic hematuria
CPT/HCPCS: 99213; 99396; 99459

== ENCOUNTER 2024-07-21 10:36 | Outpatient (AMB) | payer OTHER, SELFPAY ==
--- NOTE | 2024-07-21 10:42 | A.OFFPC_ITS ---
Vital Signs 07/21/24 10:44 Height 5 ft 4 in Weight 191 lb BMI 32.8 BP 152/88 H Blood Pressure Location Lt brachial Position Sitting Pulse 78 Pulse Source Pulse Oximeter Pulse Oximetry (%) 97 Oxygen Delivery Method Room Air Intake Visit Reasons: 3 Months f/u Allergies clonidine [CLONIDINE] Allergy (Severe, Verified 07/21/24 10:44) DIZZY,FAINT levetiracetam [LEVETIRACETAM] Allergy (Severe, Verified 07/21/24 10:44) DIFFICULTY BREATHING lisinopril [LISINOPRIL] Allergy (Severe, Verified 07/21/24 10:44) SWELLING, angioedema atenolol [ATENOLOL] Allergy (Intermediate, Verified 07/21/24 10:44) RASH dulaglutide [Trulicity] Allergy (Unknown, Verified 07/21/24 10:44) Unknown Tobacco use date assessed: 04/19/24 Dental Screening Dental Screen Date: 04/19/24 [facility] Medical History (Updated 07/19/24 @ 14:56 by Jaciel Ly MD) Microscopic hematuria Breast cancer screening by mammogram Trigeminal neuralgia of right side of face Hypertension Anxiety due to invasive procedure Family history of colon cancer Colon cancer screening Lower abdominal pain Vulvovaginitis roseline albicans Well woman exam Cervical cancer screening Hypercholesterolemia SVT (supraventricular tachycardia) Obstructive sleep apnea Mixed incontinence urge and stress Thyroid nodule GERD (gastroesophageal reflux disease) Asthma COVID-19 Mild obstructive sleep apnea Cataracts, bilateral Migraine Seizure disorder Bipolar disorder Green's palsy Obesity (BMI 30-39.9) Type 2 diabetes mellitus with hyperglycemia Surgical History History of cone biopsy of uterine cervix History of tubal ligation History of cholecystectomy Family History Father Diabetes FH: prostate cancer CVD (cardiovascular disease) Mother Diabetes Hypertension Stroke CVD (cardiovascular disease) Sister Breast cancer Sister Breast cancer Sister Hypertension Daughter In good health Brother No problems noted. Brother No problems noted. Brother No problems noted. Sister Cervical cancer Social History Household Members: Other Household Members Other:: grandson Housing: House Do you presently have visiting nurse or other home services: Yes (tele visits) Alcohol intake: never Patient Tobacco Use Status: Never used Tobacco Tobacco use type: Cigarette e-Cigarette/Vaping Use: Never Used Second Hand Smoke Exposure: No service: No Current occupational status: disabled Cognitive needs: No Hearing needs: No Vision needs: Yes Female Reproductive History Menstrual Age of Menarche: 12 Questionnaire PHQ-9 Over the last 2 weeks, how often have you been bothered by any of the following problems? 1. Little interest or pleasure in doing things: several days 2. Feeling down, depressed, or hopeless: several days 3. Trouble falling or staying asleep, or sleeping too much: several days 4. Feeling tired or having little energy: several days 5. Poor appetite or overeating: several days 6. Feeling bad about yourself - or that you are a failure or have let yourself or your family down: not at all 7. Trouble concentrating on things, such as reading the newspaper or watching television: several days 8. Moving or speaking so slowly that other people could have noticed. Or the opposite - being so fidgety or restless that you have been moving around a lot more than usual: not at all 9. Thoughts that you would be better off or of hurting yourself in some way: not at all Total score: 6 Depression Screening Interpretation: Positive Depression Screening Done: Yes 86499 - PHQ-9 Billing: Yes Source: Developed by Drs. Fercho Ying, Rama Daniesl, Feliz Hood and colleagues, with an educational yong from [employer]. Thrive Questionnaire Date Thrive assessed: 04/19/24 I am a: Patient What is your living situation today?: I have a steady place to live Within the past 12 months, did the food you bought not last and you didn't have the money to get more?: Never true Within the past 12 months, did you worry whether your food would run out before you got money to buy more?: Never true Do you have trouble paying for medicines?: I choose not to answer this question Do you have trouble getting transportation to medical appointments?: No Do you have trouble paying your heating and electricity bill?: No Do you have trouble taking care of your child, family member or friend?: No Do you have trouble with day-to-day activities such as bathing, preparing meals, shopping, managing finances, etc.?: Yes Are you currently unemployed and looking for a job?: No Are you interested in more education?: Yes Please select the resources that you would like help with: Education Currently or been in a relationship where the following occur: No concerns reported THRIVE Score: 0 AUDIT C Alcohol Use Questionnaire (AUDIT-C) 1. How often do you have a drink containing alcohol?: Never Total Score: 0 SANDRA-7 AMB Questionnaire SANDRA-7 Date SANDRA - 7 assessed: 04/19/24 Feeling nervous, anxious, or on edge: 1 = Several days Not being able to stop or control worryin = Several days Worrying too much about different things: 1 = Several days Trouble relaxin = Several days Being so restless that it is hard to sit still: 1 = Several days Becoming easily annoyed or irritable: 0 = Not at all Feeling afraid as if something awful might happen: 1 = Several days Total SANDRA-7 score (0-4 normal; 5-9 mild; 10-14 moderate; 15-21 severe): 6 Source: Developed by Drs. Fercho Ying, Rama Daniels, Feliz Hood and colleagues, with an educational yong from [employer]. SANDRA-7 Assessment Billing SANDRA-7 Assessment Tool: SANDRA-7 Assessment 35162 Physical exam (Primary Care) Vital Signs: Last Vital Signs Pulse 78 07/21/24 10:44 BP 152/88 H 07/21/24 10:44 Pulse Ox 97 07/21/24 10:44 Oxygen Delivery Method Room Air 07/21/24 10:44 BMI result Body Mass Index 32.8 Tobacco/Smoking Status: Tobacco use Status Tobacco use date assessed 04/19/24 07/21/24 10:43 Patient Tobacco Use Status Never used Tobacco 07/21/24 10:43 Tobacco use type Cigarette 07/21/24 10:43 e-Cigarette/Vaping Use Never Used 07/21/24 10:43 PHQ-9: PHQ-9 Score PHQ-9: Total score 6 07/21/24 11:09 Depression Screening Interpretation: Positive Thrive Assessment: Date of Thrive Assessment Date Thrive assessed 04/19/24 07/21/24 10:43 Currently or been in a relationship where the following occur: No concerns reported Const General: alert; No acute distress Eyes Conjunctivae: conjunctivae normal Resp Auscultation: clear to auscultation bilaterally Cardio Rate: regular rate Rhythm: regular rhythm GI Inspection: Yes normal to inspection Extrem General: Yes normal to inspection and No edema Coding Level of Care Code Est Pt Level 4 (18801) Complex EM visit Add On G2211 Diagnoses Type 2 diabetes mellitus with hyperglycemia, with long-term current use of insulin E11.65; Z79.4 Diabetes mellitus residential insulin use: with residential use Obesity (BMI 30-39.9) E66.9 Hypercholesterolemia E78.00 Essential hypertension I10 Hypertension type: essential hypertension Mild intermittent asthma with acute exacerbation J45.21 Asthma complication type: with acute exacerbation Asthma persistence: intermittent Asthma severity: mild Bipolar disorder, current episode mixed, moderate F31.62 Active/Remission status: currently active Current bipolar episode type: mixed Current episode severity: moderate Additional Codes SANDRA-7 Assessment Billing - SANDRA-7 Assessment Tool: SANDRA-7 Assessment 58145 ([id number]) PHQ-9 - 96786 - PHQ-9 Billing: Yes ([id number]) Assessment & Plan Assessment & Plan (1) Type 2 diabetes mellitus with hyperglycemia: Comment: Dr. Bernard eye Code(s): E11.65 - Type 2 diabetes mellitus with hyperglycemia Category: Medical Qualifiers: Diabetes mellitus assistant terminal manager insulin use: with assistant terminal manager use Qualified Code(s): E11.65 - Type 2 diabetes mellitus with hyperglycemia; Z79.4 - intermediate accountant (current) use of insulin Plan: Decrease the amount of carbohydrate intake, pasta, bread, rice and potatoes are all sugar and that is aside from all the sweet stuff, remember that fruits are good but they are Sweet also. Patient is pioglitazone 30 mg once a day tirzepatide at 10 mg once a week. on CGM freestyle and used to manage BS (2) Obesity (BMI 30-39.9): Code(s): E66.9 - Obesity, unspecified Category: Medical Plan: Diet and exercise (3) Hypercholesterolemia: Code(s): E78.00 - Pure hypercholesterolemia, unspecified Category: Medical Plan: Avoid fried foods, chicken skin, eggs, butter margarine, pastries and meat. Be it pork or beef they have a lot of cholesterol LDL goal of less than 100 and triglyceride of less than 150 on rosuvastatin 5 mg once a day (4) Hypertension: Code(s): I10 - Essential (primary) hypertension Category: Medical Qualifiers: Hypertension type: essential hypertension Qualified Code(s): I10 - Essential (primary) hypertension Plan: Continue with blood pressure medication. Decrease salt intake and exercise takes spironolactone hydrochlorothiazide 25/25 once a day hydralazine 25 mg 3 times a day carvedilol at 18.75 mg twice a day amlodipine 5 mg once a day (5) Asthma: Code(s): J45.909 - Unspecified asthma, uncomplicated Category: Medical Qualifiers: Asthma complication type: with acute exacerbation Asthma persistence: intermittent Asthma severity: mild Qualified Code(s): J45.21 - Mild intermittent asthma with (acute) exacerbation Plan: As for asthma on albuterol inhaler as needed Advair twice a day (6) Bipolar disorder: Comment: decline referral for counselling Code(s): F31.9 - Bipolar disorder, unspecified Category: Medical Qualifiers: Active/Remission status: currently active Current bipolar episode type: mixed Current episode severity: moderate Qualified Code(s): F31.62 - Bipolar disorder, current episode mixed, moderate Plan: Continue with present therapy and discussed about counseling. Plan History of Present Illness The patient is a 63-year-old female presenting for follow-up on diabetes management and medication review. She has a longstanding history of Type 2 Diabetes Mellitus with recent difficulties managing blood glucose levels due to issues with insulin procurement linked to insurance coverage. Currently, her regimen includes Pioglitazone, Tirsepatide, and insulin lispro via QuickPen. The patient's hypercholesterolemia management aims for an LDL target below 100, yet current levels remain at 118 with Rosuvastatin 5 mg. Her hypertension management includes multiple agents, yet improvements are necessary to achieve optimal control. The combination of these chronic conditions requires diligent medication management and monitoring to prevent complications. Health Maintenance - Discussed vaccination status, noting last pneumonia vaccine in 2017 with a follow-up at age 65. - Tetanus vaccination is up to date. - Recommendations provided for the shingles vaccine. - Regular mammography screening noted, last completed in August 2023. Social History - Patient reports using a [employer] glucose monitoring system. - Previous insurance-related issues with medication procurement impacting diabetes management. Review of Systems - Respiratory: Denies recent asthma exacerbations, managed with albuterol inhaler as needed. - Endocrine: Reports challenges with diabetes management and insurance coverage for insulin. - Cardiovascular: Denies chest pain; reports high blood pressure, stable on medications. - Mental Health: Does not report current mood instability, managed for bipolar disorder. Physical Exam Results Plan I have adjusted the patient's diabetes treatment plan by prescribing Lantus insulin at 35 units daily, adding metformin, and continuing insulin lispro. To manage high cholesterol, Rosuvastatin dosage is increased to 10 mg daily. The patient's hypertension regimen now includes increased hydralazine to 50 mg TID. Fasting labs in three months for further assessment are planned. Asthma management continues per current protocols. Patient was informed and verbally consented to the use of an ambient scribe for clinic note documentation during this visit. Discussion Notes I discussed with the patient the adjustment of her diabetes management regimen, including the addition of Lantus and metformin, informed consent given on the benefits of better glycemic control. We reviewed increased Rosuvastatin to address elevated LDL cholesterol and the necessity of maintaining antihypertensive therapy with a dosage increase in hydralazine. She was advised to have fasting labs in three months. Follow-up discussions include the importance of medication adherence and proactively addressing insurance and supply issues with medications. Patient Instructions - Start Lantus insulin 35 units once daily. - Begin metformin as prescribed. - Continue current insulin lispro regime. - Increase Rosuvastatin to 10 mg daily. - Adjust hydralazine to 50 mg three times daily. - Monitor blood sugar levels regularly. - Return for fasting blood tests in three months. - Contact if experiencing difficulties obtaining medications. Orders: Orders Complete Blood Count Auto Diff Today E11.65 - Type 2 diabetes mellitus with hyperglycemia, Z79.4 - detention (current) use of insulin Free T4 (Free Thyroxine) Today E11.65 - Type 2 diabetes mellitus with hyperglycemia, Z79.4 - intermediate accountant (current) use of insulin Lipid Panel Today E11.65 - Type 2 diabetes mellitus with hyperglycemia, E78.00 - Pure hypercholesterolemia, unspecified, Z79.4 - detention (current) use of insulin Microalbumin, Random (w Creat) Today E11.65 - Type 2 diabetes mellitus with hyperglycemia, Z79.4 - intermediate accountant (current) use of insulin Thyroid Stimulating Hormone Today E11.65 - Type 2 diabetes mellitus with hyperglycemia, Z79.4 - intermediate accountant (current) use of insulin Vitamin B12 and Folate Today E11.65 - Type 2 diabetes mellitus with hyperglycemia, Z79.4 - intermediate accountant (current) use of insulin Vitamin D 25-OH Total Today E11.65 - Type 2 diabetes mellitus with hyperglycemia, Z79.4 - detention (current) use of insulin Comprehensive Met. Panel Today E11.65 - Type 2 diabetes mellitus with hyperglycemia, Z79.4 - detention (current) use of insulin Hemoglobin A1c Today E11.65 - Type 2 diabetes mellitus with hyperglycemia, Z79.4 - intermediate accountant (current) use of insulin Creatinine Urine Today E11.65 - Type 2 diabetes mellitus with hyperglycemia, Z79.4 - detention (current) use of insulin Medications: New insulin lispro (Humalog KwikPen (U-100) Insulin) 18 units (0.18 mL) subcut TID 15 mL 3RF E11.65 - Type 2 diabetes mellitus with hyperglycemia, Z79.4 - intermediate accountant (current) use of insulin insulin glargine (Lantus Solostar U-100 Insulin) 35 units (0.35 mL) subcut QPM 15 mL 12RF E11.65 - Type 2 diabetes mellitus with hyperglycemia, Z79.4 - detention (current) use of insulin Changed From hydralazine 25 mg PO TID 90 days 270 tabs 1RF To hydralazine 50 mg PO TID 270 tabs 1RF 90 days From tirzepatide 10 mg (0.5 mL) subcut QWEEK 2 mL 3RF E11.42 - Type 2 diabetes mellitus with diabetic polyneuropathy, E11.65 - Type 2 diabetes mellitus with hyperglycemia, Z79.4 - intermediate accountant (current) use of insulin To tirzepatide 12.5 mg (0.5 mL) subcut QWEEK 2 mL 3RF E11.42 - Type 2 diabetes mellitus with diabetic polyneuropathy, E11.65 - Type 2 diabetes mellitus with hyperglycemia, Z79.4 - intermediate accountant (current) use of insulin From rosuvastatin 5 mg PO DAILY 90 tabs 1RF E78.00 - Pure hypercholesterolemia, unspecified To rosuvastatin 10 mg PO DAILY 30 tabs 5RF E78.00 - Pure hypercholesterolemia, unspecified Refilled metformin 500 mg PO BID 180 tabs 1RF E11.65 - Type 2 diabetes mellitus with hyperglycemia, Z79.4 - detention (current) use of insulin
[2024-07-21 10:44] VITALS: BP 152/88; PULSE 78; O2SAT 97; BMI 32.8
--- OUTSIDE RECORDS SUMMARY | 2024-07-21 11:14 | XMS_ITS | Clinical Summary ---
Author Organization [facility] Address [address] [place] [address] [address] [place] [address] Phone Care Team Providers Care Edge Inker Uppers Name Role Phone Bijan Daigle MD Primary Care Provider [phone] Allergies Active Allergy Reactions Criticality Noted Date [...] patient's age to complete this topic Insurance [facility] Medicaid [facility] Medicaid Care Teams Edge Inker Uppers Relationship Specialty Start Date End Date Bijan Daigle MD [address] [place], [place] PCP - General 04/08/20
--- OUTSIDE RECORDS SUMMARY | 2024-07-21 11:14 | XMS_ITS | Clinical Summary ---
Author Organization [facility] Address [address] [facility] [address] [place] [address] Care Team Providers Care Streetcar Operator Name Role Phone Unavailable Primary Care Provider [...] Most Recently Relevant to Health Maintenance Insurance [facility] MEDICAID STAND ADULT
--- OUTSIDE RECORDS SUMMARY | 2024-07-21 11:14 | XMS_ITS | Clinical Summary ---
Author Organization [facility] Address [address] [place] [id number] Care Team Providers Care Mechanic/Welder Name Role Phone Unavailable Primary Care Provider [...]
--- OUTSIDE RECORDS SUMMARY | 2024-07-21 11:14 | XMS_ITS | Encounter Summary ---
Author Organization [facility] Address [address] [place] [address] Phone Care Team Providers Care Metal Stud Framer Name Role Phone Bijan Daigle MD Primary Care Provider [phone] Encounter Details Date Type Department Care Team (Late st Contact Info) Description 08/25/2022 Documentation Only [facility] [address] [place] [address] Margarita Penny Social History Tobacco [...] on filedocumented in this encounter Care Teams Metal Stud Framer Relationship Specialty Start Date End Date Bijan Daigle MD [facility] [address] [place], [place] PCP - General 04/08/20 documented as of this encounter
--- OUTSIDE RECORDS SUMMARY | 2024-07-21 11:14 | XMS_ITS | Clinical Summary ---
Author Organization [facility] Address [address] [place] [address] Phone Care Team Providers Care Departmental Secretary Name Role Phone Bijan Daigle MD Primary Care Provider [phone] Social History Tobacco Use Types Packs/Day Years [...] Info) Description 10/16/2024 8:00 AM EDT Appointment [facility] [address] [place] [address] [phone] 10/17/2024 9:00 AM EDT Appointment [facility] [address] [place] [phone] 10/18/2024 9:00 AM EDT Appointment [facility] [address] [place] [address] [phone] Health Maintenance Due Date Last Done Comments [...] HEALTH PLAN [place]ICAID - [place] Care Teams Departmental Secretary Relationship Specialty Start Date End Date Bijan Daigle MD [address] [place] [address] [address] [facility] [place] [address] PCP - General Internal Medicine 06/29/24
== END 2024-07-21 11:22 | disposition home or self-care (01) ==
LOC: HO.HMCH 10:37
PROVIDERS: PCP Internal Medicine; Visit Provider Internal Medicine
DX: E11.65 Type 2 diabetes mellitus with hyperglycemia (principal); Z79.4 Long term (current) use of insulin; F31.62 Bipolar disorder, current episode mixed, moderate; Z68.32 Body mass index [BMI] 32.0-32.9, adult; E66.9 Obesity, unspecified; E78.00 Pure hypercholesterolemia, unspecified; I10 Essential (primary) hypertension; J45.21 Mild intermittent asthma with (acute) exacerbation

== ENCOUNTER → 2024-07-21 10:36 | Outpatient (BNVA) | payer OTHER, SELFPAY | PROVIDERS: PCP Internal Medicine; Visit Provider Internal Medicine | DX: E11.65 Type 2 diabetes mellitus with hyperglycemia (principal); E66.9 Obesity, unspecified; Z68.32 Body mass index [BMI] 32.0-32.9, adult; E78.00 Pure hypercholesterolemia, unspecified; I10 Essential (primary) hypertension; J45.21 Mild intermittent asthma with (acute) exacerbation; F31.62 Bipolar disorder, current episode mixed, moderate; Z79.4 Long term (current) use of insulin; Z79.899 Other long term (current) drug therapy | CPT/HCPCS: 96127; 99212 ==

== ENCOUNTER 2024-08-11 19:39 | Emergency (ER) | payer OTHER, SELFPAY ==
--- NOTE | ~2024-08-11 | CT_ITS ---
CLINICAL HISTORY: HARRISON, HTNsive CT head without contrast Comparison: 03/14/2022 Findings: No intracranial mass, midline shift, hydrocephalus, or acute hemorrhage. No acute process in sinuses or mastoids. No acute bony abnormality. Impression: No acute intracranial process This document has been electronically signed by: Kumar Coronado MD on 08/11/2024 20:33:03
[2024-08-11 19:45] VITALS: BP 195/109; PULSE 83; RESP 18; TEMP 36.4; O2SAT 97; BMI 32.6
--- NOTE | 2024-08-11 19:45 | ED.GENADULT ---
HPI - General Adult General Chief complaint: General Medical Stated complaint: hypertension Time Seen by Provider: 08/11/24 23:11 Source: patient Mode of arrival: ambulatory Limitations: no limitations History of Present Illness ED Provider: HPI narrative: Patient's history of hypertension on amlodipine , and hydralazine missed her doses for last 2 days checked her blood pressure noted to be 178/111 patient has always been having elevated blood pressure for last few months also patient noted ankle edema no shortness a breath no chest pain Related Data Home Medications ?Medication ?Instructions ?Recorded ?Confirmed carbamide peroxide 6.5 % ear drops 5 drp otic (ears) BID 10/31/21 11/24/23 (Ear Drops (carbamide peroxide)) flash glucose scanning reader #1 ea 02/06/22 11/24/23 (FreeStyle Archana 2 [place]) gabapentin 300 mg capsule 300 mg PO DAILY PRN 02/06/22 11/24/23 pen needle, diabetic 31 gauge x 05/06/22 11/24/2306/11 (BD Ultra-Fine Mini Pen Needle) Previous Rx's ?Medication ?Instructions ?Recorded albuterol sulfate 90 mcg/actuation 2 puff inhalation Q4-6H PRN 03/18/20 aerosol inhaler (ProAir HFA) Dyspnea #8.5 grams fluticasone 250 mcg-salmeterol 50 1 inh inhalation BID #60 ea 03/18/20 mcg/dose blistr powdr for inhalation (Advair Diskus) blood sugar diagnostic (FreeStyle ##4 11/13/20 Lite Strips) aspirin 81 mg tablet,delayed 81 mg PO DAILY #90 tabs 04/30/21 release (Adult Aspirin Regimen) bupropion HCl 150 mg tablet,12 hr 150 mg PO BEDTIME #90 tabs 05/15/21 sustained-release (Wellbutrin SR) acetaminophen 500 mg tablet 1,000 mg (2 x 500 mg) PO QID PRN 03/14/22 (Tylenol Extra Strength) fever or pain #14 tabs naproxen 500 mg tablet 500 mg PO BID PRN pain #14 tabs 03/14/22 diazepam 2 mg tablet 2 - 4 mg (1 - 2 x 2 mg) PO BEDTIME 07/22/22 PRN sleep 30 days #60 tabs spironolactone 25 1 tab PO DAILY #30 tabs 08/06/22 mg-hydrochlorothiazide 25 mg tablet (Aldactazide) fluticasone propionate 50 1 spray intranasal DAILY #9.9 mL 09/14/22 mcg/actuation nasal spray,suspension (Flonase Allergy Relief) loratadine 10 mg tablet (Claritin) 10 mg PO DAILY #30 tabs 09/14/22 ondansetron 8 mg disintegrating 8 mg PO Q12H PRN nausea and 11/06/22 tablet vomiting #10 tabs cyclobenzaprine 5 mg tablet 5 mg PO Q8H #10 tabs 06/09/23 pioglitazone 30 mg tablet 30 mg PO DAILY #90 tabs 12/22/23 meclizine 25 mg tablet 25 mg PO TID PRN dizziness or 03/15/24 vertigo #20 tabs blood pressure monitor (Blood #1 ea 03/31/24 Pressure Kit) FreeStyle Archana 2 Sensor (flash #6 ea 04/19/24 glucose sensor) carvedilol 12.5 mg tablet 18.75 mg (1.5 x 12.5 mg) PO BID 30 04/19/24 days #90 tabs glipizide 10 mg tablet, extended 10 mg PO BID #180 tabs 06/14/24 release 24 hr amlodipine 5 mg tablet 5 mg PO DAILY #90 tabs 07/12/24 hydralazine 50 mg tablet 50 mg PO TID 90 days #270 tabs 07/21/24 insulin glargine 100 unit/mL (3 35 unit (0.35 mL) subcut QPM #15 mL 07/21/24 mL) subcutaneous pen (Lantus Solostar U-100 Insulin) insulin lispro 100 unit/mL 18 unit (0.18 mL) subcut TID #15 mL 07/21/24 subcutaneous pen (Humalog KwikPen (U-100) Insulin) metformin 500 mg tablet 500 mg PO BID #180 tabs 07/21/24 rosuvastatin 10 mg tablet 10 mg PO DAILY #30 tabs 07/21/24 tirzepatide 12.5 mg/0.5 mL 12.5 mg (0.5 mL) subcut QWEEK #2 mL 07/21/24 subcutaneous pen injector diclofenac sodium 1 % topical gel 4 g topical QID #400 grams 08/03/24 (Arthritis Pain (diclofenac)) hydrochlorothiazide 25 mg tablet 25 mg PO QAM #30 tabs 08/12/24 Allergies Allergy/AdvReac Type Severity Reaction Status Date / Time clonidine [CLONIDINE] Allergy Severe DIZZY,FAINT Verified 08/11/24 19:48 levetiracetam [LEVETIRACETAM] Allergy Severe DIFFICULTY Verified 08/11/24 19:48 BREATHING lisinopril [LISINOPRIL] Allergy Severe SWELLING, Verified 08/11/24 19:48 angioedema atenolol [ATENOLOL] Allergy Intermediate RASH Verified 08/11/24 19:48 dulaglutide [Trulicity] Allergy Unknown Unknown Verified 08/11/24 19:48 Review of Systems Review of Systems: Yes all other systems are reviewed and are negative PMFSH Past Medical History Medical History Microscopic hematuria Breast cancer screening by mammogram Trigeminal neuralgia of right side of face Hypertension Anxiety due to invasive procedure Family history of colon cancer Colon cancer screening Lower abdominal pain Vulvovaginitis roseline albicans Well woman exam Cervical cancer screening Hypercholesterolemia SVT (supraventricular tachycardia) Obstructive sleep apnea Mixed incontinence urge and stress Thyroid nodule GERD (gastroesophageal reflux disease) Asthma COVID-19 Mild obstructive sleep apnea Cataracts, bilateral Migraine Seizure disorder Bipolar disorder Green's palsy Obesity (BMI 30-39.9) Type 2 diabetes mellitus with hyperglycemia Surgical History History of cone biopsy of uterine cervix History of tubal ligation History of cholecystectomy Family History Family History Father Diabetes FH: prostate cancer CVD (cardiovascular disease) Mother Diabetes Hypertension Stroke CVD (cardiovascular disease) Sister Breast cancer Sister Breast cancer Sister Hypertension Daughter In good health Brother No problems noted. Brother No problems noted. Brother No problems noted. Sister Cervical cancer Social History Social History Household Members: Other Household Members Other:: grandson Housing: House Do you presently have visiting nurse or other home services: Yes (tele visits) Alcohol intake: never Patient Tobacco Use Status: Never used Tobacco Tobacco use type: Cigarette e-Cigarette/Vaping Use: Never Used Second Hand Smoke Exposure: No Use of substances other than those prescribed or required for medical reasons: No Any prior treatment program specific to substance use: No Advance Directives: No Advance Directives Information Provided: Yes Do you have a plan to hurt others: No Plan service: No Current occupational status: disabled Cognitive needs: No Hearing needs: No Vision needs: Yes Physical Exam ED Vital Signs: Vital Signs - 24 hr 08/11/24 19:45 08/11/24 23:30 08/12/24 00:04 Temperature 97.6 F Pulse Rate 83 71 Respiratory Rate 18 Blood Pressure 195/109 H 217/113 H 197/76 H Pulse Oximetry 97 Oxygen Delivery Method Room Air 08/12/24 00:08 08/12/24 00:10 08/12/24 00:12 Temperature 97.8 F Pulse Rate 77 74 72 Respiratory Rate 24 H Blood Pressure 201/84 H 197/82 H 202/71 H Pulse Oximetry 95 Oxygen Delivery Method Room Air 08/12/24 01:21 Temperature 97.1 F Pulse Rate 72 Respiratory Rate 18 Blood Pressure 213/104 H Pulse Oximetry 98 Oxygen Delivery Method Room Air BMI result Body Mass Index 32.6 Appearance: Alert. Oriented X3. No acute distress. Eyes: PERRLA, No Nystagmus ENT: Pharynx normal. Oral Mucosa moist Neck: Normal inspection. Neck supple. CVS: Normal heart rate and rhythm. Pulses normal. Respiratory: No respiratory distress. Equal air entry bilateral, no wheezing/rales/rhonchi Abdomen: Soft and nontender. Bowel sounds are present, no mass palpable, no CVA tenderness Skin: Skin warm and dry. Normal skin color. Normal skin turgor. Extremities: No lower extremity edema. No calf tenderness Neuro: Oriented X 3. No motor deficit. No sensory deficit.No cerebellar signs , cranial nerves II-XII intact Course Course Course Narrative: This is a Rapid Medical Exam performed in triage by Zarina Pearl PA-C. Full HPI, ROS and PE to be performed by primary ED provider. 63 yo F w/PMHx HTN, DM, Asthma, YUSUF, GERD, presenting to the ED c/o elevated BP at home 178/111. Admits to dizziness, HARRISON, mid abd pain, substernal CP, nausea x today. Denies CP at present. 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 PE: HTNsive 195/109, no focal deficits, ambulating w/steady gait Plan: EKG, labs, UA, CXR Medications Administered Discontinued Medications Generic Name Dose Route Start Last Admin Trade Name Sonia PRN Reason Stop Dose Admin Hydralazine HCl 50 mg 08/11/24 23:22 08/11/24 23:30 Hydralazine Hcl 50 Mg Tablet PO 08/11/24 23:23 50 mg ONCE ONE Administration Protocol Medical Decision Making Medical Decision Making [facility] Narrative: Patient with uncontrolled hypertension with frequent missing her medications had mild headache CT scan is negative for SAH patient also has ankle edema likely from amlodipine use lungs were clear will advised her to continue take her medication and add hydrochlorothiazide atrium patient advised to follow with airport control operator for further evaluation Differential Diagnosis Differential Diagnoses: The differential diagnosis associated with the presentation includes Accelerated hypertension/uncontrolled hypertension/hypertensive crisis/SAH Admission/Observation Consideration of admission/observation: Escalation of care including admission/observation considered Lab Data [facility] Lab Attestation statement: I reviewed the patient's lab results. 08/11/24 20:00 08/11/24 20:00 Labs: Lab Results 08/11/24 08/11/24 08/11/24 Range/Units 19:58 20:00 23:59 WBC 8.1 (4.8-10.8) X10*3/uL RBC 5.09 (4.20-5.50) X10*6/uL Hgb 14.6 (12.0-16.0) g/dl Hct 41.8 (37.0-47.0) % MCV 82.1 (80.0-98.0) fL MCH 28.7 (27.0-33.0) pg MCHC 34.9 (31.0-35.0) g/dl RDW 11.9 (11.0-16.0) % Plt Count 220 (160-400) X10*3/uL MPV 11.0 (9.4-12.3) fL Immature Gran % (Auto) 0.2 (0.0-0.4) % Neut % (Auto) 49.3 (45-73) % Lymph % (Auto) 40.3 H (20-40) % [place] % (Auto) 7.4 (2-11) % Eos % (Auto) 2.4 (0-4) % Baso % (Auto) 0.4 (0-2) % Lymph # (Auto) 3.3 (1.2-4.9) X10*3/uL [place] # (Auto) 0.6 (0.1-1.2) X10*3/uL Eos # (Auto) 0.2 (0.0-0.4) X10*3/uL Baso # (Auto) 0.0 (0.0-0.2) X10*3/uL Abs Immat Gran (auto) 0.02 (0.00-0.03) X10*3/uL Absolute Neuts (auto) 4.0 (2.0-8.3) x10*3/uL Absolute Nucleated RBC 0.000 (0.0-0.012) X10*3/uL Nucleated RBC % (auto) 0.0 (0.0-0.2) /100WBC Sodium 140 (135-145) mmol/L Potassium 3.9 (3.3-5.1) mmol/L Chloride 102 (96-108) mmol/L Carbon Dioxide 29 (22-29) mmol/L Anion Gap 13 (12-20) BUN 17 H (9-16) mg/dL Creatinine 0.82 (0.5-1.4) mg/dL Estim Creat Clear Calc 74.5 Estimated GFR > 60 POC Glucose 212 H 173 H (60-115) mg/dL Random Glucose 215 H (60-115) mg/dL Calcium 9.6 (8.4-10.2) mg/dL Magnesium 1.6 (1.6-2.6) mg/dL Total Bilirubin 0.6 (0.0-1.0) mg/dL Direct Bilirubin 0.2 (0.0-0.5) mg/dL AST 28 (5-31) U/L ALT 37 H (0-31) U/L Alkaline Phosphatase 131 H (39-117) U/L Troponin I High Sens < 2.7 (<3.5-17.0) ng/L Total Protein 7.2 (6.5-8.0) g/dL Albumin 4.1 (3.5-5.0) g/dL Influenza Type A (PCR) NEGATIVE (Negative) Influenza Type B (PCR) NEGATIVE (Negative) RSV RNA Qual (PCR) NEGATIVE (Negative) SARS-CoV-2 RNA (RT-PCR) NEGATIVE (Negative) Independent Interpretation I performed an independent interpretation of an: EKG Interpretation: Normal sinus rhythm incomplete right bundle-branch block left anterior fascicular block LVH no acute STT wave changes no acute change from the previous EKG Radiology Impression Discussion of test interpretation with radiology: I have reviewed the radiologist's reading. Radiologist Impression: Head CT negative Discharge Plan Discharge Clinical Impression: Hypertension, uncontrolled Patient Disposition: Home, Self-Care Instructions: Chronic Hypertension (ED) Additional Instructions: Start taking hydrochlorothiazide 25 mg daily in the a.m. along with your blood pressure medications Check your blood pressure 2 times a day and follow with your PCP Normal blood pressure should be less than 140/90 Decrease salt intake Follow up with airport control operator Prescriptions: New hydrochlorothiazide 25 mg tablet 25 mg PO QAM Qty: 30 0RF No Action albuterol sulfate [ProAir HFA] 90 mcg/actuation HFA aerosol inhaler 2 puff inhalation Q4-6H PRN (Reason: Dyspnea) Qty: 8.5 0RF fluticasone propion-salmeterol [Advair Diskus] 250-50 mcg/dose blister with device 1 inh inhalation BID Qty: 60 5RF (DME) FreeStyle Lite Strips Strip See Rx Instructions .ROUTE .MEDSUPPLY Qty: 4 3RF Rx Instructions: As directed check the BS 4 x a day aspirin [Adult Aspirin Regimen] 81 mg tablet,delayed release (DR/EC) 81 mg PO DAILY Qty: 90 3RF bupropion HCl [Wellbutrin SR] 150 mg tablet sustained-release 12 hr 150 mg PO BEDTIME Qty: 90 2RF (DME) blood pressure monitor [Blood Pressure Kit] Kit See Rx Instructions .ROUTE .MEDSUPPLY Qty: 1 0RF Rx Instructions: As directed amlodipine 5 mg tablet 5 mg PO DAILY Qty: 90 0RF diclofenac sodium [Arthritis Pain (diclofenac)] 1 % gel 4 g topical QID Qty: 400 0RF Rx Instructions: apply to single knee, ankle, foot; for foot includes sole/toes/top of foot naproxen 500 mg tablet 500 mg PO BID PRN (Reason: pain) Qty: 14 0RF acetaminophen [Tylenol Extra Strength] 500 mg tablet 1,000 mg PO QID PRN (Reason: fever or pain) Qty: 14 0RF Ear Drops (carbamide peroxide) 6.5 % drops 5 drp otic (ears) BID spironolacton-hydrochlorothiaz [Aldactazide] 25-25 mg tablet 1 tab PO DAILY Qty: 30 4RF ondansetron 8 mg tablet,disintegrating 8 mg PO Q12H PRN (Reason: nausea and vomiting) Qty: 10 0RF fluticasone propionate [Flonase Allergy Relief] 50 mcg/actuation spray,suspension 1 spray intranasal DAILY Qty: 9.9 1RF Rx Instructions: administer into each nostril loratadine [Claritin] 10 mg tablet 10 mg PO DAILY Qty: 30 0RF cyclobenzaprine 5 mg tablet 5 mg PO Q8H Qty: 10 0RF gabapentin 300 mg capsule 300 mg PO DAILY PRN (DME) FreeStyle Archana 2 [place] Misc See Rx Instructions .ROUTE DIRECTED Qty: 1 Rx Instructions: As directed (DME) pen needle, diabetic [BD Ultra-Fine Mini Pen Needle] 31 gauge x 3/16 needle See Rx Instructions .Route Rx Instructions: As directed, Inject 6 x a day with Insulin diazepam 2 mg tablet 2 - 4 mg PO BEDTIME PRN (Reason: sleep) 30 Days Qty: 60 2RF carvedilol 12.5 mg tablet 18.75 mg PO BID 30 Days Qty: 90 3RF (DME) FreeStyle Archana 2 Sensor Kit See Rx Instructions .ROUTE Q2W Qty: 6 3RF Rx Instructions: As directed glipizide 10 mg tablet extended release 24hr 10 mg PO BID Qty: 180 3RF hydralazine 50 mg tablet 50 mg PO TID 90 Days Qty: 270 1RF metformin 500 mg tablet 500 mg PO BID Qty: 180 1RF insulin glargine [Lantus Solostar U-100 Insulin] 100 unit/mL (3 mL) insulin pen 35 unit subcut QPM Qty: 15 12RF insulin lispro [Humalog KwikPen Insulin] 100 unit/mL insulin pen 18 unit subcut TID Qty: 15 3RF tirzepatide 12.5 mg/0.5 mL pen injector 12.5 mg subcut QWEEK Qty: 2 3RF rosuvastatin 10 mg tablet 10 mg PO DAILY Qty: 30 5RF pioglitazone 30 mg tablet 30 mg PO DAILY Qty: 90 3RF meclizine 25 mg tablet 25 mg PO TID PRN (Reason: dizziness or vertigo) Qty: 20 0RF Referrals: Marc Aldridge MD [Physician] - 2 weeks Interventions: ED Discharge Assessment Last Done: 08/12/24 01:21 Discharge Date/Time: 08/12/24 01:22 Print Language: Green[place]ic
--- NOTE | 2024-08-11 19:48 | ECG_ITS ---
Test Reason : CP Blood Pressure : */* mmHG Vent. Rate : 82 BPM Atrial Rate : 82 BPM P-R Int : 142 ms QRS Dur : 94 ms QT Int : 374 ms P-R-T Axes : 20 -46 60 degrees QTcB Int : 436 ms Normal sinus rhythm Incomplete right bundle branch block Left anterior fascicular block Left ventricular hypertrophy ( R in aVL , Mitchell product , Romhilt-Guzman ) Abnormal ECG When compared with ECG of 14-Nov-2023 14:58, No significant change was found Referred By: Zarina Pearl Electronically Signed By: SAMPSON MCCAIN MD
[2024-08-11 20:04] LABS: Glucose, Whole Blood 212 mg/dL (60-115)
[2024-08-11 20:05] LABS: MANUAL DIFF FLAG NO
[2024-08-11 20:06] LABS: Basophils Percent Auto 0.4 % (0-2); Eosinophils Absolute Auto 0.2 X10*3/uL (0.0-0.4); Eosinophils Percent Auto 2.4 % (0-4); Hematocrit 41.8 % (37.0-47.0); Hemoglobin 14.6 g/dl (12.0-16.0); Imm Gran Abs Auto 0.02 X10*3/uL (0.00-0.03); Imm Gran Pct Auto 0.2 % (0.0-0.4); Lymphocytes Absolute Auto 3.3 X10*3/uL (1.2-4.9); Lymphocytes Percent Auto 40.3 % (20-40); Mean Corpuscular HGB Conc 34.9 g/dl (31.0-35.0); Mean Corpuscular Hemoglobin 28.7 pg (27.0-33.0); Mean Corpuscular Volume 82.1 fL (80.0-98.0); Monocytes Absolute Auto 0.6 X10*3/uL (0.1-1.2); Monocytes Percent Auto 7.4 % (2-11); Neutrophils Percent Auto 49.3 % (45-73); Platelet Count 220 X10*3/uL (160-400); Red Blood Count 5.09 X10*6/uL (4.20-5.50); Red Cell Distribution Width 11.9 % (11.0-16.0); White Blood Count 8.1 X10*3/uL (4.8-10.8)
[2024-08-11 20:19] LABS: Alanine Aminotransferase 37 U/L (0-31); Albumin Level 4.1 g/dL (3.5-5.0); Alkaline Phosphatase 131 U/L (39-117); Anion Gap 13 (12-20); Aspartate Amino Transferase 28 U/L (5-31); Bilirubin Direct 0.2 mg/dL (0.0-0.5); Bilirubin Total 0.6 mg/dL (0.0-1.0); Blood Urea Nitrogen 17 mg/dL (9-16); Calcium 9.6 mg/dL (8.4-10.2); Carbon Dioxide 29 mmol/L (22-29); Chloride 102 mmol/L (96-108); Creatinine Clr Calc Pharmacy 74.5; Estimated Glomerular Filt Rate > 60; Glucose Random 215 mg/dL (60-115); Magnesium 1.6 mg/dL (1.6-2.6); Potassium 3.9 mmol/L (3.3-5.1); Sodium 140 mmol/L (135-145); Total Protein 7.2 g/dL (6.5-8.0)
[2024-08-11 20:27] LABS: Troponin-I High Sensitivity < 2.7 ng/L (<3.5-17.0)
[2024-08-11 20:42] LABS: Influenza A PCR NEGATIVE (Negative); Influenza B PCR NEGATIVE (Negative); Resp Syncy Virus RNA Qual PCR NEGATIVE (Negative); SARS COV2 PCR INHOUSE NEGATIVE (Negative)
[2024-08-11 23:30] VITALS: BP 217/113
[2024-08-11] MEDS: hydrALAZINE HCl 50 MG TABLET PO (23:30)
--- OUTSIDE RECORDS SUMMARY | 2024-08-11 23:54 | XMS_ITS | Clinical Summary ---
Author Organization [facility] Address [address] [place] [address] Phone Care Team Providers Care Retail Solar Advisor Name Role Phone Bijan Daigle MD Primary Care Provider [phone] Social History Tobacco Use Types Packs/Day Years [...] Info) Description 10/16/2024 8:[address] [facility] [address] [place] [address] [phone] 10/17/2024 9:[address] [facility] [address] [place] [address] [phone] 10/18/2024 9:[address] [facility] [address] [place] [address] [phone] Health Maintenance Due Date Last Done Comments [...] HEALTH PLAN [place]ICA[place] - [place] Care Teams Retail Solar Advisor Relationship Specialty Start Date End Date Bijan Daigle MD [address] [place] [address] [address] [facility] [place] [address] PCP - General Internal Medicine 06/29/24
--- OUTSIDE RECORDS SUMMARY | 2024-08-11 23:54 | XMS_ITS | Clinical Summary ---
Author Organization [facility] Address [address] [place] [id number] Care Team Providers Care Handkerchief Folder Name Role Phone Unavailable Primary Care Provider [...]
--- OUTSIDE RECORDS SUMMARY | 2024-08-11 23:54 | XMS_ITS | Encounter Summary ---
Author Organization [facility] Address [address] [place] [address] Phone Care Team Providers Care Coater Operator Name Role Phone Bijan Daigle MD Primary Care Provider [phone] Encounter Details Date Type Department Care Team (Late st Contact Info) Description 08/25/2022 Documentation Only [facility] [address] [place] [address] Margarita Penny Social History Tobacco [...] on filedocumented in this encounter Care Teams Coater Operator Relationship Specialty Start Date End Date Bijan Daigle MD [facility] [address] [place], [place] PCP - General 04/08/20 documented as of this encounter
--- OUTSIDE RECORDS SUMMARY | 2024-08-11 23:54 | XMS_ITS | Clinical Summary ---
Author Organization [facility] Address [address] [place] [address] [address] [place] [address] Phone Care Team Providers Care Stud Master/Mistress Name Role Phone Bijan Daigle MD Primary Care Provider [phone] Allergies Active Allergy Reactions Criticality Noted Date [...] patient's age to complete this topic Insurance [facility] Medicaid [facility] Medicaid Care Teams Stud Master/Mistress Relationship Specialty Start Date End Date Bijan Daigle MD [address] [place], [place] PCP - General 04/08/20
[2024-08-12 00:03] LABS: Glucose, Whole Blood 173 mg/dL (60-115)
[2024-08-12 00:04] VITALS: BP 197/76; PULSE 71
[2024-08-12 00:08] VITALS: BP 201/84; PULSE 77
[2024-08-12 00:10] VITALS: BP 197/82; PULSE 74
[2024-08-12 00:12] VITALS: BP 202/71; PULSE 72; RESP 24; TEMP 36.6; O2SAT 95
--- NOTE | 2024-08-12 01:12 | PC.NURSE ---
Reviewed discharge instructions with pt. pt verbalized understanding, no sign of distress, pt had a steady gate upon discharge, pt discharged with family
--- NOTE | 2024-08-12 01:13 | PC.NURSE ---
elevated blood pressure report to provider, okay to discharge.
[2024-08-12 01:21] VITALS: BP 213/104; PULSE 72; RESP 18; TEMP 36.2; O2SAT 98
== END 2024-08-12 01:22 | disposition home or self-care (01) ==
PROVIDERS: Physician Assistant; Emergency Provider Internal Medicine; PCP Internal Medicine
DX: R60.0 Localized edema (principal); R07.89 Other chest pain; I45.10 Unspecified right bundle-branch block; R51.9 Headache, unspecified; Z79.899 Other long term (current) drug therapy; Z03.818 Encounter for observation for suspected exposure to other biological agents ruled out
CPT/HCPCS: 0241U; 70450; 80048; 80076; 82947; 83735; 84484; 85025; 93005; 99284; 99285

== ENCOUNTER → 2024-08-11 19:48 | Outpatient (BNV) | payer OTHER, SELFPAY | PROVIDERS: Emergency Provider Internal Medicine; PCP Internal Medicine; Visit Provider Internal Medicine Cardiovascular Disease | DX: I45.2 Bifascicular block (principal); I51.7 Cardiomegaly | CPT/HCPCS: 93010 ==

== ENCOUNTER → 2024-08-11 19:50 | Outpatient (BNV) | payer OTHER, SELFPAY | PROVIDERS: PCP Internal Medicine; Visit Provider Radiology Diagnostic Radiology | DX: I10 Essential (primary) hypertension (principal) | CPT/HCPCS: 70450 ==

== ENCOUNTER 2024-08-25 10:03 | Outpatient (REF) | payer OTHER, SELFPAY ==
--- NOTE | ~2024-08-25 | US_ITS ---
CLINICAL HISTORY: R10.2 - Pelvic and perineal pain US pelvis transvaginal Comparison: None Findings: Transvaginal scanning performed. Anteverted uterus is 8.0 cm length. Normal myometrium. Endometrium 0.3 mm thickness. There are uterine myometrial leiomyomata measuring 1.2 x 1.1 x 0.9 cm and 1.2 x 1.1 x 1.0 cm. Right ovary 1.9 x 1.1 x 0.9 cm. Left ovary 1.9 x 1.4 x 1.2 cm. Normal color Doppler of both ovaries. No free fluid. IMPRESSION: 1. Uterine leiomyomata This document has been electronically signed by: Oscar Mcmahon MD on 08/26/2024 10:12:46
--- OUTSIDE RECORDS SUMMARY | 2024-08-25 10:37 | XMS_ITS | Clinical Summary ---
Author Organization [facility] Address [address] [place] [address] Care Team Providers Care Metal Shaping Machine Operator Name Role Phone Unavailable Primary Care [...] Panel 1960 SDOH Screening 1960 Sigmoidoscopy 1960 Disability Screening 1960 Alcohol/Substance Use Screening 1972 Hepatitis C [...] Most Recently Relevant to Health Maintenance Insurance [facility] MEDICAID STAND ADULT
== END 2024-08-25 10:04 | disposition home or self-care (01) ==
LOC: HO.US 10:03
PROVIDERS: PCP Internal Medicine; Visit Provider Obstetrics & Gynecology
DX: R10.2 Pelvic and perineal pain (principal)
CPT/HCPCS: 76830; 76856

== ENCOUNTER → 2024-08-25 10:05 | Outpatient (BNV) | payer OTHER, SELFPAY | PROVIDERS: PCP Internal Medicine; Visit Provider Specialist | DX: D25.9 Leiomyoma of uterus, unspecified (principal) | CPT/HCPCS: 76830; 76856 ==

== ENCOUNTER 2024-09-11 09:50 | Outpatient (AMB) | payer OTHER, SELFPAY ==
--- NOTE | 2024-09-11 09:57 | A.OFFVIS_ITS ---
Intake Visit Reasons: ultrasound follow up/urine dip Brim Setter: Brim Setter Present (Edith) Accompanied by: Self / Same As Patient Allergies clonidine [CLONIDINE] Allergy (Severe, Verified 09/11/24 10:00) DIZZY,FAINT levetiracetam [LEVETIRACETAM] Allergy (Severe, Verified 09/11/24 10:00) DIFFICULTY BREATHING lisinopril [LISINOPRIL] Allergy (Severe, Verified 09/11/24 10:00) SWELLING, angioedema atenolol [ATENOLOL] Allergy (Intermediate, Verified 09/11/24 10:00) RASH dulaglutide [Trulicity] Allergy (Unknown, Verified 09/11/24 10:00) Unknown HPI Comments Details: Presenting for follow-up regarding her pelvic pain. The patient is doing well. The following workup was done so far: GC/CT negative. Last visit urine test was negative. Last visit urine dip showed microscopic hematuria, repeat urine dip today was negative Pelvic ultrasound showed the following: Transvaginal scanning performed. Anteverted uterus is 8.0 cm length. Normal myometrium. Endometrium 0.3 mm thickness. There are uterine myometrial leiomyomata measuring 1.2 x 1.1 x 0.9 cm and 1.2 x 1.1 x 1.0 cm. Right ovary 1.9 x 1.1 x 0.9 cm. Left ovary 1.9 x 1.4 x 1.2 cm. Normal color Doppler of both ovaries. No free fluid. IMPRESSION: 1. Uterine leiomyomata [facility] Medical History Microscopic hematuria Breast cancer screening by mammogram Trigeminal neuralgia of right side of face Hypertension Anxiety due to invasive procedure Family history of colon cancer Colon cancer screening Lower abdominal pain Vulvovaginitis roseline albicans Well woman exam Cervical cancer screening Hypercholesterolemia SVT (supraventricular tachycardia) Obstructive sleep apnea Mixed incontinence urge and stress Thyroid nodule GERD (gastroesophageal reflux disease) Asthma COVID-19 Mild obstructive sleep apnea Cataracts, bilateral Migraine Seizure disorder Bipolar disorder Green's palsy Obesity (BMI 30-39.9) Type 2 diabetes mellitus with hyperglycemia Surgical History History of cone biopsy of uterine cervix History of tubal ligation History of cholecystectomy Family History Father Diabetes FH: prostate cancer CVD (cardiovascular disease) Mother Diabetes Hypertension Stroke CVD (cardiovascular disease) Sister Breast cancer Sister Breast cancer Sister Hypertension Daughter In good health Brother No problems noted. Brother No problems noted. Brother No problems noted. Sister Cervical cancer Social History Household Members: Other Household Members Other:: grandson Housing: House Do you presently have visiting nurse or other home services: Yes (tele visits) Alcohol intake: never Patient Tobacco Use Status: Never used Tobacco Tobacco use type: Cigarette e-Cigarette/Vaping Use: Never Used Second Hand Smoke Exposure: No service: No Current occupational status: disabled Cognitive needs: No Hearing needs: No Vision needs: Yes Female Reproductive History Menstrual Age of Menarche: 12 Review of Systems Const All systems reviewed & are unremarkable except as noted in HPI and below Reports as per HPI and Reports no additional complaints GI Reports no additional complaints Reports no additional complaints Assessment & Plan Assessment & Plan (1) Breast lump on left side at 10 o'clock position: Comment: 8 cm from the nipple Code(s): N63.22 - Unspecified lump in the left breast, upper inner quadrant Category: Medical Plan: The patient is scheduled for left breast ultrasound and diagnostic mammogram with the general surgery consult soon (2) Uterine myoma: Code(s): D25.9 - Leiomyoma of uterus, unspecified Category: Medical Plan: Discussed with the patient the findings on pelvic ultrasound & the risk of myosarcoma; in addition reviewed with the patient that malignancy and pre malignancy cannot be ruled out without hysterectomy for pathological evaluation ; furthermore, explained to the patient the limitation of pelvic ultrasound and endometrial biopsy in the setting. Discussed with the patient the options of treatment including expectant management versus hysterectomy; the pros and cons, risks benefits of each approach were discussed with the patient including the fact that in cases of myosarcoma, surgical treatment can lead to early diagnosis and positively affects the prognosis; after further discussion, the patient decided to proceed with expectant management. Will repeat pelvic ultrasound periodically. Instructions given to patient to call in case any of the following occurs: pressure symptoms, abnormal uterine bleeding, pelvic pain; and to schedule a 12 months pelvic ultrasound (order placed) and a follow-up appointment . All questions answered, the patient verbalized understanding and agreed with the plan . Orders: Orders MM tomosynthesis diagnostic BI Today N63.22 - Unspecified lump in the left breast, upper inner quadrant US breast LT limited Today N63.22 - Unspecified lump in the left breast, upper inner quadrant US pelvic and transvaginal Today D25.9 - Leiomyoma of uterus, unspecified Coding Level of Care Code Est Pt Level 3 (01140) Diagnoses Breast lump on left side at 10 o'clock position N63.22 Uterine myoma D25.9
--- OUTSIDE RECORDS SUMMARY | 2024-09-11 10:49 | XMS_ITS | Clinical Summary ---
Author Organization [employer] Address [address] [facility] 7[address] [place] [address] Care Team Providers Care Educational Psychology Professor Name Role Phone Unavailable Primary Care Provider [...] - season) 2023 05/31/2020, 05/10/2020 Influenza Vaccine (Season Ended) 2024 01/05/2019, 12/16/2016, 12/20/2015, Additional history exists Dental X-Ray: [...] Most Recently Relevant to Health Maintenance Insurance [facility] STAND ADULT
== END 2024-09-11 10:31 | disposition home or self-care (01) ==
LOC: HO.HWS 09:50
PROVIDERS: PCP Internal Medicine; Visit Provider Obstetrics & Gynecology
DX: N63.22 Unspecified lump in the left breast, upper inner quadrant (principal); D25.9 Leiomyoma of uterus, unspecified
CPT/HCPCS: 99213

== ENCOUNTER → 2024-09-11 09:50 | Outpatient (BNVA) | payer OTHER, SELFPAY | PROVIDERS: PCP Internal Medicine; Visit Provider Obstetrics & Gynecology | DX: Z71.2 Person consulting for explanation of examination or test findings (principal); N63.22 Unspecified lump in the left breast, upper inner quadrant; D25.9 Leiomyoma of uterus, unspecified | CPT/HCPCS: 99212 ==

== ENCOUNTER 2024-10-12 15:43 | Outpatient (REF) | payer OTHER, SELFPAY ==
--- NOTE | ~2024-10-12 | MR_ITS ---
EXAMINATION: MR BREAST WITHOUT AND WITH CONTRAST, BILATERAL CLINICAL INFORMATION: High risk strong family history of breast cancer including sister. COMPARISON: Francois is made with available prior examinations including mammogram October 21, 2023 MR June 07, 2023 TECHNIQUE: MR imaging of the breast was performed using T1, T2 and fat saturated techniques. Dynamic multiphase imaging was also performed after the administration of intravenous gadolinium contrast agent. Computer generated 3D reconstruction and enhancement kinetic analysis was ulitized by the radiologist in the interpretation of this examination. FINDINGS: Breast composition: There is scattered fibroglandular breast tissue with moderate background enhancement. LEFT BREAST: No suspicious enhancing masses or areas of non mass enhancement. Tortuous vessel lateral breast posterior depth similar from prior MRI June 07, 2023. No axillary or internal mammary adenopathy. RIGHT BREAST: No suspicious enhancing masses or areas of non mass enhancement. No axillary or internal mammary adenopathy. Limited views of the chest and abdomen are unremarkable. MR/MR breast BI wo/w con IMPRESSION: 1. Patient history describes symptoms of a bump. It is unclear which side and location this symptom is felt it was not described in the intake MR patient information form. If patient has a palpable lump or focal area of pain a diagnostic mammogram and ultrasound should be ordered first. 2. Patient is overdue for yearly screening mammography. Breast MRI does not replace yearly screening mammography recommendations. 3. No MRI evidence of malignancy bilateral breasts. ASSESSMENT: LEFT BREAST: BI-RADS 1-Negative RIGHT BREAST: BI-RADS 1-Negative RECOMMENDATIONS: Patient is overdue for yearly screening mammography. Yearly mammography is recommended at this time breast MRI does not replace yearly screening mammography recommendations. Yearly Breast MRI screening surveillance. Electronically signed by: Maribeth Molina DO 10/13/2024 09:01 PM EDT
--- OUTSIDE RECORDS SUMMARY | 2024-10-12 16:15 | XMS_ITS | Clinical Summary ---
Author Organization [facility] Address [address] [place] [address] Phone Care Team Providers Care Nursing Program Coordinator Name Role Phone Bijan Daigle MD Primary Care Provider [phone] Social History Tobacco Use Types Packs/Day Years [...] Info) Description 10/16/2024 8:00 AM EDT Appointment [facility] [address] [place] [address] [phone] 10/17/2024 9:00 AM EDT Appointment [facility] [address] [place] [address] [phone] 10/18/2024 9:00 AM EDT Appointment [facility] [address] [place] [address] [phone] Health Maintenance Due Date Last Done Comments [...] Influencers of Health Screening 04/14/2024 Influenza Vaccine (#1) 2024 RSV Immunization Adult Patie nts (1 [...] 5 Years) and At-Risk Patients (6 to 49 [...] HEALTH PLAN MEDICAID - [place] Care Teams Nursing Program Coordinator Relationship Specialty Start Date End Date Bijan Daigle MD [address] [place] [address] [address] [facility] [place] [address] PCP - General Internal Medicine 06/29/24
--- OUTSIDE RECORDS SUMMARY | 2024-10-12 16:15 | XMS_ITS | Encounter Summary ---
Author Organization [facility] Address [address] [place] [address] Phone Care Team Providers Care Secy Name Role Phone Bijan Daigle MD Primary Care Provider Encounter Details Date Type Department Care Team (Late st Contact Info) Description 08/25/2022 Documentation Only [facility] [address] [place] [address] Margarita Penny Social History Tobacco [...] on filedocumented in this encounter Care Teams Secy Relationship Specialty Start Date End Date Bijan Daigle MD [facility] [address] [place], [place] PCP - General 04/08/20 documented as of this encounter
--- OUTSIDE RECORDS SUMMARY | 2024-10-12 16:15 | XMS_ITS | Clinical Summary ---
Author Organization [facility] Address [address] [place] [address] Care Team Providers Care Manager Bank Name Role Phone Unavailable Primary Care Provider [...]
--- OUTSIDE RECORDS SUMMARY | 2024-10-12 16:15 | XMS_ITS | Clinical Summary ---
Author Organization [employer] Address [address] [facility] 7t [place] [address] Care Team Providers Care Bookmobile Clerk Name Role Phone Unavailable Primary Care [...] season) 2023 05/31/2020, 05/10/2020 Influenza Vaccine (#1) 2024 9, 12/16/2016, 12/20/2015, Additional history exists Dental [...] Most Recently Relevant to Health Maintenance Insurance [facility] STAND ADULT
== END 2024-10-12 15:44 | disposition home or self-care (01) ==
LOC: HO.MRI 15:43
PROVIDERS: PCP Internal Medicine; Visit Provider Obstetrics & Gynecology
DX: Z12.39 Encounter for other screening for malignant neoplasm of breast (principal); Z80.3 Family history of malignant neoplasm of breast
CPT/HCPCS: 77049; A9585

== ENCOUNTER → 2024-10-12 15:44 | Outpatient (BNV) | payer OTHER, SELFPAY | PROVIDERS: PCP Internal Medicine; Visit Provider Internal Medicine | DX: Z80.3 Family history of malignant neoplasm of breast (principal) | CPT/HCPCS: 77049 ==

== ENCOUNTER 2024-12-05 09:51 | Outpatient (AMB) | payer OTHER, SELFPAY ==
[2024-12-05 09:53] VITALS: BP 176/78; PULSE 85; O2SAT 95; BMI 31.9
--- NOTE | 2024-12-05 09:53 | A.OFFVIS_ITS ---
Vital Signs 12/05/24 09:53 Height 5 ft 4 in Weight 185 lb 10.067 oz BMI 31.9 BP 176/78 H Blood Pressure Location Rt brachial Position Sitting Pulse 85 Pulse Oximetry (%) 95 Intake Visit Reasons: Colonoscopy SCreening Intake Note: New patient in office today for colonoscopy screening. CC: Patient reports that she has not been able to have colonoscopy done d/t high blood pressure. Patient c/o constipation and hearburn sometimes. Patient reports that she lost her on Wednesday and is having a lot of stress. Treating Inspector Required: Yes Allergies clonidine (CLONIDINE) Allergy (Severe, Verified 12/05/24 09:57) DIZZY,FAINT levetiracetam (LEVETIRACETAM) Allergy (Severe, Verified 12/05/24 09:57) DIFFICULTY BREATHING lisinopril (LISINOPRIL) Allergy (Severe, Verified 12/05/24 09:57) SWELLING, angioedema atenolol (ATENOLOL) Allergy (Intermediate, Verified 12/05/24 09:57) RASH dulaglutide (Trulicity) Allergy (Unknown, Verified 12/05/24 09:57) Unknown HPI HPI Colonoscopy SCreening: Details: This is her first colonoscopy. Apparently the patient was seen in 2013 for screening colonoscopy but the procedure was never obtained the patient was lost to follow-up. She says that in the past her scopes have been cancelled r/t her BP being high - but she has been tx'ed for the HTN for many years. Apparently, her BP is quite labile, at times being too low when she goes to her PCP and at times high. I will try a one time dose of ativan 0,5mg to take prior to the procedure in case this is white coat driven since she had had so much difficulty and her high risk family history. She denies any bowel or upper GI problems; except rectal itching and burning that is likely roids. She had a problem many years ago when she was given some sort of IV sedation that caused her to start shaking but no problems since then. Her asthma is well controlled and she denies any cardiac problems excpet occasional palpiatations. No ID problems. BACKGROUND Apparently the patient was seen in 2013 and 2021 for screening colonoscopy but the procedure was never obtained the patient was lost to follow-up. THE PATIENT HAD A NEGATIVE COLOGUARD IN 2022. THE PATIENT'S PCP IS DR. CHINCHILLA BUT IT IS DR. CAVANAUGH WHO CONTINUES TO REFER HER TO US. Relevant PMX YUSUF Obesity-BMI 33 Asthma Seizure disorder LABS: Laboratory Tests 08/11/24 20:00 WBC 8.1 Hgb 14.6 Hct 41.8 Plt Count 220 Estimated GFR > 60 Total Bilirubin 0.6 Direct Bilirubin 0.2 AST 28 ALT 37 H Alkaline Phosphatase 131 H TODAY'S VISIT [facility] Medical History (Updated 12/05/24 @ 15:20 by JACY Prather) Anxiety due to invasive procedure Well woman exam UTI (urinary tract infection) Acute bacterial conjunctivitis URI, acute Upper respiratory tract infection SARS-CoV-2 positive Perineal abscess COVID-19 Microscopic hematuria Breast cancer screening by mammogram Trigeminal neuralgia of right side of face Hypertension Family history of colon cancer Colon cancer screening Lower abdominal pain Vulvovaginitis roseline albicans Cervical cancer screening Hypercholesterolemia SVT (supraventricular tachycardia) Obstructive sleep apnea Mixed incontinence urge and stress Thyroid nodule GERD (gastroesophageal reflux disease) Asthma COVID-19 Mild obstructive sleep apnea Cataracts, bilateral Migraine Seizure disorder Bipolar disorder Green's palsy Obesity (BMI 30-39.9) Type 2 diabetes mellitus with hyperglycemia Surgical History History of cone biopsy of uterine cervix History of tubal ligation History of cholecystectomy Family History Father Diabetes FH: prostate cancer CVD (cardiovascular disease) Mother Diabetes Hypertension Stroke CVD (cardiovascular disease) Sister Breast cancer Sister Breast cancer Sister Hypertension Daughter In good health Brother No problems noted. Brother No problems noted. Brother No problems noted. Sister Cervical cancer Social History Household Members: Other Household Members Other:: grandson Housing: House Do you presently have visiting nurse or other home services: Yes (tele visits) Alcohol intake: never Patient Tobacco Use Status: Never used Tobacco Tobacco use type: Cigarette e-Cigarette/Vaping Use: Never Used Second Hand Smoke Exposure: No service: No Current occupational status: disabled Cognitive needs: No Hearing needs: No Vision needs: Yes Female Reproductive History Menstrual Age of Menarche: 12 Review of Systems Const Denies fatigue, Denies fever(s), Denies night sweats, Denies poor appetite and Denies weight loss Eyes Details: glasses Reports requires corrective lenses ENT Reports Normal hearing present, Denies dental pain, Denies dysphagia, Denies hearing loss, Denies mouth pain, Denies odynophagia, Denies throat swelling, Denies tongue swelling and Reports other (Dentition adequate) Card Reports no additional complaints Resp Reports no additional complaints GI Details: Denies abdominal pain, Denies melena, Denies bloating, Denies hematochezia, Denies constipation, Denies GI cramping, Denies dysphagia, Denies excessive flatus, Denies early satiety, Denies heartburn, Denies diarrhea, Denies nausea, Denies odynophagia, Denies vomiting and Denies hematemesis Skin/Breast Denies pruritus, Denies lesions, Denies rash and Denies jaundice Neuro Reports Normal hearing present, Denies Abnormal speech present and Reports seizure-like activity Psych Reports anxiety and Reports depression Endo Denies fatigue Aller/Immun Denies throat swelling and Denies tongue swelling Physical Exam Vital Signs: Last Vital Signs Pulse 85 12/05/24 09:53 BP 176/78 H 12/05/24 09:53 Pulse Ox 95 12/05/24 09:53 BMI result Body Mass Index 31.9 Const General: cooperative, no acute distress, well developed and well groomed Nutritional Appearance: well nourished and obese Orientation/consciousness: oriented to person, oriented to place and oriented to time Limitations: No language barrier HEENT Head: Yes normocephalic and Yes atraumatic Eyes General: appearance normal, both eyes and all related structures Pupils: Equal, round and reactive pupils present Neck Neck: Yes normal visual inspection and Yes no lymphadenopathy Thyroid: Thyroid normal Resp Effort & Inspection: normal respiratory effort and able to speak in complete sentences Auscultation: clear to auscultation bilaterally Cardio Rate: regular rate Rhythm: regular rhythm Heart sounds: Normal, physiologic split S2 sound present Peripheral pulses: radial pulses present and posterior tibial pulses present GI Inspection: No distended, Yes Abdominal panniculus present and Yes obesity Palpation (GI): Soft to palpation, nontender, no guarding, not rigid and No hepatosplenomegaly present Percussion: Yes normal to percussion Auscultation: normal bowel sounds Rectal Exam - Female: deferred Skin General skin exam: no rashes or lesions noted, turgor normal, skin not dry, no jaundice, No spider nevi and no striae Rashes: no rashes Nails: normal Neuro General: oriented to person, oriented to place and oriented to time Cranial nerves: Yes Equal, round and reactive pupils present and Yes Normal hearing present Speech: No Abnormal speech present Extrem General: Yes normal to inspection, No clubbing, No cyanosis and No edema Psych Appearance: grossly normal and well kempt Mental Status: mental status grossly normal Speech and movement: Normal speech and movement present Affect: normal affect Attitude: cooperative Thought process: Normal thought process present and not confabulating Thought content: Normal thought content present Insight: Fair insight present (Psych) Judgement: Fair judgement present (Psych) Assessment & Plan Assessment & Plan (1) Encounter for colorectal cancer screening using Cologuard test: Comment: Cologuard= negative 2022, repeat 05/23= PATIENT HAS HAD 2 COLONOSCOPIES ORDERED IN THE PAST THAT HAD TO BE CANCELED DUE TO UNCONTROLLED HYPERTENSION. Code(s): Z12.11 - Encounter for screening for malignant neoplasm of colon; Z12.12 - Encounter for screening for malignant neoplasm of rectum Category: Medical (2) Anxiety due to invasive procedure: Comment: This causes her hypertension to be out of control which is led to the cancelling of 2 prior scheduled colonoscopies Code(s): F41.9 - Anxiety disorder, unspecified Category: Medical (3) Seizure disorder: Code(s): G40.909 - Epilepsy, unspecified, not intractable, without status epilepticus Category: Medical (4) Asthma: Code(s): J45.909 - Unspecified asthma, uncomplicated Category: Medical Qualifiers: Asthma complication type: with acute exacerbation Asthma persistence: intermittent Asthma severity: mild Qualified Code(s): J45.21 - Mild intermittent asthma with (acute) exacerbation (5) Obstructive sleep apnea: Comment: Mild July 2017 Code(s): G47.33 - Obstructive sleep apnea (adult) (pediatric) Category: Medical Plan - The patient is a 64-year-old female presenting with hypertension management and Cologuard discussion. - Reports worsening hypertension, potentially exacerbated by recent emotional stress following her 's recent passing from stage IV cancer involving multiple sites. - Bereavement has caused significant emotional distress. - States family history of colon cancer (mother), and has had trouble completing colonoscopy in the past due to elevated blood pressure. Completed a Cologuard in 2022; planning for another. - Recent recurrence of seizure disorder, awaiting further diagnostic evaluation upon return from upcoming travel. - Plans to travel to [place] for her 's burial and expects to return on the . Return office visit in 10 weeks Coding Level of Care Code New Pt Level 3 (81433) Diagnoses Encounter for colorectal cancer screening using Cologuard test Z12.11; Z12.12 Anxiety due to invasive procedure F41.9 Seizure disorder G40.909 Mild intermittent asthma with acute exacerbation J45.21 Asthma complication type: with acute exacerbation Asthma persistence: intermittent Asthma severity: mild Obstructive sleep apnea G47.33
--- OUTSIDE RECORDS SUMMARY | 2024-12-05 11:34 | XMS_ITS | Clinical Summary ---
Author Organization [facility] Address [address] [place] [address] [address] [place] [address] Phone Care Team Providers Care Home Connect Lpn Name Role Phone Bijan Daigle MD Primary Care Provider [phone] Allergies Active Allergy Reactions Criticality Noted Date [...] Cancer Screening: Sigmoidoscopy 2009 Influenza Vaccine (#1) 2024 Hepatitis B Vaccine Aged Out No longe r eligible based on patient's age to complete this topic Insurance [facility] Medicaid [facility] Medicaid Care Teams Home Connect Lpn Relationship Specialty Start Date End Date Bijan Daigle MD [address] [place] PCP - General 04/08/20
--- OUTSIDE RECORDS SUMMARY | 2024-12-05 11:34 | XMS_ITS | Clinical Summary ---
Author Organization [facility] Address [address] [place] [address] Care Team Providers Care Credit Associate Name Role Phone Unavailable Primary Care Provider [...] COVID-19 Vaccine ( - 2023-2 5 season) 2024 RSV Vaccine 60 years and old er and Patients (1 - 1-dose 75+ series) 11/10/2035 Hepatitis B Vaccines Aged Out No long er eligible based on patient's age to complete this topic
--- OUTSIDE RECORDS SUMMARY | 2024-12-05 11:34 | XMS_ITS | Clinical Summary ---
Author Organization [employer] Address [address] [facility] 7t [place] [address] Care Team Providers Care Groundman Name Role Phone Unavailable Primary Care Provider [...] 03/20/2023 03/20/2022 COVID-19 Vaccine (3 - season) 2024 05/31/2020, 05/10/2020 Influenza Vaccine (#1) 2024 9, [...] Most Recently Relevant to Health Maintenance [facility] ST[facility]
--- OUTSIDE RECORDS SUMMARY | 2024-12-05 11:34 | XMS_ITS | Encounter Summary ---
Author Organization [facility] Address [address] [place] [address] Phone Care Team Providers Care Dumbwaiter Operator Name Role Phone Bijan Daigle MD Primary Care Provider [phone] Encounter Details Date Type Department Care Team (Late st Contact Info) Description 08/25/2022 Documentation Only [facility] [address] [place] [address] Margarita Penny Social History Tobacco [...] on filedocumented in this encounter Care Teams Dumbwaiter Operator Relationship Specialty Start Date End Date Bijan Daigle MD [facility] [address] [place], [place] PCP - General 04/08/20 documented as of this encounter
== END 2024-12-05 10:12 | disposition home or self-care (01) ==
LOC: HO.HGI 09:51
PROVIDERS: PCP Internal Medicine; Visit Provider Nurse Practitioner
DX: R19.7 Diarrhea, unspecified (principal); F41.9 Anxiety disorder, unspecified; G40.909 Epilepsy, unspecified, not intractable, without status epilepticus; J45.21 Mild intermittent asthma with (acute) exacerbation; G47.33 Obstructive sleep apnea (adult) (pediatric)
CPT/HCPCS: 99203

== ENCOUNTER → 2024-12-05 09:51 | Outpatient (BNVA) | payer OTHER, SELFPAY | PROVIDERS: PCP Internal Medicine; Visit Provider Nurse Practitioner | DX: F41.9 Anxiety disorder, unspecified (principal); Z12.11 Encounter for screening for malignant neoplasm of colon; Z12.12 Encounter for screening for malignant neoplasm of rectum; G40.909 Epilepsy, unspecified, not intractable, without status epilepticus; J45.21 Mild intermittent asthma with (acute) exacerbation; G47.33 Obstructive sleep apnea (adult) (pediatric); I10 Essential (primary) hypertension | CPT/HCPCS: 99202 ==

== ENCOUNTER 2024-12-19 11:02 | Outpatient (REF) | payer OTHER, SELFPAY ==
--- NOTE | ~2024-12-19 | US_ITS ---
EXAMINATION(S): 1. MM DIAGNOSTIC DIGITAL BREAST TOMOSYNTHESIS, BILATERAL 2. Targeted ultrasound of the left breast CLINICAL INFORMATION: -According to the requisition, left breast lump at 10:00. -According patient, left breast lump is located in the upper outer quadrant. COMPARISON: Comparison made to multiple prior, most recent screening mammogram on September 21, 2023, and most remote July 02, 2020. Breast MRI on October 12, 2024.. TECHNIQUE: Digital breast tomosynthesis is performed in both the mediolateral oblique and craniocaudal views along with computer-aided detection (CAD). Synthesized 2D images are generated from the tomosynthesis. FINDINGS: BREAST COMPOSITION: There are scattered areas of fibroglandular density (ACR BI-RADS breast composition Category b). RIGHT BREAST: No significant masses, suspicious calcifications or other abnormalities are seen. LEFT BREAST: No significant masses, suspicious calcifications or other abnormalities are seen. In particular, no suspicious findings adjacent to the skin BB marker placed in the upper outer quadrant posterior depth (marker placed at the location that the patient indicates). Targeted ultrasound of the left breast was performed at the location of the palpable concern per requisition, along the 10:00 axis. The survey shows a 1.9 x 0.7 x 1.3 cm mildly hyperechoic superficial solid mass at 10 o'clock position 7 cm from the nipple. No abnormal internal vascularity demonstrated. Targeted ultrasound of the left breast was performed at the location of the palpable concern according patient. The survey shows a benign-appearing lymph node with overall measurements of 1.3 x 0.4 x 0.9 cm at 2 o'clock position 15 cm from the nipple. No abnormal vascularity demonstrated with color Doppler evaluation. US/US breast LT limited mamm only IMPRESSION: RIGHT BREAST: Negative, no mammographic evidence of malignancy. Normal interval follow-up is recommended in 12 months. LEFT BREAST: -At 10 o'clock position, palpable concern correlates with a mass with sonographic features compatible with benign lipoma. No dedicated imaging follow-up needed. Clinical follow-up is recommended. -Benign-appearing lymph node at 2 o'clock position at 15 cm from the nipple. No dedicated imaging follow-up needed. Clinical follow-up is recommended. Benign, no evidence of malignancy. Clinical follow-up is recommended. Otherwise, normal interval follow-up mammogram is recommended in 12 months. ASSESSMENT: BI-RADS 2 - Benign Findings RECOMMENDATION: 1. Patient should be managed based on the clinical impression. 2. Otherwise, routine annual screening mammography. Results were provided to the patient at time of visit by the technologist. This patient's information was entered into a reminder system with a target due date for their next mammogram. Electronically signed by: Zoë Cardona MD 12/19/2024 01:01 PM DIO[facility]OT
--- OUTSIDE RECORDS SUMMARY | 2024-12-19 13:42 | XMS_ITS | Encounter Summary ---
Author Organization [facility] Address [address] [place] [address] Phone Care Team Providers Care Industrial Diamond Polisher Name Role Phone Bijan Daigle MD Primary Care Provider [phone] Encounter Details Date Type Department Care Team (Late st Contact Info) Description 08/25/2022 Documentation Only [facility] [address] [place] [address] Margarita Penny Social History Tobacco [...] on filedocumented in this encounter Care Teams Industrial Diamond Polisher Relationship Specialty Start Date End Date Bijan Daigle MD [facility] [address] [place], [place] PCP - General 04/08/20 documented as of this encounter
--- OUTSIDE RECORDS SUMMARY | 2024-12-19 13:42 | XMS_ITS | Clinical Summary ---
Author Organization [employer] Address [address] [facility] 7t [place] [address] Care Team Providers Care Guard Supervisor Name Role Phone Unavailable Primary Care Provider [...] Most Recently Relevant to Health Maintenance [facility]
--- OUTSIDE RECORDS SUMMARY | 2024-12-19 13:42 | XMS_ITS | Clinical Summary ---
Author Organization [facility] Address [address] [place] [address] [address] [place] [address] Phone Care Team Providers Care Board Filler Name Role Phone Bijan Daigle MD Primary Care Provider [phone] Allergies Active Allergy Reactions Criticality Noted Date [...] patient's age to complete this topic Insurance [facility] Medicaid [facility] Medicaid Care Teams Board Filler Relationship Specialty Start Date End Date Bijan Daigle MD [address] [place] PCP - General 04/08/20
--- OUTSIDE RECORDS SUMMARY | 2024-12-19 13:42 | XMS_ITS | Clinical Summary ---
Author Organization [facility] Address [address] [place] [address] Phone Care Team Providers Care Excavating Contractor Name Role Phone Bijan Daigle MD Primary Care Provider [phone] Social History Tobacco Use Types Packs/Day Years [...] 2010 Zoster Vaccines (1 of 2) 2010 Depression Screening 03/29/2024 Colorectal Cancer Screening: Colonoscopy 04/14/2024 HIV Screening 04/14/2024 Hepatitis C Screening 04/14/2024 Social Influencers of Health Screening 04/14/2024 COVID-19 Vaccine ( - 2023-2 5 season) 2024 Influenza Vaccine (#1) 2024 RSV Immunization Adult [...] patient's age to complete this topic [facility] MEDICAID - [place] Care Teams Excavating Contractor Relationship Specialty Start Date End Date Bijan Daigle MD [address] [place] [address] [address] [facility] [place] [address] PCP - General Internal Medicine 06/29/24
--- OUTSIDE RECORDS SUMMARY | 2024-12-19 13:42 | XMS_ITS | Clinical Summary ---
Author Organization [facility] Address [address] [place] [address] Care Team Providers Care Change Person Name Role Phone Unavailable Primary Care Provider [...]
== END 2024-12-19 11:03 | disposition home or self-care (01) ==
LOC: HO.MAMMO 11:02
PROVIDERS: PCP Internal Medicine; Visit Provider Internal Medicine
DX: N63.22 Unspecified lump in the left breast, upper inner quadrant (principal)
CPT/HCPCS: 76642; 77062; 77066

== ENCOUNTER → 2024-12-19 11:30 | Outpatient (BNV) | payer OTHER, SELFPAY | PROVIDERS: PCP Internal Medicine; Visit Provider Radiology Body Imaging | DX: N63.22 Unspecified lump in the left breast, upper inner quadrant (principal) | CPT/HCPCS: 76642; 77062; 77066 ==

== ENCOUNTER 2024-12-21 14:40 | Outpatient (AMB) | payer OTHER, SELFPAY ==
[2024-12-21 14:47] VITALS: BP 168/98; PULSE 85; O2SAT 98; BMI 33.0
--- NOTE | 2024-12-21 14:47 | A.OFFPC_ITS ---
Vital Signs 12/21/24 14:47 Height 5 ft 4 in Weight 192 lb BMI 33.0 BP 168/98 H Blood Pressure Location Lt brachial Position Sitting Pulse 85 Pulse Source Pulse Oximeter Pulse Oximetry (%) 98 Oxygen Delivery Method Room Air Intake Visit Reasons: high B/P readings Allergies clonidine (CLONIDINE) Allergy (Severe, Verified 12/21/24 14:48) DIZZY,FAINT levetiracetam (LEVETIRACETAM) Allergy (Severe, Verified 12/21/24 14:48) DIFFICULTY BREATHING lisinopril (LISINOPRIL) Allergy (Severe, Verified 12/21/24 14:48) SWELLING, angioedema atenolol (ATENOLOL) Allergy (Intermediate, Verified 12/21/24 14:48) RASH dulaglutide (Trulicity) Allergy (Unknown, Verified 12/21/24 14:48) Unknown Tobacco use date assessed: 04/19/24 Fall risk assessment: No Falls in past year Last assessed Fall Risk: 12/21/24 Dental Screening Dental Screen Date: 04/19/24 [facility] Medical History (Updated 12/21/24 @ 15:08 by Bijan Daigle MD) Anxiety due to invasive procedure Well woman exam UTI (urinary tract infection) Acute bacterial conjunctivitis URI, acute Upper respiratory tract infection SARS-CoV-2 positive Perineal abscess COVID-19 Microscopic hematuria Breast cancer screening by mammogram Trigeminal neuralgia of right side of face Hypertension Family history of colon cancer Colon cancer screening Lower abdominal pain Vulvovaginitis roseline albicans Cervical cancer screening Hypercholesterolemia SVT (supraventricular tachycardia) Obstructive sleep apnea Mixed incontinence urge and stress Thyroid nodule GERD (gastroesophageal reflux disease) Asthma COVID-19 Mild obstructive sleep apnea Cataracts, bilateral Migraine Seizure disorder Bipolar disorder Green's palsy Obesity (BMI 30-39.9) Type 2 diabetes mellitus with hyperglycemia Surgical History History of cone biopsy of uterine cervix History of tubal ligation History of cholecystectomy Family History Father Diabetes FH: prostate cancer CVD (cardiovascular disease) Mother Diabetes Hypertension Stroke CVD (cardiovascular disease) Sister Breast cancer Sister Breast cancer Sister Hypertension Daughter In good health Brother No problems noted. Brother No problems noted. Brother No problems noted. Sister Cervical cancer Social History Household Members: Other Household Members Other:: grandson Housing: House Do you presently have visiting nurse or other home services: Yes (tele visits) Alcohol intake: never Patient Tobacco Use Status: Never used Tobacco Tobacco use type: Cigarette e-Cigarette/Vaping Use: Never Used Second Hand Smoke Exposure: No service: No Current occupational status: disabled Cognitive needs: No Hearing needs: No Vision needs: Yes Female Reproductive History Menstrual Age of Menarche: 12 Questionnaire PHQ-9 Over the last 2 weeks, how often have you been bothered by any of the following problems? 1. Little interest or pleasure in doing things: more than half the days (Patient recently lost her to cancer on the 6th of this month. ) 2. Feeling down, depressed, or hopeless: more than half the days 3. Trouble falling or staying asleep, or sleeping too much: more than half the days 4. Feeling tired or having little energy: more than half the days 5. Poor appetite or overeating: more than half the days 6. Feeling bad about yourself - or that you are a failure or have let yourself or your family down: more than half the days 7. Trouble concentrating on things, such as reading the newspaper or watching television: more than half the days 8. Moving or speaking so slowly that other people could have noticed. Or the opposite - being so fidgety or restless that you have been moving around a lot more than usual: more than half the days 9. Thoughts that you would be better off or of hurting yourself in some way: not at all Total score: 16 Depression Screening Interpretation: Positive Depression Screening Done: Yes Source: Developed by Drs. Fercho Ying, Rama Daniels, Feliz Hood and colleagues, with an educational yong from [employer]. Thrive Questionnaire Date Thrive assessed: 07/21/24 I am a: Patient What is your living situation today?: I have a steady place to live Within the past 12 months, did the food you bought not last and you didn't have the money to get more?: Never true Within the past 12 months, did you worry whether your food would run out before you got money to buy more?: Never true Do you have trouble paying for medicines?: I choose not to answer this question Do you have trouble getting transportation to medical appointments?: No Do you have trouble paying your heating and electricity bill?: No Do you have trouble taking care of your child, family member or friend?: No Do you have trouble with day-to-day activities such as bathing, preparing meals, shopping, managing finances, etc.?: Yes Are you currently unemployed and looking for a job?: No Are you interested in more education?: Yes Please select the resources that you would like help with: Education Currently or been in a relationship where the following occur: No concerns reported THRIVE Score: 0 SANDRA-7 AMB Questionnaire SANDRA-7 Date SANDRA - 7 assessed: 12/21/24 Feeling nervous, anxious, or on edge: 1 = Several days Not being able to stop or control worryin = Several days Worrying too much about different things: 1 = Several days Trouble relaxin = Several days Being so restless that it is hard to sit still: 1 = Several days Becoming easily annoyed or irritable: 1 = Several days Feeling afraid as if something awful might happen: 1 = Several days Total SANDRA-7 score (0-4 normal; 5-9 mild; 10-14 moderate; 15-21 severe): 7 Source: Developed by Drs. Fercho Ying, Rama Daniels, Feliz Hood and colleagues, with an educational yong from [employer]. Physical exam (Primary Care) Vital Signs: Last Vital Signs Pulse 85 12/21/24 14:47 BP 168/98 H 12/21/24 14:47 Pulse Ox 98 12/21/24 14:47 Oxygen Delivery Method Room Air 12/21/24 14:47 BMI result Body Mass Index 33.0 Tobacco/Smoking Status: Tobacco use Status Tobacco use date assessed 04/19/24 12/21/24 14:48 Patient Tobacco Use Status Never used Tobacco 12/21/24 14:48 Tobacco use type Cigarette 12/21/24 14:48 e-Cigarette/Vaping Use Never Used 12/21/24 14:48 PHQ-9: PHQ-9 Score PHQ-9: Total score 16 12/21/24 15:10 Depression Screening Interpretation: Positive Thrive Assessment: Date of Thrive Assessment Date Thrive assessed 07/21/24 12/21/24 14:48 Currently or been in a relationship where the following occur: No concerns reported Const General: alert; No acute distress Eyes Conjunctivae: conjunctivae normal Resp Auscultation: clear to auscultation bilaterally Cardio Rate: regular rate Rhythm: regular rhythm GI Inspection: Yes normal to inspection Extrem General: Yes normal to inspection and No edema Coding Level of Care Code Est Pt Level 4 (92956) Complex EM visit Add On G2211 Diagnoses Type 2 diabetes mellitus with hyperglycemia, with long-term current use of insulin E11.65; Z79.4 Diabetes mellitus intermediate teacher insulin use: with intermediate teacher use Essential hypertension I10 Hypertension type: essential hypertension Hypercholesterolemia E78.00 Bipolar disorder, current episode mixed, moderate F31.62 Active/Remission status: currently active Current bipolar episode type: mixed Current episode severity: moderate Situational depression F43.21 Breast lump N63.0 Mild intermittent asthma with acute exacerbation J45.21 Asthma complication type: with acute exacerbation Asthma persistence: intermittent Asthma severity: mild Assessment & Plan Assessment & Plan (1) Type 2 diabetes mellitus with hyperglycemia: Comment: Dr. Bernard eye Code(s): E11.65 - Type 2 diabetes mellitus with hyperglycemia Category: Medical Qualifiers: Diabetes mellitus intermediate teacher insulin use: with intermediate teacher use Qualified Code(s): E11.65 - Type 2 diabetes mellitus with hyperglycemia; Z79.4 - medical terminologist (current) use of insulin Plan: Decrease the amount of carbohydrate intake, pasta, bread, rice and potatoes are all sugar and that is aside from all the sweet stuff, remember that fruits are good but they are Sweet also. Patient is being followed up by Endocrinology on glipizide 5 mg twice a day Lantus 35 units once a day pioglitazone 30 mg once a day and Mounjaro at 7.5 mg once a week. Called earlier due to hypoglycemic episodes and then glimepiride was decreased. (2) Hypertension: Code(s): I10 - Essential (primary) hypertension Category: Medical Qualifiers: Hypertension type: essential hypertension Qualified Code(s): I10 - Essential (primary) hypertension Plan: Continue with blood pressure medication. Decrease salt intake and exercise patient is taking hydrochlorothiazide 25 mg once a day hydralazine 50 mg 3 times a day carvedilol at 18.5 mg twice a day amlodipine 5 mg once a day (3) Hypercholesterolemia: Code(s): E78.00 - Pure hypercholesterolemia, unspecified Category: Medical Plan: Avoid fried foods, chicken skin, eggs, butter margarine, pastries and meat. Be it pork or beef they have a lot of cholesterol LDL goal of less than 100 and triglyceride of less than 150 patient on rosuvastatin 10 mg once a day May 2024 last blood work (4) Bipolar disorder: Comment: decline referral for counselling Code(s): F31.9 - Bipolar disorder, unspecified Category: Medical Qualifiers: Active/Remission status: currently active Current bipolar episode type: mixed Current episode severity: moderate Qualified Code(s): F31.62 - Bipolar disorder, current episode mixed, moderate Plan: With present medication on diazepam as needed Wellbutrin (5) Situational depression: Code(s): F43.21 - Adjustment disorder with depressed mood Category: Medical Plan: Referral will be done (6) Breast lump: Code(s): N63.0 - Unspecified lump in unspecified breast Category: Medical (7) Asthma: Code(s): J45.909 - Unspecified asthma, uncomplicated Category: Medical Qualifiers: Asthma complication type: with acute exacerbation Asthma persistence: intermittent Asthma severity: mild Qualified Code(s): J45.21 - Mild intermit tent asthma with (acute) exacerbation Plan History of Present Illness The patient is a 64-year-old female presenting for a follow-up visit. She has a history of asthma, obstructive sleep apnea, mild hypercholesterolemia, bipolar disorder, diabetes mellitus, hypertension, and seizure disorder. Her anxiety disorder has been exacerbated by the recent loss of her , contributing to her current anxious state. The patient underwent Cologuard testing in February 2023, and a mammogram is due. A diagnostic mammogram in November 2022 revealed benign findings, and palpable masses identified as lipomas were noted at the 10 o'clock position. She has been followed by endocrinology for diabetes management, with her last blood work in July showing a blood sugar level of 173 mg/dL and a hemoglobin A1c of 8.6%. Her cholesterol management includes an LDL level of 118 mg/dL as of May. The patient is on multiple medications for her conditions, including Glipizide, Lantus, Pioglitazone, and Mounjaro for diabetes, and hydrochlorothiazide, hydralazine, carvedilol, and amlodipine for hypertension. She is also taking rosuvastatin for cholesterol management and Wellbutrin and diazepam for anxiety and depression. Health Maintenance - Cologuard testing completed in February 2023 - Mammogram due - Diagnostic mammogram in November 2022 with benign findings - Flu shot recommended in December - Pneumonia vaccination completed, next due next year Social History - Recent loss of contributing to anxiety Review of Systems - Psychiatric: Reports anxiety and depression - Endocrine: Reports hypoglycemic episodes with symptoms of shaking, nausea, and headache Physical Exam Results - Labs: Blood sugar 173 mg/dL, Hemoglobin A1c 8.6% (May 2024) - Labs: LDL cholesterol 118 mg/dL (May 2024) - Screening: Cologuard test completed February 2023 - Imaging: Diagnostic mammogram in November 2022 with benign findings Plan Patient was informed and verbally consented to the use of an ambient scribe for clinic note documentation during this visit. 1. Diabetes Mellitus The patient's diabetes management includes Glipizide, Lantus, Pioglitazone, and Mounjaro. Due to hypoglycemic episodes, the insulin dosage will be reduced to 30 units, and Mounjaro will be increased to 10 mg. 2. Hypertension The patient is on hydrochlorothiazide, hydralazine, carvedilol, and amlodipine for hypertension management. 3. Hypercholesterolemia The patient is on rosuvastatin with an LDL goal of less than 100 mg/dL. 4. Anxiety Disorder The patient is prescribed Wellbutrin and diazepam for anxiety management. A referral for counseling is planned to address her anxiety exacerbated by the recent loss of her . 5. Preventative Care The patient is due for a mammogram and has completed Cologuard testing. Flu and pneumonia vaccinations are recommended, with the flu shot advised in December. Discussion Notes I discussed with the patient the management of her diabetes, including adjusting her insulin and Mounjaro dosages to prevent hypoglycemia. We also reviewed her hypertension and cholesterol management, emphasizing medication adherence. A referral for counseling was recommended to help manage her anxiety and depression, particularly in light of her recent bereavement. Patient Instructions - Continue current medications as prescribed. - Monitor blood sugar levels and report any hypoglycemic symptoms. - Schedule and attend counseling sessions as referred. - Get a flu shot in December and follow up for pneumonia vaccination next year. Orders: Orders AMB Hemoglobin A1c Today Z13.9 - Encounter for screening, unspecified Referrals Psychiatry Referral F43.21 - Adjustment disorder with depressed mood Medications: New fluoxetine 10 mg PO DAILY 30 tabs 0RF F43.21 - Adjustment disorder with depressed mood tirzepatide (Mounjaro) 10 mg (0.5 mL) subcut QWEEK 2 mL 3RF F43.21 - Adjustment disorder with depressed mood Changed From insulin glargine (Lantus Solostar U-100 Insulin) 35 units (0.35 mL) subcut QPM 15 mL 12RF E11.65 - Type 2 diabetes mellitus with hyperglycemia, Z79.4 - prison (current) use of insulin To insulin glargine (Lantus Solostar U-100 Insulin) 30 units (0.3 mL) subcut QPM 15 mL 12RF E11.65 - Type 2 diabetes mellitus with hyperglycemia, Z79.4 - prison (current) use of insulin
--- OUTSIDE RECORDS SUMMARY | 2024-12-21 18:59 | XMS_ITS | Clinical Summary ---
Author Organization [facility] Address [address] [place] [address] [address] [place] [address] Phone Care Team Providers Care Marine Engine Driver Name Role Phone Bijan Daigle MD Primary Care Provider [phone] Allergies Active Allergy Reactions Criticality Noted Date [...] patient's age to complete this topic Insurance [facility] Medicaid Care Teams Marine Engine Driver Relationship Specialty Start Date End Date Bijan Daigle MD [address] [place] PCP - General 04/08/20
--- OUTSIDE RECORDS SUMMARY | 2024-12-21 18:59 | XMS_ITS | Clinical Summary ---
Author Organization [employer] Address [address] [facility] [address] [place] [address] Care Team Providers Care Unhairer Name Role Phone Unavailable Primary Care Provider [...] Most Recently Relevant to Health Maintenance [facility] ST[facility]
--- OUTSIDE RECORDS SUMMARY | 2024-12-21 18:59 | XMS_ITS | Clinical Summary ---
Author Organization [facility] Address [address] [place] [address] Phone Care Team Providers Care Pick Up And Delivery Driver Name Role Phone Bijan Daigle MD Primary Care Provider [phone] Social History Tobacco Use Types Packs/Day Years [...] patient's age to complete this topic [facility] [employer] [facility] MEDICAID - [place] Care Teams Pick Up And Delivery Driver Relationship Specialty Start Date End Date Bijan Daigle MD [address] [place] [address] [address] [facility] [place] [address] PCP - General Internal Medicine 06/29/24
--- OUTSIDE RECORDS SUMMARY | 2024-12-21 18:59 | XMS_ITS | Encounter Summary ---
Author Organization [facility] Address [address] [place] [address] Phone Care Team Providers Care Open Shank Coverer Name Role Phone Bijan Daigle MD Primary Care Provider [phone] Encounter Details Date Type Department Care Team (Late st Contact Info) Description 08/25/2022 Documentation Only [facility] [address] [place] [address] Margarita Penny Social History Tobacco [...] on filedocumented in this encounter Care Teams Open Shank Coverer Relationship Specialty Start Date End Date Bijan Daigle MD [facility] [address] [place], [place] PCP - General 04/08/20 documented as of this encounter
--- OUTSIDE RECORDS SUMMARY | 2024-12-21 18:59 | XMS_ITS | Clinical Summary ---
Author Organization [facility] Address [address] [place] [address] Care Team Providers Care Air Pollution Control Engineer Name Role Phone Unavailable Primary Care [...]
== END 2024-12-21 15:22 | disposition home or self-care (01) ==
LOC: HO.HMCH 14:41
PROVIDERS: PCP Internal Medicine; Visit Provider Internal Medicine
DX: E11.65 Type 2 diabetes mellitus with hyperglycemia (principal); Z79.4 Long term (current) use of insulin; F31.62 Bipolar disorder, current episode mixed, moderate; I10 Essential (primary) hypertension; E78.00 Pure hypercholesterolemia, unspecified; F43.21 Adjustment disorder with depressed mood; N63.0 Unspecified lump in unspecified breast; J45.21 Mild intermittent asthma with (acute) exacerbation

== ENCOUNTER → 2024-12-21 14:40 | Outpatient (BNVA) | payer OTHER, SELFPAY | PROVIDERS: PCP Internal Medicine; Visit Provider Internal Medicine | DX: E11.65 Type 2 diabetes mellitus with hyperglycemia (principal); I10 Essential (primary) hypertension; E78.00 Pure hypercholesterolemia, unspecified; F31.62 Bipolar disorder, current episode mixed, moderate; F43.21 Adjustment disorder with depressed mood; N63.0 Unspecified lump in unspecified breast; J45.21 Mild intermittent asthma with (acute) exacerbation; Z79.4 Long term (current) use of insulin; Z79.899 Other long term (current) drug therapy | CPT/HCPCS: 99212 ==

== ENCOUNTER 2025-01-19 12:07 | Outpatient (AMB) | payer OTHER, SELFPAY ==
--- NOTE | 2025-01-19 12:31 | MHC.PC.OV ---
Vital Signs 01/19/25 12:32 Height 5 ft 4 in Weight 187 lb BMI 32.1 BP 136/84 Blood Pressure Location Lt brachial Position Sitting Pulse 64 Pulse Source Pulse Oximeter Temp 97.1 F Temp Source Temporal Artery Scan Pulse Oximetry (%) 98 Oxygen Delivery Method Room Air Intake Visit Reasons: Annual exam Allergies clonidine (CLONIDINE) Allergy (Severe, Verified 01/19/25 12:35) DIZZY,FAINT levetiracetam (LEVETIRACETAM) Allergy (Severe, Verified 01/19/25 12:35) DIFFICULTY BREATHING lisinopril (LISINOPRIL) Allergy (Severe, Verified 01/19/25 12:35) SWELLING, angioedema atenolol (ATENOLOL) Allergy (Intermediate, Verified 01/19/25 12:35) RASH dulaglutide (Trulicity) Allergy (Unknown, Verified 01/19/25 12:35) Unknown Medication List - Last Reconciled 01/19/25 by Bijan Daigle, acetaminophen (Tylenol Extra Strength) 1,000 mg (2 x 500 mg) PO QID PRN albuterol sulfate 90 mcg/actuation (ProAir HFA) 2 puffs inhalation Q4-6H PRN amlodipine 5 mg PO DAILY aspirin (Adult Aspirin Regimen) 81 mg PO DAILY blood pressure monitor (Blood Pressure Kit) As directed blood sugar diagnostic (FreeStyle Lite Strips) As directed check the BS 4 x a day bupropion HCl SR (Wellbutrin SR) 150 mg PO BEDTIME carbamide peroxide 6.5% (Ear Drops (carbamide peroxide)) 5 drps otic (ears) BID carvedilol 18.75 mg (1.5 x 12.5 mg) PO BID 30 days cyclobenzaprine 5 mg PO Q8H diazepam 2 - 4 mg (1 - 2 x 2 mg) PO BEDTIME PRN 30 days diclofenac sodium 1% (Arthritis Pain (diclofenac)) 4 grams topical QID flash glucose scanning reader (We[employer]Style Archana 2 [place]) As directed fluoxetine 10 mg PO DAILY fluticasone propion-salmeterol 250-50 mcg/dose (Advair Diskus) 1 inh inhalation BID fluticasone propionate 50 mcg/actuation (Flonase Allergy Relief) 1 spray intranasal DAILY FreeStyle Archana 2 Sensor (flash glucose sensor) As directed NS glipizide ER 5 mg (1/2 x 10 mg) PO BID hydralazine 50 mg PO TID 90 days hydrochlorothiazide 25 mg PO QAM insulin glargine (Lantus Solostar U-100 Insulin) 30 units (0.3 mL) subcut QPM loratadine (Claritin) 10 mg PO DAILY meclizine 25 mg PO TID PRN naproxen 500 mg PO BID PRN ondansetron 8 mg PO Q12H PRN pen needle, diabetic (BD Ultra-Fine Mini Pen Needle) As directed, Inject 6 x a day with Insulin pioglitazone 30 mg PO DAILY rosuvastatin 10 mg PO DAILY tirzepatide (Mounjaro) 10 mg (0.5 mL) subcut QWEEK Tobacco use date assessed: 01/19/25 Fall risk assessment: No Falls in past year Last assessed Fall Risk: 01/19/25 Dental Screening Dental Screen Date: 01/19/25 Did you have a dental visit in the last 12 months?: No Did you have a dental problem in the last 6 months where you did not have access to dental care?: No Was dental information given to patient?: No HPI Annual exam HPI Details nausea PFSH Medical History (Updated 01/19/25 @ 12:59 by Bijan Daigle MD) Anxiety due to invasive procedure Well woman exam UTI (urinary tract infection) Acute bacterial conjunctivitis URI, acute Upper respiratory tract infection SARS-CoV-2 positive Perineal abscess COVID-19 Microscopic hematuria Breast cancer screening by mammogram Trigeminal neuralgia of right side of face Hypertension Family history of colon cancer Colon cancer screening Lower abdominal pain Vulvovaginitis roseline albicans Cervical cancer screening Hypercholesterolemia SVT (supraventricular tachycardia) Obstructive sleep apnea Mixed incontinence urge and stress Thyroid nodule GERD (gastroesophageal reflux disease) Asthma COVID-19 Mild obstructive sleep apnea Cataracts, bilateral Migraine Seizure disorder Bipolar disorder Green's palsy Obesity (BMI 30-39.9) Type 2 diabetes mellitus with hyperglycemia Surgical History History of cone biopsy of uterine cervix History of tubal ligation History of cholecystectomy Family History Father Diabetes FH: prostate cancer CVD (cardiovascular disease) Mother Diabetes Hypertension Stroke CVD (cardiovascular disease) Sister Breast cancer Sister Breast cancer Sister Hypertension Daughter In good health Brother No problems noted. Brother No problems noted. Brother No problems noted. Sister Cervical cancer Social History Household Members: Other Household Members Other:: grandson Housing: House Do you presently have visiting nurse or other home services: Yes (tele visits) Alcohol intake: never Patient Tobacco Use Status: Never used Tobacco Tobacco use type: Cigarette e-Cigarette/Vaping Use: Never Used Second Hand Smoke Exposure: No service: No Current occupational status: disabled Cognitive needs: No Hearing needs: No Vision needs: Yes Female Reproductive History Menstrual Age of Menarche: 12 Questionnaire PHQ-9 Over the last 2 weeks, how often have you been bothered by any of the following problems? 1. Little interest or pleasure in doing things: more than half the days (Patient recently lost her to cancer on the 6th of this month. ) 2. Feeling down, depressed, or hopeless: more than half the days 3. Trouble falling or staying asleep, or sleeping too much: more than half the days 4. Feeling tired or having little energy: more than half the days 5. Poor appetite or overeating: more than half the days 6. Feeling bad about yourself - or that you are a failure or have let yourself or your family down: more than half the days 7. Trouble concentrating on things, such as reading the newspaper or watching television: more than half the days 8. Moving or speaking so slowly that other people could have noticed. Or the opposite - being so fidgety or restless that you have been moving around a lot more than usual: more than half the days 9. Thoughts that you would be better off or of hurting yourself in some way: not at all Total score: 16 Depression Screening Interpretation: Positive Depression Screening Done: Yes Source: Developed by Drs. Fercho Ying, Rama Daniels, Feliz Hood and colleagues, with an educational yong from [employer]. Thrive Questionnaire Date Thrive assessed: 07/21/24 I am a: Patient What is your living situation today?: I have a steady place to live Within the past 12 months, did the food you bought not last and you didn't have the money to get more?: Never true Within the past 12 months, did you worry whether your food would run out before you got money to buy more?: Never true Do you have trouble paying for medicines?: I choose not to answer this question Do you have trouble getting transportation to medical appointments?: No Do you have trouble paying your heating and electricity bill?: No Do you have trouble taking care of your child, family member or friend?: No Do you have trouble with day-to-day activities such as bathing, preparing meals, shopping, managing finances, etc.?: Yes Are you currently unemployed and looking for a job?: No Are you interested in more education?: Yes Please select the resources that you would like help with: Education Currently or been in a relationship where the following occur: No concerns reported THRIVE Score: 0 AUDIT C Alcohol Use Questionnaire (AUDIT-C) 1. How often do you have a drink containing alcohol?: Never 3. How often do you have six or more drinks on one occasion?: Never Total Score: 0 SANDRA-7 AMB Questionnaire SANDRA-7 Date SANDRA - 7 assessed: 12/21/24 Feeling nervous, anxious, or on edge: 1 = Several days Not being able to stop or control worryin = Several days Worrying too much about different things: 1 = Several days Trouble relaxin = Several days Being so restless that it is hard to sit still: 1 = Several days Becoming easily annoyed or irritable: 1 = Several days Feeling afraid as if something awful might happen: 1 = Several days Total SANDRA-7 score (0-4 normal; 5-9 mild; 10-14 moderate; 15-21 severe): 7 Source: Developed by Drs. Fercho Ying, Rama Daniels, Feliz Hood and colleagues, with an educational yong from [employer]. Review of Systems Const Denies poor appetite and Denies weakness Eyes Denies no additional complaints ENT Reports Normal hearing present, Denies dizziness, Denies nasal congestion, Denies tinnitus and Denies sore throat Card Denies chest pain, Denies syncope, Denies rapid heart rate and Denies dyspnea Resp Denies cough and Denies dyspnea GI Denies change in stool character, Reports constipation, Denies diarrhea, Denies nausea and Denies vomiting Denies urinary frequency, Denies difficulty voiding and Denies dysuria Neuro Reports Normal hearing present, Denies confusion, Denies dizziness, Denies syncope and Denies weakness Psych Denies confusion Physical exam (Primary Care) Vital Signs: Last Vital Signs Temp 97.1 F 01/19/25 12:32 Pulse 64 01/19/25 12:32 BP 136/84 01/19/25 12:32 Pulse Ox 98 01/19/25 12:32 Oxygen Delivery Method Room Air 01/19/25 12:32 BMI result Body Mass Index 32.1 Tobacco/Smoking Status: Tobacco use Status Tobacco use date assessed 01/19/25 01/19/25 12:36 Patient Tobacco Use Status Never used Tobacco 01/19/25 12:36 Tobacco use type Cigarette 01/19/25 12:36 e-Cigarette/Vaping Use Never Used 01/19/25 12:36 PHQ-9: PHQ-9 Score PHQ-9: Total score 16 01/19/25 13:10 Depression Screening Interpretation: Positive Thrive Assessment: Date of Thrive Assessment Date Thrive assessed 07/21/24 01/19/25 12:36 Currently or been in a relationship where the following occur: No concerns reported Const General: No confusion Orientation/consciousness: No confusion HENMT Head: Yes normocephalic Ears: external ears normal and TM's normal bilaterally Face and sinus: Yes normal facial exam Mouth: moist mucous membranes Throat: Yes tonsils normal Eyes Conjunctivae: conjunctivae normal Pupils: Equal, round and reactive pupils present and Pupil accommodation reflex normal Direct Ophthalmoscopy: normal light reflex Neck Neck: No lymphadenopathy Thyroid: Thyroid normal Chest Chest palpation & inspection: normal inspection of the chest Resp Effort & Inspection: normal respiratory effort and no audible wheezes Auscultation: clear to auscultation bilaterally, no crackles, no wheezes and lung sounds not diminished Cardio Rate: regular rate Rhythm: regular rhythm Peripheral pulses: radial pulses present and dorsalis pedis present GI Palpation (GI): no masses Auscultation: normal bowel sounds and normoactive bowel sounds Rectal Exam - Female: deferred Skin General skin exam: no rashes or lesions noted Rashes: no rashes Neuro General: No confusion Cranial nerves: Yes Equal, round and reactive pupils present and Yes Normal hearing present Cognition (Neuro): normal cognition Gait exam (Neuro): Normal gait present Motor exam (neuro): 5/5 motor strength present throughout Deep tendon reflexes (DTR's): Right brachioradialis reflex intensity grade: 2+, Left brachioradialis reflex intensity grade: 2+, Right patellar reflex intensity grade: 2+ and Left patellar reflex intensity grade: 2+ Extrem General: No edema Office Procedures Flu Questionnaire Does the patient have a severe egg allergy?: No Does the patient have severe life threatening allergies?: No Does the patient have a fever or illness today?: No Has the patient ever had Guillain-Montrose Syndrome?: No Has the patient ever had any past reaction to a flu shot?: No Results AMB Urinalysis, Automated UA Leukoctes 70 Park/uL Last Edit by Guadalupe Yoder CMA on 01/19/25 13:04 UA Nitrite Negative Last Edit by Guadalupe Yoder, LIDIA on 01/19/25 13:04 UA Urobilinogen 0.2 mg/dL Last Edit by Guadalupe Yoder, LIDIA on 01/19/25 13:04 UA Protein 0 mg/dL Last Edit by Guadalupe Yoder, LIDIA on 01/19/25 13:04 UA pH 5.5 Last Edit by Guadalupe Yoder, LIDIA on 01/19/25 13:04 UA Blood 0 Gurinder/uL Last Edit by Guadalupe Yoder, LIDIA on 01/19/25 13:04 UA Specific Pala 1.020 Last Edit by Guadalupe Yoder, LIDIA on 01/19/25 13:04 UA Ketone Negative Last Edit by Guadalupe Yoder, LIDIA on 01/19/25 13:04 UA Bilirubin 0 mg/dL Last Edit by Guadalupe Yoder, LIDIA on 01/19/25 13:04 UA Glucose 0 mg/dL Last Edit by Guadalupe Yoder, LIDIA on 01/19/25 13:04 AMB Hemoglobin A1c AMB Hemoglobin A1c 7.5 % Last Edit by Guadalupe Yoder CMA on 01/19/25 13:04 Immunizations Fluarix [id number] (PF) 45 mcg (15 mcg x 3)/0.5 mL IM syringe Performing Provider: Bijan Daigle MD [facility] Administered by: Guadalupe Yoder CMA on 01/19/25 13:11 Dose Route Admin Location Dispensed Lot Number Expiration Date [facility][NOTE 3] Assistant Manager Quality Management 0.5 mL IM Left Deltoid 0.5 mL [id number] 09/25/25 47968-404-00 [employer] VIS Given Date VIS Provided VIS Publication Date 01/19/25 Single Vaccine 24 Eligibility Eligibility Date Funding Source Not [facility] Eligible 01/19/25 Private Results Reviewed Results Reviewed: Laboratory Last Values Hgb A1c (Clinic) 7.5 % (4.0-6.0) H 01/19/25 13:02 Urine pH (Auto) 5.5 01/19/25 13:02 Specific Pala (Auto) 1.020 01/19/25 13:02 Urine Protein (Auto) 0 mg/dL 01/19/25 13:02 Glucose (UA)(Auto) 0 mg/dL 01/19/25 13:02 Urine Ketones (Auto) Negative 01/19/25 13:02 Urine Blood (Auto) 0 Gurinder/uL 01/19/25 13:02 Urine Nitrite (Auto) Negative 01/19/25 13:02 Urine Bilirubin (Auto) 0 mg/dL 01/19/25 13:02 Urine Urobilinogen (Auto) 0.2 mg/dL 01/19/25 13:02 Leukocyte Esterase (Auto) 70 Park/uL 01/19/25 13:02 Coding Level of Care Code Est Pt Prev Care 40-64y(24646) Diagnoses Annual physical exam Z00.00 Type 2 diabetes mellitus with hyperglycemia, with long-term current use of insulin E11.65; Z79.4 Diabetes 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 insulin use: with senior living use Essential hypertension I10 Hypertension type: essential hypertension Hypercholesterolemia E78.00 Obesity (BMI 30-39.9) E66.9 Mild intermittent asthma with acute exacerbation J45.21 Asthma complication type: with acute exacerbation Asthma persistence: intermittent Asthma severity: mild Seizure disorder G40.909 Hearing deficit H91.90 Thyroid nodule E04.1 Assessment & Plan Assessment & Plan (1) Annual physical exam: Code(s): Z00.00 - Encounter for general adult medical examination without abnormal findings Category: Medical Plan: Patient is advised to eat healthy, keep well hydrated, keep active and have adequate sleep. (2) Type 2 diabetes mellitus with hyperglycemia: Comment: Dr. 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 Hemoglobin A1c goal of less than 6.5. Patient is on glipizide 5 mg twice a day, Lantus 30 units once a day, pioglitazone 30 mg once a day and Mounjaro at 10 mg once a week. Reminded about Ophthalmology (3) Hypertension: Code(s): I10 - Essential (primary) hypertension Category: Medical Qualifiers: Hypertension type: essential hypertension Qualified Code(s): I10 - Essential (primary) hypertension Plan: Continue with blood pressure medication. Decrease salt intake and exercise patient on hydrochlorothiazide 25 mg once a day hydralazine 50 mg 3 times a day carvedilol at 18.75 mg twice a day and amlodipine at 5 mg once a day (4) Hypercholesterolemia: Code(s): E78.00 - Pure hypercholesterolemia, unspecified Category: Medical Plan: Avoid fried foods, chicken skin, eggs, butter margarine, pastries and meat. Be it pork or beef they have a lot of cholesterol LDL goal of less than 100 and triglyceride of less than 150 on rosuvastatin 10 mg once a day (5) Obesity (BMI 30-39.9): Code(s): E66.9 - Obesity, unspecified Category: Medical Plan: Diet and exercise (6) Asthma: Code(s): J45.909 - Unspecified asthma, uncomplicated Category: Medical Qualifiers: Asthma complication type: with acute exacerbation Asthma persistence: intermittent Asthma severity: mild Qualified Code(s): J45.21 - Mild intermittent asthma with (acute) exacerbation Plan: On inhaler, continue (7) Seizure disorder: Code(s): G40.909 - Epilepsy, unspecified, not intractable, without status epilepticus Category: Medical Plan: Stable (8) Hearing deficit: Code(s): H91.90 - Unspecified hearing loss, unspecified ear Category: Medical (9) Thyroid nodule: Comment: February 2022 Code(s): E04.1 - Nontoxic single thyroid nodule Category: Medical Plan History of Present Illness The patient is a 64-year-old female presenting for a physical exam and management of multiple chronic conditions. She has a history of obstructive sleep apnea, managed with continuous positive airway pressure therapy. Her hypercholesterolemia is mild, with the last LDL cholesterol level recorded at 118 mg/dL in May 2024. The patient has been diagnosed with bipolar disorder and experiences anxiety and depression, managed with medication. She also has a history of seizure disorder, though no recent seizures have been reported. Her diabetes mellitus is poorly controlled, with a hemoglobin A1c of 8.6% recorded in May 2024. She is on a regimen including glipizide, Lantus, pioglitazone, and Mounjaro to manage her blood glucose levels. The patient has hypertension with associated neuropathy, managed with multiple antihypertensive medications including hydrochlorothiazide, hydralazine, carvedilol, and amlodipine. Her blood pressure management plan aims to maintain stable readings. She has a history of multilevel degenerative disc disease, contributing to chronic back pain. Preventative care measures include a Cologuard test conducted in February 2023 and a mammogram last performed in November 2019. Health Maintenance - Cologuard test conducted in February 2023 - Mammogram last performed in November 2019 Social History Review of Systems Physical Exam General: Cooperative, healthy appearing, comfortable, no acute distress and well developed Orientation: Patient oriented x3 Limitations: No limitations Head: Normal to inspection Ears: Hearing grossly normal bilaterally Nose: Normal external nose present Face and sinus: Normal facial exam Eyes: Appearance normal, both eyes and all related structures Neck: Normal visual inspection and Yes full ROM Respiratory: Normal respiratory effort and able to speak in complete sentences. Clear to auscultation bilaterally Cardiovascular: Regular rate and rhythm. Normal S1 and S2 GI: Normal to inspection. Soft to palpation and nontender Skin: No rashes or lesions noted Neuro: Patient oriented x3 Extremities: Normal to inspection Results - Labs: Normal blood count with no anemia, normal electrolytes, renal function, high fasting blood sugar, hemoglobin A1c of 8.6% in May 2024, mildly elevated liver numbers, LDL of 118 mg/dL in May 2024, urine test showing proteinuria Plan Patient was informed and verbally consented to the use of an ambient scribe for clinic note documentation during this visit. 1. Diabetes Mellitus The patient's diabetes mellitus management includes a goal of reducing hemoglobin A1c to less than 6.5%. Current medications include glipizide 5 mg twice a day, Lantus 30 units once a day, pioglitazone 30 mg once a day, and Mounjaro 10 mg once a week. 2. Hypertension The hypertension management plan includes maintaining stable blood pressure readings. Medications include hydrochlorothiazide 25 mg once a day, hydralazine 50 mg three times a day, carvedilol 18.75 mg twice a day, and amlodipine 5 mg once a day. 3. Hypercholesterolemia The patient's hypercholesterolemia management includes an LDL goal of less than 100 mg/dL and triglycerides less than 150 mg/dL. The patient is on rosuvastatin 10 mg once a day, along with diet and exercise recommendations. Discussion Notes Patient Instructions Orders: Orders AMB Urinalysis Automated Today H91.90 - Unspecified hearing loss, unspecified ear, Z13.9 - Encounter for screening, unspecified Influenza [id number] Immunization Today Z23 - Encounter for immunization US thyroid Today E04.9 - Nontoxic goiter, unspecified Referrals Podiatry Referral E11.65 - Type 2 diabetes mellitus with hyperglycemia, Z79.4 - exterminator helper (current) use of insulin Endocrinology Referral E04.9 - Nontoxic goiter, unspecified, E11.65 - Type 2 diabetes mellitus with hyperglycemia, Z79.4 - exterminator helper (current) use of insulin Speech and Hearing Referral H91.90 - Unspecified hearing loss, unspecified ear Medications: New nitrofurantoin monohyd/m-cryst 100 mg (Macrobid) must administer with a meal/food 100 mg PO Q12H 10 caps 0RF 5 days E04.9 - Nontoxic goiter, unspecified
[2025-01-19 12:32] VITALS: BP 136/84; PULSE 64; TEMP 36.2; O2SAT 98; BMI 32.1
--- OUTSIDE RECORDS SUMMARY | 2025-01-19 14:19 | XMS_ITS | Clinical Summary ---
Author Organization [employer] Address [address] [place] [address] Care Team Providers Care Retanned Leather Roller Name Role Phone Unavailable Primary Care Provider [...] Most Recently Relevant to Health Maintenance Insurance [facility] STAND ADULT
--- OUTSIDE RECORDS SUMMARY | 2025-01-19 14:19 | XMS_ITS | Clinical Summary ---
Author Organization [facility] Address [address] [place] [id number] Care Team Providers Care Metal Sorter Name Role Phone Unavailable Primary Care Provider [...] - 2023-2 5 season) 2024 RSV Vaccine 50 years and old er and Patients (1 - 1-dose 75+ series) 11/10/2035 Hepatitis B Vaccines Aged Out No long er eligible based on patient's age to complete this topic
--- OUTSIDE RECORDS SUMMARY | 2025-01-19 14:20 | XMS_ITS | Encounter Summary ---
Author Organization [facility] Address [address] [place] [address] Phone Care Team Providers Care Fish Straightener Name Role Phone Bijan Daigle MD Primary Care Provider [phone] Encounter Details Date Type Department Care Team (Late st Contact Info) Description 08/25/2022 Documentation Only [facility] [address] [place] [address] Margarita Penny Social History Tobacco [...] on filedocumented in this encounter Care Teams Fish Straightener Relationship Specialty Start Date End Date Bijan Daigle MD [facility] [address] [place], [place] PCP - General 04/08/20 documented as of this encounter
--- OUTSIDE RECORDS SUMMARY | 2025-01-19 14:20 | XMS_ITS | Clinical Summary ---
Author Organization [facility] Address [address] [place] [address] [address] [place] [address] Phone Care Team Providers Care Financial Aid Counselor Name Role Phone Bijan Daigle MD Primary Care Provider [phone] Allergies Active Allergy Reactions Criticality Noted Date [...] patient's age to complete this topic Insurance [facility] Medicaid [facility] Medicaid Care Teams Financial Aid Counselor Relationship Specialty Start Date End Date Bijan Daigle MD [address] [place] PCP - General 04/08/20
--- OUTSIDE RECORDS SUMMARY | 2025-01-19 14:20 | XMS_ITS | Clinical Summary ---
Author Organization [facility] Address [address] [place] [address] Phone Care Team Providers Care Drum Stock Clerk Name Role Phone Bijan Daigle MD Primary Care Provider [phone] Social History Tobacco Use Types Packs/Day Years Used Date Smoking Tobacco: Never Assessed Comments Unknown Sex and Gender Information Value Date Recorded Sex Assigned at Not on file Legal Sex Female 4:53 AM EST Gender Identity Not on file Sexual Orientation Not on file Plan of Treatment Health Maintenance Due Date Last Done Comments Breast Cancer Screening 1960 Colorectal Cancer Screening: Colonoscopy 1960 DTaP,Tdap,and Td Vaccines (1 - Tdap) 11/10/1979 Cervical Cancer Screening: P ap Smear 1981 Pneumococcal Vaccine: 50+ Ye ars (1 of 1 - PCV) 2010 Zoster Vaccines (1 of 2) 2010 Depression Screening 03/29/2024 HIV Screening 04/14/2024 Hepatitis C Screening 04/14/2024 Social Influencers of Health Screening 04/14/2024 COVID-19 Vaccine (1 - 2023-2 5 season) 2024 Influenza Vaccine [...] patient's age to complete this topic [facility] [employer] PLAN MEDICAID - [place] Care Teams Drum Stock Clerk Relationship Specialty Start Date End Date Bijan Daigle MD [address] [place] [address] [address] [facility] [place] [address] PCP - General Internal Medicine 06/29/24
== END 2025-01-19 13:13 | disposition home or self-care (01) ==
LOC: HO.HMCH 12:08
PROVIDERS: PCP Internal Medicine; Visit Provider Internal Medicine
DX: Z00.00 Encounter for general adult medical examination without abnormal findings (principal); E11.65 Type 2 diabetes mellitus with hyperglycemia; Z79.4 Long term (current) use of insulin; G40.909 Epilepsy, unspecified, not intractable, without status epilepticus; E66.9 Obesity, unspecified; Z68.32 Body mass index [BMI] 32.0-32.9, adult; I10 Essential (primary) hypertension; E78.00 Pure hypercholesterolemia, unspecified; J45.21 Mild intermittent asthma with (acute) exacerbation; E04.1 Nontoxic single thyroid nodule; Z13.9 Encounter for screening, unspecified; Z23 Encounter for immunization

== ENCOUNTER → 2025-01-19 12:07 | Outpatient (BNVA) | payer OTHER, SELFPAY | PROVIDERS: PCP Internal Medicine; Visit Provider Internal Medicine | DX: Z00.00 Encounter for general adult medical examination without abnormal findings (principal); E11.65 Type 2 diabetes mellitus with hyperglycemia; I10 Essential (primary) hypertension; E78.00 Pure hypercholesterolemia, unspecified; E66.9 Obesity, unspecified; J45.21 Mild intermittent asthma with (acute) exacerbation; G40.909 Epilepsy, unspecified, not intractable, without status epilepticus; H91.90 Unspecified hearing loss, unspecified ear; E04.1 Nontoxic single thyroid nodule; Z23 Encounter for immunization; Z79.4 Long term (current) use of insulin; Z68.32 Body mass index [BMI] 32.0-32.9, adult | CPT/HCPCS: 81003; 83036; 90471; 90656; 99396 ==

== ENCOUNTER 2025-01-28 21:11 | Emergency (ER) | payer OTHER, SELFPAY ==
[2025-01-28 21:21] VITALS: BP 206/101; PULSE 65; RESP 20; TEMP 36.5; O2SAT 98; BMI 31.8
--- NOTE | 2025-01-28 21:26 | ECG_ITS ---
Test Reason : CHEST TIGHTNESS Blood Pressure : */* mmHG Vent. Rate : 65 BPM Atrial Rate : 65 BPM P-R Int : 166 ms QRS Dur : 124 ms QT Int : 406 ms P-R-T Axes : -15 -48 56 degrees QTcB Int : 422 ms Normal sinus rhythm Left anterior fascicular block Left ventricular hypertrophy with QRS widening ( R in aVL , [place] product , Romhilt-Guzman ) Abnormal ECG When compared with ECG of 11-Aug-2024 19:49, Incomplete right bundle branch block is no longer Present Referred By: Generic ED Physician Electronically Signed By: Isidoro Gutierrez
[2025-01-28 21:46] LABS: MANUAL DIFF FLAG NO
[2025-01-28 21:47] LABS: Hematocrit 43.0 % (37.0-47.0); Hemoglobin 14.5 g/dl (12.0-16.0); Imm Gran Abs Auto 0.00 X10*3/uL (0.00-0.03); Imm Gran Pct Auto 0.0 % (0.0-0.4); Lymphocytes Absolute Auto 2.9 X10*3/uL (1.2-4.9); Mean Corpuscular HGB Conc 33.7 g/dl (31.0-35.0); Mean Corpuscular Hemoglobin 28.2 pg (27.0-33.0); Mean Corpuscular Volume 83.5 fL (80.0-98.0); NRBC Abs Auto 0.000 X10*3/uL (0.0-0.012); NRBC Pct Auto 0.0 /100WBC (0.0-0.2); Platelet Count 235 X10*3/uL (160-400); Red Blood Count 5.15 X10*6/uL (4.20-5.50); White Blood Count 6.6 X10*3/uL (4.8-10.8)
[2025-01-28 21:49] VITALS: BP 212/112; PULSE 67; RESP 17; O2SAT 97
[2025-01-28 22:03] LABS: COVID-19 Test Negative (Negative); IDNOW Serial# 08D9AD1C
[2025-01-28 22:04] LABS: Alanine Aminotransferase 14 U/L (0-31); Albumin Level 4.3 g/dL (3.5-5.0); Alkaline Phosphatase 105 U/L (39-117); Anion Gap 12 (12-20); Aspartate Amino Transferase 15 U/L (5-31); Blood Urea Nitrogen 13 mg/dL (9-16); Calcium 9.3 mg/dL (8.4-10.2); Carbon Dioxide 27 mmol/L (22-29); Chloride 104 mmol/L (96-108); Creatinine Clr Calc Pharmacy 83.8; Estimated Glomerular Filt Rate > 60; Potassium 3.8 mmol/L (3.3-5.1); Sodium 139 mmol/L (135-145); Total Protein 7.1 g/dL (6.5-8.0)
--- OUTSIDE RECORDS SUMMARY | 2025-01-28 22:11 | XMS_ITS | Clinical Summary ---
Author Organization [employer] Address [address] [facility] [address] [place] [address] Care Team Providers Care Hydraulic Strainer Operator Name Role Phone Unavailable Primary Care [...] 2022 2:55 PM EST Plan of Treatment Upcoming Encounters Date Type Department Care Team (Late st Contact Info) Description 02/21/2025 9:30 AM EST Office Visit [facility] [address] [place] [address] Emil Huntleyaris [address] [place] [address] Health Maintenance Due Date Last Done Comments [...] Most Recently Relevant to Health Maintenance Insurance [facility] MEDICAID STAND ADULT
--- OUTSIDE RECORDS SUMMARY | 2025-01-28 22:11 | XMS_ITS | Clinical Summary ---
Author Organization [facility] Address [address] [place] [id number] Care Team Providers Care Nurseryperson Name Role Phone Unavailable Primary Care Provider [...]
--- OUTSIDE RECORDS SUMMARY | 2025-01-28 22:11 | XMS_ITS | Clinical Summary ---
Author Organization [facility] Address [address] [place] [address] Phone Care Team Providers Care Manuscripts Curator Name Role Phone Bijan Daigle MD Primary Care Provider [phone] Social History Tobacco Use Types Packs/Day Years [...] patient's age to complete this topic [facility] [employer] [facility] - [place] Care Teams Manuscripts Curator Relationship Specialty Start Date End Date Bijan Daigle MD [address] [place] [address] [address] [facility] [place] [address] PCP - General Internal Medicine 06/29/24
--- OUTSIDE RECORDS SUMMARY | 2025-01-28 22:11 | XMS_ITS | Clinical Summary ---
Author Organization [facility] Address [address] [place] [address] [address] [place] [address] Phone Care Team Providers Care Metal Roaster Name Role Phone Bijan Daigle MD Primary Care Provider [phone] Allergies Active Allergy Reactions Criticality Noted Date [...] patient's age to complete this topic Insurance [facility] Medicaid [facility] Medicaid Care Teams Metal Roaster Relationship Specialty Start Date End Date Bijan Daigle MD [address] [place] PCP - General 04/08/20
--- OUTSIDE RECORDS SUMMARY | 2025-01-28 22:11 | XMS_ITS | Encounter Summary ---
Author Organization [facility] Address [address] [place] [address] Phone Care Team Providers Care Component Engineer Name Role Phone Bijan Daigle MD Primary Care Provider [phone] Encounter Details Date Type Department Care Team (Late st Contact Info) Description 08/25/2022 Documentation Only [facility] [address] [place] [address] Margarita Penny Social History Tobacco [...] on filedocumented in this encounter Care Teams Component Engineer Relationship Specialty Start Date End Date Bijan Daigle MD [facility] [address] [place], [place] PCP - General 04/08/20 documented as of this encounter
[2025-01-28 22:14] LABS: Troponin-I High Sensitivity < 2.7 ng/L (<3.5-17.0)
--- NOTE | 2025-01-28 22:35 | ED.GENADULT ---
HPI - General Adult General Chief complaint: General Medical Stated complaint: high blood pressure, pain back of head Time Seen by Provider: 01/28/25 22:35 Source: patient Mode of arrival: ambulatory Limitations: no limitations History of Present Illness ED Provider: Dr. Kirstie Borden HPI narrative: 64-year-old female with a history of hypertension, seizure disorder, bipolar disorder, asthma presenting with substernal chest discomfort and hypertension that is been ongoing since about 6 p.m. this evening. Describes a ?discomfort? in the middle of her chest that is nonradiating and intermittent since it started at 6 p.m.. Denies any provoking or palliative factors. No nausea or vomiting associated with the pain. Denies feeling short of breath. Had been feeling well prior to this. Admits that she has difficulty controlling her blood pressure. She takes 4 separate medications for this, once in the morning and once at 5 p.m.. She did not take her 5 p.m. medications. Denies recent illness including cough or cold-type symptoms, fevers, abdominal pain, bowel changes or urinary complaints. No lower extremity edema or pain. Related Data Home Medications ?Medication ?Instructions ?Recorded ?Confirmed carbamide peroxide 6.5 % ear drops 5 drp otic (ears) BID 10/31/21 01/19/25 (Ear Drops (carbamide peroxide)) flash glucose scanning reader #1 ea 02/06/22 01/19/25 (FreeStyle Archana 2 [place]) pen needle, diabetic 31 gauge x 05/06/22 01/19/2506/11 (BD Ultra-Fine Mini Pen Needle) Previous Rx's ?Medication ?Instructions ?Recorded albuterol sulfate 90 mcg/actuation 2 puff inhalation Q4-6H PRN 03/18/20 aerosol inhaler (ProAir HFA) Dyspnea #8.5 grams fluticasone 250 mcg-salmeterol 50 1 inh inhalation BID #60 ea 03/18/20 mcg/dose blistr powdr for inhalation (Advair Diskus) blood sugar diagnostic (FreeStyle ##4 11/13/20 Lite Strips) aspirin 81 mg tablet,delayed 81 mg PO DAILY #90 tabs 04/30/21 release (Adult Aspirin Regimen) bupropion HCl 150 mg tablet,12 hr 150 mg PO BEDTIME #90 tabs 02/17/22 sustained-release (Wellbutrin SR) acetaminophen 500 mg tablet 1,000 mg (2 x 500 mg) PO QID PRN 03/14/22 (Tylenol Extra Strength) fever or pain #14 tabs naproxen 500 mg tablet 500 mg PO BID PRN pain #14 tabs 03/14/22 diazepam 2 mg tablet 2 - 4 mg (1 - 2 x 2 mg) PO BEDTIME 07/22/22 PRN sleep 30 days #60 tabs fluticasone propionate 50 1 spray intranasal DAILY #9.9 mL 09/14/22 mcg/actuation nasal spray,suspension (Flonase Allergy Relief) loratadine 10 mg tablet (Claritin) 10 mg PO DAILY #30 tabs 09/14/22 ondansetron 8 mg disintegrating 8 mg PO Q12H PRN nausea and 11/06/22 tablet vomiting #10 tabs cyclobenzaprine 5 mg tablet 5 mg PO Q8H #10 tabs 06/09/23 pioglitazone 30 mg tablet 30 mg PO DAILY #90 tabs 12/22/23 meclizine 25 mg tablet 25 mg PO TID PRN dizziness or 03/15/24 vertigo #20 tabs blood pressure monitor (Blood #1 ea 03/31/24 Pressure Kit) FreeStyle Archana 2 Sensor (flash #6 ea 04/19/24 glucose sensor) carvedilol 12.5 mg tablet 18.75 mg (1.5 x 12.5 mg) PO BID 30 04/19/24 days #90 tabs rosuvastatin 10 mg tablet 10 mg PO DAILY #30 tabs 07/21/24 hydrochlorothiazide 25 mg tablet 25 mg PO QAM #30 tabs 08/12/24 diclofenac sodium 1 % topical gel 4 g topical QID #400 grams 08/29/24 (Arthritis Pain (diclofenac)) amlodipine 5 mg tablet 5 mg PO DAILY #90 tabs 10/11/24 hydralazine 50 mg tablet 50 mg PO TID 90 days #270 tabs 11/17/24 glipizide 10 mg tablet, extended 5 mg (1/2 x 10 mg) PO BID #180 tabs 12/21/24 release 24 hr insulin glargine 100 unit/mL (3 30 unit (0.3 mL) subcut QPM #15 mL 12/21/24 mL) subcutaneous pen (Lantus Solostar U-100 Insulin) tirzepatide 10 mg/0.5 mL 10 mg (0.5 mL) subcut QWEEK #2 mL 12/21/24 subcutaneous pen injector (Irma) fluoxetine 10 mg tablet 10 mg PO DAILY #90 tabs 01/17/25 nitrofurantoin 100 mg PO Q12H 5 days #10 caps 01/19/25 monohydrate/macrocrystals 100 mg capsule (Macrobid) Allergies Allergy/AdvReac Type Severity Reaction Status Date / Time clonidine (CLONIDINE) Allergy Severe DIZZY,FAINT Verified 01/28/25 21:25 levetiracetam (LEVETIRACETAM) Allergy Severe DIFFICULTY Verified 01/28/25:25 BREATHING lisinopril (LISINOPRIL) Allergy Severe SWELLING, Verified 01/28/25 21: angioedema atenolol (ATENOLOL) Allergy Intermediate RASH Verified 01/28/25 21:25 dulaglutide (Trulicity) Allergy Unknown Unknown Verified 01/28/25 21:25 [facility] Past Medical History Medical History Anxiety due to invasive procedure Well woman exam UTI (urinary tract infection) Acute bacterial conjunctivitis URI, acute Upper respiratory tract infection SARS-CoV-2 positive Perineal abscess COVID-19 Microscopic hematuria Breast cancer screening by mammogram Trigeminal neuralgia of right side of face Hypertension Family history of colon cancer Colon cancer screening Lower abdominal pain Vulvovaginitis roseline albicans Cervical cancer screening Hypercholesterolemia SVT (supraventricular tachycardia) Obstructive sleep apnea Mixed incontinence urge and stress Thyroid nodule GERD (gastroesophageal reflux disease) Asthma COVID-19 Mild obstructive sleep apnea Cataracts, bilateral Migraine Seizure disorder Bipolar disorder Green's palsy Obesity (BMI 30-39.9) Type 2 diabetes mellitus with hyperglycemia Surgical History History of cone biopsy of uterine cervix History of tubal ligation History of cholecystectomy Family History Family History Father Diabetes FH: prostate cancer CVD (cardiovascular disease) Mother Diabetes Hypertension Stroke CVD (cardiovascular disease) Sister Breast cancer Sister Breast cancer Sister Hypertension Daughter In good health Brother No problems noted. Brother No problems noted. Brother No problems noted. Sister Cervical cancer Social History Social History Household Members: Other Household Members Other:: grandson Housing: House Do you presently have visiting nurse or other home services: Yes (tele visits) Alcohol intake: never Patient Tobacco Use Status: Never used Tobacco Tobacco use type: Cigarette Smoked in Last 30 Days: No e-Cigarette/Vaping Use: Never Used Second Hand Smoke Exposure: No Use of substances other than those prescribed or required for medical reasons: No Advance Directives: No Advance Directives Information Provided: No Patient : No service: No Current occupational status: disabled Cognitive needs: No Hearing needs: No Vision needs: Yes Physical Exam ED Exam Exam: GENERAL: Anxious, nontoxic appearing. SKIN: Normal skin color for ethnicity, warm, dry, intact, no rashes noted. HEENT: Normocephalic, atraumatic, no stridor, posterior oropharynx nonerythematous, dentition intact, EOMI. NECK: Soft, supple, full ROM, midline structures nontender, no step-offs, no deformities, no lymphadenopathy. CHEST: Heart regular rhythm, no murmurs, symmetric chest rise and fall, no crepitus. PULMONARY: Clear to auscultation bilaterally, no labored breathing, no wheezes/rhales/ rhonchi. ABDOMINAL: Soft, nondistended, nontender, positive bowel sounds in all quadrants. : Deferred. MUSCULOSKELETAL: Normal tone, full range of motion, no deformities, no peripheral edema. NEURO: Alert and oriented x3, CN II through XII intact, equal strength and sensation bilateral upper and lower extremities, no focal neurologic deficits. PSYCHIATRIC: Anxious affect, fluid speech, good eye contact and appropriate demeanor. Vital Signs: Vital Signs - 24 hr 01/28/25 21:21 01/28/25 21:49 01/28/25 23:57 Temperature 97.7 F Pulse Rate 65 67 Respiratory Rate 20 17 Blood Pressure 206/101 H 212/112 H 209/95 H Pulse Oximetry 98 97 Oxygen Delivery Method Room Air Room Air 01/29/25 00:00 01/29/25 01:23 Temperature Pulse Rate 65 66 Respiratory Rate 10 L 11 L Blood Pressure 209/95 H 169/85 H Pulse Oximetry 96 Oxygen Delivery Method Room Air BMI result Body Mass Index 31.8 Medications Administered Discontinued Medications Generic Name Dose Route Start Last Admin Trade Name Sonia PRN Reason Stop Dose Admin Acetaminophen 650 mg 01/28/25 23:42 01/29/25 00:00 Acetaminophen 325 Mg Tablet PO 01/28/25 23:43 650 mg ONCE ONE Administration Nifedipine 60 mg 01/28/25 23:42 01/28/25 23:57 Nifedipine Er 60 Mg Tab.Er.24 PO 01/28/25 23:43 60 mg ONCE ONE Administration Protocol Medical Decision Making Medical Decision Making [facility] Narrative: Patient presenting with chief complaint of high blood pressure. Differential diagnosis includes hypertensive urgency, hypertensive emergency, essential hypertension, uncontrolled hypertension, ACS, aortic dissection when accompanied with pain or neurologic dysfunction, renal insufficiency or injury, electrolyte abnormality, among many others. Cardiac enzyme is negative x2. EKG is nonischemic. She has LVH which is chronic and relatively unchanged since July of this year. Chest pain is atypical. She feels improved after her blood pressure is more controlled with the nifedipine. She is on multiple medications for blood pressure at home and I discussed the importance of taking these drugs as prescribed. Using shared decision making, plan for discharge home to follow-up with primary care and/or specialist. Patient understands and agrees with plan for discharge. Discharged home in stable condition. Differential Diagnosis Differential Diagnoses: The differential diagnosis associated with the presentation includes (as above) Admission/Observation Consideration of admission/observation: Escalation of care including admission/observation considered Lab Data [facility] Lab Attestation statement: I reviewed the patient's lab results. 01/28/25 21:40 01/28/25 21:40 Labs: Lab Results 01/28/25 01/28/25 Range/Units 21:40 23:49 WBC 6.6 (4.8-10.8) X10*3/uL RBC 5.15 (4.20-5.50) X10*6/uL Hgb 14.5 (12.0-16.0) g/dl Hct 43.0 (37.0-47.0) % MCV 83.5 (80.0-98.0) fL MCH 28.2 (27.0-33.0) pg MCHC 33.7 (31.0-35.0) g/dl RDW 11.7 (11.0-16.0) % Plt Count 235 (160-400) X10*3/uL MPV 10.9 (9.4-12.3) fL Immature Gran % (Auto) 0.0 (0.0-0.4) % Neut % (Auto) 45.4 (45-73) % Lymph % (Auto) 44.0 H (20-40) % [place] % (Auto) 7.2 (2-11) % Eos % (Auto) 2.9 (0-4) % Baso % (Auto) 0.5 (0-2) % Lymph # (Auto) 2.9 (1.2-4.9) X10*3/uL [place] # (Auto) 0.5 (0.1-1.2) X10*3/uL Eos # (Auto) 0.2 (0.0-0.4) X10*3/uL Baso # (Auto) 0.0 (0.0-0.2) X10*3/uL Abs Immat Gran (auto) 0.00 (0.00-0.03) X10*3/uL Absolute Neuts (auto) 3.0 (2.0-8.3) x10*3/uL Absolute Nucleated RBC 0.000 (0.0-0.012) X10*3/uL Nucleated RBC % (auto) 0.0 (0.0-0.2) /100WBC Sodium 139 (135-145) mmol/L Potassium 3.8 (3.3-5.1) mmol/L Chloride 104 (96-108) mmol/L Carbon Dioxide 27 (22-29) mmol/L Anion Gap 12 (12-20) BUN 13 (9-16) mg/dL Creatinine 0.71 (0.5-1.4) mg/dL Estim Creat Clear Calc 83.8 Estimated GFR > 60 Random Glucose 138 H (60-115) mg/dL Calcium 9.3 (8.4-10.2) mg/dL Total Bilirubin 0.7 (0.0-1.0) mg/dL AST 15 (5-31) U/L ALT 14 (0-31) U/L Alkaline Phosphatase 105 (39-117) U/L Troponin I High Sens < 2.7 < 2.7 (<3.5-17.0) ng/L NT-Pro-B Natriuret Pep 83.7 (<300) pg/mL Total Protein 7.1 (6.5-8.0) g/dL Albumin 4.3 (3.5-5.0) g/dL COVID-19 (DENNIS) Negative (Negative) COVID-19 Clin Com See Note Influenza Type A (OZZIE) Negative (Negative) Influenza Type B (OZZIE) Negative (Negative) Influenza A & B Note See Note Independent Interpretation I performed an independent interpretation of an: EKG Interpretation: My independent interpretation of the ECG reveals normal sinus rhythm with rate of 65, leftward axis, nonspecific interventricular conduction delay with a QRS of 124, LVH, no ST elevations or depressions to suggest ischemic changes, relatively unchanged from previous on 08/11/2024. External Record Review External record reviewed: Inpatient record Chronic Conditions Patient?s care impacted by: Hypertension Discharge Plan Discharge Clinical Impression: Acute chest pain, Hypertensive urgency Patient Disposition: Home, Self-Care Instructions: Hypertensive Crisis (ED) Additional Instructions: DIAGNOSIS & TREATMENT: You were seen in the Emergency Department for your chest discomfort. We performed an EKG, laboratory work and chest xray which did not reveal any acute abnormalities that would explain your symptoms. FURTHER CARE: We have not found any emergent physical exam or lab abnormalities that would require admission to the hospital today. Many people who come to the ER with chest discomfort do not leave with a specific diagnosis at the end of their visit. In the Emergency Department we try to make sure that there is no emergent problem that needs admission to the hospital or antibiotics right now. This does not mean that your evaluation is complete--please be sure to follow up with your regular doctor as additional testing as an outpatient may be indicated. Please be certain to drink plenty of fluids over the next several days. Keep taking all of your medications as prescribed. WHEN YOU SHOULD BE SEEN NEXT: Please follow-up with your primary care provider within the next 2-3 days for reevaluation of your symptoms. WHEN TO RETURN TO THE ED: Monitor your symptoms closely and return to the emergency department immediately for any new/worsening symptoms including: Worsening chest pain, difficulty breathing, fevers greater than 100 degrees, passing out, any new symptom that concerns you. Call 911 with any medical emergency. Prescriptions: No Action albuterol sulfate [ProAir HFA] 90 mcg/actuation HFA aerosol inhaler 2 puff inhalation Q4-6H PRN (Reason: Dyspnea) Qty: 8.5 0RF fluticasone propion-salmeterol [Advair Diskus] 250-50 mcg/dose blister with device 1 inh inhalation BID Qty: 60 5RF (DME) FreeStyle Lite Strips Strip See Rx Instructions .ROUTE .MEDSUPPLY Qty: 4 3RF Rx Instructions: As directed check the BS 4 x a day aspirin [Adult Aspirin Regimen] 81 mg tablet,delayed release (DR/EC) 81 mg PO DAILY Qty: 90 3RF bupropion HCl [Wellbutrin SR] 150 mg tablet sustained-release 12 hr 150 mg PO BEDTIME Qty: 90 2RF (DME) blood pressure monitor [Blood Pressure Kit] Kit See Rx Instructions .ROUTE .MEDSUPPLY Qty: 1 0RF Rx Instructions: As directed diclofenac sodium [Arthritis Pain (diclofenac)] 1 % gel 4 g topical QID Qty: 400 10RF Rx Instructions: apply to single knee, ankle, foot; for foot includes sole/toes/top of foot amlodipine 5 mg tablet 5 mg PO DAILY Qty: 90 0RF hydralazine 50 mg tablet 50 mg PO TID 90 Days Qty: 270 1RF glipizide 10 mg tablet extended release 24hr 5 mg PO BID Qty: 180 3RF fluoxetine 10 mg tablet 10 mg PO DAILY Qty: 90 0RF naproxen 500 mg tablet 500 mg PO BID PRN (Reason: pain) Qty: 14 0RF acetaminophen [Tylenol Extra Strength] 500 mg tablet 1,000 mg PO QID PRN (Reason: fever or pain) Qty: 14 0RF hydrochlorothiazide 25 mg tablet 25 mg PO QAM Qty: 30 0RF Ear Drops (carbamide peroxide) 6.5 % drops 5 drp otic (ears) BID ondansetron 8 mg tablet,disintegrating 8 mg PO Q12H PRN (Reason: nausea and vomiting) Qty: 10 0RF fluticasone propionate [Flonase Allergy Relief] 50 mcg/actuation spray,suspension 1 spray intranasal DAILY Qty: 9.9 1RF Rx Instructions: administer into each nostril loratadine [Claritin] 10 mg tablet 10 mg PO DAILY Qty: 30 0RF cyclobenzaprine 5 mg tablet 5 mg PO Q8H Qty: 10 0RF (DME) FreeStyle Archana 2 [place] Misc See Rx Instructions .ROUTE DIRECTED Qty: 1 Rx Instructions: As directed (DME) pen needle, diabetic [BD Ultra-Fine Mini Pen Needle] 31 gauge x 3/16 needle See Rx Instructions .Route Rx Instructions: As directed, Inject 6 x a day with Insulin diazepam 2 mg tablet 2 - 4 mg PO BEDTIME PRN (Reason: sleep) 30 Days Qty: 60 2RF carvedilol 12.5 mg tablet 18.75 mg PO BID 30 Days Qty: 90 3RF (DME) FreeStyle Archana 2 Sensor Kit See Rx Instructions .ROUTE Q2W Qty: 6 3RF Rx Instructions: As directed rosuvastatin 10 mg tablet 10 mg PO DAILY Qty: 30 5RF insulin glargine [Lantus Solostar U-100 Insulin] 100 unit/mL (3 mL) insulin pen 30 unit subcut QPM Qty: 15 12RF Mounjaro 10 mg/0.5 mL pen injector 10 mg subcut QWEEK Qty: 2 3RF pioglitazone 30 mg tablet 30 mg PO DAILY Qty: 90 3RF meclizine 25 mg tablet 25 mg PO TID PRN (Reason: dizziness or vertigo) Qty: 20 0RF nitrofurantoin monohyd/m-cryst [Macrobid] 100 mg capsule 100 mg PO Q12H 5 Days Qty: 10 0RF Rx Instructions: must administer with a meal/food Print Language: Luxembourgish
[2025-01-28 23:00] LABS: IDNOW Serial# 6674DD1D
[2025-01-28 23:01] LABS: Influenza B2 Negative (Negative)
[2025-01-28 23:10] LABS: NT Pro B Type Natriuretic Pept 83.7 pg/mL (<300)
[2025-01-28 23:57] VITALS: BP 209/95
[2025-01-28] MEDS: NIFEdipine ER 60 MG TAB.ER.24 PO (23:57)
[2025-01-29] VITALS: BP 209/95; PULSE 65; RESP 10; O2SAT 96
--- NOTE | 2025-01-29 00:02 | PC.NURSE ---
assumed care of pt at 2300. PT a/ox4, resting quietly at this time. Reporting CP 08/05. PT medicated as per MAY. tolerated well. Safety precautions in place, Call alonzo within reach, plan of care ongoing
[2025-01-29 00:20] LABS: Troponin-I High Sensitivity < 2.7 ng/L (<3.5-17.0)
[2025-01-29 01:23] VITALS: BP 169/85; PULSE 66; RESP 11
[2025-01-29 04:13] VITALS: BP 117/64; PULSE 76; RESP 16; TEMP 36.4; O2SAT 95
== END 2025-01-29 04:14 | disposition home or self-care (01) ==
PROVIDERS: Emergency Provider Emergency Medicine; PCP Internal Medicine
DX: R07.89 Other chest pain (principal); I16.0 Hypertensive urgency; R51.9 Headache, unspecified
CPT/HCPCS: 36415; 80053; 83880; 84484; 85025; 87502; 87635; 93005; 99283; 99285

== ENCOUNTER → 2025-01-28 21:26 | Outpatient (BNV) | payer OTHER, SELFPAY | PROVIDERS: Emergency Provider Emergency Medicine; PCP Internal Medicine; Visit Provider Internal Medicine Cardiovascular Disease | DX: I44.4 Left anterior fascicular block (principal); I51.7 Cardiomegaly | CPT/HCPCS: 93010 ==

== ENCOUNTER 2025-02-06 16:09 | Outpatient (AMB) | payer OTHER, SELFPAY ==
--- NOTE | 2025-02-06 16:18 | MHC.PC.OV ---
Vital Signs 02/06/25 16:23 Height 5 ft 4 in Weight 193 lb BMI 33.1 BP 140/96 H Blood Pressure Location Lt brachial Position Sitting Pulse 75 Pulse Source Pulse Oximeter Temp 97.3 F Temp Source Temporal Artery Scan Pulse Oximetry (%) 97 Oxygen Delivery Method Room Air Intake Visit Reasons: [facility] 01/29 high blood pressure, pain back of head Allergies clonidine (CLONIDINE) Allergy (Severe, Verified 02/06/25 16:18) DIZZY,FAINT levetiracetam (LEVETIRACETAM) Allergy (Severe, Verified 02/06/25 16:18) DIFFICULTY BREATHING lisinopril (LISINOPRIL) Allergy (Severe, Verified 02/06/25 16:18) SWELLING, angioedema atenolol (ATENOLOL) Allergy (Intermediate, Verified 02/06/25 16:18) RASH dulaglutide (Trulicity) Allergy (Unknown, Verified 02/06/25 16:18) Unknown Tobacco use date assessed: 02/06/25 Fall risk assessment: No Falls in past year Last assessed Fall Risk: 02/06/25 Dental Screening Dental Screen Date: 02/06/25 Did you have a dental visit in the last 12 months?: No Did you have a dental problem in the last 6 months where you did not have access to dental care?: No Was dental information given to patient?: No [facility] Medical History Anxiety due to invasive procedure Well woman exam UTI (urinary tract infection) Acute bacterial conjunctivitis URI, acute Upper respiratory tract infection SARS-CoV-2 positive Perineal abscess COVID-19 Microscopic hematuria Breast cancer screening by mammogram Trigeminal neuralgia of right side of face Hypertension Family history of colon cancer Colon cancer screening Lower abdominal pain Vulvovaginitis roseline albicans Cervical cancer screening Hypercholesterolemia SVT (supraventricular tachycardia) Obstructive sleep apnea Mixed incontinence urge and stress Thyroid nodule GERD (gastroesophageal reflux disease) Asthma COVID-19 Mild obstructive sleep apnea Cataracts, bilateral Migraine Seizure disorder Bipolar disorder Green's palsy Obesity (BMI 30-39.9) Type 2 diabetes mellitus with hyperglycemia Surgical History History of cone biopsy of uterine cervix History of tubal ligation History of cholecystectomy Family History Father Diabetes FH: prostate cancer CVD (cardiovascular disease) Mother Diabetes Hypertension Stroke CVD (cardiovascular disease) Sister Breast cancer Sister Breast cancer Sister Hypertension Daughter In good health Brother No problems noted. Brother No problems noted. Brother No problems noted. Sister Cervical cancer Social History Household Members: Other Household Members Other:: grandson Housing: House Do you presently have visiting nurse or other home services: Yes (tele visits) Alcohol intake: never Patient Tobacco Use Status: Never used Tobacco Tobacco use type: Cigarette e-Cigarette/Vaping Use: Never Used Second Hand Smoke Exposure: No service: No Current occupational status: disabled Cognitive needs: No Hearing needs: No Vision needs: Yes Female Reproductive History Menstrual Age of Menarche: 12 Questionnaire PHQ-9 Over the last 2 weeks, how often have you been bothered by any of the following problems? 1. Little interest or pleasure in doing things: more than half the days (Patient recently lost her to cancer on the 6th of this month. ) 2. Feeling down, depressed, or hopeless: more than half the days 3. Trouble falling or staying asleep, or sleeping too much: more than half the days 4. Feeling tired or having little energy: more than half the days 5. Poor appetite or overeating: more than half the days 6. Feeling bad about yourself - or that you are a failure or have let yourself or your family down: more than half the days 7. Trouble concentrating on things, such as reading the newspaper or watching television: more than half the days 8. Moving or speaking so slowly that other people could have noticed. Or the opposite - being so fidgety or restless that you have been moving around a lot more than usual: more than half the days 9. Thoughts that you would be better off or of hurting yourself in some way: not at all Total score: 16 Depression Screening Interpretation: Positive Depression Screening Done: Yes Source: Developed by Drs. Fercho Ying, Rama Daniels, Feliz Hood and colleagues, with an educational yong from [employer]. Thrive Questionnaire Date Thrive assessed: 07/21/24 I am a: Patient What is your living situation today?: I have a steady place to live Within the past 12 months, did the food you bought not last and you didn't have the money to get more?: Never true Within the past 12 months, did you worry whether your food would run out before you got money to buy more?: Never true Do you have trouble paying for medicines?: I choose not to answer this question Do you have trouble getting transportation to medical appointments?: No Do you have trouble paying your heating and electricity bill?: No Do you have trouble taking care of your child, family member or friend?: No Do you have trouble with day-to-day activities such as bathing, preparing meals, shopping, managing finances, etc.?: Yes Are you currently unemployed and looking for a job?: No Are you interested in more education?: Yes Please select the resources that you would like help with: Education Currently or been in a relationship where the following occur: No concerns reported THRIVE Score: 0 AUDIT C Alcohol Use Questionnaire (AUDIT-C) 1. How often do you have a drink containing alcohol?: Never 3. How often do you have six or more drinks on one occasion?: Never Total Score: 0 SANDRA-7 AMB Questionnaire SANDRA-7 Date SANDRA - 7 assessed: 12/21/24 Feeling nervous, anxious, or on edge: 1 = Several days Not being able to stop or control worryin = Several days Worrying too much about different things: 1 = Several days Trouble relaxin = Several days Being so restless that it is hard to sit still: 1 = Several days Becoming easily annoyed or irritable: 1 = Several days Feeling afraid as if something awful might happen: 1 = Several days Total SANDRA-7 score (0-4 normal; 5-9 mild; 10-14 moderate; 15-21 severe): 7 Source: Developed by Drs. Fercho Ying, Rama Daniels, Feliz Hood and colleagues, with an educational yong from [employer]. Physical exam (Primary Care) Vital Signs: Last Vital Signs Temp 97.3 F 02/06/25 16:23 Pulse 75 02/06/25 16:23 BP 140/96 H 02/06/25 16:23 Pulse Ox 97 02/06/25 16:23 Oxygen Delivery Method Room Air 02/06/25 16:23 BMI result Body Mass Index 33.1 Tobacco/Smoking Status: Tobacco use Status Tobacco use date assessed 02/06/25 02/06/25 16:19 Patient Tobacco Use Status Never used Tobacco 02/06/25 16:19 Tobacco use type Cigarette 02/06/25 16:19 e-Cigarette/Vaping Use Never Used 02/06/25 16:19 PHQ-9: PHQ-9 Score PHQ-9: Total score 16 02/06/25 16:27 Depression Screening Interpretation: Positive Thrive Assessment: Date of Thrive Assessment Date Thrive assessed 07/21/24 02/06/25 16:19 Currently or been in a relationship where the following occur: No concerns reported Const General: alert; No acute distress Eyes Conjunctivae: conjunctivae normal Resp Auscultation: clear to auscultation bilaterally Cardio Rate: regular rate Rhythm: regular rhythm GI Inspection: Yes normal to inspection Extrem General: Yes normal to inspection and No edema Coding Level of Care Code Est Pt Level 4 (97742) Complex EM visit Add On G2211 Diagnoses Essential hypertension I10 Hypertension type: essential hypertension Type 2 diabetes mellitus with hyperglycemia, with long-term current use of insulin E11.65; Z79.4 Diabetes mellitus intermediate project manager insulin use: with senior living use Obesity (BMI 30-39.9) E66.9 Assessment & Plan Assessment & Plan (1) Hypertension: Code(s): I10 - Essential (primary) hypertension Category: Medical Qualifiers: Hypertension type: essential hypertension Qualified Code(s): I10 - Essential (primary) hypertension Plan: Continue with blood pressure medication. Decrease salt intake and exercise patient is on amlodipine 5 mg once a day carvedilol 18.75 mg twice a day hydralazine 50 mg 3 times a day hydrochlorothiazide 25 mg once a day (2) Type 2 diabetes mellitus with hyperglycemia: Comment: Dr. 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 Patient takes Mounjaro 10 mg once a week pioglitazone 30 mg once a day Lantus at 30 units once a day glipizide 5 mg twice a day (3) Obesity (BMI 30-39.9): Code(s): E66.9 - Obesity, unspecified Category: Medical Plan: Diet and exercise Plan History of Present Illness The patient is a 64-year-old obese female presenting for a follow-up visit for management of multiple chronic conditions. Her medical history includes diabetes mellitus, obstructive sleep apnea, mild asthma, hypercholesterolemia, bipolar disorder, hypertension, and a history of seizure disorder. She was last seen on January 19, 2025, and had an emergency room visit on January 28 or for chest pain, during which her cardiac workup was negative. For hypertension, the patient is prescribed amlodipine 5 mg once a day, carvedilol 18.75 mg twice a day, hydralazine 50 mg three times a day, and hydrochlorothiazide 25 mg once a day. She denies missing any doses of her blood pressure medications. For diabetes, the patient's regimen includes Mounjaro 10 mg once a week, pioglitazone 30 mg once a day, Lantus 30 units once a day, and glipizide 5 mg twice a day. Her hemoglobin A1c last month was 7.5%. Recent laboratory work showed a normal blood count with no anemia, as well as normal electrolytes, renal function, and liver function. Her last LDL cholesterol level was 118 mg/dL, which is considered high. The patient has had a 6.1 week weight gain. Health Maintenance The patient confirmed she has received her influenza vaccination. She was advised that the shingles vaccine is available for her at the pharmacy. She has a follow-up appointment scheduled in March, and we will review her progress and lab results at that time. Social History - The patient is obese and has had a recent weight gain. - Exercise was mentioned but no details were provided. Review of Systems - Constitutional: Reports weight gain. - Cardiovascular: Reports a recent episode of chest pain in January which prompted an ER visit. Physical Exam - General: Obese female. - Vitals: Blood pressure 160/-- mmHg. Heart rate 75 bpm. - Respiratory: Lungs auscultated. Results - Labs: - Complete blood count: Normal, with no anemia. - Metabolic Panel: Normal electrolytes and renal function. - Liver Function Tests: Normal. - Hemoglobin A1c: 7.5% (from last month). - Lipid Panel: Last LDL was 118 mg/dL. - Tests and Diagnostics: - Cardiac workup: Negative during ER visit in January. Plan Patient was informed and verbally consented to the use of an ambient scribe for clinic note documentation during this visit. 1. Hypertension The patient's blood pressure is elevated with a systolic of 160 mmHg despite being on a multi-drug regimen and reporting adherence. Her heart rate is controlled at 75 bpm. To improve blood pressure control, the dose of carvedilol will be increased from 18.75 mg twice a day to 25 mg twice a day. The new prescription will be sent to [facility] on [address]. The patient will complete a pending fasting blood work order, which includes a thyroid test. 2. Diabetes Mellitus The patient's most recent HbA1c was 7.5%, indicating sub-optimal glycemic control. No changes will be made to her current diabetes medication regimen, which includes Mounjaro, pioglitazone, Lantus, and glipizide. Glycemic status will be re-evaluated with the pending fasting blood work. Discussion Notes I discussed with the patient that her blood pressure was elevated today despite her current medication regimen. We reviewed her adherence, which she confirmed is good. I explained that I will be increasing her carvedilol dose from 18.75 mg to 25 mg twice daily to help lower her blood pressure. I have sent this prescription to her preferred pharmacy. I also reminded her to complete the outstanding fasting blood work, which will include a check of her thyroid function. We confirmed she is up to date on her flu shot and discussed the availability of the shingles vaccine. We will see her back for her scheduled appointment in March to assess the effect of the medication change. Patient Instructions - Start taking the new dose of Carvedilol, which is 25 mg twice a day. - Your prescription for the new dose of Carvedilol has been sent to the [facility] pharmacy on [address]. - Please go to the lab for fasting blood work. The order is already in the system. - Continue taking all of your other prescribed medications. - You have already received your flu shot for this season. - If you wish to receive the shingles vaccine, it is available at the pharmacy. - Keep your next appointment, which is scheduled for March. Medications: Changed From carvedilol 18.75 mg (1.5 x 12.5 mg) PO BID 30 days 90 tabs 3RF I10 - Essential (primary) hypertension To carvedilol 25 mg PO BID 30 days 60 tabs 3RF I10 - Essential (primary) hypertension Refilled carvedilol 25 mg PO BID 60 tabs 3RF 30 days I10 - Essential (primary) hypertension
[2025-02-06 16:23] VITALS: BP 140/96; PULSE 75; TEMP 36.3; O2SAT 97; BMI 33.1
--- OUTSIDE RECORDS SUMMARY | 2025-02-06 17:24 | XMS_ITS | Clinical Summary ---
Author Organization [employer] Address [address] [facility] [address] [place] [address] Care Team Providers Care Tire Room Supervisor Name Role Phone Unavailable Primary Care [...] Description 02/21/2025 9:30 AM EST Office Visit [facility] [address] [place] [address] Emil Huntleyaris [address] [place] [address] Health Maintenance Due Date Last Done Comments [...] Most Recently Relevant to Health Maintenance Insurance [facility] MEDICAID STAND ADULT
--- OUTSIDE RECORDS SUMMARY | 2025-02-06 17:24 | XMS_ITS | Clinical Summary ---
Author Organization [facility] Address [address] [place] [address] Phone Care Team Providers Care Aeronautical Project Engineer Name Role Phone Bijan Daigle MD Primary Care Provider [phone] Social History Tobacco Use Types Packs/Day Years [...] patient's age to complete this topic Insurance [facility] [place] PL[place] MEDICAID - [place] Care Teams Aeronautical Project Engineer Relationship Specialty Start Date End Date Bijan Daigle MD [address] [place] [address] [address] [facility] [place] [address] PCP - General Internal Medicine 06/29/24
--- OUTSIDE RECORDS SUMMARY | 2025-02-06 17:24 | XMS_ITS | Clinical Summary ---
Author Organization [facility] Address [address] [place] [address] Care Team Providers Care Thermocouple Tester Name Role Phone Unavailable Primary Care Provider [...]
== END 2025-02-06 16:47 | disposition home or self-care (01) ==
LOC: HO.HMCH 16:10
PROVIDERS: PCP Internal Medicine; Visit Provider Internal Medicine
DX: E11.65 Type 2 diabetes mellitus with hyperglycemia (principal); Z79.4 Long term (current) use of insulin; E66.9 Obesity, unspecified; Z68.33 Body mass index [BMI] 33.0-33.9, adult; I10 Essential (primary) hypertension

== ENCOUNTER → 2025-02-06 16:09 | Outpatient (BNVA) | payer OTHER, SELFPAY | PROVIDERS: PCP Internal Medicine; Visit Provider Internal Medicine | DX: E11.65 Type 2 diabetes mellitus with hyperglycemia (principal); I10 Essential (primary) hypertension; E66.9 Obesity, unspecified; Z79.4 Long term (current) use of insulin; Z68.33 Body mass index [BMI] 33.0-33.9, adult | CPT/HCPCS: 99212 ==

== ENCOUNTER 2025-02-21 07:56 | Outpatient (REF) | payer OTHER, SELFPAY ==
--- OUTSIDE RECORDS SUMMARY | 2025-02-21 08:05 | XMS_ITS | Clinical Summary ---
Author Organization [facility] Address [address] [place] [address] [address] [place] [address] Phone Care Team Providers Care Hydroelectric Plant Technician Name Role Phone Bijan Daigle MD Primary Care Provider [phone] Allergies Active Allergy Reactions Criticality Noted Date [...] patient's age to complete this topic Insurance [facility] Medicaid [facility] Medicaid Care Teams Hydroelectric Plant Technician Relationship Specialty Start Date End Date Bijan Daigle MD [address] [place] PCP - General 04/08/20
--- OUTSIDE RECORDS SUMMARY | 2025-02-21 08:05 | XMS_ITS | Clinical Summary ---
Author Organization [employer] Address [address] [facility] 7[address] [place] [address] Care Team Providers Care Enrober Tender Name Role Phone Unavailable Primary Care Provider [...] Description 02/21/2025 9:30 AM EST Office Visit [facility]ULT [facility] [address] [place] [address] Emil Huntleyaris [address] [place] [address] Health Maintenance Due Date Last Done Comments [...] Cancer Screening 1990 HPV/Cotest 1990 Mammogram 2000 RSV Patients and Patients Aged 60 years or older (1 - Risk 50-74 years 1-dose series) 2010 Zoster Vaccines (1 of 2) 2010 Pneumococcal Vaccine: 50+ Years (2 of 2 - PCV) 04/20/2017 04/20/2016 Tobacco Screening 03/20/2023 03/20/2022 COVID-19 Vaccine (3 [...] Most Recently Relevant to Health Maintenance Insurance [facility] MEDICAID STAND ADULT
--- OUTSIDE RECORDS SUMMARY | 2025-02-21 08:05 | XMS_ITS | Encounter Summary ---
Author Organization [facility] Address [address] [place] [address] Phone Care Team Providers Care Hand Presser Name Role Phone Bijan Daigle MD Primary Care Provider [phone] Encounter Details Date Type Department Care Team (Late st Contact Info) Description 08/25/2022 Documentation Only [facility] [address] [place] [address] Margarita Penny Social History Tobacco [...] on filedocumented in this encounter Care Teams Hand Presser Relationship Specialty Start Date End Date Bijan Daigle MD [facility] [address] [place], [place] PCP - General 04/08/20 documented as of this encounter
--- OUTSIDE RECORDS SUMMARY | 2025-02-21 08:05 | XMS_ITS | Clinical Summary ---
Author Organization [facility] Address [address] [place] [address] Care Team Providers Care Safety Investigator Name Role Phone Unavailable Primary Care Provider [...]
--- OUTSIDE RECORDS SUMMARY | 2025-02-21 08:05 | XMS_ITS | Clinical Summary ---
Author Organization [facility] Address [address] [place] [address] Phone Care Team Providers Care Tooling Manager Name Role Phone Bijan Daigle MD Primary Care Provider [phone] Social History Tobacco Use Types Packs/Day Years [...] Health Screening 04/14/2024 COVID-19 Vaccine (1 - 2024-2 6 season) 2024 Influenza Vaccine (#1) 2024 RSV [...] patient's age to complete this topic [facility] [employer] PLAN MEDICAID - [place] Care Teams Tooling Manager Relationship Specialty Start Date End Date Bijan Daigle MD [address] [place] [address] [address] [facility] [place] [address] PCP - General Internal Medicine 06/29/24
[2025-02-21 08:06] LABS: MANUAL DIFF FLAG NO
[2025-02-21 08:40] LABS: Hematocrit 42.8 % (37.0-47.0); Hemoglobin 14.6 g/dl (12.0-16.0); Imm Gran Abs Auto 0.02 X10*3/uL (0.00-0.03); Imm Gran Pct Auto 0.3 % (0.0-0.4); Lymphocytes Absolute Auto 2.8 X10*3/uL (1.2-4.9); Mean Corpuscular HGB Conc 34.1 g/dl (31.0-35.0); Mean Corpuscular Hemoglobin 28.6 pg (27.0-33.0); Mean Corpuscular Volume 83.8 fL (80.0-98.0); NRBC Abs Auto 0.000 X10*3/uL (0.0-0.012); NRBC Pct Auto 0.0 /100WBC (0.0-0.2); Platelet Count 250 X10*3/uL (160-400); Red Blood Count 5.11 X10*6/uL (4.20-5.50); White Blood Count 6.2 X10*3/uL (4.8-10.8)
[2025-02-21 09:18] LABS: Alanine Aminotransferase 16 U/L (0-31); Albumin Level 4.3 g/dL (3.5-5.0); Alkaline Phosphatase 106 U/L (39-117); Anion Gap 10 (12-20); Aspartate Amino Transferase 23 U/L (5-31); Blood Urea Nitrogen 16 mg/dL (9-16); Calcium 9.5 mg/dL (8.4-10.2); Carbon Dioxide 31 mmol/L (22-29); Chloride 104 mmol/L (96-108); Cholesterol 181 mg/dL (<200); Estimated Glomerular Filt Rate > 60; HDL Cholesterol 40 mg/dL (>40); Potassium 3.9 mmol/L (3.3-5.1); Sodium 141 mmol/L (135-145); Total Protein 7.0 g/dL (6.5-8.0); Triglycerides 156 mg/dL (<150)
[2025-02-21 09:23] LABS: Free T4 (Free Thyroxine) 0.98 ng/dL (0.71-1.85); Thyroid Stimulating Hormone 1.47 uIU/mL (0.32-4.0)
[2025-02-21 09:38] LABS: Folate 11.3 ng/mL (> or = 4.0); Vitamin B12 406 pg/mL (200-900)
[2025-02-21 09:42] LABS: Microalbum/Creatinine Ratio Ur 9.4 ug/mg cr (<30)
== END 2025-02-21 07:57 | disposition home or self-care (01) ==
LOC: HO.LAB 07:56
PROVIDERS: PCP Internal Medicine; Visit Provider Internal Medicine
DX: E11.65 Type 2 diabetes mellitus with hyperglycemia (principal); E78.00 Pure hypercholesterolemia, unspecified; Z79.4 Long term (current) use of insulin
CPT/HCPCS: 36415; 80053; 80061; 82043; 82306; 82570; 82607; 82746; 83036; 84439; 84443; 85025

== ENCOUNTER 2025-03-09 15:18 | Outpatient (REF) | payer OTHER, SELFPAY ==
--- NOTE | ~2025-03-09 | US_ITS ---
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 COMPARISON: March 05, 2022. TECHNIQUE: Linear transducer grayscale and color Doppler examination with attention to the region of the thyroid. FINDINGS: SIZE: Measurements of the thyroid lobes and nodules are given in sagittal, anteroposterior and transverse dimensions respectively. Right Thyroid Lobe: 5.1 x 2.8 x 3.0 cm, volume 22 mL. Previous: 5.0 x 2.7 x 3.8 cm, volume: 27 cc. Parenchyma: The gland echotexture is heterogeneous. Thyroid vascularity is normal. Left Thyroid Lobe: 7.8 x 4.5 x 5.8 cm, volume 106 mL. Previous: 7.2 x 4.1 x 5.0 cm, volume: 73 cc. Parenchyma: The gland echotexture is heterogeneous. Thyroid vascularity is normal. Isthmus: 0.74 cm in maximum AP dimension. Previous: 0.6 cm. Estimated total number of nodules greater than or equal to 1 cm: 2. Shared Services And Outsourcing Manager nodules are described as follows: 1. Location: Mid to lower pole, right lobe.. Size: 3.5 x 2.6 x 3.0 cm, volume 14 mL. Previous: 3.5 x 2.6 x 3.1 cm, volume: 14 cc. Nodule characteristics: Composition: Solid (2). Echogenicity: Hypoechoic (2). Shape: Not taller than wide (0). Margins: Smooth (0). Echogenic Foci: None (0). ACR TI-RADS total points: 4 ACR TI-RADS category: 4 2. Location: Mid to lower pole left lobe. Size: 6.4 x 4.2 x 5.2 cm, volume 73 mL. Previous: 5.7 x 3.6 x 4.5 cm, volume: 48 cc. Nodule characteristics: Composition: Solid/almost completely solid (2). Echogenicity: Hypoechoic (2). Shape: Not taller than wide (0). Margins: Smooth (0). Echogenic Foci: None (0). ACR TI-RADS total points: 4 ACR TI-RADS category: 4 NODES: No lymphadenopathy is seen in the tissue surrounding the thyroid gland. US/US thyroid IMPRESSION: ACR TI RADS category 4 ACR TI-RADS RECOMMENDATION REFERENCE: Ultrasound-guided fine-needle aspiration, followup ultrasound, no further follow up. * TR1 (0 point) and TR2 (2 points): No FNA or follow up. * TR3 (3 points): FNA if more than or equal to 2.5 cm in maximum dimension, followup ultrasound in 1, 3 and 5 years if 1.5 to 2.4 cm in maximum dimension. * TR4 (4-6 points): FNA if more than or equal to 1.5 cm in maximum dimension, followup ultrasound in 1, 2, 3 and 5 years if 1 to 1.4 cm in maximum dimension. * TR5 (more than or equal to 7 points): FNA if more than or equal to 1 cm in maximum dimension, followup ultrasound every year for 5 years if 0.5 to 0.9 cm in maximum dimension. * TR3, TR4 or TR5 nodules that are below the size threshold for followup receive no follow up. Electronically signed by: Alan Gagnon MD 03/09/2025 03:43 PM [facility]
--- OUTSIDE RECORDS SUMMARY | 2025-03-09 20:12 | XMS_ITS | Clinical Summary ---
Author Organization [facility] Address [address] [place] [address] Phone Care Team Providers Care Indoor Landscaper/Gardener Name Role Phone Bijan Daigle MD Primary Care Provider [phone] Social History Tobacco Use Types Packs/Day Years [...] patient's age to complete this topic [facility] [employer] PLAN MEDICAID - [place] Care Teams Indoor Landscaper/Gardener Relationship Specialty Start Date End Date Bijan Daigle MD [address] [place] [address] [address] [facility] [place] [address] PCP - General Internal Medicine 06/29/24
--- OUTSIDE RECORDS SUMMARY | 2025-03-09 20:12 | XMS_ITS | Clinical Summary ---
Author Organization [email or web address] [facility] Address [address] [facility] [address] [place] [address] Care Team Providers Care Surveying Technician Name Role Phone Unavailable Primary Care [...] Relevant to Health Maintenance Insurance [facility] STAND ADULT
--- OUTSIDE RECORDS SUMMARY | 2025-03-09 20:12 | XMS_ITS | Clinical Summary ---
Author Organization [facility] Address [address] [place] [address] Care Team Providers Care Screen And Cyclone Repairer Name Role Phone Unavailable Primary Care Provider [...] of 2) 2010 COVID-19 Vaccine ( - 2024-2 6 season) 2024 RSV Vaccine 50 years and old er and Patients (1 - 1-dose 75+ series) 11/10/2035 Hepatitis B Vaccines Aged Out No long er eligible based on patient's age to complete this topic
== END 2025-03-09 15:19 | disposition home or self-care (01) ==
LOC: HO.HMGCX 15:18
PROVIDERS: PCP Internal Medicine; Visit Provider Internal Medicine
DX: E04.9 Nontoxic goiter, unspecified (principal)
CPT/HCPCS: 76536

== ENCOUNTER → 2025-03-09 15:18 | Outpatient (BNV) | payer OTHER, SELFPAY | PROVIDERS: PCP Internal Medicine; Visit Provider Radiology Diagnostic Radiology | DX: E04.9 Nontoxic goiter, unspecified (principal) | CPT/HCPCS: 76536 ==

== ENCOUNTER 2025-03-19 17:04 | Emergency (ER) | payer OTHER, SELFPAY ==
--- NOTE | ~2025-03-19 | XR_ITS ---
CLINICAL HISTORY: chest pain, URI. Pneumonia? Chest Radiographs, 2 views Comparison: 06/22/22 Findings: No cardiomegaly. Normal mediastinal contours. No pneumothorax. No opacity. No pleural effusion. No acute findings in the upper abdomen. No acute fracture. Impression: No acute findings. This document has been electronically signed by: Ana Maria Acevedo MD on 03/19/2025 18:12:32
--- NOTE | 2025-03-19 17:06 | ECG_ITS ---
Test Reason : CHEST TIGHTNESS Blood Pressure : */* mmHG Vent. Rate : 96 BPM Atrial Rate : 96 BPM P-R Int : 160 ms QRS Dur : 100 ms QT Int : 360 ms P-R-T Axes : 37 -46 83 degrees QTcB Int : 454 ms Normal sinus rhythm Incomplete right bundle branch block Left anterior fascicular block Left ventricular hypertrophy with repolarization abnormality ( R in aVL , Mitchell product , Romhilt-Guzman ) Cannot rule out Septal infarct , age undetermined Abnormal ECG When compared with ECG of 28-Jan-2025 21:31, T wave inversion now evident in Lateral leads Referred By: Huey Forte Electronically Signed By: SAMPSON MCCAIN MD
[2025-03-19 17:14] VITALS: BP 182/81; PULSE 100; RESP 22; TEMP 37.8; O2SAT 96; BMI 32.6
--- NOTE | 2025-03-19 17:20 | ED.GENADULT ---
HPI - General Adult General Chief complaint: Upper Respiratory Symptoms Stated complaint: pain all over, dry cough, chest tightness Time Seen by Provider: 03/19/25 20:10 Source: patient Mode of arrival: ambulatory Limitations: no limitations History of Present Illness ED Provider: Callum GARCIA HPI narrative: The patient is a 64-year-old female with a history of hyperlipidemia, diabetes, hypertension, diabetic neuropathy, obesity, anxiety, and chronic headaches, presenting with 2 days of generalized malaise and body aches with associated painful dry cough. She denies exposure to sick contacts. The patient reports associated subjective chills but denies objective fever. She has not yet taken any medication for her symptoms. Related Data Home Medications ?Medication ?Instructions ?Recorded ?Confirmed carbamide peroxide 6.5 % ear drops 5 drp otic (ears) BID 10/31/21 01/19/25 (Ear Drops (carbamide peroxide)) flash glucose scanning reader #1 ea 02/06/22 01/19/25 (FreeStyle Archana 2 [place]) pen needle, diabetic 31 gauge x 05/06/22 01/19/2506/11 (BD Ultra-Fine Mini Pen Needle) Previous Rx's ?Medication ?Instructions ?Recorded albuterol sulfate 90 mcg/actuation 2 puff inhalation Q4-6H PRN 03/18/20 aerosol inhaler (ProAir HFA) Dyspnea #8.5 grams fluticasone 250 mcg-salmeterol 50 1 inh inhalation BID #60 ea 03/18/20 mcg/dose blistr powdr for inhalation (Advair Diskus) blood sugar diagnostic (FreeStyle ##4 11/13/20 Lite Strips) aspirin 81 mg tablet,delayed 81 mg PO DAILY #90 tabs 04/30/21 release (Adult Aspirin Regimen) bupropion HCl 150 mg tablet,12 hr 150 mg PO BEDTIME #90 tabs 05/15/21 sustained-release (Wellbutrin SR) acetaminophen 500 mg tablet 1,000 mg (2 x 500 mg) PO QID PRN 03/14/22 (Tylenol Extra Strength) fever or pain #14 tabs naproxen 500 mg tablet 500 mg PO BID PRN pain #14 tabs 03/14/22 diazepam 2 mg tablet 2 - 4 mg (1 - 2 x 2 mg) PO BEDTIME 07/22/22 PRN sleep 30 days #60 tabs fluticasone propionate 50 1 spray intranasal DAILY #9.9 mL 09/14/22 mcg/actuation nasal spray,suspension (Flonase Allergy Relief) loratadine 10 mg tablet (Claritin) 10 mg PO DAILY #30 tabs 09/14/22 ondansetron 8 mg disintegrating 8 mg PO Q12H PRN nausea and 11/06/22 tablet vomiting #10 tabs cyclobenzaprine 5 mg tablet 5 mg PO Q8H #10 tabs 06/09/23 pioglitazone 30 mg tablet 30 mg PO DAILY #90 tabs 12/22/23 meclizine 25 mg tablet 25 mg PO TID PRN dizziness or 03/15/24 vertigo #20 tabs blood pressure monitor (Blood #1 ea 03/31/24 Pressure Kit) FreeStyle Archana 2 Sensor (flash #6 ea 04/19/24 glucose sensor) hydrochlorothiazide 25 mg tablet 25 mg PO QAM #30 tabs 08/12/24 diclofenac sodium 1 % topical gel 4 g topical QID #400 grams 08/29/24 (Arthritis Pain (diclofenac)) hydralazine 50 mg tablet 50 mg PO TID 90 days #270 tabs 11/17/24 glipizide 10 mg tablet, extended 5 mg (1/2 x 10 mg) PO BID #180 tabs 12/21/24 release 24 hr insulin glargine 100 unit/mL (3 30 unit (0.3 mL) subcut QPM #15 mL 12/21/24 mL) subcutaneous pen (Lantus Solostar U-100 Insulin) tirzepatide 10 mg/0.5 mL 10 mg (0.5 mL) subcut QWEEK #2 mL 12/21/24 subcutaneous pen injector (Irma) fluoxetine 10 mg tablet 10 mg PO DAILY #90 tabs 01/17/25 carvedilol 25 mg tablet 25 mg PO BID 30 days #60 tabs 02/06/25 rosuvastatin 10 mg tablet 10 mg PO DAILY #30 tabs 02/12/25 amlodipine 5 mg tablet 5 mg PO DAILY #90 tabs 02/24/25 acetaminophen 500 mg capsule 1,000 mg (2 x 500 mg) PO .q8 PRN 03/19/25 fever or pain #30 caps benzonatate 100 mg capsule 100 mg PO TID PRN cough #15 caps 03/19/25 ibuprofen 600 mg tablet 600 mg PO Q8H PRN fever or pain 03/19/25 #30 tabs oseltamivir 75 mg capsule (Tamiflu) 75 mg PO BID 5 days #10 caps 03/20/25 Allergies Allergy/AdvReac Type Severity Reaction Status Date / Time clonidine (CLONIDINE) Allergy Severe DIZZY,FAINT Verified 03/19/25 17:15 levetiracetam (LEVETIRACETAM) Allergy Severe DIFFICULTY Verified 03/19/25 17:15 BREATHING lisinopril (LISINOPRIL) Allergy Severe SWELLING, Verified 03/19/25 17:15 angioedema atenolol (ATENOLOL) Allergy Intermediate RASH Verified 03/19/25 17:15 dulaglutide (Trulicity) Allergy Unknown Unknown Verified 03/19/25 17:15 Review of Systems Review of Systems: Yes all other systems are reviewed and are negative PMFSH Past Medical History Medical History Anxiety due to invasive procedure Well woman exam UTI (urinary tract infection) Acute bacterial conjunctivitis URI, acute Upper respiratory tract infection SARS-CoV-2 positive Perineal abscess COVID-19 Microscopic hematuria Breast cancer screening by mammogram Trigeminal neuralgia of right side of face Hypertension Family history of colon cancer Colon cancer screening Lower abdominal pain Vulvovaginitis roseline albicans Cervical cancer screening Hypercholesterolemia SVT (supraventricular tachycardia) Obstructive sleep apnea Mixed incontinence urge and stress Thyroid nodule GERD (gastroesophageal reflux disease) Asthma COVID-19 Mild obstructive sleep apnea Cataracts, bilateral Migraine Seizure disorder Bipolar disorder Green's palsy Obesity (BMI 30-39.9) Type 2 diabetes mellitus with hyperglycemia Surgical History History of cone biopsy of uterine cervix History of tubal ligation History of cholecystectomy Family History Family History Father Diabetes FH: prostate cancer CVD (cardiovascular disease) Mother Diabetes Hypertension Stroke CVD (cardiovascular disease) Sister Breast cancer Sister Breast cancer Sister Hypertension Daughter In good health Brother No problems noted. Brother No problems noted. Brother No problems noted. Sister Cervical cancer Social History Social History Household Members: Other Household Members Other:: grandson Housing: House Do you presently have visiting nurse or other home services: Yes (tele visits) Alcohol intake: never Patient Tobacco Use Status: Never used Tobacco Tobacco use type: Cigarette e-Cigarette/Vaping Use: Never Used Second Hand Smoke Exposure: No Advance Directives: No Advance Directives Information Provided: Yes service: No Current occupational status: disabled Cognitive needs: No Hearing needs: No Vision needs: Yes Physical Exam ED Vital Signs: Vital Signs - 24 hr 03/19/25 17:14 03/19/25 19:41 Temperature 100.1 F Pulse Rate 100 97 Respiratory Rate 22 H 16 Blood Pressure 182/81 H 166/91 H Pulse Oximetry 96 95 Oxygen Delivery Method Room Air Room Air BMI result Body Mass Index 32.6 CONSTITUTIONAL: The patient appears non-toxic, well nourished and in no acute distress. Vital signs as documented. HEAD: Atraumatic, normocephalic. EYES: EOMs grossly intact, pupils equal, conjunctiva clear, no exudate. ENT: Nares patent, no discharge. Airway patent, no audible stridor, visible mucosa is pink and moist without noted lesions. Posterior pharynx demonstrates midline nonedematous uvula, no peritonsillar or tonsillar swelling, no tonsillar exudate. NECK: Trachea is midline, no obvious masses or gross abnormalities. CHEST: Symmetric movement, normal appearance. LUNGS: LS present and CTAB, no w/r/r. Non-labored work of breathing. CARDIAC: Regular Rhythm, S1/S2 appreciated, no murmurs, rubs or gallops. ABDOMEN: Abdomen soft and non-tender x4 quadrants, no palpable masses or organomegaly. : Deferred. EXTREMITIES: Normal tone, moves all extremities spontaneously without reported pain. No obvious acute injury or deformity noted. NEURO: Alert and oriented x3, CN II-XII appear grossly intact. Cerebellar Functioning grossly intact. No obvious sensory or motor deficits. Speech clear and appropriate. PSYCH: normal affect, appropriate eye contact, fluid speech, with appropriate response to questioning. No reported suicidality or homicidality. SKIN: Warm, dry, color appropriate, normal turgor. No rashes noted. Course Course Course Narrative: RME: 64 yold female presents to the ED for chest pain, coughing, bodycdahes, and chills, patient hyertensive. labs/EKG/Xray/swabs ordered. Medications Administered Discontinued Medications Generic Name Dose Route Start Last Admin Trade Name Sonia PRN Reason Stop Dose Admin Acetaminophen 975 mg 03/19/25 19:25 03/19/25 19:37 Acetaminophen 325 Mg Tablet PO 03/19/25 19:26 975 mg ONCE ONE Administration Ibuprofen 600 mg 03/19/25 20:35 03/19/25 21:00 Ibuprofen 600 Mg Tablet PO 03/19/25 20:36 600 mg ONCE ONE Administration Medical Decision Making Medical Decision Making [facility] Narrative: 8:12 PM 03/19/2025 (Bryan GARCIA): The patient is a 64-year-old female with a history of hyperlipidemia, diabetes, hypertension, diabetic neuropathy, obesity, anxiety, and chronic headaches, presenting with 2 days of generalized malaise and body aches with associated painful dry cough. She denies exposure to sick contacts. The patient reports associated subjective chills but denies objective fever. She has not yet taken any medication for her symptoms. On exam patient is well-appearing, no evidence of acute distress, posterior pharynx is unremarkable, lung sounds clear throughout. The patient is positive for influenza. Laboratory evaluation shows no leukocytosis, anemia, electrolyte abnormality, or DYLAN. The patient's negative for strep. The patient's EKG is nonischemic, troponin is negative x2. Chest x-ray shows no focal consolidation. Patient will be discharged with supportive care. Patient requesting cough suppressant, we will provide benzonatate. Admission/Observation Consideration of admission/observation: Escalation of care including admission/observation considered Lab Data [facility] Lab Attestation statement: I reviewed the patient's lab results. 03/19/25 17:24 03/19/25 17:24 Labs: Lab Results 03/19/25 03/19/25 Range/Units 17:24 19:28 WBC 7.6 (4.8-10.8) X10*3/uL RBC 4.89 (4.20-5.50) X10*6/uL Hgb 13.9 (12.0-16.0) g/dl Hct 41.0 (37.0-47.0) % MCV 83.8 (80.0-98.0) fL MCH 28.4 (27.0-33.0) pg MCHC 33.9 (31.0-35.0) g/dl RDW 12.0 (11.0-16.0) % Plt Count 223 (160-400) X10*3/uL MPV 10.9 (9.4-12.3) fL Immature Gran % (Auto) 0.3 (0.0-0.4) % Neut % (Auto) 73.8 H (45-73) % Lymph % (Auto) 14.5 L (20-40) % Spencer % (Auto) 9.0 (2-11) % Eos % (Auto) 2.1 (0-4) % Baso % (Auto) 0.3 (0-2) % Lymph # (Auto) 1.1 L (1.2-4.9) X10*3/uL Spencer # (Auto) 0.7 (0.1-1.2) X10*3/uL Eos # (Auto) 0.2 (0.0-0.4) X10*3/uL Baso # (Auto) 0.0 (0.0-0.2) X10*3/uL Abs Immat Gran (auto) 0.02 (0.00-0.03) X10*3/uL Absolute Neuts (auto) 5.6 (2.0-8.3) x10*3/uL Absolute Nucleated RBC 0.000 (0.0-0.012) X10*3/uL Nucleated RBC % (auto) 0.0 (0.0-0.2) /100WBC Sodium 140 (135-145) mmol/L Potassium 3.9 (3.3-5.1) mmol/L Chloride 106 (96-108) mmol/L Carbon Dioxide 27 (22-29) mmol/L Anion Gap 11 L (12-20) BUN 13 (9-16) mg/dL Creatinine 0.76 (0.5-1.4) mg/dL Estim Creat Clear Calc 79.4 Estimated GFR > 60 Random Glucose 133 H (60-115) mg/dL Calcium 9.1 (8.4-10.2) mg/dL Total Bilirubin 0.9 (0.0-1.0) mg/dL AST 22 (5-31) U/L ALT 27 (0-31) U/L Alkaline Phosphatase 102 (39-117) U/L Troponin I High Sens < 2.7 < 2.7 (<3.5-17.0) ng/L NT-Pro-B Natriuret Pep 94.2 (<300) pg/mL Total Protein 6.9 (6.5-8.0) g/dL Albumin 4.2 (3.5-5.0) g/dL Influenza Type A (PCR) POSITIVE A (Negative) Influenza Type B (PCR) NEGATIVE (Negative) RSV RNA Qual (PCR) NEGATIVE (Negative) SARS-CoV-2 RNA (RT-PCR) NEGATIVE (Negative) S. pyogenes GrpA OZZIE Negative (Negative) Independent Interpretation I performed an independent interpretation of an: EKG (EKG shows sinus rhythm with right bundle-branch block, no evidence of acute ischemia, no ST elevation, no ectopy. QTC 454. Compared to previous on 01/28/2025 there is T-wave inversion in the lateral leads, no reciprocal elevations.) Radiology Impression Discussion of test interpretation with radiology: I have reviewed the radiologist's reading. Radiologist Impression: Chest Radiographs, 2 views Comparison: 06/22/22 Findings: No cardiomegaly. Normal mediastinal contours. No pneumothorax. No opacity. No pleural effusion. No acute findings in the upper abdomen. No acute fracture. Impression: No acute findings. This document has been electronically signed by: Ana Maria Acevedo MD on 03/19/2025 18:12:32 External Record Review External record reviewed: Outpatient record and Prior outpatient labs Prescription Management I considered prescription management with: Pain Medication and Antiviral Discharge Plan Discharge Clinical Impression: Influenza Patient Disposition: Home, Self-Care Instructions: Influenza (ED) Additional Instructions: Thank you for choosing [facility]'s Emergency Department for your care today. Thankfully your exam and vital signs are reassuring. At this time there is no indication for admission to the hospital or continued ED observation, and it is safe to discharge you home. You tested positive for influenza A. This is likely the cause of your symptoms, this is a self-limited illness which should improve in the next 3-5 days. Please stay well hydrated and get plenty of rest. Please wash your hands frequently, cover your cough when able, and consider wearing a mask to avoid transmitting the virus to other individuals. You should take alternating (staggered) doses of ibuprofen 600mg and Tylenol 1000mg every 4 hours as needed for any additional pain. Please follow up with your primary care physician for re-evaluation, additional management of your symptoms, and continued preventative care. If you do not have a primary care physician, please call the [facility] at [phone] to establish a new primary care physician. While waiting to establish your new primary care physician, you can call our Walk[facility]in [facility] at [phone] for non-emergency needs. Please return to the emergency department if you develop a severe or sudden change in your symptoms, a fever over 100.4 that does not improve with Tylenol or Ibuprofen, recurrent vomiting, or any other new or worsening symptoms or concerns. Prescriptions: New ibuprofen 600 mg tablet 600 mg PO Q8H PRN (Reason: fever or pain) Qty: 30 0RF acetaminophen 500 mg capsule 1,000 mg PO .q8 PRN (Reason: fever or pain) Qty: 30 0RF benzonatate 100 mg capsule 100 mg PO TID PRN (Reason: cough) Qty: 15 0RF No Action albuterol sulfate [ProAir HFA] 90 mcg/actuation HFA aerosol inhaler 2 puff inhalation Q4-6H PRN (Reason: Dyspnea) Qty: 8.5 0RF fluticasone propion-salmeterol [Advair Diskus] 250-50 mcg/dose blister with device 1 inh inhalation BID Qty: 60 5RF (DME) FreeStyle Lite Strips Strip See Rx Instructions .ROUTE .MEDSUPPLY Qty: 4 3RF Rx Instructions: As directed check the BS 4 x a day aspirin [Adult Aspirin Regimen] 81 mg tablet,delayed release (DR/EC) 81 mg PO DAILY Qty: 90 3RF bupropion HCl [Wellbutrin SR] 150 mg tablet sustained-release 12 hr 150 mg PO BEDTIME Qty: 90 2RF (DME) blood pressure monitor [Blood Pressure Kit] Kit See Rx Instructions .ROUTE .MEDSUPPLY Qty: 1 0RF Rx Instructions: As directed diclofenac sodium [Arthritis Pain (diclofenac)] 1 % gel 4 g topical QID Qty: 400 10RF Rx Instructions: apply to single knee, ankle, foot; for foot includes sole/toes/top of foot hydralazine 50 mg tablet 50 mg PO TID 90 Days Qty: 270 1RF glipizide 10 mg tablet extended release 24hr 5 mg PO BID Qty: 180 3RF fluoxetine 10 mg tablet 10 mg PO DAILY Qty: 90 0RF rosuvastatin 10 mg tablet 10 mg PO DAILY Qty: 30 5RF amlodipine 5 mg tablet 5 mg PO DAILY Qty: 90 0RF oseltamivir [Tamiflu] 75 mg capsule 75 mg PO BID 5 Days Qty: 10 0RF naproxen 500 mg tablet 500 mg PO BID PRN (Reason: pain) Qty: 14 0RF acetaminophen [Tylenol Extra Strength] 500 mg tablet 1,000 mg PO QID PRN (Reason: fever or pain) Qty: 14 0RF hydrochlorothiazide 25 mg tablet 25 mg PO QAM Qty: 30 0RF Ear Drops (carbamide peroxide) 6.5 % drops 5 drp otic (ears) BID ondansetron 8 mg tablet,disintegrating 8 mg PO Q12H PRN (Reason: nausea and vomiting) Qty: 10 0RF fluticasone propionate [Flonase Allergy Relief] 50 mcg/actuation spray,suspension 1 spray intranasal DAILY Qty: 9.9 1RF Rx Instructions: administer into each nostril loratadine [Claritin] 10 mg tablet 10 mg PO DAILY Qty: 30 0RF cyclobenzaprine 5 mg tablet 5 mg PO Q8H Qty: 10 0RF (DME) FreeStyle Archana 2 [place] Misc See Rx Instructions .ROUTE DIRECTED Qty: 1 Rx Instructions: As directed (DME) pen needle, diabetic [BD Ultra-Fine Mini Pen Needle] 31 gauge x 3/16 needle See Rx Instructions .Route Rx Instructions: As directed, Inject 6 x a day with Insulin diazepam 2 mg tablet 2 - 4 mg PO BEDTIME PRN (Reason: sleep) 30 Days Qty: 60 2RF (DME) FreeStyle Archana 2 Sensor Kit See Rx Instructions .ROUTE Q2W Qty: 6 3RF Rx Instructions: As directed insulin glargine [Lantus Solostar U-100 Insulin] 100 unit/mL (3 mL) insulin pen 30 unit subcut QPM Qty: 15 12RF Mounjaro 10 mg/0.5 mL pen injector 10 mg subcut QWEEK Qty: 2 3RF carvedilol 25 mg tablet 25 mg PO BID 30 Days Qty: 60 3RF pioglitazone 30 mg tablet 30 mg PO DAILY Qty: 90 3RF meclizine 25 mg tablet 25 mg PO TID PRN (Reason: dizziness or vertigo) Qty: 20 0RF Referrals: Pilo,Bijan Tirado MD [Primary Care Provider, Internal Medicine] Clinical Impression: Influenza Discharge Date/Time: 03/19/25 21:02 Print Language: Tunisian
[2025-03-19 17:37] LABS: MANUAL DIFF FLAG NO
[2025-03-19 17:40] LABS: Hematocrit 41.0 % (37.0-47.0); Hemoglobin 13.9 g/dl (12.0-16.0); Imm Gran Abs Auto 0.02 X10*3/uL (0.00-0.03); Imm Gran Pct Auto 0.3 % (0.0-0.4); Lymphocytes Absolute Auto 1.1 X10*3/uL (1.2-4.9); Mean Corpuscular HGB Conc 33.9 g/dl (31.0-35.0); Mean Corpuscular Hemoglobin 28.4 pg (27.0-33.0); Mean Corpuscular Volume 83.8 fL (80.0-98.0); NRBC Abs Auto 0.000 X10*3/uL (0.0-0.012); NRBC Pct Auto 0.0 /100WBC (0.0-0.2); Platelet Count 223 X10*3/uL (160-400); Red Blood Count 4.89 X10*6/uL (4.20-5.50); White Blood Count 7.6 X10*3/uL (4.8-10.8)
[2025-03-19 17:47] LABS: Strep A Nucleic Acid Negative (Negative)
[2025-03-19 17:56] LABS: Alanine Aminotransferase 27 U/L (0-31); Albumin Level 4.2 g/dL (3.5-5.0); Alkaline Phosphatase 102 U/L (39-117); Anion Gap 11 (12-20); Aspartate Amino Transferase 22 U/L (5-31); Blood Urea Nitrogen 13 mg/dL (9-16); Calcium 9.1 mg/dL (8.4-10.2); Carbon Dioxide 27 mmol/L (22-29); Chloride 106 mmol/L (96-108); Creatinine Clr Calc Pharmacy 79.4; Estimated Glomerular Filt Rate > 60; Potassium 3.9 mmol/L (3.3-5.1); Sodium 140 mmol/L (135-145); Total Protein 6.9 g/dL (6.5-8.0)
[2025-03-19 18:05] LABS: NT Pro B Type Natriuretic Pept 94.2 pg/mL (<300); Troponin-I High Sensitivity < 2.7 ng/L (<3.5-17.0)
[2025-03-19 18:18] LABS: Resp Syncy Virus RNA Qual PCR NEGATIVE (Negative); SARS COV2 PCR INHOUSE NEGATIVE (Negative)
--- OUTSIDE RECORDS SUMMARY | 2025-03-19 19:03 | XMS_ITS | Clinical Summary ---
Author Organization [facility] Address [address] [place] [address] Phone Care Team Providers Care Warhead Maintenance Specialist Name Role Phone Bijan Daigle MD Primary Care Provider [phone] Social History Tobacco Use Types Packs/Day Years [...] patient's age to complete this topic Insurance [facility] [email or web address] PLAN MEDICAID - [place] Care Teams Warhead Maintenance Specialist Relationship Specialty Start Date End Date Bijan Daigle MD [address] [place] [address] [address] [facility] [place] [address] PCP - General Internal Medicine 06/29/24
--- OUTSIDE RECORDS SUMMARY | 2025-03-19 19:03 | XMS_ITS | Encounter Summary ---
Author Organization [facility] Address [address] [place] [address] Phone Care Team Providers Care Condenser Operator Name Role Phone Bijan Daigle MD Primary Care Provider [phone] Encounter Details Date Type Department Care Team (Late st Contact Info) Description 08/25/2022 Documentation Only [facility] [address] [place] [address] Margarita Penny Social History Tobacco [...] on filedocumented in this encounter Care Teams Condenser Operator Relationship Specialty Start Date End Date Bijan Daigle MD [facility] [address] [place], [place] PCP - General 04/08/20 documented as of this encounter
--- OUTSIDE RECORDS SUMMARY | 2025-03-19 19:03 | XMS_ITS | Clinical Summary ---
Author Organization [facility] Address [address] [place] [address] [address] [place] [address] Phone Care Team Providers Care Refrigeration Tech Name Role Phone Bijan Daigle MD Primary Care Provider [phone] Allergies Active Allergy Reactions Criticality Noted Date [...] patient's age to complete this topic Insurance [facility] Medicaid [facility] Medicaid Care Teams Refrigeration Tech Relationship Specialty Start Date End Date Bijan Daigle MD [address] [place] PCP - General 04/08/20
--- OUTSIDE RECORDS SUMMARY | 2025-03-19 19:03 | XMS_ITS | Clinical Summary ---
Author Organization [employer] [facility] Address [address] [place] [address] Care Team Providers Care Sand Screener Operator Name Role Phone Unavailable Primary Care [...] Most Recently Relevant to Health Maintenance Insurance [facility] STAND ADULT
--- OUTSIDE RECORDS SUMMARY | 2025-03-19 19:03 | XMS_ITS | Clinical Summary ---
Author Organization [facility] Address [address] [place] [id number] Care Team Providers Care Aquarist Name Role Phone Unavailable Primary Care Provider [...]
[2025-03-19 19:41] VITALS: BP 166/91; PULSE 97; RESP 16; O2SAT 95
[2025-03-19 19:52] LABS: Troponin-I High Sensitivity < 2.7 ng/L (<3.5-17.0)
== END 2025-03-19 21:02 | disposition home or self-care (01) ==
PROVIDERS: Physician Assistant; Emergency Provider Emergency Medicine Emergency Medical Services; PCP Internal Medicine
DX: J10.1 Influenza due to other identified influenza virus with other respiratory manifestations (principal); M79.10 Myalgia, unspecified site; R05.9 Cough, unspecified; R51.9 Headache, unspecified; R07.89 Other chest pain; I45.10 Unspecified right bundle-branch block; R06.02 Shortness of breath; Z79.899 Other long term (current) drug therapy; Z03.818 Encounter for observation for suspected exposure to other biological agents ruled out
CPT/HCPCS: 36415; 71046; 80053; 83880; 84484; 85025; 87637; 87651; 93005; 99283

== ENCOUNTER → 2025-03-19 17:06 | Outpatient (BNV) | payer OTHER, SELFPAY | PROVIDERS: Emergency Provider Emergency Medicine Emergency Medical Services; PCP Internal Medicine; Visit Provider Internal Medicine Cardiovascular Disease | DX: I45.2 Bifascicular block (principal); I42.2 Other hypertrophic cardiomyopathy | CPT/HCPCS: 93010 ==

== ENCOUNTER → 2025-03-19 17:18 | Outpatient (BNV) | payer OTHER, SELFPAY | PROVIDERS: PCP Internal Medicine; Visit Provider Radiology Diagnostic Radiology | DX: J22 Unspecified acute lower respiratory infection (principal) | CPT/HCPCS: 71046 ==